=== PATIENT | male | born 1965 | race Two or more races ===

== ENCOUNTER 2018-12-14 09:36 | Inpatient (IN) | payer OTHER ==
[~2018-12-14] VITALS: Ht 167.6 cm; Wt 62.7 kg
[2018-12-14] MEDS ORDERED: FUROSEMIDE40 MG ORAL (09:59)
[2018-12-14] MEDS ORDERED: CARVEDILOL6.25 MG ORAL (09:59)
[2018-12-14] MEDS ORDERED: Isovue-300 100ml vial INJ PRN (10:00)
--- NOTE | 2018-12-14 10:16 | NUR ---
ED Nurse Note: Pt came in from home with spouse due to lower abdominal pain x 1 week with constipation, last bowel movement was 10 days ago. Abdomen felt soft and distended, hypoactive on auscultation. Pain 5/10 [place]. AOx4, VSS at this time. Will cont to monitor.
--- NOTE | 2018-12-14 10:22 | NUR ---
ED Nurse Note: Blood and urine collected and sent to lab.
[2018-12-14 10:30] LABS: BASOPHILS % (AUTO) 0.9 % (0.0-2.0); EOSINOPHILS % (AUTO) 0.9 % (0.0-3.0); HEMOGLOBIN 10.5 G/DL (14.2-18.0); LYMPHOCYTES % (AUTO) 13.5 % (20.0-45.0); MEAN CORPUSCULAR VOLUME 89 FL (80-99); MONOCYTES % (AUTO) 8.9 % (1.0-10.0); NEUTROPHILS % (AUTO) 75.8 % (45.0-75.0); PLATELET COUNT 134 K/UL (150-450); RED BLOOD COUNT 3.83 M/UL (4.70-6.10); RED CELL DISTRIBUTION WIDTH 16.3 % (11.6-14.8); WHITE BLOOD COUNT 4.2 K/UL (4.8-10.8)
[2018-12-14 10:31] LABS: APPEARANCE,URINE CLOUDY; BILIRUBIN, URINE NEGATIVE (NEGATIVE); GLUCOSE, URINE (UA) 1+ (NEGATIVE); KETONES,URINE NEGATIVE (NEGATIVE); LEUKOCYTE ESTERASE ,URINE 3+ (NEGATIVE); NITRITE,URINE NEGATIVE (NEGATIVE); PH,URINE 5 (4.5-8.0); PROTEIN,URINE 4+ (NEGATIVE); UROBILINOGEN,URINE NORMAL MG/DL (0.0-1.0)
[2018-12-14 10:32] VITALS: BP 136/88
[2018-12-14 10:38] LABS: ANION GAP 11 mmol/L (5-15); BLOOD UREA NITROGEN 89 mg/dL (7-18); CALCIUM 8.4 MG/DL (8.5-10.1); CARBON DIOXIDE 20 MMOL/L (21-32); CHLORIDE 105 MMOL/L (98-107); COLOR,URINE YELLOW; CREATININE 5.1 MG/DL (0.55-1.30); POTASSIUM 5.1 MMOL/L (3.5-5.1); SODIUM 136 MMOL/L (136-145)
[2018-12-14 10:42] LABS: INR 1.3 (0.9-1.1)
[2018-12-14 10:50] LABS: ALANINE AMINOTRANSFERASE 39 U/L (12-78); ALBUMIN 3.4 G/DL (3.4-5.0); ALBUMIN/GLOBULIN RATIO 0.8 (1.0-2.7); ALKALINE PHOSPHATASE 303 U/L (46-116); ASPARTATE AMINO TRANSFERASE 30 U/L (15-37); CREATINE KINASE 356 U/L (26-308)
--- NOTE | 2018-12-14 11:56 | Diagnostic Imaging Report ---
Indication: Shortness of breath Technique: One view of the chest Comparison: none Findings: The heart is enlarged. There is mild bilateral costophrenic angle blunting, indicative of the pleural fluid demonstrated on recent abdomen pelvis CT. The lungs are clear. Impression: Cardiomegaly Small bilateral pleural effusions.
--- NOTE | 2018-12-14 11:57 | Diagnostic Imaging Report ---
Indication: Abdominal pain, constipation Technique: Spiral acquisitions obtained through the abdomen and pelvis. No oral contrast utilized, per emergency room physician request No IV contrast utilized, . Renal insufficiency.. Multiplanar reconstructions were generated. Total dose length product 616.55 mGycm. CTDIvol(s) 11.9 mGy. Dose reduction achieved using automated exposure control Comparison: None Findings: Lack of enteric contrast limits assessment of the GI tract. The appendix is not definitely identified, but no findings to suggest acute appendicitis are evident. No evidence of diverticulosis or diverticulitis. No small bowel distention. There is a moderate amount of ascites fluid present. No free intraperitoneal gas is demonstrated. Lack of IV contrast limits assessment of the solid organs. The liver is enlarged. No gross focal abnormality. There is equivocal slight surface nodularity. The gallbladder contains gallstones. There is equivocal mild gallbladder wall thickening. No biliary ductal dilatation. The pancreas is unremarkable. The spleen is borderline enlarged, measuring 13 cm long axis dimension. The adrenals are grossly unremarkable. The right kidney demonstrates a nephroureteral stent in good position. There is no right hydronephrosis. Calculi are seen in the lower pole of the right kidney measuring up to 8 mm long axis dimension. No left renal or ureteral calculi are demonstrated. No left hydronephrosis or hydroureter. The bladder is equivocally mildly thick walled, although this is probably and artifact of under distention. No pelvic mass or adenopathy. There are prominent/borderline enlarged retroperitoneal lymph nodes, the largest measuring up to 2 cm long axis dimension. Ill-defined opacities are seen in the splenic hilum and lesser sac, possibly representing varices, although in the lesser sac findings could also represent prominent lymph nodes. There is generalized congestion of the mesenteric fat. There is also edema of the subcutaneous fat. There are bilateral moderate-sized pleural effusions. The lung bases demonstrate some posterior dependent and compressive atelectatic changes. The heart is mildly enlarged. The bones are unremarkable. Impression: Limited assessment of the GI tract, due to lack of enteric contrast administration Ascites fluid. More generalized anasarca as well, with bilateral moderate pleural effusions, and edema of the subcutaneous and mesenteric fat Hepatomegaly. Equivocal minimal hepatic surface nodularity, could indicate early cirrhotic change. Ultrasound may be useful to confirm if clinically indicated Cholelithiasis. Borderline gallbladder wall thickening, suspect related to with the process that is causing the ascites and anasarca, but the possibility of acute cholecystitis should also be considered. Consider ultrasound and/or hepatobiliary nuclear scanning if there is high clinical suspicion Borderline splenomegaly. Prominent soft tissue opacities in the splenic hilum and lesser sac, could indicate varices, all of the lesser sac findings could represent prominent nodes. Equivocal mild bladder wall thickening, probably an artifact of under distention but cystitis possible. Right nephroureteral stent. Apparently functioning well as there is no hydronephrosis Nonobstructive right lower pole intrarenal calculi Nonspecific prominent retroperitoneal nodes Mild cardiomegaly The CT scanner at [facility] is accredited by the [employer] and the scans are performed using protocols designed to limit radiation exposure to as low as reasonably achievable to attain images of sufficient resolution adequate for diagnostic evaluation.
[2018-12-14] MEDS ORDERED: Meropenem 1 GM in NS 110 ML IV SCH (12:15)
--- NOTE | 2018-12-14 12:20 | Emergency Room Report ---
History of Present Illness General Chief Complaint: Abdominal Pain Source: Patient Present Illness HPI This patient has a history of right sided congestive heart failure. There is also a history of renal failure. The patient and the family state that they are confused, and are not sure if the patient actually has renal failure. About a month and a half ago the patient underwent a ureteral stent at [facility] on the right side. He is being followed by a urologist, Dr. Galo Dolan. He has had intermittent lower body and lower extremity edema. He is intermittently on diuretics. He presents today for recurrence of his edema that includes his abdomen, scrotum and legs. He denies cough or shortness of breath. He denies fever or chills. He denies nausea or vomiting. He has no other complaints. Allergies: Coded Allergies: No Known Allergies (Unverified , 12/14/18) Patient History Past Medical History: see triage record, HTN, OK, CAD, CHF, renal disease Social History: Denies: smoking, alcohol use, drug use Reviewed Nursing Documentation: PMH: Agreed; PSxH: Agreed Nursing Documentation-PMH Hx Cardiac Problems: Yes - chf Hx Hypertension: Yes Review of Systems All Other Systems: negative except mentioned in HPI Physical Exam Vital Signs Date Time Temp Pulse Resp B/P (MAP) Pulse Ox O2 Delivery O2 Flow Rate FiO2 12/14/18 09:52 97.9 70 16 140/83 99 Room Air Sp02 EP Interpretation: reviewed, normal General Appearance: no apparent distress, alert, GCS 15, non-toxic Head: normocephalic, atraumatic Eyes: bilateral eye normal inspection, bilateral eye PERRL ENT: hearing grossly normal, normal pharynx, no angioedema, normal voice Neck: full range of motion, supple/symm/no masses Respiratory: chest non-tender, lungs clear, normal breath sounds, no respiratory distress, no retraction, no accessory muscle use, speaking full sentences Cardiovascular #1: regular rate, rhythm, edema - Anasarca (greatest on abdomen , scrotum and legs) Gastrointestinal: normal bowel sounds, non tender, soft, no guarding, no rebound, distended Rectal: deferred Musculoskeletal: back normal, normal range of motion, non-tender Neurologic: alert, oriented x3, responsive, motor strength/tone normal, sensory intact, speech normal Psychiatric: judgement/insight normal, memory normal, mood/affect normal, no suicidal/homicidal ideation Skin: normal color, no rash, warm/dry, well hydrated Medical Decision Making Diagnostic Impression: Primary Impression: CHF (congestive heart failure) Additional Impressions: Pyelonephritis ARF (acute renal failure) Pancytopenia ER Course This patient presents with renal failure, right-sided heart failure with anasarca. He has a known history of this. The patient has renal failure. I am unsure of the patient's baseline creatinine. The patient has not yet on dialysis. The patient remained stable in the emergency department. He is also found to have pyelonephritis. He was given broad-spectrum antibiotics. I did not start diuretics in this patient as he had no respiratory symptoms and overall was well and nontoxic. Given the patient's infection and renal failure , I felt that diuretics could exacerbate this patient's condition. I felt that there was more risk versus benefit in giving a diuretic. This patient will be admitted for pyelonephritis, fluid overload in the setting of congestive heart failure and acute renal failure. I anticipate this patient will need dialysis. He was admitted for further evaluation and treatment. Laboratory Tests Test 12/14/18 10:20 12/14/18 23:55 12/15/18 05:22 White Blood Count 4.2 K/UL (4.8-10.8) L 3.6 K/UL (4.8-10.8) L Red Blood Count 3.83 M/UL (4.70-6.10) L 3.30 M/UL (4.70-6.10) L Hemoglobin 10.5 G/DL (14.2-18.0) L 9.2 G/DL (14.2-18.0) L Hematocrit 34.0 % (42.0-52.0) L 29.0 % (42.0-52.0) L Mean Corpuscular Volume 89 FL (80-99) 88 FL (80-99) Mean Corpuscular Hemoglobin 27.4 PG (27.0-31.0) 27.9 PG (27.0-31.0) Mean Corpuscular Hemoglobin Concent 30.8 G/DL (32.0-36.0) L 31.7 G/DL (32.0-36.0) L Red Cell Distribution Width 16.3 % (11.6-14.8) H 16.1 % (11.6-14.8) H Platelet Count 134 K/UL (150-450) L 115 K/UL (150-450) L Mean Platelet Volume 10.0 FL (6.5-10.1) 9.8 FL (6.5-10.1) Neutrophils (%) (Auto) 75.8 % (45.0-75.0) H 69.0 % (45.0-75.0) Lymphocytes (%) (Auto) 13.5 % (20.0-45.0) L 18.5 % (20.0-45.0) L Monocytes (%) (Auto) 8.9 % (1.0-10.0) 9.7 % (1.0-10.0) Eosinophils (%) (Auto) 0.9 % (0.0-3.0) 1.8 % (0.0-3.0) Basophils (%) (Auto) 0.9 % (0.0-2.0) 1.0 % (0.0-2.0) Prothrombin Time 13.3 SEC (9.30-11.50) H Prothrombin Time INR 1.3 (0.9-1.1) H PTT 27 SEC (23-33) Urine Color Yellow Urine Appearance Cloudy Urine pH 5 (4.5-8.0) Urine Specific Odell 1.020 (1.005-1.035) Urine Protein 4+ (NEGATIVE) H Urine Glucose (UA) 1+ (NEGATIVE) H Urine Ketones Negative (NEGATIVE) Urine Blood 5+ (NEGATIVE) H Urine Nitrite Negative (NEGATIVE) Urine Bilirubin Negative (NEGATIVE) Urine Urobilinogen Normal MG/DL (0.0-1.0) Urine Leukocyte Esterase 3+ (NEGATIVE) H Urine RBC Tntc /HPF (0 - 0) H Urine WBC Tntc /HPF (0 - 0) H Urine Squamous Epithelial Cells Occasional /LPF Urine Amorphous Sediment Many /LPF (NONE) H Urine Bacteria Moderate /HPF (NONE) H Sodium Level 136 MMOL/L (136-145) 136 MMOL/L (136-145) Potassium Level 5.1 MMOL/L (3.5-5.1) 4.5 MMOL/L (3.5-5.1) Chloride Level 105 MMOL/L (98-107) 106 MMOL/L (98-107) Carbon Dioxide Level 20 MMOL/L (21-32) L 17 MMOL/L (21-32) L Anion Gap 11 mmol/L (5-15) 13 mmol/L (5-15) Blood Urea Nitrogen 89 mg/dL (7-18) H 89 mg/dL (7-18) H Creatinine 5.1 MG/DL (0.55-1.30) H 5.2 MG/DL (0.55-1.30) H 5.2 MG/DL (0.55-1.30) H Estimate Glomerular Filtration Rate 11.9 mL/min (>60) 11.6 mL/min (>60) 11.6 mL/min (>60) Glucose Level 131 MG/DL (74-106) H 87 MG/DL (74-106) Calcium Level 8.4 MG/DL (8.5-10.1) L 7.9 MG/DL (8.5-10.1) L Total Bilirubin 1.0 MG/DL (0.2-1.0) 0.9 MG/DL (0.2-1.0) Aspartate Amino Transferase (AST) 30 U/L (15-37) 26 U/L (15-37) Alanine Aminotransferase (ALT) 39 U/L (12-78) 32 U/L (12-78) Alkaline Phosphatase 303 U/L (46-116) H 269 U/L (46-116) H Total Creatine Kinase 356 U/L (26-308) H 322 U/L (26-308) H Troponin I 0.034 ng/mL (0.000-0.056) Total Protein 7.5 G/DL (6.4-8.2) 6.7 G/DL (6.4-8.2) Albumin 3.4 G/DL (3.4-5.0) 2.9 G/DL (3.4-5.0) L Globulin 4.1 g/dL 3.8 g/dL Albumin/Globulin Ratio 0.8 (1.0-2.7) L 0.8 (1.0-2.7) L Lipase 158 U/L (73-393) HIV (1&2) Antibody Rapid Negative (NEGATIVE) Hemoglobin A1c 7.0 % (4.3-6.0) H Uric Acid 9.3 MG/DL (2.6-7.2) H Phosphorus Level 5.7 MG/DL (2.5-4.9) H Magnesium Level 1.8 MG/DL (1.8-2.4) Ferritin 218 NG/ML (8-388) Gamma Glutamyl Transpeptidase 175 U/L (5-85) H C-Reactive Protein, Quantitative < 0.4 mg/dL (0.00-0.90) Pro-B-Type Natriuretic Peptide > 07306 pg/mL (0-125) H Triglycerides Level 72 MG/DL (30-150) Cholesterol Level 125 MG/DL (< 200) LDL Cholesterol 79 mg/dL (<100) HDL Cholesterol 37 MG/DL (40-60) L Cholesterol/HDL Ratio 3.4 (3.3-4.4) Vitamin B12 Level 646 PG/ML (193-986) Folate 12.5 NG/ML (8.6-58.9) Thyroid Stimulating Hormone (TSH) 5.314 uiU/mL (0.358-3.740) Hepatitis B Surface Antigen Pending Hepatitis B Surface Antibody, Quant Pending Hepatitis C Antibody Pending EKG Diagnostic Results Rate: normal Rhythm: NSR ST Segments: no acute changes Rhythm Strip Diag. Results EP Interpretation: yes Rate: 60's Rhythm: NSR, no PVC's, no ectopy Chest X-Ray Diagnostic Results Chest X-Ray Diagnostic Results : Chest X-Ray Ordered: Yes # of Views/Limited/Complete: 1 View Indication: Other EP Interpretation: Yes Interpretation: other - Impression: Cardiomegaly Impression: Other - See above Electronically Signed by: Belen Velasquez DO CT/MRI/US Diagnostic Results CT/MRI/US Diagnostic Results : Imaging Test Ordered: CT abd/pelvis Impression Ascites fluid. More generalized anasarca as well, with bilateral moderate pleural effusions, and edema of the subcutaneous and mesenteric fat Hepatomegaly. Equivocal minimal hepatic surface nodularity, could indicate early cirrhotic change. Ultrasound may be useful to confirm if clinically indicated Cholelithiasis. Borderline gallbladder wall thickening, suspect related to with the process that is causing the ascites and anasarca, but the possibility of acute cholecystitis should also be considered. Consider ultrasound and/or hepatobiliary nuclear scanning if there is high clinical suspicion Borderline splenomegaly. Prominent soft tissue opacities in the splenic hilum and lesser sac, could indicate varices, all of the lesser sac findings could represent prominent nodes. Equivocal mild bladder wall thickening, probably an artifact of under distention but cystitis possible. Right nephroureteral stent. Apparently functioning well as there is no hydronephrosis Nonobstructive right lower pole intrarenal calculi Nonspecific prominent retroperitoneal nodes Mild cardiomegaly Last Vital Signs Date Time Temp Pulse Resp B/P (MAP) Pulse Ox O2 Delivery O2 Flow Rate FiO2 12/14/18 10:32 65 20 136/88 98 Room Air 12/14/18 09:52 97.9 Disposition: ADMITTED INPATIENT Condition: Serious Referrals: Saraih Shaffer MD (PCP) Belen Velasquez DO Dec 14, 2018 12:20
[2018-12-14 13:10] VITALS: BP 143/86
--- NOTE | 2018-12-14 14:07 | NUR ---
ED Nurse Note: Pt ambulated to bathroom without any difficulty/ with steady gait, stated that pain has subsided.
--- NOTE | 2018-12-14 14:15 | NUR ---
ED Nurse Note: RN on 4 is not ready to take report at this time. Will try to call again.
--- NOTE | 2018-12-14 14:28 | NUR ---
REPORT GIVEN TO BRENDA LANDRY PATIENT IS TO BE TRANSFERD TO ROOM 412-1
[2018-12-14 15:30] VITALS: BP 167/97
--- NOTE | 2018-12-14 15:32 | NUR ---
NURSE NOTES: Received pt from RN CHANDLER WHITE in ER. pt is alert and orient x4. pt is in RA, No SOB or acute respiratory distress noted. pt has intact iv access RAC 20g SL. skin is intact. pt has swollen bilateral lower extremities. abdomen is very large. Dr Shaffer is aware about admission and ordered to consult with Dr MCMILLAN, Dr MCMILLAN visited pt and he is aware about HTN and other lab results and bilateral lower extremities swollen and large abdomen. stated he will do all orders. pt's sister is on bed side. all needs attended, bed is locked and is in the lowest position, call light within easy reach. will continue to monitor.
--- NOTE | 2018-12-14 15:41 | Consultation ---
Consult Note Consult Note asked to eval for renal failure This patient has a history of right sided congestive heart failure. There is also a history of renal failure. The patient and the family state that they are confused, and are not sure if the patient actually has renal failure. About a month and a half ago the patient underwent a ureteral stent at [facility] on the right side. He is being followed by a urologist, Dr. Galo Dolan. He has had intermittent lower body and lower extremity edema. He is intermittently on diuretics. He presents today for recurrence of his edema that includes his abdomen, scrotum and legs. He denies cough or shortness of breath. He denies fever or chills. He denies nausea or vomiting. He has no other complaints. Allergies: Coded Allergies: No Known Allergies (Unverified , 12/14/18) interviewed, was told by other Doctors that need dialysis examined data reviewed . Assessment/Plan Advanced Renal failure with Proteinuria CKD known to the patient h/o HTN h/o Cardiac disease s/p stent ? DM renal diet BP control Avoid Nephrotoxics 2D echo eval LV function Kidney RUSSEL Urine studies , Eos, 24h CrCl most likely need dialysis Micah Pitt MD Dec 14, 2018 15:41
[2018-12-14] MEDS ORDERED: HydrALAZINE 25mg tab ORAL PRN (15:45)
[2018-12-14] MEDS: Aspirin Baby 81mg ORAL SCH (16:52)
[2018-12-14 17:00] VITALS: BP 159/88
[2018-12-14] MEDS: Docusate 100mg cap ORAL SCH (18:00)
--- NOTE | 2018-12-14 18:19 | Cardiology Report ---
APPROVED REPORT EXAM: Two-dimensional and M-mode echocardiogram with Doppler and color Doppler. INDICATION Congestive Heart Failure M-Mode DIMENSIONS IVSd1.1 (0.7-1.1cm)Left Atrium (MM)3.1 (1.6-4.0cm) LVDd5.4 (3.5-5.6cm)Aortic Root3.5 (2.0-3.7cm) PWd0.7 (0.7-1.1cm)Aortic Cusp Exc.1.8 (1.5-2.0cm) IVSs1.0 cm LVDs4.7 (2.5-4.0cm) PWs0.8 cm Global left ventricular hypokinesis with falttenign of cody VS suggestive of RV pressuere overload Mild left ventricular enlargement . Left ventricular ejection fraction estimated to be 25-30%. No evidence of left ventricular hypertrophy. Trivial pericardial effusion . Pleural effusion present . Mild bi-atrial enlargement . Right ventricular chamber sizes is within upper normal limits . Focal aortic valve sclerosis with adequate cusp excursion. Mildly thickened mitral valve leaflets with normal excursion. Mild mitral annulus and aortic root calcification. Pulmonic valve not well visualized. IVC at 2.1 cm without physiologic collapse suggestive of increased RA pressure. A color flow and spectral Doppler study was performed and revealed: Mild aortic insufficiency . Mitral inflow velocities indicates possible pseudo normalization pattern implying moderately elevated left atrial pressure (Grade II ). Mild mitral regurgitation. Moderate tricuspid regurgitation. Tricuspid systolic velocities suggests peak right ventricular systolic pressure of 66mmHg,consistent with severe pulmonary hypertension . Mild pulmonic regurgitation present .
--- NOTE | 2018-12-14 19:47 | NUR ---
HAND-OFF: Report given to RN RADHA. Reported to F/U for 24hr Urine.
--- NOTE | 2018-12-14 19:50 | Consultation ---
History of Present Illness General Chief Complaint: Abdominal Pain Present Illness Allergies: Coded Allergies: No Known Allergies (Unverified , 12/14/18) Medication History Scheduled Carvedilol* (Carvedilol*), 6.25 MG ORAL EVERY 12 HOURS, (Reported) Furosemide* (Lasix*), 40 MG ORAL TWICE A DAY, (Reported) Patient History Healthcare decision maker Resuscitation status Full Code Advanced Directive on File Physical Exam Last 24 Hour Vital Signs Date Time Temp Pulse Resp B/P (MAP) Pulse Ox O2 Delivery O2 Flow Rate FiO2 12/14/18 17:00 159/88 (111) 12/14/18 16:53 167/97 12/14/18 16:53 167/97 12/14/18 15:30 96.0 17 167/97 (120) 98 12/14/18 15:30 Room Air 12/14/18 14:24 98.2 76 20 134/80 98 Room Air 12/14/18 13:10 97.9 64 20 143/86 99 Room Air 12/14/18 10:32 65 20 136/88 98 Room Air 12/14/18 10:11 70 16 Room Air 12/14/18 09:52 97.9 70 16 140/83 99 Room Air Laboratory Tests Test 12/14/18 10:20 White Blood Count 4.2 K/UL (4.8-10.8) L Red Blood Count 3.83 M/UL (4.70-6.10) L Hemoglobin 10.5 G/DL (14.2-18.0) L Hematocrit 34.0 % (42.0-52.0) L Mean Corpuscular Volume 89 FL (80-99) Mean Corpuscular Hemoglobin 27.4 PG (27.0-31.0) Mean Corpuscular Hemoglobin Concent 30.8 G/DL (32.0-36.0) L Red Cell Distribution Width 16.3 % (11.6-14.8) H Platelet Count 134 K/UL (150-450) L Mean Platelet Volume 10.0 FL (6.5-10.1) Neutrophils (%) (Auto) 75.8 % (45.0-75.0) H Lymphocytes (%) (Auto) 13.5 % (20.0-45.0) L Monocytes (%) (Auto) 8.9 % (1.0-10.0) Eosinophils (%) (Auto) 0.9 % (0.0-3.0) Basophils (%) (Auto) 0.9 % (0.0-2.0) Prothrombin Time 13.3 SEC (9.30-11.50) H Prothromb Time International Ratio 1.3 (0.9-1.1) H Activated Partial Thromboplast Time 27 SEC (23-33) Urine Color Yellow Urine Appearance Cloudy Urine pH 5 (4.5-8.0) Urine Specific [place] 1.020 (1.005-1.035) Urine Protein 4+ (NEGATIVE) H Urine Glucose (UA) 1+ (NEGATIVE) H Urine Ketones Negative (NEGATIVE) Urine Blood 5+ (NEGATIVE) H Urine Nitrite Negative (NEGATIVE) Urine Bilirubin Negative (NEGATIVE) Urine Urobilinogen Normal MG/DL (0.0-1.0) Urine Leukocyte Esterase 3+ (NEGATIVE) H Urine RBC Tntc /HPF (0 - 0) H Urine WBC Tntc /HPF (0 - 0) H Urine Squamous Epithelial Cells Occasional /LPF Urine Amorphous Sediment Many /LPF (NONE) H Urine Bacteria Moderate /HPF (NONE) H Sodium Level 136 MMOL/L (136-145) Potassium Level 5.1 MMOL/L (3.5-5.1) Chloride Level 105 MMOL/L (98-107) Carbon Dioxide Level 20 MMOL/L (21-32) L Anion Gap 11 mmol/L (5-15) Blood Urea Nitrogen 89 mg/dL (7-18) H Creatinine 5.1 MG/DL (0.55-1.30) H Estimat Glomerular Filtration Rate 11.9 mL/min (>60) Glucose Level 131 MG/DL (74-106) H Calcium Level 8.4 MG/DL (8.5-10.1) L Total Bilirubin 1.0 MG/DL (0.2-1.0) Aspartate Amino Transf (AST/SGOT) 30 U/L (15-37) Alanine Aminotransferase (ALT/SGPT) 39 U/L (12-78) Alkaline Phosphatase 303 U/L (46-116) H Total Creatine Kinase 356 U/L (26-308) H Troponin I 0.034 ng/mL (0.000-0.056) Total Protein 7.5 G/DL (6.4-8.2) Albumin 3.4 G/DL (3.4-5.0) Globulin 4.1 g/dL Albumin/Globulin Ratio 0.8 (1.0-2.7) L Lipase 158 U/L (73-393) Height (Feet): 5 Height (Inches): 6.00 Weight (Pounds): 153 Medications Current Medications Medications (Trade) Dose Ordered Sig/Félix Route PRN Reason Start Time Stop Time Status Last Admin Dose Admin Acetaminophen (Tylenol) 650 mg Q4H PRN ORAL Mild Pain/Temp > 100.5 12/14/18 15:45 01/13/19 15:44 Aspirin (ASA) 162 mg DAILY ORAL 12/14/18 15:45 01/13/19 15:44 12/14/18 16:52 Docusate Sodium (Colace) 100 mg TWICE A DAY ORAL 12/14/18 18:00 01/13/19 17:59 Heparin Sodium (Porcine) (Heparin 5000 units/ml) 5,000 units EVERY 12 HOURS SUBQ 12/14/18 21:00 01/13/19 20:59 Hydralazine HCl (Apresoline) 25 mg Q4H PRN ORAL bp over 160 syst 12/14/18 15:45 01/13/19 15:44 12/14/18 16:53 Iopamidol (Isovue-300 100ml) 100 ml NOW PRN INJ Radiology Procedure 12/14/18 10:00 Isosorbide Dinitrate (Isordil) 10 mg Q8HR ORAL 12/14/18 15:45 01/13/19 15:44 12/14/18 16:53 Meropenem 1 gm/ Sodium Chloride 110 ml @ 220 mls/hr Q8H IV 12/14/18 12:15 12/15/18 12:14 12/14/18 12:23 Pantoprazole (Protonix) 40 mg EVERY 12 HOURS ORAL 12/14/18 21:00 01/13/19 20:59 Sodium Chloride 1,000 ml @ 50 mls/hr Q20H IV 12/14/18 15:45 01/13/19 15:44 12/14/18 16:47 Tamsulosin HCl (Flomax) 0.4 mg BEDTIME ORAL 12/14/18 21:00 01/13/19 20:59 Assessment/Plan Assessment: Hematology Consultation REQ MD: Sarahi Shaffer Chief Complaint: Abdominal Pain RFC: Pancytopenia, coagulopathy DOS: 12/14/18 HPI 53 y old male with a history of right sided congestive heart failure. There is also a history of renal failure. The patient and the family state that they are confused, and are not sure if the patient actually has renal failure. About a month and a half ago the patient underwent a ureteral stent at [facility] on the right side. He is being followed by a urologist, Dr. Galo Dolan. He has had intermittent lower body and lower extremity edema. He is intermittently on diuretics. He presents today for recurrence of his edema that includes his abdomen, scrotum and legs. He denies cough or shortness of breath. He denies fever or chills. He denies nausea or vomiting. He has no other complaints. Coded Allergies: No Known Allergies (Unverified , 12/14/18) Nursing Documentation-PMH Hx Cardiac Problems: Yes - chf Hx Hypertension: Yes ROS: nonvebral PE: Vitals: reviewed General Appearance: NAD, nonverbal HEENT: normocephalic, atraumatic Neck: non-tender, normal alignment Respiratory/Chest: nromal breath sounds bilaterally Cardiovascular/Chest: normal peripheral pulses, normal rate Abdomen: normal bowel sounds, soft, nontender Extremities: normal range of motion . Current Medications Medications (Trade) Dose Ordered Sig/Félix Route PRN Reason Start Time Stop Time Status Last Admin Dose Admin Acetaminophen (Tylenol) 650 mg Q4H PRN ORAL Mild Pain/Temp > 100.5 12/14/18 15:45 01/13/19 15:44 Aspirin (ASA) 162 mg DAILY ORAL 12/14/18 15:45 01/13/19 15:44 12/14/18 16:52 Docusate Sodium (Colace) 100 mg TWICE A DAY ORAL 12/14/18 18:00 01/13/19 17:59 Heparin Sodium (Porcine) (Heparin 5000 units/ml) 5,000 units EVERY 12 HOURS SUBQ 12/14/18 21:00 01/13/19 20:59 Hydralazine HCl (Apresoline) 25 mg Q4H PRN ORAL bp over 160 syst 12/14/18 15:45 01/13/19 15:44 12/14/18 16:53 Iopamidol (Isovue-300 100ml) 100 ml NOW PRN INJ Radiology Procedure 12/14/18 10:00 Isosorbide Dinitrate (Isordil) 10 mg Q8HR ORAL 12/14/18 15:45 01/13/19 15:44 12/14/18 16:53 Meropenem 1 gm/ Sodium Chloride 110 ml @ 220 mls/hr Q8H IV 12/14/18 12:15 12/15/18 12:14 12/14/18 12:23 Pantoprazole (Protonix) 40 mg EVERY 12 HOURS ORAL 12/14/18 21:00 01/13/19 20:59 Sodium Chloride 1,000 ml @ 50 mls/hr Q20H IV 12/14/18 15:45 01/13/19 15:44 12/14/18 16:47 Tamsulosin HCl (Flomax) 0.4 mg BEDTIME ORAL 12/14/18 21:00 01/13/19 20:59 Active Scripts Medications Dose Route/Sig Max Daily Dose Days Date Category Carvedilol* (Carvedilol) 6.25 Mg Tablet 6.25 Mg ORAL EVERY 12 HOURS 12/14/18 Reported Lasix* (Furosemide) 40 Mg Tablet 40 Mg ORAL TWICE A DAY 12/14/18 Reported Laboratory Tests Test 12/14/18 10:20 White Blood Count 4.2 K/UL (4.8-10.8) L Red Blood Count 3.83 M/UL (4.70-6.10) L Hemoglobin 10.5 G/DL (14.2-18.0) L Hematocrit 34.0 % (42.0-52.0) L Mean Corpuscular Volume 89 FL (80-99) Mean Corpuscular Hemoglobin 27.4 PG (27.0-31.0) Mean Corpuscular Hemoglobin Concent 30.8 G/DL (32.0-36.0) L Red Cell Distribution Width 16.3 % (11.6-14.8) H Platelet Count 134 K/UL (150-450) L Mean Platelet Volume 10.0 FL (6.5-10.1) Neutrophils (%) (Auto) 75.8 % (45.0-75.0) H Lymphocytes (%) (Auto) 13.5 % (20.0-45.0) L Monocytes (%) (Auto) 8.9 % (1.0-10.0) Eosinophils (%) (Auto) 0.9 % (0.0-3.0) Basophils (%) (Auto) 0.9 % (0.0-2.0) Prothrombin Time 13.3 SEC (9.30-11.50) H Prothromb Time International Ratio 1.3 (0.9-1.1) H Activated Partial Thromboplast Time 27 SEC (23-33) Urine Color Yellow Urine Appearance Cloudy Urine pH 5 (4.5-8.0) Urine Specific [place] 1.020 (1.005-1.035) Urine Protein 4+ (NEGATIVE) H Urine Glucose (UA) 1+ (NEGATIVE) H Urine Ketones Negative (NEGATIVE) Urine Blood 5+ (NEGATIVE) H Urine Nitrite Negative (NEGATIVE) Urine Bilirubin Negative (NEGATIVE) Urine Urobilinogen Normal MG/DL (0.0-1.0) Urine Leukocyte Esterase 3+ (NEGATIVE) H Urine RBC Tntc /HPF (0 - 0) H Urine WBC Tntc /HPF (0 - 0) H Urine Squamous Epithelial Cells Occasional /LPF Urine Amorphous Sediment Many /LPF (NONE) H Urine Bacteria Moderate /HPF (NONE) H Sodium Level 136 MMOL/L (136-145) Potassium Level 5.1 MMOL/L (3.5-5.1) Chloride Level 105 MMOL/L (98-107) Carbon Dioxide Level 20 MMOL/L (21-32) L Anion Gap 11 mmol/L (5-15) Blood Urea Nitrogen 89 mg/dL (7-18) H Creatinine 5.1 MG/DL (0.55-1.30) H Estimat Glomerular Filtration Rate 11.9 mL/min (>60) Glucose Level 131 MG/DL (74-106) H Calcium Level 8.4 MG/DL (8.5-10.1) L Total Bilirubin 1.0 MG/DL (0.2-1.0) Aspartate Amino Transf (AST/SGOT) 30 U/L (15-37) Alanine Aminotransferase (ALT/SGPT) 39 U/L (12-78) Alkaline Phosphatase 303 U/L (46-116) H Total Creatine Kinase 356 U/L (26-308) H Troponin I 0.034 ng/mL (0.000-0.056) Total Protein 7.5 G/DL (6.4-8.2) Albumin 3.4 G/DL (3.4-5.0) Globulin 4.1 g/dL Albumin/Globulin Ratio 0.8 (1.0-2.7) L Lipase 158 U/L (73-393) Assessment/Plan # Pancytopenia -- multiple etiologies could be related to underlying liver disease, medication-induced, infection versus viral syndrome -> on imaging of the ct a/p, does appear has a history of SPLENOMEGALY AND CIRRHOSIS (irregular liver sufrace can explain pancytopenia), Prominent soft tissue opacities in the splenic hilum and lesser sac, could indicate varices, all of the lesser sac findings could represent prominent nodes. Consider gi evaluation and treatment --> peripheral smear has been ordered and does not show significant abnormalities does not appear to have significant abnormalities --> Medications have been reviewed --> Continue to monitor for improvement, trend cbc --> Hep panel and HIV have been ordered --> consider other causes, infections that could contribute --> reverse isolation if ANC is <2000 --> Give neupogen if ANC <1000 --> Transfuse if hgb <7, with 1 unit prbc --> consider bone marrow biopsy if no other causes are found # Coagulation defect, multifactorial usually related to poor PO intake versus medications, versus hepatitis v cirrhosis --> administer Vitamin K if patient is bleeding or FFP if the INR is >10 --> hold off on ffp unless active procedure/bleeding, first begin with vit K 10 --> mixing study as needed # Advanced Renal failure with Proteinuria --> as per renal eval and recs # CKD known to the patient --> pre renal may need hd # h/o HTN --> sbp goal <140 # h/o Cardiac disease s/p stent # ? DM The timing of this note does not necessarily reflect the time of the patient was seen. Greatly appreciate consultation! Enrrique Solano MD Dec 14, 2018 19:50
[2018-12-14 20:00] VITALS: BP 127/62
--- NOTE | 2018-12-14 20:41 | Cardiology Progress Note ---
Assessment/Plan Assessment/Plan The patient is seen and examined, full consult note will be dictated soon. Objective Last 24 Hour Vital Signs Date Time Temp Pulse Resp B/P (MAP) Pulse Ox O2 Delivery O2 Flow Rate FiO2 12/14/18 17:00 159/88 (111) 12/14/18 16:53 167/97 12/14/18 16:53 167/97 12/14/18 15:30 96.0 17 167/97 (120) 98 12/14/18 15:30 Room Air 12/14/18 14:24 98.2 76 20 134/80 98 Room Air 12/14/18 13:10 97.9 64 20 143/86 99 Room Air 12/14/18 10:32 65 20 136/88 98 Room Air 12/14/18 10:11 70 16 Room Air 12/14/18 09:52 97.9 70 16 140/83 99 Room Air Laboratory Tests Test 12/14/18 10:20 White Blood Count 4.2 K/UL (4.8-10.8) L Red Blood Count 3.83 M/UL (4.70-6.10) L Hemoglobin 10.5 G/DL (14.2-18.0) L Hematocrit 34.0 % (42.0-52.0) L Mean Corpuscular Volume 89 FL (80-99) Mean Corpuscular Hemoglobin 27.4 PG (27.0-31.0) Mean Corpuscular Hemoglobin Concent 30.8 G/DL (32.0-36.0) L Red Cell Distribution Width 16.3 % (11.6-14.8) H Platelet Count 134 K/UL (150-450) L Mean Platelet Volume 10.0 FL (6.5-10.1) Neutrophils (%) (Auto) 75.8 % (45.0-75.0) H Lymphocytes (%) (Auto) 13.5 % (20.0-45.0) L Monocytes (%) (Auto) 8.9 % (1.0-10.0) Eosinophils (%) (Auto) 0.9 % (0.0-3.0) Basophils (%) (Auto) 0.9 % (0.0-2.0) Prothrombin Time 13.3 SEC (9.30-11.50) H Prothromb Time International Ratio 1.3 (0.9-1.1) H Activated Partial Thromboplast Time 27 SEC (23-33) Urine Color Yellow Urine Appearance Cloudy Urine pH 5 (4.5-8.0) Urine Specific [place] 1.020 (1.005-1.035) Urine Protein 4+ (NEGATIVE) H Urine Glucose (UA) 1+ (NEGATIVE) H Urine Ketones Negative (NEGATIVE) Urine Blood 5+ (NEGATIVE) H Urine Nitrite Negative (NEGATIVE) Urine Bilirubin Negative (NEGATIVE) Urine Urobilinogen Normal MG/DL (0.0-1.0) Urine Leukocyte Esterase 3+ (NEGATIVE) H Urine RBC Tntc /HPF (0 - 0) H Urine WBC Tntc /HPF (0 - 0) H Urine Squamous Epithelial Cells Occasional /LPF Urine Amorphous Sediment Many /LPF (NONE) H Urine Bacteria Moderate /HPF (NONE) H Sodium Level 136 MMOL/L (136-145) Potassium Level 5.1 MMOL/L (3.5-5.1) Chloride Level 105 MMOL/L (98-107) Carbon Dioxide Level 20 MMOL/L (21-32) L Anion Gap 11 mmol/L (5-15) Blood Urea Nitrogen 89 mg/dL (7-18) H Creatinine 5.1 MG/DL (0.55-1.30) H Estimat Glomerular Filtration Rate 11.9 mL/min (>60) Glucose Level 131 MG/DL (74-106) H Calcium Level 8.4 MG/DL (8.5-10.1) L Total Bilirubin 1.0 MG/DL (0.2-1.0) Aspartate Amino Transf (AST/SGOT) 30 U/L (15-37) Alanine Aminotransferase (ALT/SGPT) 39 U/L (12-78) Alkaline Phosphatase 303 U/L (46-116) H Total Creatine Kinase 356 U/L (26-308) H Troponin I 0.034 ng/mL (0.000-0.056) Total Protein 7.5 G/DL (6.4-8.2) Albumin 3.4 G/DL (3.4-5.0) Globulin 4.1 g/dL Albumin/Globulin Ratio 0.8 (1.0-2.7) L Lipase 158 U/L (73-393) HIV (1&2) Antibody Rapid Pending Mynor Rockwell MD Dec 14, 2018:41
[2018-12-14] MEDS: Tamsulosin 0.4mg cap ORAL SCH (21:13)
[2018-12-14] MEDS: Heparin 5000 units/ml inj SUBQ SCH (21:15)
[2018-12-14] MEDS: HydrALAZINE 25mg tab ORAL SCH (21:28)
[2018-12-14] MEDS: Imdur 30mg tab ORAL SCH (21:28)
--- NOTE | 2018-12-14 22:45 | Consultation ---
DATE OF CONSULTATION: 12/14/2018 UROLOGY CONSULTATION ATTENDING/CONSULTING PHYSICIAN: Sarahi Shaffer M.D. CHIEF COMPLAINT/HISTORY OF PRESENT ILLNESS: I was asked by Dr. Shaffer to evaluate 53-year-old gentleman regarding history of right ureteral stent in the setting of a previous stone. Briefly the patient has a history of apparent kidney stones. He was seen at [facility] by Dr. Florez for the same. Apparently a double-J stent was placed at that time. The patient followed up with his primary doctor, Dr. Shaffer who referred him to see a urologist regarding the same. Apparently, the patient saw Dr. Dolan last week and is scheduled for followup with him regarding the same. Dr. Dolan is the urologist on staff here. PAST MEDICAL HISTORY: 1. CHF. 2. Acute on chronic renal insufficiency. 3. Kidney stones. 4. Hypertension. 5. Coagulation defect. 6. Pancytopenia. 7. Coronary artery disease. PAST SURGICAL HISTORY: Cystoscopy with right double-J stent placement. MEDICATIONS: Please see chart for current medications and administration details. ALLERGIES: No known drug allergies. SOCIAL HISTORY: Unremarkable for tobacco, alcohol, or drug use. FAMILY HISTORY: Noncontributory. REVIEW OF SYSTEMS: A 14-system review of systems was essentially unremarkable outside of what is described above. PHYSICAL EXAMINATION: GENERAL: The patient is a middle-aged gentleman, awake, alert, and oriented x4, pleasant, no obvious distress. HEENT: NC/AT. EOMI. Oropharynx clear. NECK: Supple. CHEST: Within normal limits. ABDOMEN: Soft, flat, nontender, nondistended. EXTREMITIES: Warm and well perfused. No cyanosis, clubbing, or edema. BACK: No CVA tenderness to percussion. NEUROLOGIC: Nonfocal. LABORATORY AND DIAGNOSTIC DATA: White blood cell count 4.2, hematocrit 34, platelets 134. PT 13.3, INR 1.3, PTT 27. Sodium 136, potassium 5.1, chloride 105, bicarb 20, BUN 89, creatinine 5.1, glucose 131, calcium 8.4. LFTs within normal limits, alkaline phosphatase 303. Urinalysis specific gravity 1.020, pH 5.0. Dip test notable for 4+ protein, 1+ glucose, 5+ occult blood, 3+ leukocyte esterase. Microanalysis is too numerous to count white and red blood cells per high-power field, and moderate bacteria seen. DIAGNOSTIC IMAGING: CT scan of the abdomen and pelvis reveals generalized anasarca, ascites fluid, hepatomegaly cholelithiasis, splenomegaly, mild bladder wall thickening likely secondary to underdistention, a right nephroureteral stent is in place. It is apparently functioning as there is no hydronephrosis. There are nonobstructing lower pole right-sided renal calculi. There is mild cardiomegaly. ASSESSMENT AND PLAN: In summary, the patient is a 53-year-old gentleman with history of multiple medical issues including renal failure, congestive heart failure, and hypertension. He also has a history of kidney stones and one month ago had a right ureteral stent placed at [facility] for the same by Dr. Florez. The patient was then referred to see Dr. Dolan as a urologist and has plan regarding the same and has established care with him. He presents to the hospital with acute on chronic renal insufficiency and congestive heart failure exacerbation. Physical exam reveals an ill-appearing gentleman with no genitourinary abnormalities. Laboratory data is notable for renal failure. Diagnostic imaging reveals a stent in place. I discussed these findings today with the patient at bedside. His nephroureteral stent is in good position and there is no hydronephrosis or obstructing stone etc. The patient is in the hospital for unrelated issues including congestive heart failure exacerbation and acute on chronic renal insufficiency which does not appear to be secondary to obstructive uropathy. His stent should remain in place and once he is feeling better, he can be discharged and follow up with Dr. Dolan in the office regarding removal of the stent and treatment of the stones. Thank you for allowing me to participate in the care of this unfortunate gentleman. Please do not hesitate to contact me for any questions that you may further have regarding his care. I will see him with you as needed. Roderick Weiss M.D. DR: Calixto JOB#: [id number] CC:
[2018-12-15] VITALS: BP 139/61
[2018-12-15 00:15] LABS: CREATININE 5.2 MG/DL (0.55-1.30)
--- NOTE | 2018-12-15 03:03 | NUR ---
NURSE NOTES: 24 hour urine collection started 1900. Patient awake, AOx4, family at the bedside, IV access asymptomatic. Fall and safety precautions taken.
[2018-12-15 04:00] VITALS: BP 137/75
[2018-12-15] MEDS: HydrALAZINE 25mg tab ORAL SCH ×4 (05:46→18:00)
[2018-12-15 06:02] LABS: EOSINOPHILS % (AUTO) 1.8 % (0.0-3.0); HEMOGLOBIN 9.2 G/DL (14.2-18.0); LYMPHOCYTES % (AUTO) 18.5 % (20.0-45.0); MEAN CORPUSCULAR VOLUME 88 FL (80-99); MONOCYTES % (AUTO) 9.7 % (1.0-10.0); PLATELET COUNT 115 K/UL (150-450); RED CELL DISTRIBUTION WIDTH 16.1 % (11.6-14.8); WHITE BLOOD COUNT 3.6 K/UL (4.8-10.8)
[2018-12-15 06:38] LABS: ALANINE AMINOTRANSFERASE 32 U/L (12-78); ALBUMIN 2.9 G/DL (3.4-5.0); ALBUMIN/GLOBULIN RATIO 0.8 (1.0-2.7); ALKALINE PHOSPHATASE 269 U/L (46-116); ANION GAP 13 mmol/L (5-15); ASPARTATE AMINO TRANSFERASE 26 U/L (15-37); BILIRUBIN,TOTAL 0.9 MG/DL (0.2-1.0); BLOOD UREA NITROGEN 89 mg/dL (7-18); CALCIUM 7.9 MG/DL (8.5-10.1); CARBON DIOXIDE 17 MMOL/L (21-32); CHLORIDE 106 MMOL/L (98-107); CHOLESTEROL 125 MG/DL (< 200); CREATINE KINASE 322 U/L (26-308); CREATININE 5.2 MG/DL (0.55-1.30); FERRITIN 218 NG/ML (8-388); GAMMA GLUTAMYL TRANSPEPTIDASE 175 U/L (5-85); HDL CHOLESTEROL 37 MG/DL (40-60); PHOSPHORUS 5.7 MG/DL (2.5-4.9); POTASSIUM 4.5 MMOL/L (3.5-5.1); SODIUM 136 MMOL/L (136-145); TRIGLYCERIDES 72 MG/DL (30-150)
--- NOTE | 2018-12-15 07:30 | NUR ---
NURSE NOTES: Received pt from GR[facility]. Pt is alert and orient x4. pt is in RA, NO SOB or acute respiratory distress noted. pt has intact iv access LFA 20G SL. 24HR Urine is collecting. pt's sister is on bed side. all needs attended, bed is locked and is in the lowest position, call light within easy reach. will continue to monitor.
--- NOTE | 2018-12-15 07:42 | NUR ---
HAND-OFF: Report given to GRIS Schultz.
[2018-12-15 08:00] VITALS: BP 144/86
--- NOTE | 2018-12-15 08:59 | NUR ---
QUALITY IMPROVEMENT COORDINATORBUNDLE PERSON 53 Y/O MALE FROM HOME CAME TO [facility] [place] [facility] CC:ABDOMINAL PAIN SI:ACUTE RENAL FAILURE . CHF VS: BP 143/86, P 70, T 97.9, RR 16, SpO2 99 WBC 3.6, RBC 3.30, Hgb 9.2, Hct 29.0 BUN 89, CR 5.2, URINE: Protein 4+, Blood 5+, Bacteria- MODERATE CXR IMPRESSION: CARDIOMEGALY ABDOMINAL CT IMPRESSION: HEPATOMEGALY, CHOLELITHIASIS, BORDERLINE SPLENOMEGALY IS:ZOFRAN 4mg IVP MEROPENEM 1gm 110ml IV ISORDIL 10mg NS x1L IV APRESOLINE 25mg COREG 3.125mg ADMITTED TO MED/SURG DCP: RETURN HOME
[2018-12-15] MEDS ORDERED: Calcitriol 0.5mcg Cap ORAL SCH (09:00)
[2018-12-15] MEDS: Heparin 5000 units/ml inj SUBQ SCH ×3 (09:00→20:22)
[2018-12-15] MEDS: Carvedilol 6.25mg Tab ORAL SCH ×2 (09:09→20:21)
[2018-12-15] MEDS: Allopurinol 100mg Tab ORAL SCH (09:09)
[2018-12-15] MEDS: Imdur 30mg tab ORAL SCH (09:09)
[2018-12-15] MEDS: Docusate 100mg cap ORAL SCH ×2 (09:09→18:00)
[2018-12-15] MEDS: Aspirin Baby 81mg ORAL SCH (09:09)
[2018-12-15] MEDS: Calcitriol 0.25mcg Cap ORAL SCH (09:53)
[2018-12-15] MEDS ORDERED: Vitamin D 50,000 units cap ORAL SCH (10:00)
--- NOTE | 2018-12-15 10:40 | NUR ---
NURSE NOTES: PLT 115 Dr MCMILLAN ordered to give heparin, carried out. will continue to monitor.
--- NOTE | 2018-12-15 11:12 | Nephrology Progress Note ---
Assessment/Plan Problem List: (1) CHF (congestive heart failure) (2) ARF (acute renal failure) (3) Anemia in chronic kidney disease (CKD) Assessment Advanced Renal failure with Proteinuria CKD known to the patient h/o HTN h/o Cardiac disease s/p stent ? DM high A1c Plan after and pre load reduction management discussed the need for Dialysis 1000 cc fluid restriction Renal diet- Phos binders BP check kidney RUSSEL pending 24 h urine being collected per orders Global left ventricular hypokinesis with falttenign of cody VS suggestive of RV pressuere overload Mild left ventricular enlargement . Left ventricular ejection fraction estimated to be 25-30%. Subjective ROS Limited/Unobtainable: No Constitutional: Reports: malaise Objective Objective Last 24 Hour Vital Signs Date Time Temp Pulse Resp B/P (MAP) Pulse Ox O2 Delivery O2 Flow Rate FiO2 12/15/18 09:09 76 144/86 12/15/18 09:09 144/86 12/15/18 09:00 Room Air 12/15/18 08:00 97.7 76 16 144/86 (105) 100 12/15/18 05:46 137/75 12/15/18 04:00 98.0 72 20 137/75 (95) 97 12/15/18 00:00 129/61 12/15/18 00:00 98.4 75 20 139/61 (87) 98 12/14/18 21:28 159/88 12/14/18 21:28 159/88 12/14/18 21:13 76 159/88 12/14/18 21:00 Room Air 12/14/18 20:00 97.5 73 20 127/62 (83) 98 12/14/18 17:00 159/88 (111) 12/14/18 16:53 167/97 12/14/18 16:53 167/97 12/14/18 15:30 96.0 17 167/97 (120) 98 12/14/18 15:30 Room Air 12/14/18 14:24 98.2 76 20 134/80 98 Room Air 12/14/18 13:10 97.9 64 20 143/86 99 Room Air Intake and Output 12/14/18 12/15/18 19:00 07:00 Intake Total 450 ml 350 ml Output Total 300 ml Balance 450 ml 50 ml Intake Oral 240 ml 350 ml IV Total 210 ml Output Urine Total 300 ml # Voids 1 # Bowel Movements 1 Laboratory Tests 12/14/18 23:55: Creatinine 5.2H, Estimat Glomerular Filtration Rate 11.6 12/15/18 05:22: Creatinine 5.2H, Estimat Glomerular Filtration Rate 11.6, White Blood Count 3.6L , Red Blood Count 3.30L, Hemoglobin 9.2L, Hematocrit 29.0L, Mean Corpuscular Volume 88, Mean Corpuscular Hemoglobin 27.9, Mean Corpuscular Hemoglobin Concent 31.7L, Red Cell Distribution Width 16.1H, Platelet Count 115L, Mean Platelet Volume 9.8, Neutrophils (%) (Auto) 69.0, Lymphocytes (%) (Auto) 18.5L, Monocytes (%) (Auto) 9.7, Eosinophils (%) (Auto) 1.8, Basophils (%) (Auto) 1.0, Sodium Level 136, Potassium Level 4.5, Chloride Level 106, Carbon Dioxide Level 17L, Anion Gap 13, Blood Urea Nitrogen 89H, Glucose Level 87, Hemoglobin A1c 7.0H, Uric Acid 9.3H, Calcium Level 7.9L, Phosphorus Level 5.7H, Magnesium Level 1.8, Ferritin 218, Total Bilirubin 0.9, Gamma Glutamyl Transpeptidase 175H , Aspartate Amino Transf (AST/SGOT) 26, Alanine Aminotransferase (ALT/SGPT) 32, Alkaline Phosphatase 269H, Total Creatine Kinase 322H, C-Reactive Protein, Quantitative < 0.4, Pro-B-Type Natriuretic Peptide > 53221N, Total Protein 6.7, Albumin 2.9L, Globulin 3.8, Albumin/Globulin Ratio 0.8L, Triglycerides Level 72 , Cholesterol Level 125, LDL Cholesterol 79, HDL Cholesterol 37L, Cholesterol/ HDL Ratio 3.4, Vitamin B12 Level 646, Folate 12.5, Thyroid Stimulating Hormone ( TSH) 5.314H, Hepatitis B Surface Antigen [Pending], Hepatitis B Surface Antibody , Quant [Pending], Hepatitis C Antibody [Pending] Height (Feet): 5 Height (Inches): 6.00 Weight (Pounds): 152 General Appearance: mild distress Cardiovascular: normal rate Respiratory/Chest: decreased breath sounds Abdomen: distended, other - acitis Extremities: moderate edema Micah Pitt MD Dec 15, 2018 11:12
[2018-12-15 12:00] VITALS: BP 129/78
--- NOTE | 2018-12-15 13:19 | Diagnostic Imaging Report ---
Indication: Abnormal renal function Technique: US Renal Comp Comparison: Correlation made to concurrent CT of the abdomen and pelvis. Findings: The right kidney measures 11.3. Echogenicity is within normal limits. Echogenic structure noted within the central kidney on the right may be related to known indwelling ureteral stent. No evidence of hydronephrosis on the right. The left kidney measures approximately 11.1 cm in length. Echogenicity within normal limits. There is no hydronephrosis or sonographically appreciable stone in the left. Mild bladder wall thickening suggested. This may related to underdistention.. Bilateral ureteral jets identified. Incidental note is made of mild perihepatic ascites. Gallstones are noted. Gallbladder wall appears thickened bilateral pleural effusions are noted to IMPRESSION: * Portions of the right ureteral stent are partially visualized. Punctate echogenic focus also noted in the lower pole of the right kidney which may represent nonobstructing stone. * No evidence of hydronephrosis bilaterally. * Renal echogenicity appears within normal limits. * Bladder wall thickening is noted within question for cystitis, although findings may possibly related to underdistention. Correlation with urinalysis recommended. * Cholelithiasis and gallbladder wall thickening is incidentally identified. Correlate for right upper quadrant pain. Consider further imaging with HIDA scan as clinically indicated. * Ascites and bilateral pleural effusions. Findings correspond with the primary report
--- NOTE | 2018-12-15 14:30 | NUR ---
*-* INSURANCE *-* ALL CLINICALS AND REVIEWS HAVE BEEN FAXED TO: ROMAIN FRANCO: NURYS P:[phone] F:[phone]
[2018-12-15 16:00] VITALS: BP 133/74
--- NOTE | 2018-12-15 16:30 | Consultation ---
DATE OF CONSULTATION: 12/15/2018 INFECTIOUS DISEASES CONSULTATION CONSULTING PHYSICIAN: Omi Brown M.D. PRIMARY ATTENDING PHYSICIAN: Sarahi Shaffer M.D. REASON FOR CONSULTATION: Pyuria. HISTORY OF PRESENT ILLNESS: This is a 53-year-old male admitted on 12/14/2018 because of edema of lower extremity and distention of abdomen. The patient had a recent history of admission to [facility]. He had stent placement in the right ureter. Denies any fever, chills, or any other symptoms. PAST MEDICAL HISTORY: Positive for congestive heart failure, hypertension, had [place] one year ago, had stent placement, has chronic kidney disease likely end-stage renal disease, anemia. ALLERGIES: No known drug allergy. MEDICATIONS: Heparin, Zaroxolyn, ergocalciferol, Renvela, Coreg, allopurinol, calcitriol, Flomax, Protonix, isosorbide, hydralazine, Colace, aspirin, and Tylenol. SOCIAL HISTORY: He is single, has a 20-year-old daughter. Says he was never a smoker. Denies drinking or drug abuse. 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 REVIEW OF SYSTEMS: No fever. No chills. No shortness of breath. No chest pain. No nausea. No vomiting. Denies any problem passing urine. PHYSICAL EXAMINATION: VITAL SIGNS: Temperature 97.7, pulse 76, blood pressure 129/84. GENERAL APPEARANCE: No acute distress. HEAD AND NECK: [place] conjunctiva. No oral lesion. HEART: Normal rate, seems to have S4. LUNGS: Clear. ABDOMEN: Distended with ascites. EXTREMITIES: Leg edema. NEUROLOGIC: Awake, alert, oriented. LABORATORY AND DIAGNOSTIC DATA: HIV test was negative. WBC 3.6, hemoglobin 9.2, hematocrit 29, platelet is 115,000. Sodium 136, potassium 4.5, chloride 106, bicarb 17, BUN 89, creatinine 5.2, glucose 87. Uric acid 9.3. Alkaline phosphatase is 269. BNP 83293. Albumin is 2.9. TSH is high at 5.3. UA showed WBC too numerous to count, rbc's too numerous to count, leukocyte esterase 3+, blood positive, protein 4+. Echocardiogram showed ejection fraction of 25% to 30%, pulmonary artery hypertension. Chest x-ray showed cardiomegaly. Abdominal and pelvis CT scan showed ascites, anasarca, hepatomegaly, questionable early cirrhosis, borderline splenomegaly, nonobstructed right lower pole kidney calculi. IMPRESSION: Pyuria. urine culture so far is negative. The patient have combined systolic and diastolic heart failure with pulmonary artery hypertension, has chronic kidney disease likely end-stage renal disease with proteinuria, pancytopenia, coronary artery disease. RECOMMENDATION: Observe off antibiotic. We will follow up the urine cultures. At the end of my exam, I thank Dr. Shaffer for involving me in the care of this patient. Omi Brown M.D. DR: Selwyn JOB#: [id number] CC: DELL
--- NOTE | 2018-12-15 18:22 | General Progress Note ---
Assessment/Plan Assessment: Assessment/Plan # Pancytopenia -- multiple etiologies could be related to underlying liver disease, medication-induced, infection versus viral syndrome -> on imaging of the ct a/p, does appear has a history of SPLENOMEGALY AND CIRRHOSIS (irregular liver sufrace can explain pancytopenia), Prominent soft tissue opacities in the splenic hilum and lesser sac, could indicate varices, all of the lesser sac findings could represent prominent nodes. Consider gi evaluation and treatment --> peripheral smear has been ordered and does not show significant abnormalities does not appear to have significant abnormalities --> Medications have been reviewed --> Continue to monitor for improvement, trend cbc --> Hep panel and HIV are both negative --> consider other causes, infections that could contribute --> reverse isolation if ANC is <2000 --> Give neupogen if ANC <1000 --> Transfuse if hgb <7, with 1 unit prbc --> consider bone marrow biopsy if no other causes are found # Coagulation defect, multifactorial usually related to poor PO intake versus medications, versus hepatitis v cirrhosis --> administer Vitamin K if patient is bleeding or FFP if the INR is >10 --> hold off on ffp unless active procedure/bleeding, first begin with vit K 10 --> mixing study as needed # Advanced Renal failure with Proteinuria --> as per renal eval and recs --> 24hr collection as per renal # CKD known to the patient --> pre renal may need hd # h/o HTN --> sbp goal <140 # h/o Cardiac disease s/p stent # ? DM The timing of this note does not necessarily reflect the time of the patient was seen. Greatly appreciate consultation! Subjective Constitutional: Denies: no symptoms, chills, diaphoresis, fever, malaise, weakness, other HEENT: Denies: no symptoms, eye pain, blurred vision, tearing, double vision, ear pain, ear discharge, nose pain, nose congestion, throat pain, throat swelling, mouth pain, mouth swelling, other Cardiovascular: Denies: no symptoms, chest pain, edema, irregular heart rate, lightheadedness, palpitations, syncope, other Respiratory: Denies: no symptoms, cough, orthopnea, shortness of breath, SOB with excertion, SOB at rest, sputum, stridor, wheezing, other Gastrointestinal/Abdominal: Denies: no symptoms, abdomen distended, abdominal pain, black stools, tarry stools, blood in stool, constipated, diarrhea, difficulty swallowing, nausea, poor appetite, poor fluid intake, rectal bleeding , vomiting, other Genitourinary: Denies: no symptoms, burning, discharge, frequency, flank pain, hematuria, incontinence, pain, urgency, other Neurologic/Psychiatric: Denies: no symptoms, anxiety, depressed, emotional problems, headache, numbness, paresthesia, pre-existing deficit, seizure, tingling, tremors, weakness, other Endocrine: Denies: no symptoms, excessive sweating, flushing, intolerance to cold, intolerance to heat, increased hunger, increased thirst, increased urine, unexplained weight gain, unexplained weight loss, other Allergies: Coded Allergies: No Known Allergies (Unverified , 12/14/18) Subjective 12/15: labs have been reviewed, relatively stable cbc but mildly lower with elev inr, not bleeding Objective Last 24 Hour Vital Signs Date Time Temp Pulse Resp B/P (MAP) Pulse Ox O2 Delivery O2 Flow Rate FiO2 12/15/18 18:00 133/74 12/15/18 16:00 98.7 72 19 133/74 (93) 99 12/15/18 12:00 97.9 71 16 129/78 (95) 98 12/15/18 11:09 129/84 12/15/18 09:09 76 144/86 12/15/18 09:09 144/86 12/15/18 09:00 Room Air 12/15/18 08:00 97.7 76 16 144/86 (105) 100 12/15/18 05:46 137/75 12/15/18 04:00 98.0 72 20 137/75 (95) 97 12/15/18 00:00 129/61 12/15/18 00:00 98.4 75 20 139/61 (87) 98 12/14/18 21:28 159/88 12/14/18 21:28 159/88 12/14/18 21:13 76 159/88 12/14/18 21:00 Room Air 12/14/18 20:00 97.5 73 20 127/62 (83) 98 Intake and Output 12/14/18 12/15/18 18:59 06:59 Intake Total 450 ml 350 ml Output Total 300 ml Balance 450 ml 50 ml Intake Oral 240 ml 350 ml IV Total 210 ml Output Urine Total 300 ml # Voids 1 # Bowel Movements 1 Laboratory Tests 12/14/18 23:55: Creatinine 5.2H, Estimat Glomerular Filtration Rate 11.6 12/15/18 05:22: Creatinine 5.2H, Estimat Glomerular Filtration Rate 11.6, White Blood Count 3.6L , Red Blood Count 3.30L, Hemoglobin 9.2L, Hematocrit 29.0L, Mean Corpuscular Volume 88, Mean Corpuscular Hemoglobin 27.9, Mean Corpuscular Hemoglobin Concent 31.7L, Red Cell Distribution Width 16.1H, Platelet Count 115L, Mean Platelet Volume 9.8, Neutrophils (%) (Auto) 69.0, Lymphocytes (%) (Auto) 18.5L, Monocytes (%) (Auto) 9.7, Eosinophils (%) (Auto) 1.8, Basophils (%) (Auto) 1.0, Sodium Level 136, Potassium Level 4.5, Chloride Level 106, Carbon Dioxide Level 17L, Anion Gap 13, Blood Urea Nitrogen 89H, Glucose Level 87, Hemoglobin A1c 7.0H, Uric Acid 9.3H, Calcium Level 7.9L, Phosphorus Level 5.7H, Magnesium Level 1.8, Ferritin 218, Total Bilirubin 0.9, Gamma Glutamyl Transpeptidase 175H , Aspartate Amino Transf (AST/SGOT) 26, Alanine Aminotransferase (ALT/SGPT) 32, Alkaline Phosphatase 269H, Total Creatine Kinase 322H, C-Reactive Protein, Quantitative < 0.4, Pro-B-Type Natriuretic Peptide > 11654X, Total Protein 6.7, Albumin 2.9L, Globulin 3.8, Albumin/Globulin Ratio 0.8L, Triglycerides Level 72 , Cholesterol Level 125, LDL Cholesterol 79, HDL Cholesterol 37L, Cholesterol/ HDL Ratio 3.4, Vitamin B12 Level 646, Folate 12.5, Thyroid Stimulating Hormone ( TSH) 5.314H, Hepatitis B Surface Antigen [Pending], Hepatitis B Surface Antibody , Quant [Pending], Hepatitis C Antibody [Pending] Height (Feet): 5 Height (Inches): 6.00 Weight (Pounds): 152 Objective PE: Vitals: reviewed General Appearance: NAD, nonverbal HEENT: normocephalic, atraumatic Neck: non-tender, normal alignment Respiratory/Chest: nromal breath sounds bilaterally Cardiovascular/Chest: normal peripheral pulses, normal rate Abdomen: normal bowel sounds, soft, nontender Extremities: normal range of motion . Enrrique Solano MD Dec 15, 2018 18:22
--- NOTE | 2018-12-15 19:00 | NUR ---
NURSE NOTES: 24 hr urine sent to lab, waiting for result.
--- NOTE | 2018-12-15 19:30 | NUR ---
HAND-OFF: Report given to GRIS HINTON.
[2018-12-15 19:32] LABS: CREATININE 5.2 MG/DL (0.55-1.30)
--- NOTE | 2018-12-15 19:40 | NUR ---
NURSE NOTES: Received patient awake in bed, no s/s of acute distress, no c/o pain at this time. IV access asymptomatic, on saline lock. Abdominal girth at 99 cm. Call light and belongings within reach. Fall and safety precautions taken.
[2018-12-15 20:00] VITALS: BP 130/70
[2018-12-15] MEDS: Tamsulosin 0.4mg cap ORAL SCH (20:21)
--- NOTE | 2018-12-15 23:52 | Cardiology Progress Note ---
Assessment/Plan Assessment/Plan 1. Dilated cardiomyopathy with LVEF at 25%, possibly non-ischemic, the patient not aware of the heart condition. Continue GDMT. 2. Hx of CAD, s/p [place], s/p PCI 3. Right heart failure with anasarca. 4. CKD, stage V 5. Severe pulmonary HTN Subjective Subjective Not on the telemetry unit. Denies chest pain or SOB. Objective Last 24 Hour Vital Signs Date Time Temp Pulse Resp B/P (MAP) Pulse Ox O2 Delivery O2 Flow Rate FiO2 12/15/18 20:50 Room Air 12/15/18 20:21 72 133/74 12/15/18 20:00 97.6 68 18 130/70 (90) 99 12/15/18 18:00 133/74 12/15/18 16:00 98.7 72 19 133/74 (93) 99 12/15/18 12:00 97.9 71 16 129/78 (95) 98 12/15/18 11:09 129/84 12/15/18 09:09 76 144/86 12/15/18 09:09 144/86 12/15/18 09:00 Room Air 12/15/18 08:00 97.7 76 16 144/86 (105) 100 12/15/18 05:46 137/75 12/15/18 04:00 98.0 72 20 137/75 (95) 97 12/15/18 00:00 129/61 12/15/18 00:00 98.4 75 20 139/61 (87) 98 Intake and Output 12/14/18 12/15/18 18:59 06:59 Intake Total 450 ml 350 ml Output Total 300 ml Balance 450 ml 50 ml Intake Oral 240 ml 350 ml IV Total 210 ml Output Urine Total 300 ml # Voids 1 # Bowel Movements 1 2D Echo: EF 25%, Global HK, Grade II LVDD, RVSP 66 mmHg, Mild MR/AR/MS, RAP ~ 15mmHg Laboratory Tests Test 12/14/18 23:55 12/15/18 05:22 12/15/18 19:00 12/15/18 19:26 Creatinine 5.2 MG/DL (0.55-1.30) H 5.2 MG/DL (0.55-1.30) H 5.2 MG/DL (0.55-1.30) H Estimat Glomerular Filtration Rate 11.6 mL/min (>60) 11.6 mL/min (>60) 11.6 mL/min (>60) White Blood Count 3.6 K/UL (4.8-10.8) L Red Blood Count 3.30 M/UL (4.70-6.10) L Hemoglobin 9.2 G/DL (14.2-18.0) L Hematocrit 29.0 % (42.0-52.0) L Mean Corpuscular Volume 88 FL (80-99) Mean Corpuscular Hemoglobin 27.9 PG (27.0-31.0) Mean Corpuscular Hemoglobin Concent 31.7 G/DL (32.0-36.0) L Red Cell Distribution Width 16.1 % (11.6-14.8) H Platelet Count 115 K/UL (150-450) L Mean Platelet Volume 9.8 FL (6.5-10.1) Neutrophils (%) (Auto) 69.0 % (45.0-75.0) Lymphocytes (%) (Auto) 18.5 % (20.0-45.0) L Monocytes (%) (Auto) 9.7 % (1.0-10.0) Eosinophils (%) (Auto) 1.8 % (0.0-3.0) Basophils (%) (Auto) 1.0 % (0.0-2.0) Sodium Level 136 MMOL/L (136-145) Potassium Level 4.5 MMOL/L (3.5-5.1) Chloride Level 106 MMOL/L (98-107) Carbon Dioxide Level 17 MMOL/L (21-32) L Anion Gap 13 mmol/L (5-15) Blood Urea Nitrogen 89 mg/dL (7-18) H Glucose Level 87 MG/DL (74-106) Hemoglobin A1c 7.0 % (4.3-6.0) H Uric Acid 9.3 MG/DL (2.6-7.2) H Calcium Level 7.9 MG/DL (8.5-10.1) L Phosphorus Level 5.7 MG/DL (2.5-4.9) H Magnesium Level 1.8 MG/DL (1.8-2.4) Ferritin 218 NG/ML (8-388) Total Bilirubin 0.9 MG/DL (0.2-1.0) Gamma Glutamyl Transpeptidase 175 U/L (5-85) H Aspartate Amino Transf (AST/SGOT) 26 U/L (15-37) Alanine Aminotransferase (ALT/SGPT) 32 U/L (12-78) Alkaline Phosphatase 269 U/L (46-116) H Total Creatine Kinase 322 U/L (26-308) H C-Reactive Protein, Quantitative < 0.4 mg/dL (0.00-0.90) Pro-B-Type Natriuretic Peptide > 65826 pg/mL (0-125) H Total Protein 6.7 G/DL (6.4-8.2) Albumin 2.9 G/DL (3.4-5.0) L Globulin 3.8 g/dL Albumin/Globulin Ratio 0.8 (1.0-2.7) L Triglycerides Level 72 MG/DL (30-150) Cholesterol Level 125 MG/DL (< 200) LDL Cholesterol 79 mg/dL (<100) HDL Cholesterol 37 MG/DL (40-60) L Cholesterol/HDL Ratio 3.4 (3.3-4.4) Vitamin B12 Level 646 PG/ML (193-986) Folate 12.5 NG/ML (8.6-58.9) Thyroid Stimulating Hormone (TSH) 5.314 uiU/mL (0.358-3.740) Hepatitis B Surface Antigen Pending Hepatitis B Surface Antibody, Quant Pending Hepatitis C Antibody Pending Urine Eosinophils None seen (NONE SEEN) Microbiology Date/Time Source Procedure Growth Status 12/14/18 10:20 Urine,Clean Catch Urine Culture - Preliminary NO GROWTH Resulted Objective HEENT: Atraumatic, normocephalic, PEERLA, EOMI, [place] conjunctiva. NECK: No JVD, no carotid bruit. HEART: Normal S1S2, regular rate and rhythm, No gallops, rubs or murmurs. LUNGS: Clear. ABDOMEN: Distended with ascites, soft, non-tender, + BS. EXTREMITIES: 2+ Leg edema B/L NEUROLOGIC: Awake, alert, oriented. Mynor Rockwell MD Dec 15, 2018 23:52
[2018-12-16] VITALS: BP 122/70
[2018-12-16] MEDS: HydrALAZINE 25mg tab ORAL SCH ×4 (00:56→17:43)
--- NOTE | 2018-12-16 01:45 | Consultation ---
DATE OF CONSULTATION: 12/14/2018 CARDIOLOGY CONSULTATION CONSULTING PHYSICIAN: Mynor Rockwell M.D. REFERRING PHYSICIAN: Sarahi Shaffer M.D. REASON FOR CONSULTATION: Management of shortness of breath. HISTORY OF PRESENT ILLNESS: The patient is a very unfortunate 53-year-old gentleman, who presents to the hospital with abdominal pain. Currently, the ER doctor note the patient has history of right-sided congestive heart failure as well as renal failure and the family states that the patient has also a history of coronary artery disease and recently had a stent placement at [facility]. It is not quite clear whether the patient also had coronary artery stent or a ureteral stent as there is also report of a ureteral stent that placed at [facility]. The patient's family member states that the patient also had coronary artery stent placed recently. According to the ER note, the patient has been on diuretics intermittently due to bilateral lower extremity edema as well as edema in the abdominal wall, scrotum, and thighs. The patient currently denies any cough or shortness of breath or chest pain. At the time of arrival to the hospital, blood pressure was 140/83 mmHg and heart rate was 70. Initial 12-lead electrocardiogram was significant for sinus rhythm at a rate of 60 with no acute ischemic changes. Laboratory finding in the emergency department was significant for anemia and thrombocytopenia as well as hyperkalemia of potassium of 5.1, and also an elevation of a BUN and creatinine of 89 and 5.1 respectively. The patient's troponin I level was within normal limits at 0.034. The patient had also a 2D echocardiography, which showed global left ventricular hypokinesia with left ventricular ejection fraction approximately 25 to 30% with evidence of trivial pericardial effusion as well as pleural effusion. Elevation of right atrial pressure based on the dilatation of IVC at 2.1 without any physiologic collapse, also evidence of grade 2 LV diastolic dysfunction or pseudo normal LV physiology suggestive of moderately elevated left atrial pressure. The patient had severe pulmonary hypertension according to the records, measured at 66 mmHg. The patient was admitted to Med/Surg unit under the service of Dr. Sarahi Shaffer. Cardiology consultation was made at request of Dr. Shaffer. At the time of arrival in the emergency department, the patient was in the emergency department. Chest x-ray also showed cardiomegaly with small bilateral pleural effusions. PAST MEDICAL HISTORY: 1. History of congestive heart failure, right greater than left. 2. History of hypertension. 3. History of CAD, status post coronary artery stent placement, status post myocardial infarction. 4. History of chronic kidney disease. 5. History of obstructive uropathy, status post ureteral stent placement at [facility]. SOCIAL HISTORY: Denies any tobacco, alcohol use, or illicit drug use. ALLERGIES: No known drug allergies. REVIEW OF SYSTEMS: A 12-system review done, essentially negative except what was mentioned in history of present illness. FAMILY HISTORY: No premature coronary artery disease in first-degree relatives. PAST SURGICAL HISTORY: 1. Coronary artery angioplasty. 2. Ureteral stent placement at [facility]. MEDICATIONS: List of medication includes carvedilol 6.25 mg q.12 h. and Lasix 40 mg p.o. twice daily. PHYSICAL EXAMINATION: VITAL SIGNS: Blood pressure was 140/83, pulse of 70, respirations of 16, temperature 97.9 degrees Fahrenheit, O2 saturation 99% on room air. GENERAL: The patient is a very unfortunate 53-year-old gentleman, who is in no apparent respiratory distress. Alert and oriented x4. HEENT: Atraumatic and normocephalic. Anicteric. Pupils are equal, round, and reactive to light and accommodation. Extraocular muscles intact. NECK: JVP elevated at about 15 cm, no carotid bruit. CARDIOVASCULAR: Normal S1, S2. Regular rate and rhythm. There is 2/6 holosystolic murmur at the apex. PMI is displaced downward and laterally. LUNGS: Diminished breath sounds in both bases. ABDOMEN: Soft, nontender, and nondistended. No hepatosplenomegaly. Positive bowel sounds. EXTREMITIES: There is bilateral lower extremity edema about 1+. LABORATORY FINDINGS: WBC is 4.2, hemoglobin of 10.5, hematocrit of 34.0, and platelet count is 134,000. Chemistry showed sodium 136, potassium 5.1, chloride 105, bicarbonate 20, BUN of 89, creatinine 5.1, glucose 131, and calcium was 8.4. Troponin I level was 0.034 . ASSESSMENT AND PLAN: The patient is a very unfortunate 53-year-old gentleman, seen in Cardiology consultation. 1. History of acute systolic and diastolic congestive heart failure based on 2D echocardiography data. Also clinically, the patient appears to be hypervolemic with elevation of JVP and bilateral lower extremity edema. Given the fact that chest x-ray does not show florid pulmonary edema, it gives me an idea that the patient implies that the patient's right heart failure is more predominant. I would like to initiate guideline-directed medical therapy with carvedilol as well as combination of hydralazine and Imdur as the patient's renal failure is not allowing me to use aldosterone antagonist. The patient will be also continued on diuretic therapy, it was okay with program aide group work. 2. History of coronary artery disease, status post myocardial infarction per records, status post PCI. Per the patient, this patient requires to be on aspirin release, however, I do not see dual anti-platelet therapy among the list of his medications at home. 3. History of hypertension. 4. Chronic kidney disease, possible acute component. I would like to thank, Dr. Shaffer, for courtesy of this consultation. Mynor Rockwell M.D. DR: KENISHA JOB#: [id number] CC:
[2018-12-16 04:00] VITALS: BP 132/77
[2018-12-16 06:33] LABS: ALANINE AMINOTRANSFERASE 31 U/L (12-78); ALBUMIN 2.9 G/DL (3.4-5.0); ALBUMIN/GLOBULIN RATIO 0.8 (1.0-2.7); ALKALINE PHOSPHATASE 268 U/L (46-116); ANION GAP 16 mmol/L (5-15); ASPARTATE AMINO TRANSFERASE 27 U/L (15-37); BILIRUBIN,TOTAL 0.8 MG/DL (0.2-1.0); BLOOD UREA NITROGEN 99 mg/dL (7-18); CALCIUM 7.9 MG/DL (8.5-10.1); CARBON DIOXIDE 13 MMOL/L (21-32); CHLORIDE 107 MMOL/L (98-107); CREATININE 5.8 MG/DL (0.55-1.30); POTASSIUM 5.1 MMOL/L (3.5-5.1); SODIUM 136 MMOL/L (136-145)
--- NOTE | 2018-12-16 07:07 | NUR ---
HAND-OFF: Report given to GRIS Lee.
--- NOTE | 2018-12-16 07:30 | History and Physical Report ---
DATE OF ADMISSION: 12/14/2018 "NOTE: POOR AUDIO QUALITY" HISTORY OF PRESENT ILLNESS: The patient has recently had a right ureteral stent and also has end-stage renal disease with diastolic heart failure; sepsis; cardiac stent; status post myocardial infarction in the past; comes with ascites, acute on chronic renal failure, nonobstructed; pyelonephritis; and UTI and admitted for those reasons. PAST MEDICAL HISTORY: CAD, status post ureteral stent, CHF, hyperlipidemia, end-stage renal disease, and constipation. PAST SURGICAL HISTORY: Coronary stent and ureteral stent. ALLERGIES: None. MEDICATIONS: Coreg, aspirin, isosorbide, hydralazine, Flomax, Benecol, and furosemide. FAMILY HISTORY: Noncontributory. SOCIAL HISTORY: No history of smoking, alcohol, or illicit drugs. REVIEW OF SYSTEMS: HEENT: Denies headaches. RESPIRATORY: Denies shortness of breath. CARDIOVASCULAR: Denies chest pain. ABDOMEN: Denies nausea, vomiting, or diarrhea. EXTREMITIES: Denies any pain. PROCUREMENT INTERNSHIP: No change in vision or speech pattern. PHYSICAL EXAMINATION: VITAL SIGNS: Temperature 97.9 degrees, pulse is 71, and blood pressure 129/78. HEENT: PERRLA. NECK: Supple. No lymphadenopathy. CHEST: Clear to auscultation. The patient had left-sided edema throughout. GASTROINTESTINAL: Soft and nontender. No organomegaly. Positive bowel sounds. EXTREMITIES: A 2+ edema. Reflexes in both sides. Moves all four extremities. LABORATORY DATA: WBC of 4.2, hemoglobin 10.5, and platelets of 134,000. Sodium 136, potassium 5.1, BUN of 89, creatinine of 5.1, and glucose of 131. ASSESSMENT/PLAN: Diastolic heart failure, status post recently placed a stent, status post myocardial infarction, unclear if GI stent in the past inserted as above for acute renal failure. The patient might need to have dialysis by Dr. Myers and cleared by Dr. Pitt. I have asked for the follow-up of the pyelonephritis and UTI and diastolic heart failure. I have asked Dr. Roderick Weiss, Dr. Pitt, Dr. Omi Brown, and Dr. Rockwell to see the patient for the above-mentioned diagnoses and treatment. Ali Bharat Shaffer DR: DEVENDRA JOB#: [id number] CC:
--- NOTE | 2018-12-16 07:53 | NUR ---
NURSE NOTES: Patient alert x4, on room air, no sign of distress and shortness of breath; IV Left-For Arm flushes well; urinal within reach; bed at lowest position, side rails up x2, breaks engaged. will keep monitoring.
[2018-12-16 08:00] VITALS: BP 135/78
[2018-12-16] MEDS: Docusate 100mg cap ORAL SCH ×2 (08:34→17:43)
[2018-12-16] MEDS: Calcitriol 0.25mcg Cap ORAL SCH (08:34)
[2018-12-16] MEDS: Imdur 30mg tab ORAL SCH (08:34)
[2018-12-16] MEDS: Carvedilol 6.25mg Tab ORAL SCH ×2 (08:34→20:36)
[2018-12-16] MEDS: Allopurinol 100mg Tab ORAL SCH (08:35)
[2018-12-16] MEDS: Aspirin Baby 81mg ORAL SCH (08:35)
[2018-12-16] MEDS: Heparin 5000 units/ml inj SUBQ SCH ×2 (08:35→21:00)
[2018-12-16 12:00] VITALS: BP 120/69
--- NOTE | 2018-12-16 12:44 | NUR ---
ROLL MECHANIC NOTES PLACED A CALL TO NURYS FRANCO FROM [facility], MESSAGE LEFT.WAITING FOR CALL BACK. NURYS [phone]
--- NOTE | 2018-12-16 13:24 | NUR ---
*-* INSURANCE *-* ALL CLINICALS AND REVIEWS HAVE BEEN FAXED TO: ROMAIN FRANCO: NURYS P:[phone] F:[phone]
--- NOTE | 2018-12-16 13:35 | Infectious Diseases Prog Note ---
Assessment/Plan Assessment/Plan IMPRESSION: Pyuria. urine culture so far is negative. 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 RECOMMENDATION: Observe off antibiotic. Subjective ROS Limited/Unobtainable: No Respiratory: Reports: no symptoms Cardiovascular: Reports: no symptoms Gastrointestinal/Abdominal: Reports: no symptoms Genitourinary: Reports: other - dark urine Allergies: Coded Allergies: No Known Allergies (Unverified , 12/14/18) Objective Vital Signs Last 24 Hour Vital Signs Date Time Temp Pulse Resp B/P (MAP) Pulse Ox O2 Delivery O2 Flow Rate FiO2 12/16/18 12:00 98.8 72 19 120/69 (86) 97 12/16/18 09:00 Room Air 12/16/18 08:34 77 135/78 12/16/18 08:34 135/78 12/16/18 08:00 98.2 77 19 135/78 (97) 97 12/16/18 06:03 132/77 12/16/18 04:00 97.5 76 16 132/77 (95) 100 12/16/18 00:56 122/70 12/16/18 00:00 99.0 75 20 122/70 (87) 100 12/15/18 20:50 Room Air 12/15/18 20:21 72 133/74 12/15/18 20:00 97.6 68 18 130/70 (90) 99 12/15/18 18:00 133/74 12/15/18 16:00 98.7 72 19 133/74 (93) 99 Height (Feet): 5 Height (Inches): 6.00 Weight (Pounds): 152 General Appearance: no acute distress HEENT: mucous membranes moist Respiratory/Chest: lungs clear Cardiovascular: normal rate Abdomen: soft, non tender Extremities: other - edema of legs Neurologic/Psychiatric: alert, oriented x 3, responsive Microbiology Date/Time Source Procedure Growth Status 12/14/18 10:20 Urine,Clean Catch Urine Culture - Preliminary NO GROWTH AFTER 24 HOURS Resulted Laboratory Tests Test 12/15/18 19:00 12/15/18 19:26 12/16/18 05:37 Urine Eosinophils None seen (NONE SEEN) Creatinine 5.2 MG/DL (0.55-1.30) H 5.8 MG/DL (0.55-1.30) H Estimat Glomerular Filtration Rate 11.6 mL/min (>60) 10.2 mL/min (>60) Sodium Level 136 MMOL/L (136-145) Potassium Level 5.1 MMOL/L (3.5-5.1) Chloride Level 107 MMOL/L (98-107) Carbon Dioxide Level 13 MMOL/L (21-32) L Anion Gap 16 mmol/L (5-15) H Blood Urea Nitrogen 99 mg/dL (7-18) H Glucose Level 109 MG/DL (74-106) H Uric Acid 9.1 MG/DL (2.6-7.2) H Calcium Level 7.9 MG/DL (8.5-10.1) L Phosphorus Level 6.0 MG/DL (2.5-4.9) H Magnesium Level 1.8 MG/DL (1.8-2.4) Total Bilirubin 0.8 MG/DL (0.2-1.0) Aspartate Amino Transf (AST/SGOT) 27 U/L (15-37) Alanine Aminotransferase (ALT/SGPT) 31 U/L (12-78) Alkaline Phosphatase 268 U/L (46-116) H Total Protein 6.6 G/DL (6.4-8.2) Albumin 2.9 G/DL (3.4-5.0) L Globulin 3.7 g/dL Albumin/Globulin Ratio 0.8 (1.0-2.7) L Current Medications Medications (Trade) Dose Ordered Sig/Félix Route PRN Reason Start Time Stop Time Status Last Admin Dose Admin Acetaminophen (Tylenol) 650 mg Q4H PRN ORAL Mild Pain/Temp > 100.5 12/14/18 15:45 01/13/19 15:44 Allopurinol (Zyloprim) 100 mg DAILY ORAL 12/15/18 09:00 01/14/19 08:59 12/16/18 08:35 Aspirin (ASA) 162 mg DAILY ORAL 12/14/18 15:45 01/13/19 15:44 12/16/18 08:35 Calcitriol (Rocatrol) 0.5 mcg DAILY ORAL 12/15/18 09:00 01/14/19 08:59 12/16/18 08:34 Carvedilol (Coreg) 6.25 mg EVERY 12 HOURS ORAL 12/15/18 09:00 01/13/19 20:59 12/16/18 08:34 Docusate Sodium (Colace) 100 mg TWICE A DAY ORAL 12/14/18 18:00 01/13/19 17:59 12/16/18 08:34 Ergocalciferol (Drisdol) 50,000 intlu QWEEK ORAL 12/15/18 10:00 01/14/19 09:59 12/15/18 09:53 Heparin Sodium (Porcine) (Heparin 5000 units/ml) 5,000 units EVERY 12 HOURS SUBQ 12/15/18 21:00 01/13/19 20:59 Hydralazine HCl (Apresoline) 25 mg Q6HR ORAL 12/14/18 20:45 01/13/19 20:44 12/16/18 06:03 Iopamidol (Isovue-300 100ml) 100 ml NOW PRN INJ Radiology Procedure 12/14/18 10:00 Isosorbide Mononitrate (Imdur) 30 mg DAILY ORAL 12/14/18 20:45 01/13/19 20:44 12/16/18 08:34 Pantoprazole (Protonix) 40 mg EVERY 12 HOURS ORAL 12/14/18 21:00 01/13/19 20:59 12/16/18 08:34 Sevelamer Carbonate (Renvela) 800 mg THREE TIMES A DAY ORAL 12/15/18 09:00 01/14/19 08:59 12/16/18 08:34 Tamsulosin HCl (Flomax) 0.4 mg BEDTIME ORAL 12/14/18 21:00 01/13/19 20:59 12/15/18 20:21 Omi Brown MD Dec 16, 2018 13:35
--- NOTE | 2018-12-16 13:37 | NUR ---
RD ASSESSMENT & RECOMMENDATIONS SEE CARE ACTIVITY FOR COMPLETE ASSESSMENT DAILY ESTIMATED NEEDS: Needs based on CKD no HD 66kg 25-35 kcals/kg 7721-9743 total kcals .6-.8 g protein/kg 40-53 g total protein Fluid per MD NUTRITION DIAGNOSIS: Altered nutrition related lab values r/t CKD as evidenced by low hgb (9.2), elev BUN (99 trending up), elev Creat (5.8 trending up) and elev Phos 6.0, elev BNP (>22041). PO DIET RECOMMENDATIONS: RENAL DIET - 40-50g pro restriction ADDITIONAL RECOMMENDATIONS: 1) Monitor BG, need for CCHO restriction 2) Monitor for HD initiation 3) Obtain a standing scale weight 4) niss for glycemic control
--- NOTE | 2018-12-16 15:40 | NUR ---
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 CHF VS: BP 120/69, P 77, T 98.8, RR 19, SpO2 97 BUN 99, CR 5.8 IS:HEPARIN SUBQ RENVELA 800mg COREG 6.25mg ALLOPURINOL 100mg CALCITRIOL 0.5 mcg PROTONIX 40mg IMDUR 30mg MED/SURG STATUS
--- NOTE | 2018-12-16 15:49 | NUR ---
NURSE NOTES: Patient stated that his urine has blood, I called at Dr Bernal office and I spoke to Renee regarding the matter.
--- NOTE | 2018-12-16 15:50 | NUR ---
NURSE NOTES: MD Salomon ordered Tunneled Dialysis catheter placement, patient signed consent and its on file.
[2018-12-16 16:00] VITALS: BP 127/71
--- NOTE | 2018-12-16 17:28 | Nephrology Progress Note ---
Assessment/Plan Problem List: (1) ESRD (end stage renal disease) (2) ARF (acute renal failure) (3) CHF (congestive heart failure) (4) Anemia in chronic kidney disease (CKD) (5) Nephrotic syndrome Assessment Advanced Renal failure with Proteinuria CKD known to the patient h/o HTN h/o Cardiac disease s/p stent ? DM high A1c Plan after and pre load reduction management discussed the need for Dialysis 1000 cc fluid restriction Renal diet- Phos binders BP check kidney RUSSEL pending 24 h urine being collected per orders Echo Global left ventricular hypokinesis with falttenign of cody VS suggestive of RV pressuere overload Mild left ventricular enlargement . Left ventricular ejection fraction estimated to be 25-30%. RUSSEL * Portions of the right ureteral stent are partially visualized. Punctate echogenic focus also noted in the lower pole of the right kidney which may represent nonobstructing stone. * No evidence of hydronephrosis bilaterally. * Renal echogenicity appears within normal limits. * Bladder wall thickening is noted within question for cystitis, although findings may possibly related to underdistention. Correlation with urinalysis recommended. Subjective ROS Limited/Unobtainable: No Constitutional: Reports: malaise, weakness Objective Objective Last 24 Hour Vital Signs Date Time Temp Pulse Resp B/P (MAP) Pulse Ox O2 Delivery O2 Flow Rate FiO2 12/16/18 16:00 98.0 73 20 127/71 (89) 96 12/16/18 13:33 120/69 12/16/18 12:00 98.8 72 19 120/69 (86) 97 12/16/18 09:00 Room Air 12/16/18 08:34 77 135/78 12/16/18 08:34 135/78 12/16/18 08:00 98.2 77 19 135/78 (97) 97 12/16/18 06:03 132/77 12/16/18 04:00 97.5 76 16 132/77 (95) 100 12/16/18 00:56 122/70 12/16/18 00:00 99.0 75 20 122/70 (87) 100 12/15/18 20:50 Room Air 12/15/18 20:21 72 133/74 12/15/18 20:00 97.6 68 18 130/70 (90) 99 12/15/18 18:00 133/74 Intake and Output 4/17/19 4/18/19 19:00 07:00 Intake Total 120 ml Output Total 400 ml Balance 120 ml -400 ml Intake Oral 120 ml Output Urine Total 400 ml # Voids 2 2 Laboratory Tests 12/15/18 19:00: Urine Eosinophils None seen 12/15/18 19:26: Creatinine 5.2H, Estimat Glomerular Filtration Rate 11.6 12/16/18 05:37: Creatinine 5.8H, Estimat Glomerular Filtration Rate 10.2, Sodium Level 136, Potassium Level 5.1, Chloride Level 107, Carbon Dioxide Level 13L, Anion Gap 16H , Blood Urea Nitrogen 99H, Glucose Level 109H, Uric Acid 9.1H, Calcium Level 7.9L, Phosphorus Level 6.0H, Magnesium Level 1.8, Total Bilirubin 0.8, Aspartate Amino Transf (AST/SGOT) 27, Alanine Aminotransferase (ALT/SGPT) 31, Alkaline Phosphatase 268H, Total Protein 6.6, Albumin 2.9L, Globulin 3.7, Albumin/Globulin Ratio 0.8L Height (Feet): 5 Height (Inches): 6.00 Weight (Pounds): 152 General Appearance: no apparent distress, lethargic Cardiovascular: normal rate Respiratory/Chest: decreased breath sounds Abdomen: distended Micah Pitt MD Dec 16, 2018 17:27
--- NOTE | 2018-12-16 17:30 | NUR ---
NURSE NOTES: MD Bardales order urine and container provided to patient.
--- NOTE | 2018-12-16 18:24 | General Progress Note ---
Assessment/Plan Assessment: Assessment/Plan # Pancytopenia -- multiple etiologies could be related to underlying liver disease, medication-induced, infection versus viral syndrome -> on imaging of the ct a/p, does appear has a history of SPLENOMEGALY AND CIRRHOSIS (irregular liver sufrace can explain pancytopenia), Prominent soft tissue opacities in the splenic hilum and lesser sac, could indicate varices, all of the lesser sac findings could represent prominent nodes. Consider gi evaluation and treatment --> peripheral smear has been ordered and does not show significant abnormalities does not appear to have significant abnormalities --> Medications have been reviewed --> Continue to monitor for improvement, trend cbc --> Hep panel and HIV are both negative --> consider other causes, infections that could contribute --> reverse isolation if ANC is <2000 --> Give neupogen if ANC <1000 --> Transfuse if hgb <7, with 1 unit prbc --> consider bone marrow biopsy if no other causes are found # Anemia of iron deficiency given will need hd/esrd --> iron has been started x 5 doses iv # Coagulation defect, multifactorial usually related to poor PO intake versus medications, versus hepatitis v cirrhosis --> administer Vitamin K if patient is bleeding or FFP if the INR is >10 --> hold off on ffp unless active procedure/bleeding, first begin with vit K 10 --> mixing study as needed # Advanced Renal failure with Proteinuria --> as per renal eval and recs --> 24hr collection as per renal # CKD known to the patient --> pre renal needs hd # h/o HTN --> sbp goal <140 # h/o Cardiac disease s/p stent # ? DM The timing of this note does not necessarily reflect the time of the patient was seen. Greatly appreciate consultation! Subjective Constitutional: Denies: no symptoms, chills, diaphoresis, fever, malaise, weakness, other HEENT: Denies: no symptoms, eye pain, blurred vision, tearing, double vision, ear pain, ear discharge, nose pain, nose congestion, throat pain, throat swelling, mouth pain, mouth swelling, other Cardiovascular: Denies: no symptoms, chest pain, edema, irregular heart rate, lightheadedness, palpitations, syncope, other Respiratory: Denies: no symptoms, cough, orthopnea, shortness of breath, SOB with excertion, SOB at rest, sputum, stridor, wheezing, other Gastrointestinal/Abdominal: Denies: no symptoms, abdomen distended, abdominal pain, black stools, tarry stools, blood in stool, constipated, diarrhea, difficulty swallowing, nausea, poor appetite, poor fluid intake, rectal bleeding , vomiting, other Neurologic/Psychiatric: Denies: no symptoms, anxiety, depressed, emotional problems, headache, numbness, paresthesia, pre-existing deficit, seizure, tingling, tremors, weakness, other Endocrine: Denies: no symptoms, excessive sweating, flushing, intolerance to cold, intolerance to heat, increased hunger, increased thirst, increased urine, unexplained weight gain, unexplained weight loss, other Allergies: Coded Allergies: No Known Allergies (Unverified , 12/14/18) Subjective 12/15: labs have been reviewed, relatively stable cbc but mildly lower with elev inr, not bleeding 12/16: discussed need for HD with renal, family, by the bedside understands as well as patient Objective Last 24 Hour Vital Signs Date Time Temp Pulse Resp B/P (MAP) Pulse Ox O2 Delivery O2 Flow Rate FiO2 12/16/18 17:43 127/71 12/16/18 16:00 98.0 73 20 127/71 (89) 96 12/16/18 13:33 120/69 12/16/18 12:00 98.8 72 19 120/69 (86) 97 12/16/18 09:00 Room Air 12/16/18 08:34 77 135/78 12/16/18 08:34 135/78 12/16/18 08:00 98.2 77 19 135/78 (97) 97 12/16/18 06:03 132/77 12/16/18 04:00 97.5 76 16 132/77 (95) 100 12/16/18 00:56 122/70 12/16/18 00:00 99.0 75 20 122/70 (87) 100 12/15/18 20:50 Room Air 12/15/18 20:21 72 133/74 12/15/18 20:00 97.6 68 18 130/70 (90) 99 Intake and Output 12/15/18 12/16/18 19:00 07:00 Intake Total 120 ml Output Total 400 ml Balance 120 ml -400 ml Intake Oral 120 ml Output Urine Total 400 ml # Voids 2 2 Laboratory Tests 12/15/18 19:00: Urine Eosinophils None seen 12/15/18 19:26: Creatinine 5.2H, Estimat Glomerular Filtration Rate 11.6 12/16/18 05:37: Creatinine 5.8H, Estimat Glomerular Filtration Rate 10.2, Sodium Level 136, Potassium Level 5.1, Chloride Level 107, Carbon Dioxide Level 13L, Anion Gap 16H , Blood Urea Nitrogen 99H, Glucose Level 109H, Uric Acid 9.1H, Calcium Level 7.9L, Phosphorus Level 6.0H, Magnesium Level 1.8, Total Bilirubin 0.8, Aspartate Amino Transf (AST/SGOT) 27, Alanine Aminotransferase (ALT/SGPT) 31, Alkaline Phosphatase 268H, Total Protein 6.6, Albumin 2.9L, Globulin 3.7, Albumin/Globulin Ratio 0.8L Height (Feet): 5 Height (Inches): 6.00 Weight (Pounds): 152 Objective PE: Vitals: reviewed General Appearance: NAD, nonverbal HEENT: normocephalic, atraumatic Neck: non-tender, normal alignment Respiratory/Chest: nromal breath sounds bilaterally Cardiovascular/Chest: normal peripheral pulses, normal rate Abdomen: normal bowel sounds, soft, nontender Extremities: normal range of motion . Enrrique Solano MD Dec 16, 2018 18:24
--- NOTE | 2018-12-16 19:14 | NUR ---
HAND-OFF: Report given to GRIS Mehta.
[2018-12-16 20:00] VITALS: BP 115/65
--- NOTE | 2018-12-16 20:12 | NUR ---
NURSE NOTES: Received patient awake in bed, no s/s of acute distress, no c/o pain at this time. IV access asymptomatic, sister at the bedside. Urine tea colored, bloody. Fall and safety precautions taken. Call light and belongings within reach.
[2018-12-16] MEDS: Tamsulosin 0.4mg cap ORAL SCH (20:36)
[2018-12-16] MEDS: Iron Sucrose 100 MG in NS 55 ML IV SCH (20:37)
--- NOTE | 2018-12-16 22:04 | General Progress Note ---
Assessment/Plan Problem List: (1) CHF exacerbation ICD Codes: I50.9 - Heart failure, unspecified SNOMED: 08410053 (2) Pyelonephritis ICD Codes: N12 - Tubulo-interstitial nephritis, not specified as acute or chronic SNOMED: 50320864 (3) Pancytopenia ICD Codes: D61.818 - Other pancytopenia SNOMED: 865398455 (4) CHF (congestive heart failure) ICD Codes: I50.9 - Heart failure, unspecified SNOMED: 86255532 (5) Anemia in chronic kidney disease (CKD) ICD Codes: N18.9 - Chronic kidney disease, unspecified; D63.1 - Anemia in chronic kidney disease SNOMED: 527099634 (6) ARF (acute renal failure) ICD Codes: N17.9 - Acute kidney failure, unspecified SNOMED: 75975207 (7) ESRD (end stage renal disease) ICD Codes: N18.6 - End stage renal disease SNOMED: 52758463 (8) Nephrotic syndrome ICD Codes: N04.9 - Nephrotic syndrome with unspecified morphologic changes SNOMED: 76397734 Status: progressing Assessment: hd decision per dr crocker chf ;htn hyper lipid afebrile Subjective ROS Limited/Unobtainable: Yes Allergies: Coded Allergies: No Known Allergies (Unverified , 12/14/18) Objective Last 24 Hour Vital Signs Date Time Temp Pulse Resp B/P (MAP) Pulse Ox O2 Delivery O2 Flow Rate FiO2 12/16/18 21:30 Room Air 12/16/18 20:36 78 115/65 12/16/18 20:00 98.0 78 18 115/65 (82) 98 12/16/18 17:43 127/71 12/16/18 16:00 98.0 73 20 127/71 (89) 96 12/16/18 13:33 120/69 12/16/18 12:00 98.8 72 19 120/69 (86) 97 12/16/18 09:00 Room Air 12/16/18 08:34 77 135/78 12/16/18 08:34 135/78 12/16/18 08:00 98.2 77 19 135/78 (97) 97 12/16/18 06:03 132/77 12/16/18 04:00 97.5 76 16 132/77 (95) 100 12/16/18 00:56 122/70 12/16/18 00:00 99.0 75 20 122/70 (87) 100 Intake and Output 12/15/18 12/16/18 19:00 07:00 Intake Total 120 ml Output Total 400 ml Balance 120 ml -400 ml Intake Oral 120 ml Output Urine Total 400 ml # Voids 2 2 Laboratory Tests 12/16/18 05:37: Sodium Level 136, Potassium Level 5.1, Chloride Level 107, Carbon Dioxide Level 13L, Anion Gap 16H, Blood Urea Nitrogen 99H, Creatinine 5.8H, Estimat Glomerular Filtration Rate 10.2, Glucose Level 109H, Uric Acid 9.1H, Calcium Level 7.9L, Phosphorus Level 6.0H, Magnesium Level 1.8, Total Bilirubin 0.8, Aspartate Amino Transf (AST/SGOT) 27, Alanine Aminotransferase (ALT/SGPT) 31, Alkaline Phosphatase 268H, Total Protein 6.6, Albumin 2.9L, Globulin 3.7, Albumin/Globulin Ratio 0.8L 12/16/18 21:15: Urine Eosinophils [Pending] Height (Feet): 5 Height (Inches): 6.00 Weight (Pounds): 152 Cardiovascular: normal rate Respiratory/Chest: lungs clear Abdomen: soft Sarahi Shaffer MD Dec 16, 2018 22:04
[2018-12-17] VITALS (11 sets, daily range): BP systolic 124–153; BP diastolic 64–92
--- NOTE | 2018-12-17 03:58 | NUR ---
patient NPO for breakfast 12/17/2018. Noted and discussed with SCRAP SAWYER.
[2018-12-17] MEDS: HydrALAZINE 25mg tab ORAL SCH ×5 (05:59→18:00)
[2018-12-17 06:41] LABS: INR 1.3 (0.9-1.1)
[2018-12-17 06:42] LABS: ALANINE AMINOTRANSFERASE 29 U/L (12-78); ALBUMIN 2.7 G/DL (3.4-5.0); ALBUMIN/GLOBULIN RATIO 0.8 (1.0-2.7); ALKALINE PHOSPHATASE 249 U/L (46-116); ANION GAP 16 mmol/L (5-15); ASPARTATE AMINO TRANSFERASE 22 U/L (15-37); BILIRUBIN,TOTAL 0.7 MG/DL (0.2-1.0); BLOOD UREA NITROGEN 110 mg/dL (7-18); CALCIUM 7.9 MG/DL (8.5-10.1); CARBON DIOXIDE 13 MMOL/L (21-32); CHLORIDE 110 MMOL/L (98-107); CREATININE 6.2 MG/DL (0.55-1.30); PHOSPHORUS 5.9 MG/DL (2.5-4.9); POTASSIUM 4.7 MMOL/L (3.5-5.1); SODIUM 139 MMOL/L (136-145)
[2018-12-17 06:45] LABS: BASOPHILS % (AUTO) 0.8 % (0.0-2.0); HEMATOCRIT 26.4 % (42.0-52.0); HEMOGLOBIN 8.4 G/DL (14.2-18.0); LYMPHOCYTES % (AUTO) 17.2 % (20.0-45.0); MEAN CORPUSCULAR VOLUME 89 FL (80-99); MONOCYTES % (AUTO) 9.6 % (1.0-10.0); NEUTROPHILS % (AUTO) 70.3 % (45.0-75.0); PLATELET COUNT 122 K/UL (150-450); RED BLOOD COUNT 2.98 M/UL (4.70-6.10); RED CELL DISTRIBUTION WIDTH 16.1 % (11.6-14.8); WHITE BLOOD COUNT 3.6 K/UL (4.8-10.8)
--- NOTE | 2018-12-17 07:32 | NUR ---
HAND-OFF: Report given to GRIS Zuniga.
[2018-12-17] MEDS: Aspirin Baby 81mg ORAL SCH (08:03)
[2018-12-17] MEDS: Imdur 30mg tab ORAL SCH (08:03)
[2018-12-17] MEDS: Allopurinol 100mg Tab ORAL SCH (08:03)
[2018-12-17] MEDS: Docusate 100mg cap ORAL SCH ×3 (08:03→18:33)
[2018-12-17] MEDS: Calcitriol 0.25mcg Cap ORAL SCH (08:04)
[2018-12-17] MEDS: Heparin 5000 units/ml inj SUBQ SCH ×2 (08:04→20:05)
[2018-12-17] MEDS: Carvedilol 6.25mg Tab ORAL SCH ×2 (08:04→22:32)
--- NOTE | 2018-12-17 09:07 | NUR ---
NURSE NOTES: pt in bed with no sob nor i any form of distress noted. all due meds given as ordered. Awaiting for dialysis cath placement. denies any pain at this time. will continue to monitor
--- NOTE | 2018-12-17 09:37 | Nephrology Progress Note ---
Assessment/Plan Problem List: (1) ESRD (end stage renal disease) (2) ARF (acute renal failure) (3) CHF (congestive heart failure) (4) Anemia in chronic kidney disease (CKD) (5) Nephrotic syndrome Assessment Advanced Renal failure with Proteinuria CKD known to the patient h/o HTN h/o Cardiac disease s/p stent ? DM high A1c Plan after and pre load reduction management discussed the need for Dialysis - catheter today- dialysis today 1000 cc fluid restriction Renal diet- Phos binders BP check kidney RUSSEL noted 24 h urine results noted per orders Echo Global left ventricular hypokinesis with falttenign of cody VS suggestive of RV pressuere overload Mild left ventricular enlargement . Left ventricular ejection fraction estimated to be 25-30%. RUSSEL * Portions of the right ureteral stent are partially visualized. Punctate echogenic focus also noted in the lower pole of the right kidney which may represent nonobstructing stone. * No evidence of hydronephrosis bilaterally. * Renal echogenicity appears within normal limits. * Bladder wall thickening is noted within question for cystitis, although findings may possibly related to underdistention. Correlation with urinalysis recommended. Subjective ROS Limited/Unobtainable: No Constitutional: Reports: malaise, weakness Objective Objective Last 24 Hour Vital Signs Date Time Temp Pulse Resp B/P (MAP) Pulse Ox O2 Delivery O2 Flow Rate FiO2 12/17/18 08:22 Room Air 12/17/18 08:04 77 125/64 12/17/18 08:03 125/64 12/17/18 07:56 98.3 77 18 125/64 (84) 99 12/17/18 06:00 129/92 12/17/18 04:00 98.9 85 17 129/92 (104) 96 12/17/18 00:00 115/65 12/17/18 00:00 98.5 78 17 127/70 (89) 98 12/16/18 21:30 Room Air 12/16/18 20:36 78 115/65 12/16/18 20:00 98.0 78 18 115/65 (82) 98 12/16/18 17:43 127/71 12/16/18 16:00 98.0 73 20 127/71 (89) 96 12/16/18 13:33 120/69 12/16/18 12:00 98.8 72 19 120/69 (86) 97 Intake and Output 12/16/18 12/17/18 19:00 07:00 Intake Total 480 ml 350 ml Balance 480 ml 350 ml Intake Oral 480 ml 350 ml # Voids 3 3 Laboratory Tests 12/16/18 21:15: Urine Eosinophils None seen 12/17/18 05:55: White Blood Count 3.6L, Red Blood Count 2.98L, Hemoglobin 8.4L, Hematocrit 26.4L , Mean Corpuscular Volume 89, Mean Corpuscular Hemoglobin 28.1, Mean Corpuscular Hemoglobin Concent 31.7L, Red Cell Distribution Width 16.1H, Platelet Count 122L, Mean Platelet Volume 9.2, Neutrophils (%) (Auto) 70.3, Lymphocytes (%) (Auto) 17.2L, Monocytes (%) (Auto) 9.6, Eosinophils (%) (Auto) 2.0, Basophils (%) (Auto) 0.8, Prothrombin Time 13.4H, Prothromb Time International Ratio 1.3H, Activated Partial Thromboplast Time 27, Sodium Level 139, Potassium Level 4.7, Chloride Level 110H, Carbon Dioxide Level 13L, Anion Gap 16H, Blood Urea Nitrogen 110H, Creatinine 6.2H, Estimat Glomerular Filtration Rate 9.5, Glucose Level 95, Uric Acid 9.3H, Calcium Level 7.9L, Phosphorus Level 5.9H, Total Bilirubin 0.7, Aspartate Amino Transf (AST/SGOT) 22 , Alanine Aminotransferase (ALT/SGPT) 29, Alkaline Phosphatase 249H, Total Protein 6.3L, Albumin 2.7L, Globulin 3.6, Albumin/Globulin Ratio 0.8L Height (Feet): 5 Height (Inches): 6.00 Weight (Pounds): 152 General Appearance: no apparent distress, lethargic Cardiovascular: normal rate Respiratory/Chest: decreased breath sounds Abdomen: distended Micah Pitt MD Dec 17, 2018 09:37
--- NOTE | 2018-12-17 10:22 | NUR ---
*-* INSURANCE *-* ALL CLINICALS AND REVIEWS HAVE BEEN FAXED TO: [facility]: NURYS P:[phone] F:[phone]
--- NOTE | 2018-12-17 10:22 | NUR ---
NURSE NOTES: pt still awaiting for dialysis cath placement. called radiology to follow up, and said they will call me back later.
--- NOTE | 2018-12-17 12:08 | NUR ---
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 98.9 HR 85 RR 17 B/P 129/92 BUN 110 CR 6.2 ALK PHOS 249 IS: IRON IV ASA PO IMDUR PO PROTONIX PO HD CATHETER PLACEMENT HD MED/SURG STATUS
--- NOTE | 2018-12-17 12:21 | Infectious Diseases Prog Note ---
Assessment/Plan Assessment/Plan IMPRESSION: Pyuria. urine culture so far is negative. 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 RECOMMENDATION: Observe off antibiotic. Subjective ROS Limited/Unobtainable: No Constitutional: Reports: no symptoms Respiratory: Reports: no symptoms Gastrointestinal/Abdominal: Reports: no symptoms, other - NPO for procedure Genitourinary: Reports: other - dark urine Allergies: Coded Allergies: No Known Allergies (Unverified , 12/14/18) Objective Vital Signs Last 24 Hour Vital Signs Date Time Temp Pulse Resp B/P (MAP) Pulse Ox O2 Delivery O2 Flow Rate FiO2 12/17/18 08:22 Room Air 12/17/18 08:04 77 125/64 12/17/18 08:03 125/64 12/17/18 07:56 98.3 77 18 125/64 (84) 99 12/17/18 06:00 129/92 12/17/18 04:00 98.9 85 17 129/92 (104) 96 12/17/18 00:00 115/65 12/17/18 00:00 98.5 78 17 127/70 (89) 98 12/16/18 21:30 Room Air 12/16/18 20:36 78 115/65 12/16/18 20:00 98.0 78 18 115/65 (82) 98 12/16/18 17:43 127/71 12/16/18 16:00 98.0 73 20 127/71 (89) 96 12/16/18 13:33 120/69 Height (Feet): 5 Height (Inches): 6.00 Weight (Pounds): 152 HEENT: mucous membranes moist Respiratory/Chest: lungs clear Cardiovascular: normal rate Abdomen: soft, non tender Extremities: other - decreased edema of legs Neurologic/Psychiatric: alert, oriented x 3, responsive Microbiology Date/Time Source Procedure Growth Status 12/16/18 21:15 Urine,Clean Catch Urine Culture - Preliminary Resulted Laboratory Tests Test 12/16/18 21:15 12/17/18 05:55 Urine Eosinophils None seen (NONE SEEN) White Blood Count 3.6 K/UL (4.8-10.8) L Red Blood Count 2.98 M/UL (4.70-6.10) L Hemoglobin 8.4 G/DL (14.2-18.0) L Hematocrit 26.4 % (42.0-52.0) L Mean Corpuscular Volume 89 FL (80-99) Mean Corpuscular Hemoglobin 28.1 PG (27.0-31.0) Mean Corpuscular Hemoglobin Concent 31.7 G/DL (32.0-36.0) L Red Cell Distribution Width 16.1 % (11.6-14.8) H Platelet Count 122 K/UL (150-450) L Mean Platelet Volume 9.2 FL (6.5-10.1) Neutrophils (%) (Auto) 70.3 % (45.0-75.0) Lymphocytes (%) (Auto) 17.2 % (20.0-45.0) L Monocytes (%) (Auto) 9.6 % (1.0-10.0) Eosinophils (%) (Auto) 2.0 % (0.0-3.0) Basophils (%) (Auto) 0.8 % (0.0-2.0) Prothrombin Time 13.4 SEC (9.30-11.50) H Prothromb Time International Ratio 1.3 (0.9-1.1) H Activated Partial Thromboplast Time 27 SEC (23-33) Sodium Level 139 MMOL/L (136-145) Potassium Level 4.7 MMOL/L (3.5-5.1) Chloride Level 110 MMOL/L (98-107) H Carbon Dioxide Level 13 MMOL/L (21-32) L Anion Gap 16 mmol/L (5-15) H Blood Urea Nitrogen 110 mg/dL (7-18) H Creatinine 6.2 MG/DL (0.55-1.30) H Estimat Glomerular Filtration Rate 9.5 mL/min (>60) Glucose Level 95 MG/DL (74-106) Uric Acid 9.3 MG/DL (2.6-7.2) H Calcium Level 7.9 MG/DL (8.5-10.1) L Phosphorus Level 5.9 MG/DL (2.5-4.9) H Total Bilirubin 0.7 MG/DL (0.2-1.0) Aspartate Amino Transf (AST/SGOT) 22 U/L (15-37) Alanine Aminotransferase (ALT/SGPT) 29 U/L (12-78) Alkaline Phosphatase 249 U/L (46-116) H Total Protein 6.3 G/DL (6.4-8.2) L Albumin 2.7 G/DL (3.4-5.0) L Globulin 3.6 g/dL Albumin/Globulin Ratio 0.8 (1.0-2.7) L Current Medications Medications (Trade) Dose Ordered Sig/Félix Route PRN Reason Start Time Stop Time Status Last Admin Dose Admin Acetaminophen (Tylenol) 650 mg Q4H PRN ORAL Mild Pain/Temp > 100.5 12/14/18 15:45 01/13/19 15:44 Allopurinol (Zyloprim) 100 mg DAILY ORAL 12/15/18 09:00 01/14/19 08:59 12/17/18 08:03 Aspirin (ASA) 162 mg DAILY ORAL 12/14/18 15:45 01/13/19 15:44 12/16/18 08:35 Calcitriol (Rocatrol) 0.5 mcg DAILY ORAL 12/15/18 09:00 01/14/19 08:59 12/17/18 08:04 Carvedilol (Coreg) 6.25 mg EVERY 12 HOURS ORAL 12/15/18 09:00 01/13/19 20:59 12/17/18 08:04 Docusate Sodium (Colace) 100 mg TID ORAL 12/17/18 13:00 01/13/19 17:59 Ergocalciferol (Drisdol) 50,000 intlu QWEEK ORAL 12/15/18 10:00 01/14/19 09:59 12/15/18 09:53 Heparin Sodium (Porcine) (Heparin 5000 units/ml) 5,000 units EVERY 12 HOURS SUBQ 12/15/18 21:00 01/13/19 20:59 Hydralazine HCl (Apresoline) 25 mg Q6HR ORAL 12/14/18 20:45 01/13/19 20:44 12/16/18 17:43 Iron Sucrose 100 mg/Sodium Chloride 60 ml @ 240 mls/hr BEDTIME IV 12/16/18 21:00 12/20/18 21:14 12/16/18 20:37 Isosorbide Mononitrate (Imdur) 30 mg DAILY ORAL 12/14/18 20:45 01/13/19 20:44 12/17/18 08:03 Pantoprazole (Protonix) 40 mg EVERY 12 HOURS ORAL 12/14/18 21:00 01/13/19 20:59 12/17/18 08:04 Sevelamer Carbonate (Renvela) 2,400 mg THREE TIMES A DAY ORAL 12/17/18 13:00 01/14/19 08:59 Tamsulosin HCl (Flomax) 0.4 mg BEDTIME ORAL 12/16/18 21:00 01/15/19 20:59 12/16/18 20:36 Omi Brown MD Dec 17, 2018 12:21
--- NOTE | 2018-12-17 13:27 | Cardiology Report ---
APPROVED REPORT EKG Measurement Heart [id number] Normal sinus rhythm Possible Left atrial enlargement Anterolateral infarct, age undetermined Abnormal ECG
--- NOTE | 2018-12-17 13:47 | NUR ---
*-* INSURANCE *-* ALL CLINICALS AND REVIEWS HAVE BEEN FAXED TO: [facility]AN[facility]: NURYS P:[phone] F:[phone]
[2018-12-17] MEDS ORDERED: Heparin1,000 units/500ml Premix(Conc:2 units/ml) INJ PRN (14:26)
[2018-12-17] MEDS ORDERED: Heparin Sod 1000 units/ml 10ml INJ PRN (14:26)
--- NOTE | 2018-12-17 14:39 | Pre-Procedure Note/Attestation ---
Pre-Procedure Note/Attestation Complete Prior to Procedure Planned Procedure: not applicable Procedure Narrative: Permacath placement Indications for Procedure Pre-Operative Diagnosis: ESRD Attestation I attest that I discussed the nature of the procedure; its benefits; risks and complications; and alternatives (and the risks and benefits of such alternatives ), prior to the procedure, with the patient (or the patient's legal underwriting sales representative). I attest that, if there was a reasonable possibility of needing a blood transfusion, the patient (or the patient's legal underwriting sales representative) was given the [facility] standardized written summary, pursuant to the Felipe Anali Blood Safety Act ([place] Health and Safety Code # 1645, as amended). I attest that I re-evaluated the patient just prior to the surgery and that there has been no change in the patient's H&P, except as documented below: Maurice Ang M.D. Dec 17, 2018 14:39
[2018-12-17] MEDS: ceFAZolin sod 1 GM in D5W 55 ML IVPB SCH (15:02)
--- NOTE | 2018-12-17 15:59 | Diagnostic Imaging Report ---
Indications: Needs long-term dialysis access Technique: Informed consent obtained. Patient given IV Ancef . Total sterile technique, including sterile probe cover and sterile gel, sterile gloves, hand hygiene, hat, mask,, sterile gown, large sterile drape, and preparation with 2% chlorhexidine utilized. Local anesthesia with 1% lidocaine. Under real-time ultrasound guidance, puncture right internal jugular vein using 21-gauge micropuncture needle, passage 0.018 guidewire, exchange for 4 Palestinian micropuncture introducer. The guidewire was used to measure the appropriate catheter length, and was removed. The sheath was left in place. The subcutaneous tract was then anesthetized with 1% lidocaine. A chest dermatotomy was made . The tunneling device was used to pull a 14.5 Palestinian 19 cm tip to cuff catheter through the subcutaneous tunnel to the neck dermatotomy. A guidewire was passed through the neck introducer into the inferior vena cava, and serial dilators were passed over it, followed by the introduction of a 14.5 Palestinian AirGuard peel-away sheath. The catheter was then introduced into the sheath, the peel-away sheath was removed. Digital radiograph documents satisfactory catheter tip position in the high right atrium, no kinking at the insertion site. Both catheter ports aspirated and flushed. Catheter was fixed to the skin. Patient tolerated procedure well without immediate complication. Total fluoroscopy time 29.3 against. Total endoscopy dose 3.58 mGy Comparison: None. Findings: Completion radiograph documents satisfactory position and course of the catheter, catheter tip at the Cavoatrial junction. Impression: Successful placement of right transjugular tunneled dialysis catheter, as described above
[2018-12-17] MEDS ORDERED: Lidocaine 2% 20mg/ml/Epi 0.005mg/ml 20ml vial INJ SCH (16:00)
--- NOTE | 2018-12-17 16:51 | NUR ---
NURSE NOTES: pt came back from procedure. pt has (R)chest permacath with dressing intact and no bleeding noted. CXR ordered for confirmation. await for dialysis now.
--- NOTE | 2018-12-17 17:29 | General Progress Note ---
Assessment/Plan Assessment: Assessment/Plan # Pancytopenia -- multiple etiologies could be related to underlying liver disease, medication-induced, infection versus viral syndrome -> on imaging of the ct a/p, does appear has a history of SPLENOMEGALY AND CIRRHOSIS (irregular liver sufrace can explain pancytopenia), Prominent soft tissue opacities in the splenic hilum and lesser sac, could indicate varices, all of the lesser sac findings could represent prominent nodes. Consider gi evaluation and treatment --> peripheral smear has been ordered and does not show significant abnormalities does not appear to have significant abnormalities --> Medications have been reviewed --> Continue to monitor for improvement, trend cbc --> Hep panel and HIV are both negative --> consider other causes, infections that could contribute --> reverse isolation if ANC is <2000 --> Give neupogen if ANC <1000 --> Transfuse if hgb <7, with 1 unit prbc --> WBC trend 4.2-->3.6-->3.6 # Anemia of iron deficiency given will need hd/esrd --> iron has been started x 5 doses iv # Coagulation defect, multifactorial usually related to poor PO intake versus medications, versus hepatitis v cirrhosis --> administer Vitamin K if patient is bleeding or FFP if the INR is >10 --> hold off on ffp unless active procedure/bleeding, first begin with vit K 10 --> mixing study as needed # Advanced Renal failure with Proteinuria --> as per renal eval and recs --> 24hr collection as per renal # CKD known to the patient --> pre renal needs hd # h/o HTN --> sbp goal <140 # h/o Cardiac disease s/p stent # ? DM The timing of this note does not necessarily reflect the time of the patient was seen. Greatly appreciate consultation! Subjective Constitutional: Denies: no symptoms, chills, diaphoresis, fever, malaise, weakness, other HEENT: Denies: no symptoms, eye pain, blurred vision, tearing, double vision, ear pain, ear discharge, nose pain, nose congestion, throat pain, throat swelling, mouth pain, mouth swelling, other Cardiovascular: Denies: no symptoms, chest pain, edema, irregular heart rate, lightheadedness, palpitations, syncope, other Respiratory: Denies: no symptoms, cough, orthopnea, shortness of breath, SOB with excertion, SOB at rest, sputum, stridor, wheezing, other Gastrointestinal/Abdominal: Denies: no symptoms, abdomen distended, abdominal pain, black stools, tarry stools, blood in stool, constipated, diarrhea, difficulty swallowing, nausea, poor appetite, poor fluid intake, rectal bleeding , vomiting, other Genitourinary: Denies: no symptoms, burning, discharge, frequency, flank pain, hematuria, incontinence, pain, urgency, other Neurologic/Psychiatric: Denies: no symptoms, anxiety, depressed, emotional problems, headache, numbness, paresthesia, pre-existing deficit, seizure, tingling, tremors, weakness, other Endocrine: Denies: no symptoms, excessive sweating, flushing, intolerance to cold, intolerance to heat, increased hunger, increased thirst, increased urine, unexplained weight gain, unexplained weight loss, other Hematologic/Lymphatic: Denies: no symptoms, anemia, easy bleeding, easy bruising, other Allergies: Coded Allergies: No Known Allergies (Unverified , 12/14/18) Subjective 12/15: labs have been reviewed, relatively stable cbc but mildly lower with elev inr, not bleeding 12/16: discussed need for HD with renal, family, by the bedside understands as well as patient 12/17: labs have been reviewed and noted, by bedside, relatively stable Objective Last 24 Hour Vital Signs Date Time Temp Pulse Resp B/P (MAP) Pulse Ox O2 Delivery O2 Flow Rate FiO2 12/17/18 15:15 72 18 148/90 (109) 100 12/17/18 15:10 72 18 153/92 (112) 100 12/17/18 15:05 68 18 147/83 (104) 100 12/17/18 15:00 71 18 150/87 (108) 100 12/17/18 14:55 72 18 152/90 (110) 100 12/17/18 14:18 72 18 12/17/18 12:00 98.0 72 18 124/64 (84) 99 12/17/18 08:22 Room Air 12/17/18 08:04 77 125/64 12/17/18 08:03 125/64 12/17/18 07:56 98.3 77 18 125/64 (84) 99 12/17/18 06:00 129/92 12/17/18 04:00 98.9 85 17 129/92 (104) 96 12/17/18 00:00 115/65 12/17/18 00:00 98.5 78 17 127/70 (89) 98 12/16/18 21:30 Room Air 12/16/18 20:36 78 115/65 12/16/18 20:00 98.0 78 18 115/65 (82) 98 12/16/18 17:43 127/71 Intake and Output 12/16/18 12/17/18 19:00 07:00 Intake Total 480 ml 350 ml Balance 480 ml 350 ml Intake Oral 480 ml 350 ml # Voids 3 3 Laboratory Tests 12/16/18 21:15: Urine Eosinophils None seen 12/17/18 05:55: White Blood Count 3.6L, Red Blood Count 2.98L, Hemoglobin 8.4L, Hematocrit 26.4L , Mean Corpuscular Volume 89, Mean Corpuscular Hemoglobin 28.1, Mean Corpuscular Hemoglobin Concent 31.7L, Red Cell Distribution Width 16.1H, Platelet Count 122L, Mean Platelet Volume 9.2, Neutrophils (%) (Auto) 70.3, Lymphocytes (%) (Auto) 17.2L, Monocytes (%) (Auto) 9.6, Eosinophils (%) (Auto) 2.0, Basophils (%) (Auto) 0.8, Prothrombin Time 13.4H, Prothromb Time International Ratio 1.3H, Activated Partial Thromboplast Time 27, Sodium Level 139, Potassium Level 4.7, Chloride Level 110H, Carbon Dioxide Level 13L, Anion Gap 16H, Blood Urea Nitrogen 110H, Creatinine 6.2H, Estimat Glomerular Filtration Rate 9.5, Glucose Level 95, Uric Acid 9.3H, Calcium Level 7.9L, Phosphorus Level 5.9H, Total Bilirubin 0.7, Aspartate Amino Transf (AST/SGOT) 22 , Alanine Aminotransferase (ALT/SGPT) 29, Alkaline Phosphatase 249H, Total Protein 6.3L, Albumin 2.7L, Globulin 3.6, Albumin/Globulin Ratio 0.8L Height (Feet): 5 Height (Inches): 6.00 Weight (Pounds): 152 Objective PE: Vitals: reviewed General Appearance: NAD, nonverbal HEENT: normocephalic, atraumatic Neck: non-tender, normal alignment Respiratory/Chest: nromal breath sounds bilaterally Cardiovascular/Chest: normal peripheral pulses, normal rate Abdomen: normal bowel sounds, soft, nontender Extremities: normal range of motion . Enrrique Solano MD Dec 17, 2018 17:29
--- NOTE | 2018-12-17 19:19 | NUR ---
HAND-OFF: Report given to GRIS Kim.
--- NOTE | 2018-12-17 19:23 | NUR ---
NURSE NOTES: Patient in bed, awake, alert, talking on the phone. IV in place. HD access in right chest in place. No s/s distress. No complaints of pain at this time. Bed in lowest position, call light within reach. Will continue to monitor. Addendum: 12/17/18 at 1927 by SHAMIR YOU RN RN Patient's HD catheter dressing stained, per AM nurse, Nadia, the blood was there when patient came up from radiology.
--- NOTE | 2018-12-17 19:32 | Diagnostic Imaging Report ---
History: TUBE PLCMT Exam: XR CXR 1 VIEW Comparison: 12/14/2018 FINDINGS/IMPRESSION: Right-sided tunneled dialysis catheter. Mild curve to the distal catheter. Cannot entirely exclude possibility of catheter entering the azygos vein. A lateral view may help further characterize position. The lungs are clear. No evidence of pneumothorax or pleural effusion identified. The cardiac silhouette appears enlarged.
--- NOTE | 2018-12-17 20:15 | General Progress Note ---
Assessment/Plan Problem List: (1) CHF exacerbation ICD Codes: I50.9 - Heart failure, unspecified SNOMED: 32282236 (2) Pyelonephritis ICD Codes: N12 - Tubulo-interstitial nephritis, not specified as acute or chronic SNOMED: 94160149 (3) Pancytopenia ICD Codes: D61.818 - Other pancytopenia SNOMED: 742056706 (4) CHF (congestive heart failure) ICD Codes: I50.9 - Heart failure, unspecified SNOMED: 28178199 (5) Anemia in chronic kidney disease (CKD) ICD Codes: N18.9 - Chronic kidney disease, unspecified; D63.1 - Anemia in chronic kidney disease SNOMED: 319756064 (6) ARF (acute renal failure) ICD Codes: N17.9 - Acute kidney failure, unspecified SNOMED: 04663368 (7) ESRD (end stage renal disease) ICD Codes: N18.6 - End stage renal disease SNOMED: 99737981 (8) Nephrotic syndrome ICD Codes: N04.9 - Nephrotic syndrome with unspecified morphologic changes SNOMED: 31185325 Status: progressing Assessment: agreed to ge thd awaiting diaylsis access so can get dialysis esrd chf ;htn Subjective ROS Limited/Unobtainable: Yes Allergies: Coded Allergies: No Known Allergies (Unverified , 12/14/18) Objective Last 24 Hour Vital Signs Date Time Temp Pulse Resp B/P (MAP) Pulse Ox O2 Delivery O2 Flow Rate FiO2 12/17/18 15:15 72 18 148/90 (109) 100 12/17/18 15:10 72 18 153/92 (112) 100 12/17/18 15:05 68 18 147/83 (104) 100 12/17/18 15:00 71 18 150/87 (108) 100 12/17/18 14:55 72 18 152/90 (110) 100 12/17/18 14:18 72 18 12/17/18 12:00 98.0 72 18 124/64 (84) 99 12/17/18 08:22 Room Air 12/17/18 08:04 77 125/64 12/17/18 08:03 125/64 12/17/18 07:56 98.3 77 18 125/64 (84) 99 12/17/18 06:00 129/92 12/17/18 04:00 98.9 85 17 129/92 (104) 96 12/17/18 00:00 115/65 12/17/18 00:00 98.5 78 17 127/70 (89) 98 12/16/18 21:30 Room Air 12/16/18 20:36 78 115/65 Intake and Output 12/16/18 12/17/18 19:00 07:00 Intake Total 480 ml 350 ml Balance 480 ml 350 ml Intake Oral 480 ml 350 ml # Voids 3 3 Laboratory Tests 12/16/18 21:15: Urine Eosinophils None seen 12/17/18 05:55: White Blood Count 3.6L, Red Blood Count 2.98L, Hemoglobin 8.4L, Hematocrit 26.4L , Mean Corpuscular Volume 89, Mean Corpuscular Hemoglobin 28.1, Mean Corpuscular Hemoglobin Concent 31.7L, Red Cell Distribution Width 16.1H, Platelet Count 122L, Mean Platelet Volume 9.2, Neutrophils (%) (Auto) 70.3, Lymphocytes (%) (Auto) 17.2L, Monocytes (%) (Auto) 9.6, Eosinophils (%) (Auto) 2.0, Basophils (%) (Auto) 0.8, Prothrombin Time 13.4H, Prothromb Time International Ratio 1.3H, Activated Partial Thromboplast Time 27, Sodium Level 139, Potassium Level 4.7, Chloride Level 110H, Carbon Dioxide Level 13L, Anion Gap 16H, Blood Urea Nitrogen 110H, Creatinine 6.2H, Estimat Glomerular Filtration Rate 9.5, Glucose Level 95, Uric Acid 9.3H, Calcium Level 7.9L, Phosphorus Level 5.9H, Total Bilirubin 0.7, Aspartate Amino Transf (AST/SGOT) 22 , Alanine Aminotransferase (ALT/SGPT) 29, Alkaline Phosphatase 249H, Total Protein 6.3L, Albumin 2.7L, Globulin 3.6, Albumin/Globulin Ratio 0.8L Height (Feet): 5 Height (Inches): 6.00 Weight (Pounds): 152 Neck: supple Cardiovascular: normal rate Respiratory/Chest: lungs clear Abdomen: soft Sarahi Shaffer MD Dec 17, 2018 20:15
[2018-12-17] MEDS: Iron Sucrose 100 MG in NS 55 ML IV SCH (22:32)
[2018-12-17] MEDS: Tamsulosin 0.4mg cap ORAL SCH (22:32)
--- NOTE | 2018-12-17 23:00 | NUR ---
NURSE NOTES: Patient's temporary dialysis access dressing on the chest was changed by the dialysis nurse after patient finished dialysis. When nurse checked the dressing, it was soiled with serosanguineous drainage. Charge nurse made aware. Nurse and charge nurse reinforced the dressing. Will continue to monitor.
--- NOTE | 2018-12-17 23:57 | Cardiology Progress Note ---
Assessment/Plan Assessment/Plan 1. Dilated cardiomyopathy with LVEF at 25%, possibly non-ischemic, the patient not aware of the heart condition. Continue GDMT. 2. Hx of CAD, s/p OR, s/p PCI 3. Right heart failure with anasarca. 4. CKD, stage V 5. Severe pulmonary HTN Subjective Subjective Denies chest pain or SOB. Objective Last 24 Hour Vital Signs Date Time Temp Pulse Resp B/P (MAP) Pulse Ox O2 Delivery O2 Flow Rate FiO2 12/17/18 22:38 98.1 16 148/76 (100) 98 12/17/18 22:32 94 148/76 12/17/18 21:02 Room Air 12/17/18 15:15 72 18 148/90 (109) 100 12/17/18 15:10 72 18 153/92 (112) 100 12/17/18 15:05 68 18 147/83 (104) 100 12/17/18 15:00 71 18 150/87 (108) 100 12/17/18 14:55 72 18 152/90 (110) 100 12/17/18 14:18 72 18 12/17/18 12:00 98.0 72 18 124/64 (84) 99 12/17/18 08:22 Room Air 12/17/18 08:04 77 125/64 12/17/18 08:03 125/64 12/17/18 07:56 98.3 77 18 125/64 (84) 99 12/17/18 06:00 129/92 12/17/18 04:00 98.9 85 17 129/92 (104) 96 12/17/18 00:00 115/65 12/17/18 00:00 98.5 78 17 127/70 (89) 98 Intake and Output 12/16/18 12/17/18 19:00 07:00 Intake Total 480 ml 350 ml Balance 480 ml 350 ml Intake Oral 480 ml 350 ml # Voids 3 3 Laboratory Tests Test 12/17/18 05:55 White Blood Count 3.6 K/UL (4.8-10.8) L Red Blood Count 2.98 M/UL (4.70-6.10) L Hemoglobin 8.4 G/DL (14.2-18.0) L Hematocrit 26.4 % (42.0-52.0) L Mean Corpuscular Volume 89 FL (80-99) Mean Corpuscular Hemoglobin 28.1 PG (27.0-31.0) Mean Corpuscular Hemoglobin Concent 31.7 G/DL (32.0-36.0) L Red Cell Distribution Width 16.1 % (11.6-14.8) H Platelet Count 122 K/UL (150-450) L Mean Platelet Volume 9.2 FL (6.5-10.1) Neutrophils (%) (Auto) 70.3 % (45.0-75.0) Lymphocytes (%) (Auto) 17.2 % (20.0-45.0) L Monocytes (%) (Auto) 9.6 % (1.0-10.0) Eosinophils (%) (Auto) 2.0 % (0.0-3.0) Basophils (%) (Auto) 0.8 % (0.0-2.0) Prothrombin Time 13.4 SEC (9.30-11.50) H Prothromb Time International Ratio 1.3 (0.9-1.1) H Activated Partial Thromboplast Time 27 SEC (23-33) Sodium Level 139 MMOL/L (136-145) Potassium Level 4.7 MMOL/L (3.5-5.1) Chloride Level 110 MMOL/L (98-107) H Carbon Dioxide Level 13 MMOL/L (21-32) L Anion Gap 16 mmol/L (5-15) H Blood Urea Nitrogen 110 mg/dL (7-18) H Creatinine 6.2 MG/DL (0.55-1.30) H Estimat Glomerular Filtration Rate 9.5 mL/min (>60) Glucose Level 95 MG/DL (74-106) Uric Acid 9.3 MG/DL (2.6-7.2) H Calcium Level 7.9 MG/DL (8.5-10.1) L Phosphorus Level 5.9 MG/DL (2.5-4.9) H Total Bilirubin 0.7 MG/DL (0.2-1.0) Aspartate Amino Transf (AST/SGOT) 22 U/L (15-37) Alanine Aminotransferase (ALT/SGPT) 29 U/L (12-78) Alkaline Phosphatase 249 U/L (46-116) H Total Protein 6.3 G/DL (6.4-8.2) L Albumin 2.7 G/DL (3.4-5.0) L Globulin 3.6 g/dL Albumin/Globulin Ratio 0.8 (1.0-2.7) L Microbiology Date/Time Source Procedure Growth Status 12/16/18 21:15 Urine,Clean Catch Urine Culture - Preliminary Resulted Objective HEENT: Atraumatic, normocephalic, PEERLA, EOMI, [place] conjunctiva. NECK: No JVD, no carotid bruit. HEART: Normal S1S2, regular rate and rhythm, No gallops, rubs or murmurs. LUNGS: Clear. ABDOMEN: Distended with ascites, soft, non-tender, + BS. EXTREMITIES: 2+ Leg edema B/L NEUROLOGIC: Awake, alert, oriented. Mynor Rockwell MD Dec 17, 2018 23:57
[2018-12-18 00:14] VITALS: BP 142/79
[2018-12-18] MEDS: HydrALAZINE 25mg tab ORAL SCH ×5 (00:32→21:06)
[2018-12-18 04:11] VITALS: BP 138/70
--- NOTE | 2018-12-18 06:00 | NUR ---
NURSE NOTES: When nurse checked on the patient's temporary dialysis access again, nurse noted the dressing had been soiled on the side with blood. Nurse and change nurse then took off the reinforcement dressing and saw the dressing done by the dialysis nurse to have moderate serosanguineous drainage. Nurse took off old dressing and applied new pressure dressing using aseptic technique with charge nurse also at bedside. Patient tolerated the procedure and will continue to monitor. Will endorse to next shift to monitor drainage amount and to notify MD if bleeding continues.
[2018-12-18 06:20] LABS: HEMATOCRIT 25.8 % (42.0-52.0); HEMOGLOBIN 8.3 G/DL (14.2-18.0); MEAN CORPUSCULAR VOLUME 87 FL (80-99); PLATELET COUNT 84 K/UL (150-450); RED BLOOD COUNT 2.96 M/UL (4.70-6.10); RED CELL DISTRIBUTION WIDTH 15.8 % (11.6-14.8); WHITE BLOOD COUNT 4.3 K/UL (4.8-10.8)
[2018-12-18 06:41] LABS: ALANINE AMINOTRANSFERASE 25 U/L (12-78); ALBUMIN 2.7 G/DL (3.4-5.0); ALBUMIN/GLOBULIN RATIO 0.8 (1.0-2.7); ALKALINE PHOSPHATASE 234 U/L (46-116); ANION GAP 15 mmol/L (5-15); ASPARTATE AMINO TRANSFERASE 24 U/L (15-37); BILIRUBIN,TOTAL 0.9 MG/DL (0.2-1.0); BLOOD UREA NITROGEN 77 mg/dL (7-18); CALCIUM 8.7 MG/DL (8.5-10.1); CARBON DIOXIDE 19 MMOL/L (21-32); CHLORIDE 105 MMOL/L (98-107); CREATININE 4.7 MG/DL (0.55-1.30); PHOSPHORUS 4.5 MG/DL (2.5-4.9); POTASSIUM 3.7 MMOL/L (3.5-5.1); SODIUM 139 MMOL/L (136-145)
--- NOTE | 2018-12-18 07:23 | NUR ---
HAND-OFF: Report given to CARROLL ALSTON RN. ENDORSED TO AM NURSE REGARDING MONITORING THE DIALYSIS DRESSING FOR BLEEDING.
[2018-12-18 08:00] VITALS: BP 131/66
[2018-12-18] MEDS: Aspirin Baby 81mg ORAL SCH (08:42)
[2018-12-18] MEDS: Imdur 30mg tab ORAL SCH (08:43)
[2018-12-18] MEDS: Docusate 100mg cap ORAL SCH ×3 (08:44→17:41)
[2018-12-18] MEDS: Carvedilol 6.25mg Tab ORAL SCH ×2 (08:44→20:49)
[2018-12-18] MEDS: Calcitriol 0.25mcg Cap ORAL SCH (08:45)
[2018-12-18] MEDS: Allopurinol 100mg Tab ORAL SCH (08:45)
[2018-12-18] MEDS: Heparin 5000 units/ml inj SUBQ SCH ×3 (08:46→21:00)
--- NOTE | 2018-12-18 11:14 | NUR ---
NURSE NOTES: PT'S RIGHT CHEST TUNNELED DIALYSIS CATH WITH SATURATED SEROSANGUINEOUS DRESSING. RN CHANGED DRESSING USING ASEPTIC TECHNIQUE. RN MADE DR MCMILLAN AWARE THIS IS THIRD DRESSING CHANGE. PER DR MCMILLAN, OK TO CALL RADIOLOGY OR DR LANGSTON IF IT CONTINNUES TO SATURATE DRESSINGS.
--- NOTE | 2018-12-18 11:29 | NUR ---
NURSE NOTES: RECEIVED CALL FROM DR MCMILLAN. PER , HE CALLED DR. LANGSTON CONSULT TO LOOK AT RIGHT CHEST TUNNELED DIALYSIS CATH.
[2018-12-18 12:00] VITALS: BP 125/66
[2018-12-18 16:00] VITALS: BP 137/71
--- NOTE | 2018-12-18 16:53 | NUR ---
NURSE NOTES: DR LANGSTON AT BEDSIDE WITH PT TO EVALUATE RIGHT CHEST TUNNELED DIALYSIS CATH. DRESSING DRY AND INTACT. PER MD, WILL MONITOR.
--- NOTE | 2018-12-18 17:29 | Consultation ---
History of Present Illness General Date patient seen: Dec 18, 2018 Reason for Hospitalization: Abdominal Pain Present Illness HPI 53 year old very pleasant male with multiple medical comorbidities currently admitted for care. recently had right tunneled HD catheter insertion by radiology for ongoing HD. noted to have multiple bloody saturated dressings since insertion. surgery called to evaluate and assist with hemostasis. patient seen, chart reviewed, patient examined. Allergies: Coded Allergies: No Known Allergies (Unverified , 12/14/18) Medication History Scheduled Carvedilol* (Carvedilol*), 6.25 MG ORAL EVERY 12 HOURS, (Reported) Furosemide* (Lasix*), 40 MG ORAL TWICE A DAY, (Reported) Patient History History Provided By: Patient, Medical Record, PMD Healthcare decision maker Resuscitation status Full Code Advanced Directive on File Past Medical/Surgical History Past Medical/Surgical History: (1) Pancytopenia (2) CHF (congestive heart failure) (3) ARF (acute renal failure) (4) Anemia in chronic kidney disease (CKD) (5) ESRD (end stage renal disease) (6) Nephrotic syndrome (7) Pyelonephritis (8) CHF exacerbation Review of Systems Review of Symptoms General ROS: no weight loss or fever Psychological ROS: no depression or mood changes, no memory loss Ophthalmic ROS: no visual changes or eye irritation ENT ROS: no nasal congestion, hearing loss, dizziness Allergy and Immunology ROS: no allergic symptoms or urticaria Hematological and Lymphatic ROS: no swollen glands, unusual bleeding or bruising Endocrine ROS: no polyuria, polydipsia, weight changes, temperature intolerance Respiratory ROS: no cough, shortness of breath, or wheezing Cardiovascular ROS: no chest pain or dyspnea on exertion Gastrointestinal ROS: denies abdominal pain, no bright red blood in stool. Musculoskeletal ROS: no myalgias or arthralgias Neurological ROS: no TIA or stroke symptoms Dermatological ROS: no new or changing skin lesions, rashes or pruritis Physical Exam Physical Exam General appearance: alert, cooperative, no distress, appears stated age Head: Normocephalic, without obvious abnormality, atraumatic Eyes: conjunctivae/corneas clear. PERRL, EOM's intact. Fundi benign Throat: Lips, mucosa, and tongue normal. Teeth and gums normal Neck: supple, symmetrical, trachea midline, no adenopathy, thyroid: not enlarged, symmetric, no tenderness/mass/nodules, no carotid bruit and no JVD Lungs: clear to auscultation bilaterally; right tunneled HD cath Heart: regular rate and rhythm, S1, S2 normal, no murmur, click, rub or gallop Abdomen: soft, non-tender. Bowel sounds normal. No masses, no organomegaly Extremities: extremities normal, atraumatic, no cyanosis or edema Pulses: 2+ and symmetric Skin: Skin color, texture, turgor normal. No rashes or lesions Neurologic: Grossly normal Last 24 Hour Vital Signs Date Time Temp Pulse Resp B/P (MAP) Pulse Ox O2 Delivery O2 Flow Rate FiO2 12/18/18 13:23 125/66 12/18/18 12:00 98.1 75 20 125/66 (85) 100 12/18/18 09:00 Room Air 12/18/18 08:44 81 131/66 12/18/18 08:43 131/66 12/18/18 08:00 95.5 81 18 131/66 (87) 98 12/18/18 05:46 138/70 12/18/18 04:11 99.5 84 17 138/70 (92) 96 12/18/18 01:02 98.5 12/18/18 00:32 142/79 12/18/18 00:14 98.5 90 17 142/79 (100) 97 12/17/18 22:38 98.1 16 148/76 (100) 98 12/17/18 22:32 94 148/76 12/17/18 21:02 Room Air Intake and Output 12/17/18 12/18/18 19:00 07:00 Intake Total 240 ml Balance 240 ml Intake Oral 240 ml # Voids 3 Laboratory Tests Test 12/18/18 05:15 White Blood Count 4.3 K/UL (4.8-10.8) L Red Blood Count 2.96 M/UL (4.70-6.10) L Hemoglobin 8.3 G/DL (14.2-18.0) L Hematocrit 25.8 % (42.0-52.0) L Mean Corpuscular Volume 87 FL (80-99) Mean Corpuscular Hemoglobin 28.2 PG (27.0-31.0) Mean Corpuscular Hemoglobin Concent 32.3 G/DL (32.0-36.0) Red Cell Distribution Width 15.8 % (11.6-14.8) H Platelet Count 84 K/UL (150-450) L Mean Platelet Volume 8.9 FL (6.5-10.1) Neutrophils (%) (Auto) % (45.0-75.0) Lymphocytes (%) (Auto) % (20.0-45.0) Monocytes (%) (Auto) % (1.0-10.0) Eosinophils (%) (Auto) % (0.0-3.0) Basophils (%) (Auto) % (0.0-2.0) Differential Total Cells Counted 100 Neutrophils % (Manual) 77 % (45-75) H Lymphocytes % (Manual) 15 % (20-45) L Monocytes % (Manual) 7 % (1-10) Eosinophils % (Manual) 0 % (0-3) Basophils % (Manual) 1 % (0-2) Band Neutrophils 0 % (0-8) Platelet Estimate Decreased L Platelet Morphology Normal Hypochromasia 1+ Anisocytosis 1+ Sodium Level 139 MMOL/L (136-145) Potassium Level 3.7 MMOL/L (3.5-5.1) Chloride Level 105 MMOL/L (98-107) Carbon Dioxide Level 19 MMOL/L (21-32) L Anion Gap 15 mmol/L (5-15) Blood Urea Nitrogen 77 mg/dL (7-18) H Creatinine 4.7 MG/DL (0.55-1.30) H Estimat Glomerular Filtration Rate 13.1 mL/min (>60) Glucose Level 105 MG/DL (74-106) Uric Acid 6.6 MG/DL (2.6-7.2) Calcium Level 8.7 MG/DL (8.5-10.1) Phosphorus Level 4.5 MG/DL (2.5-4.9) Magnesium Level 1.9 MG/DL (1.8-2.4) Total Bilirubin 0.9 MG/DL (0.2-1.0) Aspartate Amino Transf (AST/SGOT) 24 U/L (15-37) Alanine Aminotransferase (ALT/SGPT) 25 U/L (12-78) Alkaline Phosphatase 234 U/L (46-116) H Total Protein 6.2 G/DL (6.4-8.2) L Albumin 2.7 G/DL (3.4-5.0) L Globulin 3.5 g/dL Albumin/Globulin Ratio 0.8 (1.0-2.7) L Height (Feet): 5 Height (Inches): 6.00 Weight (Pounds): 152 Medications Current Medications Medications (Trade) Dose Ordered Sig/Félix Route PRN Reason Start Time Stop Time Status Last Admin Dose Admin Acetaminophen (Tylenol) 650 mg Q4H PRN ORAL Mild Pain/Temp > 100.5 12/14/18 15:45 01/13/19 15:44 12/18/18 00:32 Allopurinol (Zyloprim) 100 mg DAILY ORAL 12/15/18 09:00 01/14/19 08:59 12/18/18 08:45 Aspirin (ASA) 162 mg DAILY ORAL 12/14/18 15:45 01/13/19 15:44 12/18/18 08:42 Calcitriol (Rocatrol) 0.5 mcg DAILY ORAL 12/15/18 09:00 01/14/19 08:59 12/18/18 08:45 Carvedilol (Coreg) 6.25 mg EVERY 12 HOURS ORAL 12/15/18 09:00 01/13/19 20:59 12/18/18 08:44 Cefazolin Sodium 1 gm/Dextrose 55 ml @ 110 mls/hr Q24H IVPB 12/17/18 18:00 12/24/18 17:59 12/17/18 15:02 Docusate Sodium (Colace) 100 mg TID ORAL 12/17/18 13:00 01/13/19 17:59 12/18/18 13:23 Ergocalciferol (Drisdol) 50,000 intlu QWEEK ORAL 12/15/18 10:00 01/14/19 09:59 12/15/18 09:53 Heparin Sodium (Porcine) (Heparin 5000 units/ml) 5,000 units EVERY 12 HOURS SUBQ 12/15/18 21:00 01/13/19 20:59 Hydralazine HCl (Apresoline) 25 mg Q6HR ORAL 12/18/18 00:00 01/17/19 00:00 12/18/18 13:23 Iron Sucrose 100 mg/Sodium Chloride 60 ml @ 240 mls/hr BEDTIME IV 12/16/18 21:00 12/20/18 21:14 12/17/18 22:32 Isosorbide Mononitrate (Imdur) 30 mg DAILY ORAL 12/14/18 20:45 01/13/19 20:44 12/18/18 08:43 Pantoprazole (Protonix) 40 mg EVERY 12 HOURS ORAL 12/14/18 21:00 01/13/19 20:59 12/18/18 08:44 Sevelamer Carbonate (Renvela) 2,400 mg THREE TIMES A DAY ORAL 12/17/18 13:00 01/14/19 08:59 12/18/18 13:23 Tamsulosin HCl (Flomax) 0.4 mg BEDTIME ORAL 12/16/18 21:00 01/15/19 20:59 12/17/18 22:32 Assessment/Plan Problem List: (1) Complications, dialysis, catheter, mechanical Assessment & Plan: Patient evaluated and catheter evaluated. no complaints of pain or discomfort has had bloody saturation of multiple dressings no significant hematoma noted mild bruising but stable pressure held and currently hemostasis noted no active bleeding cont with dressings will monitor if bleeds again will place stick as small skin oozing at insertion site thank you ICD Codes: T82.49XA - Other complication of vascular dialysis catheter, initial encounter SNOMED: 20692368 (2) Pancytopenia ICD Codes: D61.818 - Other pancytopenia SNOMED: 796650233 (3) CHF (congestive heart failure) ICD Codes: I50.9 - Heart failure, unspecified SNOMED: 27392398 (4) ARF (acute renal failure) ICD Codes: N17.9 - Acute kidney failure, unspecified SNOMED: 82645175 (5) Anemia in chronic kidney disease (CKD) ICD Codes: N18.9 - Chronic kidney disease, unspecified; D63.1 - Anemia in chronic kidney disease SNOMED: 033222210 (6) ESRD (end stage renal disease) ICD Codes: N18.6 - End stage renal disease SNOMED: 53964693 (7) Nephrotic syndrome ICD Codes: N04.9 - Nephrotic syndrome with unspecified morphologic changes SNOMED: 49360835 (8) Pyelonephritis ICD Codes: N12 - Tubulo-interstitial nephritis, not specified as acute or chronic SNOMED: 77135795 (9) CHF exacerbation ICD Codes: I50.9 - Heart failure, unspecified SNOMED: 11647673 Oj Mcmillan Dec 18, 2018 17:29
[2018-12-18] MEDS: ceFAZolin sod 1 GM in D5W 55 ML IVPB SCH (17:41)
--- NOTE | 2018-12-18 17:55 | Nephrology Progress Note ---
Assessment/Plan Problem List: (1) ESRD (end stage renal disease) (2) ARF (acute renal failure) (3) CHF (congestive heart failure) (4) Anemia in chronic kidney disease (CKD) (5) Nephrotic syndrome Assessment Advanced Renal failure with Proteinuria CKD known to the patient h/o HTN h/o Cardiac disease s/p stent ? DM high A1c Plan after and pre load reduction management discussed the need for Dialysis - catheter 12/17- dialysis 12/17 next 12/19 1000 cc fluid restriction Renal diet- Phos binders BP check kidney RUSSEL noted 24 h urine results noted per orders Echo Global left ventricular hypokinesis with falttenign of cody VS suggestive of RV pressuere overload Mild left ventricular enlargement . Left ventricular ejection fraction estimated to be 25-30%. RUSSEL * Portions of the right ureteral stent are partially visualized. Punctate echogenic focus also noted in the lower pole of the right kidney which may represent nonobstructing stone. * No evidence of hydronephrosis bilaterally. * Renal echogenicity appears within normal limits. * Bladder wall thickening is noted within question for cystitis, although findings may possibly related to underdistention. Correlation with urinalysis recommended. Subjective ROS Limited/Unobtainable: No Objective Objective Last 24 Hour Vital Signs Date Time Temp Pulse Resp B/P (MAP) Pulse Ox O2 Delivery O2 Flow Rate FiO2 12/18/18 17:41 137/71 12/18/18 16:00 97.7 77 18 137/71 (93) 97 12/18/18 13:23 125/66 12/18/18 12:00 98.1 75 20 125/66 (85) 100 12/18/18 09:00 Room Air 12/18/18 08:44 81 131/66 12/18/18 08:43 131/66 12/18/18 08:00 95.5 81 18 131/66 (87) 98 12/18/18 05:46 138/70 12/18/18 04:11 99.5 84 17 138/70 (92) 96 12/18/18 01:02 98.5 12/18/18 00:32 142/79 12/18/18 00:14 98.5 90 17 142/79 (100) 97 12/17/18 22:38 98.1 16 148/76 (100) 98 12/17/18 22:32 94 148/76 4/19/19 21:02 Room Air Intake and Output 12/17/18 12/18/18 19:00 07:00 Intake Total 240 ml Balance 240 ml Intake Oral 240 ml # Voids 3 Laboratory Tests 12/18/18 05:15: White Blood Count 4.3L, Red Blood Count 2.96L, Hemoglobin 8.3L, Hematocrit 25.8L , Mean Corpuscular Volume 87, Mean Corpuscular Hemoglobin 28.2, Mean Corpuscular Hemoglobin Concent 32.3, Red Cell Distribution Width 15.8H, Platelet Count 84L, Mean Platelet Volume 8.9, Neutrophils (%) (Auto) , Lymphocytes (%) (Auto) , Monocytes (%) (Auto) , Eosinophils (%) (Auto) , Basophils (%) (Auto) , Differential Total Cells Counted 100, Neutrophils % ( Manual) 77H, Lymphocytes % (Manual) 15L, Monocytes % (Manual) 7, Eosinophils % ( Manual) 0, Basophils % (Manual) 1, Band Neutrophils 0, Platelet Estimate DecreasedL, Platelet Morphology Normal, Hypochromasia 1+, Anisocytosis 1+, Sodium Level 139, Potassium Level 3.7, Chloride Level 105, Carbon Dioxide Level 19L, Anion Gap 15, Blood Urea Nitrogen 77H, Creatinine 4.7H, Estimat Glomerular Filtration Rate 13.1, Glucose Level 105, Uric Acid 6.6, Calcium Level 8.7, Phosphorus Level 4.5, Magnesium Level 1.9, Total Bilirubin 0.9, Aspartate Amino Transf (AST/SGOT) 24, Alanine Aminotransferase (ALT/SGPT) 25, Alkaline Phosphatase 234H, Total Protein 6.2L, Albumin 2.7L, Globulin 3.5, Albumin/ Globulin Ratio 0.8L Height (Feet): 5 Height (Inches): 6.00 Weight (Pounds): 152 General Appearance: no apparent distress Cardiovascular: normal rate Respiratory/Chest: decreased breath sounds Abdomen: distended Micah Pitt MD Dec 18, 2018 17:54
--- NOTE | 2018-12-18 18:43 | NUR ---
NURSE NOTES: RN MADE VIP AWARE OF HEMODIALYSIS ORDER TOMORROW. FORESTRY TECHNICAL OFFICER WILL CALL BACK TO CONFIRM ORDER.
--- NOTE | 2018-12-18 19:27 | NUR ---
CASE MANAGEMENT: REVIEW SI: CHF . ACUTE RENAL FAILURE . ESRD T 97.7 HR 77 RR 18 BP 137/71 SAT 97% ROOM AIR WBC 4.3 H/H 8.3/25.8 BUN 77 CR 4.7 IS: CEFAZOLIN IV Q24HR ISOSORBIDE PO Q12HR ASA PO QD FLOMAX PO QHS SEVELAMER PO QID HD PRN MED/SURG STATUS DCP: PATIENT IS FROM HOME
--- NOTE | 2018-12-18 19:52 | NUR ---
HAND-OFF: Report given to Daniella SHANE RN.
--- NOTE | 2018-12-18 19:52 | NUR ---
NURSE NOTES: Patient in bed, awake, alert, talking on the phone. IV in place. HD access in right chest in place. dressing clean dry and intact. No drainage. No s/s distress. No complaints of pain at this time. Bed in lowest position, call light within reach. Will continue to monitor.
[2018-12-18 19:57] VITALS: BP 119/69
[2018-12-18] MEDS: Iron Sucrose 100 MG in NS 55 ML IV SCH (20:48)
[2018-12-18] MEDS: Tamsulosin 0.4mg cap ORAL SCH (20:49)
--- NOTE | 2018-12-18 21:30 | NUR ---
Nurse Notes: Pt refused heparin after already drawn. disposed of in proper receptacle.
--- NOTE | 2018-12-18 22:21 | General Progress Note ---
Assessment/Plan Problem List: (1) CHF exacerbation ICD Codes: I50.9 - Heart failure, unspecified SNOMED: 83007254 (2) Pyelonephritis ICD Codes: N12 - Tubulo-interstitial nephritis, not specified as acute or chronic SNOMED: 76916675 (3) Pancytopenia ICD Codes: D61.818 - Other pancytopenia SNOMED: 893608759 (4) CHF (congestive heart failure) ICD Codes: I50.9 - Heart failure, unspecified SNOMED: 56644992 (5) Anemia in chronic kidney disease (CKD) ICD Codes: N18.9 - Chronic kidney disease, unspecified; D63.1 - Anemia in chronic kidney disease SNOMED: 235952837 (6) ARF (acute renal failure) ICD Codes: N17.9 - Acute kidney failure, unspecified SNOMED: 41475567 (7) ESRD (end stage renal disease) ICD Codes: N18.6 - End stage renal disease SNOMED: 99912793 (8) Nephrotic syndrome ICD Codes: N04.9 - Nephrotic syndrome with unspecified morphologic changes SNOMED: 89535189 Status: progressing Assessment: esrd diaylsis per renal afebrile no sob no cp vitals stable cad chf ;htn Subjective ROS Limited/Unobtainable: Yes Allergies: Coded Allergies: No Known Allergies (Unverified , 12/14/18) Objective Last 24 Hour Vital Signs Date Time Temp Pulse Resp B/P (MAP) Pulse Ox O2 Delivery O2 Flow Rate FiO2 12/18/18 21:06 119/69 12/18/18 20:49 81 119/69 12/18/18 19:57 98.3 81 18 119/69 (86) 100 12/18/18 17:41 137/71 12/18/18 16:00 97.7 77 18 137/71 (93) 97 12/18/18 13:23 125/66 12/18/18 12:00 98.1 75 20 125/66 (85) 100 12/18/18 09:00 Room Air 12/18/18 08:44 81 131/66 12/18/18 08:43 131/66 12/18/18 08:00 95.5 81 18 131/66 (87) 98 12/18/18 05:46 138/70 12/18/18 04:11 99.5 84 17 138/70 (92) 96 12/18/18 01:02 98.5 12/18/18 00:32 142/79 12/18/18 00:14 98.5 90 17 142/79 (100) 97 12/17/18 22:38 98.1 16 148/76 (100) 98 12/17/18 22:32 94 148/76 Intake and Output 12/17/18 12/18/18 19:00 07:00 Intake Total 240 ml Balance 240 ml Intake Oral 240 ml # Voids 3 Laboratory Tests 12/18/18 05:15: White Blood Count 4.3L, Red Blood Count 2.96L, Hemoglobin 8.3L, Hematocrit 25.8L , Mean Corpuscular Volume 87, Mean Corpuscular Hemoglobin 28.2, Mean Corpuscular Hemoglobin Concent 32.3, Red Cell Distribution Width 15.8H, Platelet Count 84L, Mean Platelet Volume 8.9, Neutrophils (%) (Auto) , Lymphocytes (%) (Auto) , Monocytes (%) (Auto) , Eosinophils (%) (Auto) , Basophils (%) (Auto) , Differential Total Cells Counted 100, Neutrophils % ( Manual) 77H, Lymphocytes % (Manual) 15L, Monocytes % (Manual) 7, Eosinophils % ( Manual) 0, Basophils % (Manual) 1, Band Neutrophils 0, Platelet Estimate DecreasedL, Platelet Morphology Normal, Hypochromasia 1+, Anisocytosis 1+, Sodium Level 139, Potassium Level 3.7, Chloride Level 105, Carbon Dioxide Level 19L, Anion Gap 15, Blood Urea Nitrogen 77H, Creatinine 4.7H, Estimat Glomerular Filtration Rate 13.1, Glucose Level 105, Uric Acid 6.6, Calcium Level 8.7, Phosphorus Level 4.5, Magnesium Level 1.9, Total Bilirubin 0.9, Aspartate Amino Transf (AST/SGOT) 24, Alanine Aminotransferase (ALT/SGPT) 25, Alkaline Phosphatase 234H, Total Protein 6.2L, Albumin 2.7L, Globulin 3.5, Albumin/ Globulin Ratio 0.8L Height (Feet): 5 Height (Inches): 6.00 Weight (Pounds): 152 Neck: normal alignment Cardiovascular: regular rhythm Respiratory/Chest: chest wall non-tender Abdomen: non tender Sarahi Shaffer MD Dec 18, 2018 22:21
[2018-12-19 00:29] VITALS: BP 149/71
[2018-12-19 04:00] VITALS: BP 130/60
[2018-12-19] MEDS: HydrALAZINE 25mg tab ORAL SCH ×3 (05:52→22:32)
--- NOTE | 2018-12-19 07:40 | NUR ---
NURSE NOTES: Received patient on bed, Dialysis started. IV site intact and patent. Bed in low and locked position, call light in reach. No signs of respiratory distress or pain. Room board updated, will continue to monitor.
--- NOTE | 2018-12-19 07:57 | NUR ---
HAND-OFF: Report given to GRIS Alberts.
[2018-12-19 08:00] VITALS: BP 127/69
[2018-12-19] MEDS: Heparin 5000 units/ml inj SUBQ SCH ×2 (09:00→20:20)
[2018-12-19] MEDS: Calcitriol 0.25mcg Cap ORAL SCH (10:58)
[2018-12-19] MEDS: Docusate 100mg cap ORAL SCH ×3 (10:58→17:45)
[2018-12-19] MEDS: Allopurinol 100mg Tab ORAL SCH (10:58)
[2018-12-19] MEDS: Imdur 30mg tab ORAL SCH (10:59)
[2018-12-19] MEDS: Carvedilol 6.25mg Tab ORAL SCH (10:59)
[2018-12-19] MEDS: Aspirin Baby 81mg ORAL SCH (10:59)
--- NOTE | 2018-12-19 11:00 | NUR ---
NURSE NOTES: Two liters out in dialysis.
--- NOTE | 2018-12-19 11:18 | Nephrology Progress Note ---
Assessment/Plan Problem List: (1) ESRD (end stage renal disease) (2) ARF (acute renal failure) (3) CHF (congestive heart failure) (4) Anemia in chronic kidney disease (CKD) (5) Nephrotic syndrome Assessment Advanced Renal failure with Proteinuria CKD known to the patient h/o HTN h/o Cardiac disease s/p stent ? DM high A1c Plan after and pre load reduction management discussed the need for Dialysis - catheter 12/17- dialysis 12/17 next 12/19 1000 cc fluid restriction Renal diet- Phos binders BP check kidney RUSSEL noted 24 h urine results noted per orders Echo Global left ventricular hypokinesis with falttenign of cody VS suggestive of RV pressuere overload Mild left ventricular enlargement . Left ventricular ejection fraction estimated to be 25-30%. RUSSEL * Portions of the right ureteral stent are partially visualized. Punctate echogenic focus also noted in the lower pole of the right kidney which may represent nonobstructing stone. * No evidence of hydronephrosis bilaterally. * Renal echogenicity appears within normal limits. * Bladder wall thickening is noted within question for cystitis, although findings may possibly related to underdistention. Correlation with urinalysis recommended. Subjective ROS Limited/Unobtainable: No Constitutional: Reports: malaise Objective Objective Last 24 Hour Vital Signs Date Time Temp Pulse Resp B/P (MAP) Pulse Ox O2 Delivery O2 Flow Rate FiO2 12/19/18 10:59 83 127/69 12/19/18 10:59 127/69 12/19/18 09:00 Room Air 12/19/18 08:00 97.7 83 18 127/69 (88) 98 12/19/18 05:52 130/60 12/19/18 04:00 98.5 80 18 130/60 (83) 96 12/19/18 00:29 97.8 82 19 149/71 (97) 100 12/18/18 21:06 119/69 12/18/18 21:00 Room Air 12/18/18 20:49 81 119/69 12/18/18 19:57 98.3 81 18 119/69 (86) 100 12/18/18 17:41 137/71 12/18/18 16:00 97.7 77 18 137/71 (93) 97 12/18/18 13:23 125/66 12/18/18 12:00 98.1 75 20 125/66 (85) 100 Intake and Output 12/18/18 12/19/18 18:59 06:59 Intake Total 605 ml 60 ml Balance 605 ml 60 ml Intake Oral 550 ml IV Total 55 ml 60 ml # Voids 3 Height (Feet): 5 Height (Inches): 6.00 Weight (Pounds): 152 General Appearance: no apparent distress Abdomen: soft, distended Objective no change Micah Pitt MD Dec 19, 2018 11:18
[2018-12-19 12:00] VITALS: BP 139/64
--- NOTE | 2018-12-19 12:56 | Infectious Diseases Prog Note ---
Assessment/Plan Assessment/Plan IMPRESSION: Pyuria. urine culture Diphtheroids, likely contamination combined systolic and diastolic heart failure pulmonary artery hypertension, chronic kidney disease end-stage renal disease proteinuria, pancytopenia, coronary artery disease. RECOMMENDATION: Observe off antibiotic. Subjective ROS Limited/Unobtainable: No Constitutional: Reports: no symptoms Respiratory: Reports: no symptoms Cardiovascular: Reports: no symptoms Gastrointestinal/Abdominal: Reports: no symptoms Genitourinary: Reports: other - dark urine Allergies: Coded Allergies: No Known Allergies (Unverified , 12/14/18) Objective Vital Signs Last 24 Hour Vital Signs Date Time Temp Pulse Resp B/P (MAP) Pulse Ox O2 Delivery O2 Flow Rate FiO2 12/19/18 12:00 98.0 87 16 139/64 (89) 97 12/19/18 10:59 83 127/69 12/19/18 10:59 127/69 12/19/18 09:00 Room Air 12/19/18 08:00 97.7 83 18 127/69 (88) 98 12/19/18 05:52 130/60 12/19/18 04:00 98.5 80 18 130/60 (83) 96 12/19/18 00:29 97.8 82 19 149/71 (97) 100 12/18/18 21:06 119/69 12/18/18 21:00 Room Air 12/18/18 20:49 81 119/69 12/18/18 19:57 98.3 81 18 119/69 (86) 100 12/18/18 17:41 137/71 12/18/18 16:00 97.7 77 18 137/71 (93) 97 12/18/18 13:23 125/66 Height (Feet): 5 Height (Inches): 6.00 Weight (Pounds): 152 General Appearance: no acute distress HEENT: mucous membranes moist Respiratory/Chest: lungs clear Cardiovascular: normal rate Abdomen: soft, non tender, distended Extremities: other - pedal edema Neurologic/Psychiatric: alert, oriented x 3, responsive Microbiology Date/Time Source Procedure Growth Status 12/16/18 21:15 Urine,Clean Catch Urine Culture - Final Diphtheroids Complete Current Medications Medications (Trade) Dose Ordered Sig/Félix Route PRN Reason Start Time Stop Time Status Last Admin Dose Admin Acetaminophen (Tylenol) 650 mg Q4H PRN ORAL Mild Pain/Temp > 100.5 12/14/18 15:45 01/13/19 15:44 12/18/18 00:32 Allopurinol (Zyloprim) 100 mg DAILY ORAL 12/15/18 09:00 01/14/19 08:59 12/19/18 10:58 Aspirin (ASA) 162 mg DAILY ORAL 12/14/18 15:45 01/13/19 15:44 12/19/18 10:59 Calcitriol (Rocatrol) 0.25 mcg DAILY ORAL 12/19/18 09:00 01/14/19 08:59 12/19/18 10:58 Carvedilol (Coreg) 12.5 mg EVERY 12 HOURS ORAL 12/19/18 21:00 01/13/19 20:59 Cefazolin Sodium 1 gm/Dextrose 55 ml @ 110 mls/hr Q24H IVPB 12/17/18 18:00 12/24/18 17:59 12/18/18 17:41 Docusate Sodium (Colace) 100 mg TID ORAL 12/17/18 13:00 01/13/19 17:59 12/19/18 10:58 Heparin Sodium (Porcine) (Heparin 5000 units/ml) 5,000 units EVERY 12 HOURS SUBQ 12/15/18 21:00 01/13/19 20:59 Hydralazine HCl (Apresoline) 25 mg Q8HR ORAL 12/18/18 22:00 01/17/19 00:00 12/19/18 05:52 Iron Sucrose 100 mg/Sodium Chloride 60 ml @ 240 mls/hr BEDTIME IV 12/16/18 21:00 12/20/18 21:14 12/18/18 20:48 Isosorbide Mononitrate (Imdur) 30 mg DAILY ORAL 12/14/18 20:45 01/13/19 20:44 12/19/18 10:59 Pantoprazole (Protonix) 40 mg EVERY 12 HOURS ORAL 12/14/18 21:00 01/13/19 20:59 12/19/18 10:58 Sevelamer Carbonate (Renvela) 1,600 mg THREE TIMES A DAY ORAL 12/19/18 09:00 01/18/19 08:59 12/19/18 10:58 Tamsulosin HCl (Flomax) 0.4 mg BEDTIME ORAL 12/16/18 21:00 01/15/19 20:59 12/18/18 20:49 Omi Brown MD Dec 19, 2018 12:56
--- NOTE | 2018-12-19 15:11 | Surgery Progress Note ---
Surgery Progress Note Subjective Additional Comments patient re-examined at bedside. no active bleeding. dressing dry and intact. line functional. Objective Last 24 Hour Vital Signs Date Time Temp Pulse Resp B/P (MAP) Pulse Ox O2 Delivery O2 Flow Rate FiO2 12/19/18 13:34 139/64 12/19/18 12:00 98.0 87 16 139/64 (89) 97 12/19/18 10:59 83 127/69 12/19/18 10:59 127/69 12/19/18 09:00 Room Air 12/19/18 08:00 97.7 83 18 127/69 (88) 98 12/19/18 05:52 130/60 12/19/18 04:00 98.5 80 18 130/60 (83) 96 12/19/18 00:29 97.8 82 19 149/71 (97) 100 12/18/18 21:06 119/69 12/18/18 21:00 Room Air 12/18/18 20:49 81 119/69 12/18/18 19:57 98.3 81 18 119/69 (86) 100 12/18/18 17:41 137/71 12/18/18 16:00 97.7 77 18 137/71 (93) 97 I&O Intake and Output 12/18/18 12/19/18 19:00 07:00 Intake Total 605 ml 60 ml Balance 605 ml 60 ml Intake Oral 550 ml IV Total 55 ml 60 ml # Voids 3 Dressing: dry Wound: clean Cardiovascular: RSR Respiratory: clear Abdomen: soft, flat, non-tender Extremities: no tenderness, no cyanosis Plan Problems: (1) Complications, dialysis, catheter, mechanical Assessment & Plan: Patient evaluated and catheter evaluated. no complaints of pain or discomfort has had bloody saturation of multiple dressings no significant hematoma noted mild bruising but stable pressure held and currently hemostasis noted no active bleeding cont with dressings will monitor if bleeds again will place stick as small skin oozing at insertion site thank you (2) Pancytopenia (3) CHF (congestive heart failure) (4) ARF (acute renal failure) (5) Anemia in chronic kidney disease (CKD) (6) ESRD (end stage renal disease) (7) Nephrotic syndrome (8) Pyelonephritis (9) CHF exacerbation Oj Mcmillan Dec 19, 2018 15:11
--- NOTE | 2018-12-19 15:49 | NUR ---
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 ACUTE RENAL FAILURE . ESRD VS: BP 127/69, P 87, T 98.4, RR 18, SpO2 98 IS:RENVELA 800mg COREG 12.5mg APRESOLINE 25mg CEFAZOLIN SODIUM 55ml IVPB FLOMAX 0.4mg IRON SUCROSE 100mg 60ml IV MED/SURG STATUS
[2018-12-19 16:00] VITALS: BP 130/69
[2018-12-19] MEDS: ceFAZolin sod 1 GM in D5W 55 ML IVPB SCH (17:45)
--- NOTE | 2018-12-19 19:21 | NUR ---
HAND-OFF: Report given to GRIS Correa.
--- NOTE | 2018-12-19 19:22 | NUR ---
NURSE NOTES: Received patient upright in bed, IV site intact and patent. Bed in low and locked position, call light in reach. No signs of respiratory distress or pain. Room board updated, will continue to monitor.
[2018-12-19 20:00] VITALS: BP 130/66
[2018-12-19] MEDS: Iron Sucrose 100 MG in NS 55 ML IV SCH (20:21)
[2018-12-19] MEDS: Tamsulosin 0.4mg cap ORAL SCH (20:21)
[2018-12-19] MEDS: Carvedilol 12.5mg tab ORAL SCH (20:22)
[2018-12-19] MEDS ORDERED: NS 275ml ONE (21:48)
[2018-12-20] VITALS: BP 142/82
[2018-12-20 04:04] VITALS: BP 135/68
[2018-12-20] MEDS: HydrALAZINE 25mg tab ORAL SCH ×3 (05:52→22:18)
[2018-12-20 07:13] LABS: ALANINE AMINOTRANSFERASE 15 U/L (12-78); ALBUMIN 2.5 G/DL (3.4-5.0); ALBUMIN/GLOBULIN RATIO 0.7 (1.0-2.7); ALKALINE PHOSPHATASE 240 U/L (46-116); ANION GAP 9 mmol/L (5-15); ASPARTATE AMINO TRANSFERASE 24 U/L (15-37); BILIRUBIN,TOTAL 0.7 MG/DL (0.2-1.0); BLOOD UREA NITROGEN 70 mg/dL (7-18); CALCIUM 7.9 MG/DL (8.5-10.1); CARBON DIOXIDE 26 MMOL/L (21-32); CHLORIDE 105 MMOL/L (98-107); CREATININE 4.6 MG/DL (0.55-1.30); GAMMA GLUTAMYL TRANSPEPTIDASE 163 U/L (5-85); PHOSPHORUS 3.7 MG/DL (2.5-4.9); POTASSIUM 3.8 MMOL/L (3.5-5.1); SODIUM 140 MMOL/L (136-145)
[2018-12-20 07:15] LABS: HEMATOCRIT 24.6 % (42.0-52.0); HEMOGLOBIN 7.9 G/DL (14.2-18.0); MEAN CORPUSCULAR VOLUME 88 FL (80-99); PLATELET COUNT 69 K/UL (150-450); RED BLOOD COUNT 2.79 M/UL (4.70-6.10); RED CELL DISTRIBUTION WIDTH 16.9 % (11.6-14.8); WHITE BLOOD COUNT 3.6 K/UL (4.8-10.8)
--- NOTE | 2018-12-20 07:49 | NUR ---
NURSE NOTES: Received report from GRIS Correa. Rounding done with outgoing nurse. Patient a/o x4. No respiratory distress noted. Denies any pain at this time. Left IV site is patent. Bed in lowest position, call light within reach. Will continue to monitor.
[2018-12-20 08:00] VITALS: BP 127/76
--- NOTE | 2018-12-20 08:08 | NUR ---
HAND-OFF: Report given to RUTH Perez, , RN.
[2018-12-20] MEDS: Heparin 5000 units/ml inj SUBQ SCH ×2 (09:00→20:27)
[2018-12-20] MEDS: Aspirin Baby 81mg ORAL SCH ×2 (09:00→09:09)
[2018-12-20] MEDS: Docusate 100mg cap ORAL SCH ×3 (09:08→17:42)
[2018-12-20] MEDS: Carvedilol 12.5mg tab ORAL SCH ×2 (09:08→20:26)
[2018-12-20] MEDS: Allopurinol 100mg Tab ORAL SCH (09:08)
[2018-12-20] MEDS: Calcitriol 0.25mcg Cap ORAL SCH (09:08)
[2018-12-20] MEDS: Imdur 30mg tab ORAL SCH (09:08)
--- NOTE | 2018-12-20 09:57 | NUR ---
CHARGE NURSE NOTES: DR. ARIAS MADE AWARE BNP LEVEL TODAY. AWAITING RESPONSE.
--- NOTE | 2018-12-20 10:07 | NUR ---
NURSE NOTES: Hgb 7.[address] Solano was notified. No new order.
--- NOTE | 2018-12-20 11:42 | NUR ---
NURSE NOTES: BNP [address] Reagan was notified.
[2018-12-20 12:00] VITALS: BP 128/63
--- NOTE | 2018-12-20 12:53 | Nephrology Progress Note ---
Assessment/Plan Problem List: (1) ESRD (end stage renal disease) (2) ARF (acute renal failure) (3) CHF (congestive heart failure) (4) Anemia in chronic kidney disease (CKD) (5) Nephrotic syndrome Assessment Advanced Renal failure with Proteinuria CKD known to the patient h/o HTN h/o Cardiac disease s/p stent ? DM high A1c Plan after and pre load reduction management discussed the need for Dialysis - catheter 12/17- dialysis 12/17 next 12/19 next 1000 cc fluid restriction Renal diet- Phos binders BP check kidney RUSSEL noted 24 h urine results noted per orders Echo Global left ventricular hypokinesis with falttenign of cody VS suggestive of RV pressuere overload Mild left ventricular enlargement . Left ventricular ejection fraction estimated to be 25-30%. RUSSEL * Portions of the right ureteral stent are partially visualized. Punctate echogenic focus also noted in the lower pole of the right kidney which may represent nonobstructing stone. * No evidence of hydronephrosis bilaterally. * Renal echogenicity appears within normal limits. * Bladder wall thickening is noted within question for cystitis, although findings may possibly related to underdistention. Correlation with urinalysis recommended. Subjective ROS Limited/Unobtainable: No Constitutional: Reports: malaise Objective Objective Last 24 Hour Vital Signs Date Time Temp Pulse Resp B/P (MAP) Pulse Ox O2 Delivery O2 Flow Rate FiO2 12/20/18 09:08 78 127/76 12/20/18 09:08 127/76 12/20/18 09:00 Room Air 12/20/18 08:00 98.1 78 19 127/76 (93) 97 12/20/18 05:52 135/68 12/20/18 04:04 98.2 82 19 135/68 (90) 98 12/20/18 00:00 97.9 84 18 142/82 (102) 98 12/19/18 22:32 130/66 12/19/18 21:00 Room Air 12/19/18 20:22 82 130/66 12/19/18 20:00 98.4 82 19 130/66 (87) 99 12/19/18 16:00 98.4 79 18 130/69 (89) 97 12/19/18 13:34 139/64 Intake and Output 12/19/18 12/20/18 18:59 06:59 Intake Total 405 ml 180 ml Output Total 2150 ml Balance -1745 ml 180 ml Intake Oral 350 ml 120 ml IV Total 55 ml 60 ml Output Urine Total 150 ml Hemodialysis UF 2000 ml # Voids 1 Laboratory Tests 12/20/18 06:25: White Blood Count 3.6L, Red Blood Count 2.79L, Hemoglobin 7.9L, Hematocrit 24.6L , Mean Corpuscular Volume 88, Mean Corpuscular Hemoglobin 28.4, Mean Corpuscular Hemoglobin Concent 32.2, Red Cell Distribution Width 16.9H, Platelet Count 69L, Mean Platelet Volume 10.7H, Neutrophils (%) (Auto) , Lymphocytes (%) (Auto) , Monocytes (%) (Auto) , Eosinophils (%) (Auto) , Basophils (%) (Auto) , Differential Total Cells Counted 100, Neutrophils % ( Manual) 75, Lymphocytes % (Manual) 18L, Monocytes % (Manual) 5, Eosinophils % ( Manual) 2, Basophils % (Manual) 0, Band Neutrophils 0, Platelet Estimate DecreasedL, Platelet Morphology Normal, Schistocytes 1+, Sodium Level 140, Potassium Level 3.8, Chloride Level 105, Carbon Dioxide Level 26, Anion Gap 9, Blood Urea Nitrogen 70H, Creatinine 4.6H, Estimat Glomerular Filtration Rate 13.4, Glucose Level 126H, Uric Acid 5.1, Calcium Level 7.9L, Phosphorus Level 3.7, Magnesium Level 1.9, Total Bilirubin 0.7, Gamma Glutamyl Transpeptidase 163H, Aspartate Amino Transf (AST/SGOT) 24, Alanine Aminotransferase (ALT/SGPT) 15, Alkaline Phosphatase 240H, C-Reactive Protein, Quantitative 0.7, Pro-B-Type Natriuretic Peptide 68696L, Total Protein 6.0L, Albumin 2.5L, Globulin 3.5, Albumin/Globulin Ratio 0.7L Height (Feet): 5 Height (Inches): 6.00 Weight (Pounds): 152 General Appearance: no apparent distress Objective no change Micah Pitt MD Dec 20, 2018 12:53
--- NOTE | 2018-12-20 13:20 | NUR ---
NURSE NOTES: Patient c/o nausea and Dr. Shaffer was notified. ordered zofran 4 mg IVP q6 prn for N/V. Noted and carried out.
--- NOTE | 2018-12-20 14:44 | NUR ---
*-* INSURANCE *-* UPDATED CLINICALS AND REVIEWS HAVE BEEN FAXED TO: ROMAIN FRANCO: NURYS P:[phone] F:[phone]
[2018-12-20 16:00] VITALS: BP 133/71
--- NOTE | 2018-12-20 16:51 | NUR ---
EMOTIONAL SUPPORT TEACHERLOCATION ANALYST SI:CHF . ACUTE RENAL FAILURE . ESRD VS: BP128/63, P 80, T 98.1, RR 20, SpO2 97 WBC 3.6, RBC 2.79, Hgb 7.9, Hct 24.6, BUN 70, CR 4.6 IS:ZOFRAN 4mg RENVELA 800mg COREG 12.5mg APRESOLINE 25mg FLOMAX 0.4mg IRON SUCROSE 60ml IV ALLOPURINOL 100mg PROTONIX 40mg IMDUR 30mg MED/SURG STATUS
[2018-12-20] MEDS: ceFAZolin sod 1 GM in D5W 55 ML IVPB SCH (17:42)
--- NOTE | 2018-12-20 18:27 | NUR ---
NURSE NOTES: Called [facility] ([phone]) to confirm HD will be done tomorrow. Will call back.
--- NOTE | 2018-12-20 19:30 | NUR ---
NURSE NOTES: Patient received in bed, aox4. Denies pain at this time. IV is tender, will reinsert new IV access. Personal belongings and call light within reach. Will continue POC.
--- NOTE | 2018-12-20 19:46 | NUR ---
HAND-OFF: Report given to GRIS Booker. Patient is stable.
[2018-12-20 19:57] VITALS: BP 128/65
[2018-12-20] MEDS: Tamsulosin 0.4mg cap ORAL SCH (20:26)
[2018-12-20] MEDS: Iron Sucrose 100 MG in NS 55 ML IV SCH (20:27)
[2018-12-20] MEDS ORDERED: Epoetin Alfa(ESRD on dialysis)10,000 unit/ml vial SUBQ ONE (21:00)
[2018-12-20] MEDS ORDERED: Epogen (for ESRD on dialysis) SUBQ SCH (21:00)
--- NOTE | 2018-12-20 23:27 | General Progress Note ---
Assessment/Plan Problem List: (1) CHF exacerbation ICD Codes: I50.9 - Heart failure, unspecified SNOMED: 00319022 (2) Pyelonephritis ICD Codes: N12 - Tubulo-interstitial nephritis, not specified as acute or chronic SNOMED: 49546507 (3) Pancytopenia ICD Codes: D61.818 - Other pancytopenia SNOMED: 200049620 (4) CHF (congestive heart failure) ICD Codes: I50.9 - Heart failure, unspecified SNOMED: 77589810 (5) Anemia in chronic kidney disease (CKD) ICD Codes: N18.9 - Chronic kidney disease, unspecified; D63.1 - Anemia in chronic kidney disease SNOMED: 999168179 (6) ARF (acute renal failure) ICD Codes: N17.9 - Acute kidney failure, unspecified SNOMED: 40941617 (7) ESRD (end stage renal disease) ICD Codes: N18.6 - End stage renal disease SNOMED: 81733856 (8) Nephrotic syndrome ICD Codes: N04.9 - Nephrotic syndrome with unspecified morphologic changes SNOMED: 14784658 Status: progressing Assessment: esrd diaylsis per renal got diaylsis already no sob edema is improving estd no cp cad chf ;htn Subjective ROS Limited/Unobtainable: Yes Allergies: Coded Allergies: No Known Allergies (Unverified , 12/14/18) Objective Last 24 Hour Vital Signs Date Time Temp Pulse Resp B/P (MAP) Pulse Ox O2 Delivery O2 Flow Rate FiO2 12/20/18 22:18 129/67 12/20/18 21:00 Room Air 12/20/18 20:26 77 128/65 12/20/18 19:57 98.3 77 17 128/65 (86) 98 12/20/18 16:00 97.9 78 21 133/71 (91) 98 12/20/18 13:55 128/63 12/20/18 12:00 98.1 80 20 128/63 (84) 99 12/20/18 09:08 78 127/76 12/20/18 09:08 127/76 12/20/18 09:00 Room Air 12/20/18 08:00 98.1 78 19 127/76 (93) 97 12/20/18 05:52 135/68 12/20/18 04:04 98.2 82 19 135/68 (90) 98 12/20/18 00:00 97.9 84 18 142/82 (102) 98 Intake and Output 12/19/18 12/20/18 19:00 07:00 Intake Total 405 ml 180 ml Output Total 2150 ml Balance -1745 ml 180 ml Intake Oral 350 ml 120 ml IV Total 55 ml 60 ml Output Urine Total 150 ml Hemodialysis UF 2000 ml # Voids 1 Laboratory Tests 12/20/18 06:25: White Blood Count 3.6L, Red Blood Count 2.79L, Hemoglobin 7.9L, Hematocrit 24.6L , Mean Corpuscular Volume 88, Mean Corpuscular Hemoglobin 28.4, Mean Corpuscular Hemoglobin Concent 32.2, Red Cell Distribution Width 16.9H, Platelet Count 69L, Mean Platelet Volume 10.7H, Neutrophils (%) (Auto) , Lymphocytes (%) (Auto) , Monocytes (%) (Auto) , Eosinophils (%) (Auto) , Basophils (%) (Auto) , Differential Total Cells Counted 100, Neutrophils % ( Manual) 75, Lymphocytes % (Manual) 18L, Monocytes % (Manual) 5, Eosinophils % ( Manual) 2, Basophils % (Manual) 0, Band Neutrophils 0, Platelet Estimate DecreasedL, Platelet Morphology Normal, Schistocytes 1+, Sodium Level 140, Potassium Level 3.8, Chloride Level 105, Carbon Dioxide Level 26, Anion Gap 9, Blood Urea Nitrogen 70H, Creatinine 4.6H, Estimat Glomerular Filtration Rate 13.4, Glucose Level 126H, Uric Acid 5.1, Calcium Level 7.9L, Phosphorus Level 3.7, Magnesium Level 1.9, Total Bilirubin 0.7, Gamma Glutamyl Transpeptidase 163H, Aspartate Amino Transf (AST/SGOT) 24, Alanine Aminotransferase (ALT/SGPT) 15, Alkaline Phosphatase 240H, C-Reactive Protein, Quantitative 0.7, Pro-B-Type Natriuretic Peptide 11543G, Total Protein 6.0L, Albumin 2.5L, Globulin 3.5, Albumin/Globulin Ratio 0.7L Height (Feet): 5 Height (Inches): 6.00 Weight (Pounds): 152 Neck: supple Cardiovascular: normal rate Respiratory/Chest: lungs clear Sarahi Shaffer MD Dec 20, 2018 23:27
--- NOTE | 2018-12-20 23:35 | NUR ---
NURSE NOTES: Patient ambulating around the hallway, steady gait.
[2018-12-21] VITALS: BP 138/74
[2018-12-21 04:36] VITALS: BP 134/72
[2018-12-21] MEDS: HydrALAZINE 25mg tab ORAL SCH ×3 (05:00→21:33)
--- NOTE | 2018-12-21 07:31 | NUR ---
HAND-OFF: Report given to Marion LANDRY.
--- NOTE | 2018-12-21 07:58 | NUR ---
NURSE NOTES: Patient alert x4, on room air, no sign of distress and shortness of breath; no sign of chest pain; IV Right-wrist flushes well; urinal within reach; dialysis port on Right-upper chest, patient scheduled for dialysis today; abdominal ascites; edema on both legs, elevated with pillows; side rails up x2, breaks engaged; bed at lowest position, call light within reach; will keep monitoring.
[2018-12-21 08:00] VITALS: BP 139/73
[2018-12-21] MEDS: Heparin 5000 units/ml inj SUBQ SCH ×2 (09:00→21:00)
[2018-12-21] MEDS: Carvedilol 12.5mg tab ORAL SCH ×2 (09:00→21:34)
[2018-12-21] MEDS: Docusate 100mg cap ORAL SCH ×3 (09:15→17:09)
[2018-12-21] MEDS: Calcitriol 0.25mcg Cap ORAL SCH (09:16)
[2018-12-21] MEDS: Allopurinol 100mg Tab ORAL SCH (09:16)
[2018-12-21] MEDS: Aspirin Baby 81mg ORAL SCH (09:17)
[2018-12-21] MEDS: Imdur 30mg tab ORAL SCH (09:23)
--- NOTE | 2018-12-21 10:42 | NUR ---
*-* INSURANCE *-* UPDATED CLINICALS AND REVIEWS HAVE BEEN FAXED TO: ROMAIN FRANCO: NURYS P:[phone] F:[phone]
--- NOTE | 2018-12-21 10:59 | NUR ---
NURSE NOTES: Patient is complaining that his left eye is bothering him and something covering his eye. I communicated Dr Shaffer, waiting for order.
--- NOTE | 2018-12-21 11:35 | NUR ---
RD ASSESSMENT & RECOMMENDATIONS SEE CARE ACTIVITY FOR COMPLETE ASSESSMENT DAILY ESTIMATED NEEDS: Needs based on ESRD w/ HD, 66kg 25-35 kcals/kg 6367-3155 total kcals 1.2-1.8 g protein/kg 79-119 g total protein 1000ml fluid restriction per MD mL/kg total fluid mLs NUTRITION DIAGNOSIS: * Altered nutrition related lab values r/t ESRD as evidenced by low hgb (97.9), elev BUN (70), elev Creat (4.6) and elev Phos 6.0-> now wnl, elev BNP (27634). * Increased kcal/prot needs R/T renal dysfunction as evidenced by ESRD dx, pt now on HD. CURRENT DIET:Renal, 1000ml fluid restriction PO DIET RECOMMENDATIONS: Maintain RENAL DIET + Double Protein Portions ADDITIONAL RECOMMENDATIONS: 1) Monitor BG, need for CCHO restriction 2) Obtain dry wt post HD- rec standing wt for accuracy 3) Rec accucheck, monitor need for SSI- h/o DM, elev A1C 7.0 4) Fluid restriction per - 1000ml FR at this time 5) Renal diet ed provided
--- NOTE | 2018-12-21 11:37 | NUR ---
CAN INTAKE WORKERDIVISION TOLL WIRE CHIEF SI: CHF . ACUTE RENAL FAILURE . ESRD VS: BP 139/73, P 91, T 98.1, RR 18, SpO2 97 IS: RENVELA 800mg COREG 12.5mg APRESOLINE 25mg CEFAZOLIN SODIUM 55ml IVPB FLOMAX 0.4mg ALLOPURINOL 100mg PROTONIX 40mg IMDUR 30mg HEPARIN SUBQ MED/SURG STATUS
[2018-12-21 12:00] VITALS: BP 135/73
--- NOTE | 2018-12-21 12:11 | Infectious Diseases Prog Note ---
Assessment/Plan Assessment/Plan IMPRESSION: Pyuria. urine culture Diphtheroids, likely contamination combined systolic and diastolic heart failure pulmonary artery hypertension, chronic kidney disease end-stage renal disease proteinuria, pancytopenia, coronary artery disease. Change in vision in left eye RECOMMENDATION: Observe off antibiotic. Ophthalmology evaluation Subjective ROS Limited/Unobtainable: No Constitutional: Reports: no symptoms HEENT: Reports: other - see shadows on left eye Cardiovascular: Reports: no symptoms Gastrointestinal/Abdominal: Reports: no symptoms Genitourinary: Reports: other - dark urine Allergies: Coded Allergies: No Known Allergies (Unverified , 12/14/18) Objective Vital Signs Last 24 Hour Vital Signs Date Time Temp Pulse Resp B/P (MAP) Pulse Ox O2 Delivery O2 Flow Rate FiO2 12/21/18 10:34 Room Air 12/21/18 09:23 139/73 12/21/18 08:00 98.3 84 18 139/73 (95) 97 12/21/18 05:00 134/72 12/21/18 04:36 98.7 91 15 134/72 (92) 97 12/21/18 00:00 98.1 84 16 138/74 (95) 97 12/20/18 22:18 129/67 12/20/18 21:00 Room Air 12/20/18 20:26 77 128/65 12/20/18 19:57 98.3 77 17 128/65 (86) 98 12/20/18 16:00 97.9 78 21 133/71 (91) 98 12/20/18 13:55 128/63 Height (Feet): 5 Height (Inches): 6.00 Weight (Pounds): 152 HEENT: mucous membranes moist, other - pink conjuntiva, no external eye lesion Cardiovascular: normal rate, other - R portacath Abdomen: soft, non tender Extremities: no edema Neurologic/Psychiatric: alert, oriented x 3, responsive Current Medications Medications (Trade) Dose Ordered Sig/Félix Route PRN Reason Start Time Stop Time Status Last Admin Dose Admin Acetaminophen (Tylenol) 650 mg Q4H PRN ORAL Mild Pain/Temp > 100.5 12/14/18 15:45 01/13/19 15:44 12/18/18 00:32 Allopurinol (Zyloprim) 100 mg DAILY ORAL 12/15/18 09:00 01/14/19 08:59 4/23/19 09:16 Aspirin (ASA) 162 mg DAILY ORAL 12/14/18 15:45 01/13/19 15:44 12/21/18 09:17 Calcitriol (Rocatrol) 0.25 mcg DAILY ORAL 12/19/18 09:00 01/14/19 08:59 12/21/18 09:16 Carvedilol (Coreg) 12.5 mg EVERY 12 HOURS ORAL 12/19/18 21:00 01/13/19 20:59 12/20/18 20:26 Cefazolin Sodium 1 gm/Dextrose 55 ml @ 110 mls/hr Q24H IVPB 12/17/18 18:00 12/24/18 17:59 12/20/18 17:42 Docusate Sodium (Colace) 100 mg TID ORAL 12/17/18 13:00 01/13/19 17:59 12/21/18 09:15 Epoetin Jordon (Procrit (for ESRD on dialysis)) 10,000 units THU-THU-THU SUBQ 12/20/18 21:00 01/19/19 20:59 12/20/18 20:27 Heparin Sodium (Porcine) (Heparin 5000 units/ml) 5,000 units EVERY 12 HOURS SUBQ 12/15/18 21:00 01/13/19 20:59 Hydralazine HCl (Apresoline) 25 mg Q8HR ORAL 12/18/18 22:00 01/17/19 00:00 12/20/18 22:18 Isosorbide Mononitrate (Imdur) 30 mg DAILY ORAL 12/14/18 20:45 01/13/19 20:44 12/21/18 09:23 Ondansetron HCl (Zofran) 4 mg Q6H PRN IVP Nausea & Vomiting 12/20/18 13:30 01/19/19 13:29 12/20/18 13:55 Pantoprazole (Protonix) 40 mg EVERY 12 HOURS ORAL 12/14/18 21:00 01/13/19 20:59 12/21/18 09:17 Sevelamer Carbonate (Renvela) 800 mg THREE TIMES A DAY ORAL 12/20/18 13:00 01/18/19 08:59 12/20/18 17:42 Tamsulosin HCl (Flomax) 0.4 mg BEDTIME ORAL 12/16/18 21:00 01/15/19 20:59 12/20/18 20:26 Omi Brown MD Dec 21, 2018 12:11
--- NOTE | 2018-12-21 13:35 | NUR ---
NURSE NOTES: Blood pressure medication wasn't given, patient scheduled for dialysis this afternoon.
--- NOTE | 2018-12-21 14:50 | Nephrology Progress Note ---
Assessment/Plan Problem List: (1) ESRD (end stage renal disease) (2) ARF (acute renal failure) (3) CHF (congestive heart failure) (4) Anemia in chronic kidney disease (CKD) (5) Nephrotic syndrome Assessment Advanced Renal failure with Proteinuria CKD known to the patient h/o HTN h/o Cardiac disease s/p stent ? DM high A1c Plan after and pre load reduction management discussed the need for Dialysis - catheter 12/17- dialysis 12/17 next 12/19 next 1000 cc fluid restriction Renal diet- Phos binders BP check kidney RUSSEL noted 24 h urine results noted per orders Echo Global left ventricular hypokinesis with falttenign of cody VS suggestive of RV pressuere overload Mild left ventricular enlargement . Left ventricular ejection fraction estimated to be 25-30%. RUSSEL * Portions of the right ureteral stent are partially visualized. Punctate echogenic focus also noted in the lower pole of the right kidney which may represent nonobstructing stone. * No evidence of hydronephrosis bilaterally. * Renal echogenicity appears within normal limits. * Bladder wall thickening is noted within question for cystitis, although findings may possibly related to underdistention. Correlation with urinalysis recommended. Subjective ROS Limited/Unobtainable: No Constitutional: Reports: other - stronger Objective Objective Last 24 Hour Vital Signs Date Time Temp Pulse Resp B/P (MAP) Pulse Ox O2 Delivery O2 Flow Rate FiO2 12/21/18 12:00 97.7 79 16 135/73 (93) 100 12/21/18 10:34 Room Air 12/21/18 09:23 139/73 12/21/18 08:00 98.3 84 18 139/73 (95) 97 12/21/18 05:00 134/72 12/21/18 04:36 98.7 91 15 134/72 (92) 97 12/21/18 00:00 98.1 84 16 138/74 (95) 97 12/20/18 22:18 129/67 12/20/18 21:00 Room Air 12/20/18 20:26 77 128/65 12/20/18 19:57 98.3 77 17 128/65 (86) 98 12/20/18 16:00 97.9 78 21 133/71 (91) 98 Intake and Output 12/20/18 12/21/18 18:59 06:59 Intake Total 600 ml 60 ml Output Total 200 ml 300 ml Balance 400 ml -240 ml Intake Oral 600 ml IV Total 60 ml Output Urine Total 200 ml 300 ml Current Medications Medications (Trade) Dose Ordered Sig/Félix Route PRN Reason Start Time Stop Time Status Last Admin Dose Admin Acetaminophen (Tylenol) 650 mg Q4H PRN ORAL Mild Pain/Temp > 100.5 12/14/18 15:45 01/13/19 15:44 12/18/18 00:32 Allopurinol (Zyloprim) 100 mg DAILY ORAL 12/15/18 09:00 01/14/19 08:59 12/21/18 09:16 Aspirin (ASA) 162 mg DAILY ORAL 12/14/18 15:45 01/13/19 15:44 12/21/18 09:17 Calcitriol (Rocatrol) 0.25 mcg DAILY ORAL 12/19/18 09:00 01/14/19 08:59 12/21/18 09:16 Carvedilol (Coreg) 12.5 mg EVERY 12 HOURS ORAL 12/19/18 21:00 01/13/19 20:59 12/20/18 20:26 Cefazolin Sodium 1 gm/Dextrose 55 ml @ 110 mls/hr Q24H IVPB 12/17/18 18:00 12/24/18 17:59 12/20/18 17:42 Docusate Sodium (Colace) 100 mg TID ORAL 12/17/18 13:00 01/13/19 17:59 12/21/18 13:26 Epoetin Jordon (Procrit (for ESRD on dialysis)) 10,000 units THU-THU-THU SUBQ 12/20/18 21:00 01/19/19 20:59 12/20/18 20:27 Heparin Sodium (Porcine) (Heparin 5000 units/ml) 5,000 units EVERY 12 HOURS SUBQ 12/15/18 21:00 01/13/19 20:59 Hydralazine HCl (Apresoline) 25 mg Q8HR ORAL 12/18/18 22:00 01/17/19 00:00 12/20/18 22:18 Isosorbide Mononitrate (Imdur) 30 mg DAILY ORAL 12/14/18 20:45 01/13/19 20:44 12/21/18 09:23 Ondansetron HCl (Zofran) 4 mg Q6H PRN IVP Nausea & Vomiting 12/20/18 13:30 01/19/19 13:29 12/20/18 13:55 Pantoprazole (Protonix) 40 mg EVERY 12 HOURS ORAL 12/14/18 21:00 01/13/19 20:59 12/21/18 09:17 Sevelamer Carbonate (Renvela) 800 mg THREE TIMES A DAY ORAL 12/20/18 13:00 01/18/19 08:59 12/20/18 17:42 Tamsulosin HCl (Flomax) 0.4 mg BEDTIME ORAL 12/16/18 21:00 01/15/19 20:59 12/20/18 20:26 Height (Feet): 5 Height (Inches): 6.00 Weight (Pounds): 152 Cardiovascular: normal rate Respiratory/Chest: decreased breath sounds Abdomen: distended Objective no change Micah Pitt MD Dec 21, 2018 14:50
[2018-12-21 16:00] VITALS: BP 130/70
[2018-12-21] MEDS: ceFAZolin sod 1 GM in D5W 55 ML IVPB SCH (17:10)
--- NOTE | 2018-12-21 19:18 | NUR ---
HAND-OFF: Report given to GRIS Leal.
--- NOTE | 2018-12-21 19:57 | NUR ---
NURSE NOTES: Received patient in bed, awake, alert, oriented x4, patient receiving HD treatment, on fluid restriction, 1000 cc per 24 hours. Call light is within reach, bed is in low position, locked and alarm is on. Will continue to monitor for safety and comfort.
[2018-12-21 20:00] VITALS: BP 129/63
--- NOTE | 2018-12-21 20:36 | General Progress Note ---
Assessment/Plan Problem List: (1) CHF exacerbation ICD Codes: I50.9 - Heart failure, unspecified SNOMED: 09116835 (2) Pyelonephritis ICD Codes: N12 - Tubulo-interstitial nephritis, not specified as acute or chronic SNOMED: 80802238 (3) Pancytopenia ICD Codes: D61.818 - Other pancytopenia SNOMED: 047686602 (4) CHF (congestive heart failure) ICD Codes: I50.9 - Heart failure, unspecified SNOMED: 86942665 (5) Anemia in chronic kidney disease (CKD) ICD Codes: N18.9 - Chronic kidney disease, unspecified; D63.1 - Anemia in chronic kidney disease SNOMED: 213559580 (6) ARF (acute renal failure) ICD Codes: N17.9 - Acute kidney failure, unspecified SNOMED: 54336186 (7) ESRD (end stage renal disease) ICD Codes: N18.6 - End stage renal disease SNOMED: 99918944 (8) Nephrotic syndrome ICD Codes: N04.9 - Nephrotic syndrome with unspecified morphologic changes SNOMED: 65068381 Status: progressing Assessment: still has edema left >right cad s/p stent esrd on hd cad chf ;htn Subjective ROS Limited/Unobtainable: Yes Allergies: Coded Allergies: No Known Allergies (Unverified , 12/14/18) Objective Last 24 Hour Vital Signs Date Time Temp Pulse Resp B/P (MAP) Pulse Ox O2 Delivery O2 Flow Rate FiO2 12/21/18 16:00 98.3 80 18 130/70 (90) 98 12/21/18 12:00 97.7 79 16 135/73 (93) 100 12/21/18 10:34 Room Air 12/21/18 09:23 139/73 12/21/18 08:00 98.3 84 18 139/73 (95) 97 12/21/18 05:00 134/72 12/21/18 04:36 98.7 91 15 134/72 (92) 97 12/21/18 00:00 98.1 84 16 138/74 (95) 97 12/20/18 22:18 129/67 12/20/18 21:00 Room Air Intake and Output 12/20/18 12/21/18 19:00 07:00 Intake Total 600 ml 60 ml Output Total 200 ml 300 ml Balance 400 ml -240 ml Intake Oral 600 ml IV Total 60 ml Output Urine Total 200 ml 300 ml Height (Feet): 5 Height (Inches): 6.00 Weight (Pounds): 152 Neck: normal alignment Cardiovascular: normal rate Respiratory/Chest: lungs clear Sarahi Shaffer MD Dec 21, 2018 20:36
[2018-12-21] MEDS: Tamsulosin 0.4mg cap ORAL SCH (21:33)
[2018-12-21] MEDS: NovoLOG Insulin Flexpen SUBQ SCH (21:47)
[2018-12-22 00:14] VITALS: BP 134/69
[2018-12-22 04:00] VITALS: BP 130/68
[2018-12-22] MEDS: HydrALAZINE 25mg tab ORAL SCH ×2 (06:30→21:04)
[2018-12-22] MEDS: NovoLOG Insulin Flexpen SUBQ SCH ×4 (06:30→20:44)
--- NOTE | 2018-12-22 06:47 | NUR ---
HAND-OFF: Report given to Akilah LANDRY.
--- NOTE | 2018-12-22 07:22 | NUR ---
NURSE NOTES: Patient alert x4, on room air, no sign of distress and shortness of breath; no sign of chest pain; IV Right-Wrist flushes well; urinal within reach; Right-chest port-a-cath in place; patient had dialysis last night and removed 2 liters; patient had abdominal ascites and lowest extremity edema; side rails up x2, breaks engaged, bed at lowest position; call light within reach; will keep monitoring.
[2018-12-22 08:00] VITALS: BP 135/77
[2018-12-22] MEDS: Docusate 100mg cap ORAL SCH ×3 (08:23→19:01)
[2018-12-22] MEDS: Calcitriol 0.25mcg Cap ORAL SCH (08:23)
[2018-12-22] MEDS: Imdur 30mg tab ORAL SCH (08:23)
[2018-12-22] MEDS: Allopurinol 100mg Tab ORAL SCH (08:24)
[2018-12-22] MEDS: Aspirin Baby 81mg ORAL SCH (08:24)
[2018-12-22] MEDS: Carvedilol 12.5mg tab ORAL SCH ×2 (08:24→19:02)
[2018-12-22] MEDS: Heparin 5000 units/ml inj SUBQ SCH ×2 (08:26→21:00)
[2018-12-22 12:00] VITALS: BP 113/73
--- NOTE | 2018-12-22 13:10 | NUR ---
*-* INSURANCE *-* UPDATED CLINICALS AND REVIEWS HAVE BEEN FAXED TO: ROMAIN FRANCO: NURYS P:[phone] F:[phone]
--- NOTE | 2018-12-22 14:07 | Nephrology Progress Note ---
Assessment/Plan Problem List: (1) ESRD (end stage renal disease) (2) ARF (acute renal failure) (3) CHF (congestive heart failure) (4) Anemia in chronic kidney disease (CKD) (5) Nephrotic syndrome Assessment Advanced Renal failure with Proteinuria CKD known to the patient h/o HTN h/o Cardiac disease s/p stent ? DM high A1c Plan after and pre load reduction management discussed the need for Dialysis - catheter 12/17- dialysis 12/17 next 12/19 next next 12/23 1000 cc fluid restriction Renal diet- Phos binders BP check kidney RUSSEL noted 24 h urine results noted per orders Echo Global left ventricular hypokinesis with falttenign of cody VS suggestive of RV pressuere overload Mild left ventricular enlargement . Left ventricular ejection fraction estimated to be 25-30%. RUSSEL * Portions of the right ureteral stent are partially visualized. Punctate echogenic focus also noted in the lower pole of the right kidney which may represent nonobstructing stone. * No evidence of hydronephrosis bilaterally. * Renal echogenicity appears within normal limits. * Bladder wall thickening is noted within question for cystitis, although findings may possibly related to underdistention. Correlation with urinalysis recommended. Subjective ROS Limited/Unobtainable: No Constitutional: Reports: malaise, other - leg edema Objective Objective Last 24 Hour Vital Signs Date Time Temp Pulse Resp B/P (MAP) Pulse Ox O2 Delivery O2 Flow Rate FiO2 12/22/18 12:00 99.5 83 15 113/73 (86) 99 12/22/18 10:49 Room Air 12/22/18 09:00 Room Air 12/22/18 08:24 85 135/77 12/22/18 08:23 135/77 12/22/18 08:00 98.2 85 16 135/77 (96) 100 12/22/18 06:30 130/68 12/22/18 04:00 99.2 88 18 130/68 (88) 12/22/18 00:14 98.9 82 18 134/69 (90) 12/21/18 21:34 89 129/63 12/21/18 21:33 129/63 12/21/18 21:00 Room Air 12/21/18 20:00 98.3 82 18 129/63 (85) 12/21/18 16:00 98.3 80 18 130/70 (90) 98 Intake and Output 12/21/18 12/22/18 19:00 07:00 Intake Total 1400 ml Balance 1400 ml Intake Oral 1400 ml # Voids 6 1 Height (Feet): 5 Height (Inches): 6.00 Weight (Pounds): 152 General Appearance: no apparent distress Respiratory/Chest: decreased breath sounds Abdomen: distended, other - ascitis Extremities: other - 2+ edema Objective no change Micah Pitt MD Dec 22, 2018 14:07
--- NOTE | 2018-12-22 15:28 | Infectious Diseases Prog Note ---
Assessment/Plan Assessment/Plan IMPRESSION: Pyuria. urine culture Diphtheroids, likely contamination combined systolic and diastolic heart failure pulmonary artery hypertension, chronic kidney disease end-stage renal disease proteinuria, pancytopenia, coronary artery disease. Change in vision in left eye RECOMMENDATION: Stop Cefazolin Observe off antibiotic. Ophthalmology evaluation Subjective ROS Limited/Unobtainable: Yes Genitourinary: Reports: hematuria, other - decreased Allergies: Coded Allergies: No Known Allergies (Unverified , 12/14/18) Objective Vital Signs Last 24 Hour Vital Signs Date Time Temp Pulse Resp B/P (MAP) Pulse Ox O2 Delivery O2 Flow Rate FiO2 12/22/18 12:00 99.5 83 15 113/73 (86) 99 12/22/18 10:49 Room Air 12/22/18 09:00 Room Air 12/22/18 08:24 85 135/77 12/22/18 08:23 135/77 12/22/18 08:00 98.2 85 16 135/77 (96) 100 12/22/18 06:30 130/68 12/22/18 04:00 99.2 88 18 130/68 (88) 12/22/18 00:14 98.9 82 18 134/69 (90) 12/21/18 21:34 89 129/63 12/21/18 21:33 129/63 12/21/18 21:00 Room Air 12/21/18 20:00 98.3 82 18 129/63 (85) 12/21/18 16:00 98.3 80 18 130/70 (90) 98 Height (Feet): 5 Height (Inches): 6.00 Weight (Pounds): 152 General Appearance: no acute distress HEENT: mucous membranes moist Respiratory/Chest: lungs clear Cardiovascular: normal rate Abdomen: soft, non tender Extremities: no edema Neurologic/Psychiatric: alert, oriented x 3, responsive Current Medications Medications (Trade) Dose Ordered Sig/Félix Route PRN Reason Start Time Stop Time Status Last Admin Dose Admin Acetaminophen (Tylenol) 650 mg Q4H PRN ORAL Mild Pain/Temp > 100.5 12/14/18 15:45 01/13/19 15:44 12/18/18 00:32 Allopurinol (Zyloprim) 100 mg DAILY ORAL 12/15/18 09:00 01/14/19 08:59 12/22/18 08:24 Aspirin (ASA) 162 mg DAILY ORAL 12/14/18 15:45 01/13/19 15:44 12/22/18 08:24 Calcitriol (Rocatrol) 0.25 mcg DAILY ORAL 12/19/18 09:00 01/14/19 08:59 12/22/18 08:23 Carvedilol (Coreg) 12.5 mg EVERY 12 HOURS ORAL 12/19/18 21:00 01/13/19 20:59 12/22/18 08:24 Dextrose (Dextrose 50%) 25 ml Q30M PRN IV Hypoglycemia 12/21/18 18:15 01/20/19 18:14 Dextrose (Dextrose 50%) 50 ml Q30M PRN IV Hypoglycemia 12/21/18 18:15 01/20/19 18:14 Docusate Sodium (Colace) 100 mg TID ORAL 12/17/18 13:00 01/13/19 17:59 12/22/18 14:09 Epoetin Jordon (Epoetin Jordon(ESRD on dialysis)) 10,000 unit THU- SUBQ 12/22/18 21:00 01/21/19 20:59 Heparin Sodium (Porcine) (Heparin 5000 units/ml) 5,000 units EVERY 12 HOURS SUBQ 12/15/18 21:00 01/13/19 20:59 Hydralazine HCl (Apresoline) 25 mg Q8HR ORAL 12/22/18 22:00 01/17/19 00:00 Insulin Aspart (NovoLOG) BEFORE MEALS AND HS SUBQ 12/21/18 21:00 01/20/19 20:59 12/22/18 11:36 Isosorbide Mononitrate (Imdur) 30 mg DAILY ORAL 12/14/18 20:45 01/13/19 20:44 12/22/18 08:23 Ondansetron HCl (Zofran) 4 mg Q6H PRN IVP Nausea & Vomiting 12/20/18 13:30 01/19/19 13:29 12/20/18 13:55 Pantoprazole (Protonix) 40 mg EVERY 12 HOURS ORAL 12/14/18 21:00 01/13/19 20:59 12/22/18 08:24 Sevelamer Carbonate (Renvela) 800 mg THREE TIMES A DAY ORAL 12/20/18 13:00 01/18/19 08:59 12/22/18 14:10 Tamsulosin HCl (Flomax) 0.4 mg BEDTIME ORAL 12/16/18 21:00 01/15/19 20:59 12/21/18 21:33 Omi Brown MD Dec 22, 2018 15:28
--- NOTE | 2018-12-22 15:34 | NUR ---
NURSE NOTES: Patient scheduled for dialysis with [facility] for 12/23/18, I spoke to Will at [facility].
[2018-12-22 16:00] VITALS: BP 125/70
--- NOTE | 2018-12-22 17:30 | NUR ---
NURSE NOTES: [facility] dialysis nurse, Enrrique, confirmed that patient will have dialysis tomorrow.
--- NOTE | 2018-12-22 19:54 | NUR ---
HAND-OFF: Report given to GRIS Mehta.
[2018-12-22 20:00] VITALS: BP 124/67
--- NOTE | 2018-12-22 20:00 | NUR ---
NURSE NOTES: Pt is alert and orient x4. Pt is in RA, No SOB or acute respiratory distress noted. Pt has intact iv access on saline lock. No c/o pain at this time, bed is locked and is in the lowest position, call light within easy reach. Will monitor blood glucose closely. Dr Shaffer ordered new diabetic diet for patient.
--- NOTE | 2018-12-22 20:08 | NUR ---
CASE MANAGEMENT: REVIEW SI: ESRD ON HD . CHF T 99.5 HR 83 RR 15 BP 113/73 SAT 99% ROOM AIR IS: HYDRALAZINE PO Q8HR EPOETIN SQ MWF SEVELAMER PO TID COREG PO Q12HR HD PRN MED/SURG STATUS DCP: PATIENT IS FROM HOME
--- NOTE | 2018-12-22 20:37 | General Progress Note ---
Assessment/Plan Problem List: (1) CHF exacerbation ICD Codes: I50.9 - Heart failure, unspecified SNOMED: 30583957 (2) Pyelonephritis ICD Codes: N12 - Tubulo-interstitial nephritis, not specified as acute or chronic SNOMED: 48481721 (3) Pancytopenia ICD Codes: D61.818 - Other pancytopenia SNOMED: 500167733 (4) CHF (congestive heart failure) ICD Codes: I50.9 - Heart failure, unspecified SNOMED: 45981568 (5) Anemia in chronic kidney disease (CKD) ICD Codes: N18.9 - Chronic kidney disease, unspecified; D63.1 - Anemia in chronic kidney disease SNOMED: 470909703 (6) ARF (acute renal failure) ICD Codes: N17.9 - Acute kidney failure, unspecified SNOMED: 61840080 (7) ESRD (end stage renal disease) ICD Codes: N18.6 - End stage renal disease SNOMED: 97144923 (8) Nephrotic syndrome ICD Codes: N04.9 - Nephrotic syndrome with unspecified morphologic changes SNOMED: 40835415 Status: progressing Assessment/Plan: still has edema left >right cad s/p stent esrd on hd left a message to urologist re removing urethral stent when indicated Subjective ROS Limited/Unobtainable: Yes Allergies: Coded Allergies: No Known Allergies (Unverified , 12/14/18) Objective Last 24 Hour Vital Signs Date Time Temp Pulse Resp B/P (MAP) Pulse Ox O2 Delivery O2 Flow Rate FiO2 12/22/18 19:02 81 125/70 12/22/18 16:00 99.4 81 18 125/70 (88) 99 12/22/18 12:00 99.5 83 15 113/73 (86) 99 12/22/18 10:49 Room Air 12/22/18 09:00 Room Air 12/22/18 08:24 85 135/77 12/22/18 08:23 135/77 12/22/18 08:00 98.2 85 16 135/77 (96) 100 12/22/18 06:30 130/68 12/22/18 04:00 99.2 88 18 130/68 (88) 12/22/18 00:14 98.9 82 18 134/69 (90) 12/21/18 21:34 89 129/63 12/21/18 21:33 129/63 12/21/18 21:00 Room Air Intake and Output 12/21/18 12/22/18 18:59 06:59 Intake Total 1400 ml Balance 1400 ml Intake Oral 1400 ml # Voids 6 1 Height (Feet): 5 Height (Inches): 6.00 Weight (Pounds): 152 Neck: supple Cardiovascular: normal rate Respiratory/Chest: lungs clear Sarahi Shaffer MD Dec 22, 2018 20:37
[2018-12-22] MEDS: Tamsulosin 0.4mg cap ORAL SCH (20:54)
[2018-12-22] MEDS: Epoetin Alfa(ESRD on dialysis)10,000 unit/ml vial SUBQ SCH (20:58)
[2018-12-23] VITALS: BP 127/66
[2018-12-23 04:00] VITALS: BP 117/63
[2018-12-23] MEDS: HydrALAZINE 25mg tab ORAL SCH ×3 (05:01→22:52)
[2018-12-23] MEDS: NovoLOG Insulin Flexpen SUBQ SCH ×4 (06:30→21:00)
--- NOTE | 2018-12-23 07:05 | NUR ---
HAND-OFF: Report given to []. Addendum: 12/23/18 at 0740 by Osiris Mehta RN Report given to GRIS Lilly.
--- NOTE | 2018-12-23 07:30 | NUR ---
NURSE NOTES: RN received pt in stable condition, awake in bed. No acute distress or SOB. Bed in low, locked position, call light within reach. Will continue plan of care.
[2018-12-23 07:33] LABS: HEMATOCRIT 28.3 % (42.0-52.0); HEMOGLOBIN 8.6 G/DL (14.2-18.0); MEAN CORPUSCULAR VOLUME 90 FL (80-99); PLATELET COUNT 74 K/UL (150-450); RED BLOOD COUNT 3.14 M/UL (4.70-6.10); RED CELL DISTRIBUTION WIDTH 16.3 % (11.6-14.8); WHITE BLOOD COUNT 3.8 K/UL (4.8-10.8)
[2018-12-23 07:54] LABS: ALANINE AMINOTRANSFERASE 20 U/L (12-78); ALBUMIN 2.9 G/DL (3.4-5.0); ALBUMIN/GLOBULIN RATIO 0.7 (1.0-2.7); ALKALINE PHOSPHATASE 311 U/L (46-116); ANION GAP 11 mmol/L (5-15); ASPARTATE AMINO TRANSFERASE 41 U/L (15-37); BILIRUBIN,TOTAL 0.8 MG/DL (0.2-1.0); BLOOD UREA NITROGEN 76 mg/dL (7-18); CALCIUM 8.5 MG/DL (8.5-10.1); CARBON DIOXIDE 26 MMOL/L (21-32); CHLORIDE 102 MMOL/L (98-107); CREATININE 5.5 MG/DL (0.55-1.30); GAMMA GLUTAMYL TRANSPEPTIDASE 236 U/L (5-85); PHOSPHORUS 4.5 MG/DL (2.5-4.9); POTASSIUM 4.3 MMOL/L (3.5-5.1); SODIUM 139 MMOL/L (136-145)
[2018-12-23 08:00] VITALS: BP 132/72
[2018-12-23] MEDS: Carvedilol 12.5mg tab ORAL SCH ×2 (08:57→22:01)
[2018-12-23] MEDS: Aspirin Baby 81mg ORAL SCH (08:57)
[2018-12-23] MEDS: Imdur 30mg tab ORAL SCH (08:58)
[2018-12-23] MEDS: Allopurinol 100mg Tab ORAL SCH (08:58)
[2018-12-23] MEDS: Docusate 100mg cap ORAL SCH ×3 (08:58→18:00)
[2018-12-23] MEDS: Calcitriol 0.25mcg Cap ORAL SCH (08:58)
[2018-12-23] MEDS: Heparin 5000 units/ml inj SUBQ SCH ×2 (09:00→21:00)
--- NOTE | 2018-12-23 09:57 | NUR ---
[employer] SI:ESRD ON HD . CHF VS: BP 132/72, P 78, T 98.0, RR 16, SpO2 97 WBC 3.8, RBC 3.14, Hgb 8.6, Hct 28.3, BUN 76, CR 5.5 IS:APRESOLINE 25mg NOVOLOG SUBQ RENVELA 800mg COREG 12.5mg ZYLOPRIM 100mg PROTONIX 40mg IMDUR 30mg MED/SURG STATUS
--- NOTE | 2018-12-23 10:04 | NUR ---
*-* INSURANCE *-* UPDATED CLINICALS AND REVIEWS HAVE BEEN FAXED TO: [facility]ANCO: NURYS P:[phone] F:[phone]
[2018-12-23 12:00] VITALS: BP 143/76
--- NOTE | 2018-12-23 13:18 | Infectious Diseases Prog Note ---
Assessment/Plan Assessment/Plan IMPRESSION: Pyuria. urine culture Diphtheroids, likely contamination combined systolic and diastolic heart failure pulmonary artery hypertension, chronic kidney disease end-stage renal disease proteinuria, pancytopenia, coronary artery disease. Change in vision in left eye RECOMMENDATION: Observe off antibiotic. Ophthalmology evaluation Subjective ROS Limited/Unobtainable: Yes Allergies: Coded Allergies: No Known Allergies (Unverified , 12/14/18) Objective Vital Signs Last 24 Hour Vital Signs Date Time Temp Pulse Resp B/P (MAP) Pulse Ox O2 Delivery O2 Flow Rate FiO2 12/23/18 08:58 132/72 12/23/18 08:57 78 132/72 12/23/18 08:00 98.0 78 16 132/72 (92) 97 12/23/18 04:00 98.2 78 18 117/63 (81) 99 12/23/18 00:00 98.8 82 18 127/66 (86) 99 12/22/18 21:00 Room Air 12/22/18 20:00 99.0 79 18 124/67 (86) 99 12/22/18 19:02 81 125/70 12/22/18 16:00 99.4 81 18 125/70 (88) 99 Height (Feet): 5 Height (Inches): 6.00 Weight (Pounds): 152 General Appearance: no acute distress HEENT: mucous membranes moist Respiratory/Chest: lungs clear Cardiovascular: normal rate, other - Permacath Abdomen: soft, non tender Extremities: no edema Neurologic/Psychiatric: other - sleeping Laboratory Tests Test 12/23/18 06:12 White Blood Count 3.8 K/UL (4.8-10.8) L Red Blood Count 3.14 M/UL (4.70-6.10) L Hemoglobin 8.6 G/DL (14.2-18.0) L Hematocrit 28.3 % (42.0-52.0) L Mean Corpuscular Volume 90 FL (80-99) Mean Corpuscular Hemoglobin 27.5 PG (27.0-31.0) Mean Corpuscular Hemoglobin Concent 30.6 G/DL (32.0-36.0) L Red Cell Distribution Width 16.3 % (11.6-14.8) H Platelet Count 74 K/UL (150-450) L Mean Platelet Volume 10.2 FL (6.5-10.1) H Neutrophils (%) (Auto) % (45.0-75.0) Lymphocytes (%) (Auto) % (20.0-45.0) Monocytes (%) (Auto) % (1.0-10.0) Eosinophils (%) (Auto) % (0.0-3.0) Basophils (%) (Auto) % (0.0-2.0) Differential Total Cells Counted 100 Neutrophils % (Manual) 76 % (45-75) H Lymphocytes % (Manual) 12 % (20-45) L Monocytes % (Manual) 10 % (1-10) Eosinophils % (Manual) 2 % (0-3) Basophils % (Manual) 0 % (0-2) Band Neutrophils 0 % (0-8) Platelet Estimate Decreased L Platelet Morphology Normal Sodium Level 139 MMOL/L (136-145) Potassium Level 4.3 MMOL/L (3.5-5.1) Chloride Level 102 MMOL/L (98-107) Carbon Dioxide Level 26 MMOL/L (21-32) Anion Gap 11 mmol/L (5-15) Blood Urea Nitrogen 76 mg/dL (7-18) H Creatinine 5.5 MG/DL (0.55-1.30) H Estimat Glomerular Filtration Rate 10.9 mL/min (>60) Glucose Level 127 MG/DL (74-106) H Uric Acid 5.0 MG/DL (2.6-7.2) Calcium Level 8.5 MG/DL (8.5-10.1) Phosphorus Level 4.5 MG/DL (2.5-4.9) Magnesium Level 2.0 MG/DL (1.8-2.4) Total Bilirubin 0.8 MG/DL (0.2-1.0) Gamma Glutamyl Transpeptidase 236 U/L (5-85) H Aspartate Amino Transf (AST/SGOT) 41 U/L (15-37) H Alanine Aminotransferase (ALT/SGPT) 20 U/L (12-78) Alkaline Phosphatase 311 U/L (46-116) H C-Reactive Protein, Quantitative 0.5 mg/dL (0.00-0.90) Pro-B-Type Natriuretic Peptide 57467 pg/mL (0-125) H Total Protein 7.2 G/DL (6.4-8.2) Albumin 2.9 G/DL (3.4-5.0) L Globulin 4.3 g/dL Albumin/Globulin Ratio 0.7 (1.0-2.7) L Current Medications Medications (Trade) Dose Ordered Sig/Félix Route PRN Reason Start Time Stop Time Status Last Admin Dose Admin Acetaminophen (Tylenol) 650 mg Q4H PRN ORAL Mild Pain/Temp > 100.5 12/14/18 15:45 01/13/19 15:44 12/18/18 00:32 Allopurinol (Zyloprim) 100 mg DAILY ORAL 12/15/18 09:00 01/14/19 08:59 12/23/18 08:58 Aspirin (ASA) 162 mg DAILY ORAL 12/14/18 15:45 01/13/19 15:44 12/22/18 08:24 Calcitriol (Rocatrol) 0.25 mcg DAILY ORAL 12/19/18 09:00 01/14/19 08:59 12/23/18 08:58 Carvedilol (Coreg) 12.5 mg EVERY 12 HOURS ORAL 12/19/18 21:00 01/13/19 20:59 12/22/18 19:02 Dextrose (Dextrose 50%) 25 ml Q30M PRN IV Hypoglycemia 12/21/18 18:15 01/20/19 18:14 Dextrose (Dextrose 50%) 50 ml Q30M PRN IV Hypoglycemia 12/21/18 18:15 01/20/19 18:14 Docusate Sodium (Colace) 100 mg TID ORAL 12/17/18 13:00 01/13/19 17:59 12/23/18 12:35 Epoetin Jordon (Epoetin Jordon(ESRD on dialysis)) 10,000 unit THU-THU-THU SUBQ 12/22/18 21:00 01/21/19 20:59 12/22/18 20:58 Heparin Sodium (Porcine) (Heparin 5000 units/ml) 5,000 units EVERY 12 HOURS SUBQ 12/15/18 21:00 01/13/19 20:59 Hydralazine HCl (Apresoline) 25 mg Q8HR ORAL 12/22/18 22:00 01/17/19 00:00 Insulin Aspart (NovoLOG) BEFORE MEALS AND HS SUBQ 12/21/18 21:00 01/20/19 20:59 12/23/18 12:25 Isosorbide Mononitrate (Imdur) 30 mg DAILY ORAL 12/14/18 20:45 01/13/19 20:44 12/22/18 08:23 Ondansetron HCl (Zofran) 4 mg Q6H PRN IVP Nausea & Vomiting 12/20/18 13:30 01/19/19 13:29 12/20/18 13:55 Pantoprazole (Protonix) 40 mg EVERY 12 HOURS ORAL 12/14/18 21:00 01/13/19 20:59 12/23/18 08:58 Sevelamer Carbonate (Renvela) 800 mg THREE TIMES A DAY ORAL 12/20/18 13:00 01/18/19 08:59 12/23/18 12:35 Tamsulosin HCl (Flomax) 0.4 mg BEDTIME ORAL 12/16/18 21:00 01/15/19 20:59 12/22/18 20:54 Omi Brown MD Dec 23, 2018 13:18
--- NOTE | 2018-12-23 14:58 | Nephrology Progress Note ---
Assessment/Plan Problem List: (1) ESRD (end stage renal disease) (2) ARF (acute renal failure) (3) CHF (congestive heart failure) (4) Anemia in chronic kidney disease (CKD) (5) Nephrotic syndrome Assessment Advanced Renal failure with Proteinuria CKD known to the patient h/o HTN h/o Cardiac disease s/p stent ? DM high A1c Plan after and pre load reduction management discussed the need for Dialysis - catheter 12/17- dialysis 12/17 next 12/19 next 12/21 next 12/23 1000 cc fluid restriction Renal diet- Phos binders BP check kidney RUSSEL noted 24 h urine results noted per orders Echo Global left ventricular hypokinesis with falttenign of cody VS suggestive of RV pressuere overload Mild left ventricular enlargement . Left ventricular ejection fraction estimated to be 25-30%. RUSSEL * Portions of the right ureteral stent are partially visualized. Punctate echogenic focus also noted in the lower pole of the right kidney which may represent nonobstructing stone. * No evidence of hydronephrosis bilaterally. * Renal echogenicity appears within normal limits. * Bladder wall thickening is noted within question for cystitis, although findings may possibly related to underdistention. Correlation with urinalysis recommended. Subjective ROS Limited/Unobtainable: No Objective Objective Last 24 Hour Vital Signs Date Time Temp Pulse Resp B/P (MAP) Pulse Ox O2 Delivery O2 Flow Rate FiO2 12/23/18 14:00 143/76 12/23/18 12:00 98.0 78 16 143/76 (98) 97 12/23/18 08:58 132/72 12/23/18 08:57 78 132/72 12/23/18 08:00 98.0 78 16 132/72 (92) 97 12/23/18 04:00 98.2 78 18 117/63 (81) 99 12/23/18 00:00 98.8 82 18 127/66 (86) 99 12/22/18 21:00 Room Air 12/22/18 20:00 99.0 79 18 124/67 (86) 99 12/22/18 19:02 81 125/70 12/22/18 16:00 99.4 81 18 125/70 (88) 99 Intake and Output 12/22/18 12/23/18 19:00 07:00 Intake Total 480 ml Output Total 0 ml Balance 480 ml 0 ml Intake Oral 480 ml Output Urine Total 0 ml Laboratory Tests 12/23/18 06:12: White Blood Count 3.8L, Red Blood Count 3.14L, Hemoglobin 8.6L, Hematocrit 28.3L , Mean Corpuscular Volume 90, Mean Corpuscular Hemoglobin 27.5, Mean Corpuscular Hemoglobin Concent 30.6L, Red Cell Distribution Width 16.3H, Platelet Count 74L, Mean Platelet Volume 10.2H, Neutrophils (%) (Auto) , Lymphocytes (%) (Auto) , Monocytes (%) (Auto) , Eosinophils (%) (Auto) , Basophils (%) (Auto) , Differential Total Cells Counted 100, Neutrophils % ( Manual) 76H, Lymphocytes % (Manual) 12L, Monocytes % (Manual) 10, Eosinophils % (Manual) 2, Basophils % (Manual) 0, Band Neutrophils 0, Platelet Estimate DecreasedL, Platelet Morphology Normal, Sodium Level 139, Potassium Level 4.3, Chloride Level 102, Carbon Dioxide Level 26, Anion Gap 11, Blood Urea Nitrogen 76H, Creatinine 5.5H, Estimat Glomerular Filtration Rate 10.9, Glucose Level 127H, Uric Acid 5.0, Calcium Level 8.5, Phosphorus Level 4.5, Magnesium Level 2.0, Total Bilirubin 0.8, Gamma Glutamyl Transpeptidase 236H, Aspartate Amino Transf (AST/SGOT) 41H, Alanine Aminotransferase (ALT/SGPT) 20, Alkaline Phosphatase 311H, C-Reactive Protein, Quantitative 0.5, Pro-B-Type Natriuretic Peptide 02441L, Total Protein 7.2, Albumin 2.9L, Globulin 4.3, Albumin/Globulin Ratio 0.7L Height (Feet): 5 Height (Inches): 6.00 Weight (Pounds): 152 General Appearance: no apparent distress Cardiovascular: normal rate Respiratory/Chest: decreased breath sounds Abdomen: distended Objective no change Micah Pitt MD Dec 23, 2018 14:58
[2018-12-23 16:00] VITALS: BP 129/66
--- NOTE | 2018-12-23 19:17 | NUR ---
HAND-OFF: Report given to MARJORIE Huertas.
--- NOTE | 2018-12-23 19:30 | NUR ---
NURSE NOTES: RECEIVED PATIENT LYING IN BED, AWAKE, ALERT/ORIENTED X4, VERBALLY RESPONSIVE, DENIES PAIN, HEMODIALYSIS ONGOING VIA CATHETER RIGHT UPPER CHEST WALL, TOLERATING WELL. NO REPORT OF GI DISCOMFORT, NO N/V/D. SIDE RAILS UP X2 FOR MOBILITY, BED IN LOWEST POSITION FOR SAFETY. CALL LIGHT WITHIN REACH. NAD.
[2018-12-23 20:00] VITALS: BP 139/81
--- NOTE | 2018-12-23 20:49 | General Progress Note ---
Assessment/Plan Status: progressing Assessment/Plan: Assessment/Plan # Pancytopenia -- multiple etiologies could be related to underlying liver disease, medication-induced, infection versus viral syndrome -> on imaging of the ct a/p, does appear has a history of SPLENOMEGALY AND CIRRHOSIS (irregular liver sufrace can explain pancytopenia), Prominent soft tissue opacities in the splenic hilum and lesser sac, could indicate varices, all of the lesser sac findings could represent prominent nodes. Consider gi evaluation and treatment --> peripheral smear has been ordered and does not show significant abnormalities does not appear to have significant abnormalities --> Medications have been reviewed --> Continue to monitor for improvement, trend cbc --> Hep panel and HIV are both negative --> consider other causes, infections that could contribute --> reverse isolation if ANC is <2000 --> Give neupogen if ANC <1000 --> Transfuse if hgb <7, with 1 unit prbc --> WBC trend 4.2-->3.6-->3.6-->3.8 # Anemia of iron deficiency given will need hd/esrd --> iron has been started x 5 doses iv --> will recheck ferritin level # Coagulation defect, multifactorial usually related to poor PO intake versus medications, versus hepatitis v cirrhosis --> administer Vitamin K if patient is bleeding or FFP if the INR is >10 --> hold off on ffp unless active procedure/bleeding, first begin with vit K 10 --> mixing study as needed # Advanced Renal failure with Proteinuria --> as per renal eval and recs --> 24hr collection as per renal # CKD known to the patient --> pre renal needs hd # h/o HTN --> sbp goal <140 # h/o Cardiac disease s/p stent # ? DM The timing of this note does not necessarily reflect the time of the patient was seen. Greatly appreciate consultation! Subjective HEENT: Denies: no symptoms, eye pain, blurred vision, tearing, double vision, ear pain, ear discharge, nose pain, nose congestion, throat pain, throat swelling, mouth pain, mouth swelling, other Cardiovascular: Denies: no symptoms, chest pain, edema, irregular heart rate, lightheadedness, palpitations, syncope, other Respiratory: Denies: no symptoms, cough, orthopnea, shortness of breath, SOB with excertion, SOB at rest, sputum, stridor, wheezing, other Gastrointestinal/Abdominal: Denies: no symptoms, abdomen distended, abdominal pain, black stools, tarry stools, blood in stool, constipated, diarrhea, difficulty swallowing, nausea, poor appetite, poor fluid intake, rectal bleeding , vomiting, other Genitourinary: Denies: no symptoms, burning, discharge, frequency, flank pain, hematuria, incontinence, pain, urgency, other Neurologic/Psychiatric: Denies: no symptoms, anxiety, depressed, emotional problems, headache, numbness, paresthesia, pre-existing deficit, seizure, tingling, tremors, weakness, other Endocrine: Denies: no symptoms, excessive sweating, flushing, intolerance to cold, intolerance to heat, increased hunger, increased thirst, increased urine, unexplained weight gain, unexplained weight loss, other Allergies: Coded Allergies: No Known Allergies (Unverified , 12/14/18) Subjective 12/15: labs have been reviewed, relatively stable cbc but mildly lower with elev inr, not bleeding 12/16: discussed need for HD with renal, family, by the bedside understands as well as patient 12/17: labs have been reviewed and noted, by bedside, relatively stable 12/23: no evidence of fevers or chills, off abx, seen bty renal, due for hd Objective Last 24 Hour Vital Signs Date Time Temp Pulse Resp B/P (MAP) Pulse Ox O2 Delivery O2 Flow Rate FiO2 12/23/18 16:00 99.2 84 18 129/66 (87) 98 12/23/18 14:00 143/76 12/23/18 12:00 98.0 78 16 143/76 (98) 97 12/23/18 09:00 Room Air 12/23/18 08:58 132/72 12/23/18 08:57 78 132/72 12/23/18 08:00 98.0 78 16 132/72 (92) 97 12/23/18 04:00 98.2 78 18 117/63 (81) 99 12/23/18 00:00 98.8 82 18 127/66 (86) 99 12/22/18 21:00 Room Air Intake and Output 12/22/18 12/23/18 18:59 06:59 Intake Total 480 ml Output Total 0 ml Balance 480 ml 0 ml Intake Oral 480 ml Output Urine Total 0 ml Laboratory Tests 12/23/18 06:12: White Blood Count 3.8L, Red Blood Count 3.14L, Hemoglobin 8.6L, Hematocrit 28.3L , Mean Corpuscular Volume 90, Mean Corpuscular Hemoglobin 27.5, Mean Corpuscular Hemoglobin Concent 30.6L, Red Cell Distribution Width 16.3H, Platelet Count 74L, Mean Platelet Volume 10.2H, Neutrophils (%) (Auto) , Lymphocytes (%) (Auto) , Monocytes (%) (Auto) , Eosinophils (%) (Auto) , Basophils (%) (Auto) , Differential Total Cells Counted 100, Neutrophils % ( Manual) 76H, Lymphocytes % (Manual) 12L, Monocytes % (Manual) 10, Eosinophils % (Manual) 2, Basophils % (Manual) 0, Band Neutrophils 0, Platelet Estimate DecreasedL, Platelet Morphology Normal, Sodium Level 139, Potassium Level 4.3, Chloride Level 102, Carbon Dioxide Level 26, Anion Gap 11, Blood Urea Nitrogen 76H, Creatinine 5.5H, Estimat Glomerular Filtration Rate 10.9, Glucose Level 127H, Uric Acid 5.0, Calcium Level 8.5, Phosphorus Level 4.5, Magnesium Level 2.0, Total Bilirubin 0.8, Gamma Glutamyl Transpeptidase 236H, Aspartate Amino Transf (AST/SGOT) 41H, Alanine Aminotransferase (ALT/SGPT) 20, Alkaline Phosphatase 311H, C-Reactive Protein, Quantitative 0.5, Pro-B-Type Natriuretic Peptide 41596J, Total Protein 7.2, Albumin 2.9L, Globulin 4.3, Albumin/Globulin Ratio 0.7L Height (Feet): 5 Height (Inches): 6.00 Weight (Pounds): 152 Objective PE: Vitals: reviewed General Appearance: NAD, nonverbal HEENT: normocephalic, atraumatic Neck: non-tender, normal alignment Respiratory/Chest: nromal breath sounds bilaterally Cardiovascular/Chest: normal peripheral pulses, normal rate Abdomen: normal bowel sounds, soft, nontender Extremities: normal range of motion . Enrrique Solano MD Dec 23, 2018 20:49
--- NOTE | 2018-12-23 21:04 | General Progress Note ---
Assessment/Plan Problem List: (1) CHF exacerbation ICD Codes: I50.9 - Heart failure, unspecified SNOMED: 26673903 (2) Pyelonephritis ICD Codes: N12 - Tubulo-interstitial nephritis, not specified as acute or chronic SNOMED: 15616541 (3) Pancytopenia ICD Codes: D61.818 - Other pancytopenia SNOMED: 312398171 (4) CHF (congestive heart failure) ICD Codes: I50.9 - Heart failure, unspecified SNOMED: 68760269 (5) Anemia in chronic kidney disease (CKD) ICD Codes: N18.9 - Chronic kidney disease, unspecified; D63.1 - Anemia in chronic kidney disease SNOMED: 303540268 (6) ARF (acute renal failure) ICD Codes: N17.9 - Acute kidney failure, unspecified SNOMED: 85347650 (7) ESRD (end stage renal disease) ICD Codes: N18.6 - End stage renal disease SNOMED: 60578166 (8) Nephrotic syndrome ICD Codes: N04.9 - Nephrotic syndrome with unspecified morphologic changes SNOMED: 68606301 Status: progressing Assessment/Plan: still edematous afebrile reviewed chart and labs and meds cad s/p stent esrd on hd Subjective ROS Limited/Unobtainable: Yes Allergies: Coded Allergies: No Known Allergies (Unverified , 12/14/18) Objective Last 24 Hour Vital Signs Date Time Temp Pulse Resp B/P (MAP) Pulse Ox O2 Delivery O2 Flow Rate FiO2 12/23/18 16:00 99.2 84 18 129/66 (87) 98 12/23/18 14:00 143/76 12/23/18 12:00 98.0 78 16 143/76 (98) 97 12/23/18 09:00 Room Air 12/23/18 08:58 132/72 12/23/18 08:57 78 132/72 12/23/18 08:00 98.0 78 16 132/72 (92) 97 12/23/18 04:00 98.2 78 18 117/63 (81) 99 12/23/18 00:00 98.8 82 18 127/66 (86) 99 Intake and Output 12/22/18 12/23/18 18:59 06:59 Intake Total 480 ml Output Total 0 ml Balance 480 ml 0 ml Intake Oral 480 ml Output Urine Total 0 ml Laboratory Tests 12/23/18 06:12: White Blood Count 3.8L, Red Blood Count 3.14L, Hemoglobin 8.6L, Hematocrit 28.3L , Mean Corpuscular Volume 90, Mean Corpuscular Hemoglobin 27.5, Mean Corpuscular Hemoglobin Concent 30.6L, Red Cell Distribution Width 16.3H, Platelet Count 74L, Mean Platelet Volume 10.2H, Neutrophils (%) (Auto) , Lymphocytes (%) (Auto) , Monocytes (%) (Auto) , Eosinophils (%) (Auto) , Basophils (%) (Auto) , Differential Total Cells Counted 100, Neutrophils % ( Manual) 76H, Lymphocytes % (Manual) 12L, Monocytes % (Manual) 10, Eosinophils % (Manual) 2, Basophils % (Manual) 0, Band Neutrophils 0, Platelet Estimate DecreasedL, Platelet Morphology Normal, Sodium Level 139, Potassium Level 4.3, Chloride Level 102, Carbon Dioxide Level 26, Anion Gap 11, Blood Urea Nitrogen 76H, Creatinine 5.5H, Estimat Glomerular Filtration Rate 10.9, Glucose Level 127H, Uric Acid 5.0, Calcium Level 8.5, Phosphorus Level 4.5, Magnesium Level 2.0, Total Bilirubin 0.8, Gamma Glutamyl Transpeptidase 236H, Aspartate Amino Transf (AST/SGOT) 41H, Alanine Aminotransferase (ALT/SGPT) 20, Alkaline Phosphatase 311H, C-Reactive Protein, Quantitative 0.5, Pro-B-Type Natriuretic Peptide 78055J, Total Protein 7.2, Albumin 2.9L, Globulin 4.3, Albumin/Globulin Ratio 0.7L Height (Feet): 5 Height (Inches): 6.00 Weight (Pounds): 152 Cardiovascular: normal rate Respiratory/Chest: lungs clear Abdomen: soft Sarahi Shaffer MD Dec 23, 2018 21:04
[2018-12-23 21:41] LABS: % IRON SATURATION 27 % (15-50); IRON 62 ug/dL (50-175); TOTAL IRON BINDING CAPACITY 231 ug/dL (250-450)
[2018-12-23 21:55] LABS: FERRITIN 451 NG/ML (8-388)
[2018-12-23] MEDS: Tamsulosin 0.4mg cap ORAL SCH (22:01)
--- NOTE | 2018-12-23 22:15 | NUR ---
NURSE NOTES: HEMODIALYSIS COMPLETED. NO DISTRESS NOTED. DRESSING DRY AND INTACT TO CATHETER, NO SIGNS OF BLEEDING.
[2018-12-24] VITALS: BP 135/79
--- NOTE | 2018-12-24 00:56 | NUR ---
NURSE NOTES: RESTING WELL, NAD.
[2018-12-24 04:00] VITALS: BP 128/71
[2018-12-24] MEDS: HydrALAZINE 25mg tab ORAL SCH ×3 (06:02→22:43)
--- NOTE | 2018-12-24 06:16 | NUR ---
NURSE NOTES: MONITORED BLOOD GLUCOSE LEVEL VIA GLUCOMETER WITH RESULT 130MG/DL, ASYMPTOMATIC, REFUSED NOVOLOG INSULIN-
[2018-12-24] MEDS: NovoLOG Insulin Flexpen SUBQ SCH ×4 (06:30→21:18)
--- NOTE | 2018-12-24 07:13 | NUR ---
HAND-OFF: Report given to GRIS ERWIN.
--- NOTE | 2018-12-24 07:15 | NUR ---
NURSE NOTES: RN received pt in stable condition, awake in bed. No s/s of acute distress or SOB. Bed in low, locked position, call light within reach. Fluid restriction 1000 ml / day. Will continue plan of care.
[2018-12-24 08:00] VITALS: BP 135/75
[2018-12-24] MEDS: Calcitriol 0.25mcg Cap ORAL SCH (08:15)
[2018-12-24] MEDS: Docusate 100mg cap ORAL SCH ×3 (08:15→17:22)
[2018-12-24] MEDS: Imdur 30mg tab ORAL SCH (08:15)
[2018-12-24] MEDS: Aspirin Baby 81mg ORAL SCH (08:15)
[2018-12-24] MEDS: Carvedilol 12.5mg tab ORAL SCH ×2 (08:15→21:02)
[2018-12-24] MEDS: Allopurinol 100mg Tab ORAL SCH (08:16)
[2018-12-24] MEDS: Heparin 5000 units/ml inj SUBQ SCH ×2 (08:16→21:00)
--- NOTE | 2018-12-24 09:26 | NUR ---
*-* INSURANCE *-* UPDATED CLINICALS HAVE BEEN FAXED TO: [facility] FRANCO: NURYS P:[phone] F:[phone]
[2018-12-24 12:00] VITALS: BP 128/73
--- NOTE | 2018-12-24 12:40 | Nephrology Progress Note ---
Assessment/Plan Problem List: (1) ESRD (end stage renal disease) (2) ARF (acute renal failure) (3) CHF (congestive heart failure) (4) Anemia in chronic kidney disease (CKD) (5) Nephrotic syndrome Assessment Advanced Renal failure with Proteinuria CKD known to the patient h/o HTN h/o Cardiac disease s/p stent ? DM high A1c Plan after and pre load reduction management discussed the need for Dialysis - catheter 12/17- dialysis 12/17 next 12/19 next 12/21 next 12/23 next 12/25 1000 cc fluid restriction Renal diet- Phos binders BP check kidney RUSSEL noted 24 h urine results noted per orders Echo Global left ventricular hypokinesis with falttenign of cody VS suggestive of RV pressuere overload Mild left ventricular enlargement . Left ventricular ejection fraction estimated to be 25-30%. RUSSEL * Portions of the right ureteral stent are partially visualized. Punctate echogenic focus also noted in the lower pole of the right kidney which may represent nonobstructing stone. * No evidence of hydronephrosis bilaterally. * Renal echogenicity appears within normal limits. * Bladder wall thickening is noted within question for cystitis, although findings may possibly related to underdistention. Correlation with urinalysis recommended. Subjective ROS Limited/Unobtainable: No Constitutional: Reports: malaise, weakness Objective Objective Last 24 Hour Vital Signs Date Time Temp Pulse Resp B/P (MAP) Pulse Ox O2 Delivery O2 Flow Rate FiO2 12/24/18 09:00 Room Air 12/24/18 08:15 77 135/75 12/24/18 08:15 135/75 12/24/18 08:00 98.3 77 18 135/75 (95) 98 12/24/18 06:02 134/79 12/24/18 04:00 97.7 87 18 128/71 (90) 97 12/24/18 00:00 98.4 96 17 135/79 (97) 97 12/23/18 22:52 139/75 12/23/18 22:01 94 139/81 12/23/18 21:00 Room Air 12/23/18 20:00 98.6 94 18 139/81 (100) 97 12/23/18 16:00 99.2 84 18 129/66 (87) 98 12/23/18 14:00 143/76 Intake and Output 12/23/18 12/24/18 19:00 07:00 Intake Total 300 ml Output Total 250 ml Balance 50 ml Intake Oral 300 ml Output Urine Total 250 ml Height (Feet): 5 Height (Inches): 6.00 Weight (Pounds): 152 General Appearance: no apparent distress Cardiovascular: normal rate Respiratory/Chest: decreased breath sounds Abdomen: soft Objective no change Micah Pitt MD Dec 24, 2018 12:40
--- NOTE | 2018-12-24 13:00 | Infectious Diseases Prog Note ---
Assessment/Plan Assessment/Plan IMPRESSION: Pyuria. urine culture Diphtheroids, likely contamination combined systolic and diastolic heart failure pulmonary artery hypertension, chronic kidney disease end-stage renal disease proteinuria, pancytopenia, coronary artery disease. Change in vision in left eye s/p ureteral stent RECOMMENDATION: Observe off antibiotic. Ophthalmology evaluation Subjective ROS Limited/Unobtainable: No Constitutional: Reports: no symptoms HEENT: Reports: no symptoms Respiratory: Reports: no symptoms Genitourinary: Reports: hematuria, other - decreasing Allergies: Coded Allergies: No Known Allergies (Unverified , 12/14/18) Objective Vital Signs Last 24 Hour Vital Signs Date Time Temp Pulse Resp B/P (MAP) Pulse Ox O2 Delivery O2 Flow Rate FiO2 12/24/18 12:00 97.5 83 18 128/73 (91) 96 12/24/18 09:00 Room Air 12/24/18 08:15 77 135/75 12/24/18 08:15 135/75 12/24/18 08:00 98.3 77 18 135/75 (95) 98 12/24/18 06:02 134/79 12/24/18 04:00 97.7 87 18 128/71 (90) 97 12/24/18 00:00 98.4 96 17 135/79 (97) 97 12/23/18 22:52 139/75 12/23/18 22:01 94 139/81 12/23/18 21:00 Room Air 12/23/18 20:00 98.6 94 18 139/81 (100) 97 12/23/18 16:00 99.2 84 18 129/66 (87) 98 12/23/18 14:00 143/76 Height (Feet): 5 Height (Inches): 6.00 Weight (Pounds): 152 General Appearance: no acute distress HEENT: mucous membranes moist Respiratory/Chest: lungs clear Cardiovascular: normal rate, other - Permacath Abdomen: soft, non tender Extremities: no edema Neurologic/Psychiatric: alert, oriented x 3, responsive Current Medications Medications (Trade) Dose Ordered Sig/Félix Route PRN Reason Start Time Stop Time Status Last Admin Dose Admin Acetaminophen (Tylenol) 650 mg Q4H PRN ORAL Mild Pain/Temp > 100.5 12/14/18 15:45 01/13/19 15:44 12/18/18 00:32 Allopurinol (Zyloprim) 100 mg DAILY ORAL 12/15/18 09:00 01/14/19 08:59 12/24/18 08:16 Aspirin (ASA) 162 mg DAILY ORAL 12/14/18 15:45 01/13/19 15:44 12/24/18 08:15 Calcitriol (Rocatrol) 0.25 mcg DAILY ORAL 12/19/18 09:00 01/14/19 08:59 12/24/18 08:15 Carvedilol (Coreg) 12.5 mg EVERY 12 HOURS ORAL 12/19/18 21:00 01/13/19 20:59 12/24/18 08:15 Dextrose (Dextrose 50%) 25 ml Q30M PRN IV Hypoglycemia 12/21/18 18:15 01/20/19 18:14 Dextrose (Dextrose 50%) 50 ml Q30M PRN IV Hypoglycemia 12/21/18 18:15 01/20/19 18:14 Docusate Sodium (Colace) 100 mg TID ORAL 12/17/18 13:00 01/13/19 17:59 12/24/18 12:48 Epoetin Jordon (Epoetin Jordon(ESRD on dialysis)) 10,000 unit THU-THU-THU SUBQ 12/22/18 21:00 01/21/19 20:59 12/22/18 20:58 Heparin Sodium (Porcine) (Heparin 5000 units/ml) 5,000 units EVERY 12 HOURS SUBQ 12/15/18 21:00 01/13/19 20:59 Hydralazine HCl (Apresoline) 25 mg Q8HR ORAL 12/22/18 22:00 01/17/19 00:00 12/24/18 06:02 Insulin Aspart (NovoLOG) BEFORE MEALS AND HS SUBQ 12/21/18 21:00 01/20/19 20:59 12/24/18 12:16 Isosorbide Mononitrate (Imdur) 30 mg DAILY ORAL 12/14/18 20:45 01/13/19 20:44 12/24/18 08:15 Ondansetron HCl (Zofran) 4 mg Q6H PRN IVP Nausea & Vomiting 12/20/18 13:30 01/19/19 13:29 12/20/18 13:55 Pantoprazole (Protonix) 40 mg EVERY 12 HOURS ORAL 12/14/18 21:00 01/13/19 20:59 12/24/18 08:15 Sevelamer Carbonate (Renvela) 800 mg THREE TIMES A DAY ORAL 12/20/18 13:00 01/18/19 08:59 12/24/18 12:48 Tamsulosin HCl (Flomax) 0.4 mg BEDTIME ORAL 12/16/18 21:00 01/15/19 20:59 12/23/18 22:01 Omi Brown MD Dec 24, 2018 13:00
--- NOTE | 2018-12-24 15:12 | NUR ---
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 CHF VS: BP128/73, P 83, T 97.5, RR 18. SpO2 96 IS:APRESOLINE 25mg NOVOLOG SUBQ RENVELA 800mg COREG 12.5mg CALCITROL 0.25mcg ALLOPURINOL 100mg IMDUR 30mg MED/SURG STATUS
--- NOTE | 2018-12-24 15:51 | General Progress Note ---
Assessment/Plan Status: progressing Assessment/Plan: Assessment/Plan # Pancytopenia -- multiple etiologies could be related to underlying liver disease, medication-induced, infection versus viral syndrome -> hx SPLENOMEGALY AND CIRRHOSIS (irregular liver sufrace can explain pancytopenia), Prominent soft tissue opacities in the splenic hilum and lesser sac, could indicate varices, all of the lesser sac findings could represent prominent nodes. Consider gi evaluation and treatment --> peripheral smear has been ordered and does not show significant abnormalities does not appear to have significant abnormalities --> Medications have been reviewed --> Continue to monitor for improvement, trend cbc --> Hep panel and HIV are both negative --> consider other causes, infections that could contribute --> reverse isolation if ANC is <2000 --> Give neupogen if ANC <1000 --> Transfuse if hgb <7, with 1 unit prbc --> WBC trend 4.2-->3.6-->3.6-->3.8 # Anemia of iron deficiency given will need hd/esrd --> iron has been started x 5 doses iv --> will recheck ferritin level 218-->451 # Coagulation defect, multifactorial usually related to poor PO intake versus medications, versus hepatitis v cirrhosis --> administer Vitamin K if patient is bleeding or FFP if the INR is >10 --> hold off on ffp unless active procedure/bleeding, first begin with vit K 10 --> mixing study as needed # Advanced Renal failure with Proteinuria --> as per renal eval and recs --> 24hr collection as per renal --> HD as per renal followup # h/o HTN --> sbp goal <140 # h/o Cardiac disease s/p stent # ? DM The timing of this note does not necessarily reflect the time of the patient was seen. Greatly appreciate consultation! Subjective Constitutional: Denies: no symptoms, chills, diaphoresis, fever, malaise, weakness, other HEENT: Denies: no symptoms, eye pain, blurred vision, tearing, double vision, ear pain, ear discharge, nose pain, nose congestion, throat pain, throat swelling, mouth pain, mouth swelling, other Cardiovascular: Denies: no symptoms, chest pain, edema, irregular heart rate, lightheadedness, palpitations, syncope, other Respiratory: Denies: no symptoms, cough, orthopnea, shortness of breath, SOB with excertion, SOB at rest, sputum, stridor, wheezing, other Gastrointestinal/Abdominal: Denies: no symptoms, abdomen distended, abdominal pain, black stools, tarry stools, blood in stool, constipated, diarrhea, difficulty swallowing, nausea, poor appetite, poor fluid intake, rectal bleeding , vomiting, other Genitourinary: Denies: no symptoms, burning, discharge, frequency, flank pain, hematuria, incontinence, pain, urgency, other Neurologic/Psychiatric: Denies: no symptoms, anxiety, depressed, emotional problems, headache, numbness, paresthesia, pre-existing deficit, seizure, tingling, tremors, weakness, other Endocrine: Denies: no symptoms, excessive sweating, flushing, intolerance to cold, intolerance to heat, increased hunger, increased thirst, increased urine, unexplained weight gain, unexplained weight loss, other Hematologic/Lymphatic: Denies: no symptoms, anemia, easy bleeding, easy bruising, other Allergies: Coded Allergies: No Known Allergies (Unverified , 12/14/18) Subjective 12/15: labs have been reviewed, relatively stable cbc but mildly lower with elev inr, not bleeding 12/16: discussed need for HD with renal, family, by the bedside understands as well as patient 12/17: labs have been reviewed and noted, by bedside, relatively stable 12/23: no evidence of fevers or chills, off abx, seen bty renal, due for hd 426: shaving this am, no complaints, no fc, cbc reviewed Objective Last 24 Hour Vital Signs Date Time Temp Pulse Resp B/P (MAP) Pulse Ox O2 Delivery O2 Flow Rate FiO2 12/24/18 13:20 128/73 12/24/18 12:00 97.5 83 18 128/73 (91) 96 12/24/18 09:00 Room Air 12/24/18 08:15 77 135/75 12/24/18 08:15 135/75 12/24/18 08:00 98.3 77 18 135/75 (95) 98 12/24/18 06:02 134/79 12/24/18 04:00 97.7 87 18 128/71 (90) 97 12/24/18 00:00 98.4 96 17 135/79 (97) 97 12/23/18 22:52 139/75 12/23/18 22:01 94 139/81 12/23/18 21:00 Room Air 12/23/18 20:00 98.6 94 18 139/81 (100) 97 12/23/18 16:00 99.2 84 18 129/66 (87) 98 Intake and Output 12/23/18 12/24/18 19:00 07:00 Intake Total 300 ml Output Total 250 ml Balance 50 ml Intake Oral 300 ml Output Urine Total 250 ml Height (Feet): 5 Height (Inches): 6.00 Weight (Pounds): 152 Objective PE: Vitals: reviewed General Appearance: NAD, nonverbal HEENT: normocephalic, atraumatic Neck: non-tender, normal alignment Respiratory/Chest: nromal breath sounds bilaterally Cardiovascular/Chest: normal peripheral pulses, normal rate Abdomen: normal bowel sounds, soft, nontender Extremities: normal range of motion . Enrrique Solano MD Dec 24, 2018 15:51
[2018-12-24 16:00] VITALS: BP 132/75
--- NOTE | 2018-12-24 17:34 | NUR ---
NURSE NOTES: Spoke to the Robert from [facility] dialysis reg the order for 12/25/18.
--- NOTE | 2018-12-24 19:03 | NUR ---
HAND-OFF: Report given to MARJORIE Huertas.
--- NOTE | 2018-12-24 19:30 | NUR ---
NURSE NOTES: RECEIVED PATIENT LYING IN BED, APPEAR TO BE ASLEEP, ALERT/ORIENTED X4, DENIES PAIN. NO SIGNS AND SYMPTOMS OF ACUTE CARDIO RESPIRATORY DISTRESS/SHORTNESS OF BREATH, DENIES CHEST PAIN, BILATERAL LOWER EXTREMITIES EDEMATOUS/PITTING, LLE +3/+2 NON PITTED, ELEVATED EACH EXTREMITY ON PILLOW LENGTHWISE WITH HEELS FLOATING, TOLERATING WELL. ABDOMEN DISTENDED/NON TENDER, CONTINENT OF B/B, URINAL AT BEDSIDE. HEMODIALYSIS SCHEDULED FOR THURSDAY AM VIA RIGHT UPPER CHEST WALL CATHETER, DRESSING DRY AND INTACT. SIDE RAILS UP X3/BED IN LOWEST POSITION FOR SAFETY. CALL LIGHT WITHIN REACH AT ALL TIMES. FREQUENT ROUNDING FOR SAFETY/NEEDS. NAD.
--- NOTE | 2018-12-24 19:48 | General Progress Note ---
Assessment/Plan Problem List: (1) CHF exacerbation ICD Codes: I50.9 - Heart failure, unspecified SNOMED: 21396440 (2) Pyelonephritis ICD Codes: N12 - Tubulo-interstitial nephritis, not specified as acute or chronic SNOMED: 51421929 (3) Pancytopenia ICD Codes: D61.818 - Other pancytopenia SNOMED: 997665069 (4) CHF (congestive heart failure) ICD Codes: I50.9 - Heart failure, unspecified SNOMED: 91500464 (5) Anemia in chronic kidney disease (CKD) ICD Codes: N18.9 - Chronic kidney disease, unspecified; D63.1 - Anemia in chronic kidney disease SNOMED: 949983695 (6) ARF (acute renal failure) ICD Codes: N17.9 - Acute kidney failure, unspecified SNOMED: 15457426 (7) ESRD (end stage renal disease) ICD Codes: N18.6 - End stage renal disease SNOMED: 84426746 (8) Nephrotic syndrome ICD Codes: N04.9 - Nephrotic syndrome with unspecified morphologic changes SNOMED: 00130898 Status: progressing Assessment/Plan: pancytopenia le edema chf no bleeding reviewed chart and labs cad s/p stent esrd on hd Subjective ROS Limited/Unobtainable: Yes Allergies: Coded Allergies: No Known Allergies (Unverified , 12/14/18) Objective Last 24 Hour Vital Signs Date Time Temp Pulse Resp B/P (MAP) Pulse Ox O2 Delivery O2 Flow Rate FiO2 12/24/18 16:00 98.5 18 132/75 (94) 100 12/24/18 13:20 128/73 12/24/18 12:00 97.5 83 18 128/73 (91) 96 12/24/18 09:00 Room Air 12/24/18 08:15 77 135/75 12/24/18 08:15 135/75 12/24/18 08:00 98.3 77 18 135/75 (95) 98 12/24/18 06:02 134/79 12/24/18 04:00 97.7 87 18 128/71 (90) 97 12/24/18 00:00 98.4 96 17 135/79 (97) 97 12/23/18 22:52 139/75 12/23/18 22:01 94 139/81 12/23/18 21:00 Room Air 12/23/18 20:00 98.6 94 18 139/81 (100) 97 Intake and Output 12/23/18 12/24/18 19:00 07:00 Intake Total 300 ml Output Total 250 ml Balance 50 ml Intake Oral 300 ml Output Urine Total 250 ml Laboratory Tests 12/24/18 17:15: Hepatitis B Surface Antigen [Pending], Hepatitis B Surface Antibody [Pending] Height (Feet): 5 Height (Inches): 6.00 Weight (Pounds): 152 Neck: supple Cardiovascular: normal rate Respiratory/Chest: lungs clear Sarahi Shaffer MD Dec 24, 2018 19:48
[2018-12-24 20:00] VITALS: BP 119/68
[2018-12-24] MEDS: Tamsulosin 0.4mg cap ORAL SCH (21:02)
[2018-12-24] MEDS: Epoetin Alfa(ESRD on dialysis)10,000 unit/ml vial SUBQ SCH (21:03)
[2018-12-25] VITALS: BP 127/66
[2018-12-25 04:00] VITALS: BP 131/71
[2018-12-25] MEDS: HydrALAZINE 25mg tab ORAL SCH ×3 (05:50→21:52)
[2018-12-25] MEDS: NovoLOG Insulin Flexpen SUBQ SCH ×4 (06:14→22:19)
--- NOTE | 2018-12-25 06:21 | NUR ---
NURSE NOTES: BLOOD GLUCOSE LEVEL MONITORED VIA GLUCOMETER WITH RESULT 113MG/DL, ASYMPTOMATIC , PATIENT REFUSED NOVOLOG INSULIN SUBCUT SLIDING SCALE.
--- NOTE | 2018-12-25 07:30 | NUR ---
NURSE NOTES: RECEIVED PATIENT A/A/OX4, ABLE TO AMBULATE TO THE BATHROOM WITH NO DISTRESS NOTED. HD PORT IS INTACT, CLEAN AND DRY ON RIGHT CW. ANTICIPATE HD TODAY, SPOKE WITH [facility] HD NURSE POSSIBLY @ 1500H TODAY. HAD ADEQUATE AMOUNT OF FOOD INTAKE. NO C/O PAIN/DISCOMFORT NOTED @ THIS TIME. IV ACCESS IS PATENT AND INTACT. DR CHIANG WAS NOTIFIED FOR THE ABNORMAL WBC TODAY. AWAITING FOR RESPONSE. BED IS IN THE LOWEST POSITION, SIDERAILS ARE UP X2 AND BED IS ON ALARM MODE FOR SAFETY. CALL LIGHT IS WITHIN REACH. WILL CONT TO MONITOR.
--- NOTE | 2018-12-25 07:48 | NUR ---
HAND-OFF: Report given to MARJORIE FUNK.
[2018-12-25 08:00] VITALS: BP 128/64
--- NOTE | 2018-12-25 08:50 | General Progress Note ---
Assessment/Plan Problem List: (1) Pancytopenia ICD Codes: D61.818 - Other pancytopenia SNOMED: 624338999 (2) CHF (congestive heart failure) ICD Codes: I50.9 - Heart failure, unspecified SNOMED: 18898804 (3) ARF (acute renal failure) ICD Codes: N17.9 - Acute kidney failure, unspecified SNOMED: 36577967 (4) Anemia in chronic kidney disease (CKD) ICD Codes: N18.9 - Chronic kidney disease, unspecified; D63.1 - Anemia in chronic kidney disease SNOMED: 050553179 (5) ESRD (end stage renal disease) ICD Codes: N18.6 - End stage renal disease SNOMED: 97053115 (6) Nephrotic syndrome ICD Codes: N04.9 - Nephrotic syndrome with unspecified morphologic changes SNOMED: 43993518 (7) Pyelonephritis ICD Codes: N12 - Tubulo-interstitial nephritis, not specified as acute or chronic SNOMED: 98092173 (8) CHF exacerbation ICD Codes: I50.9 - Heart failure, unspecified SNOMED: 14971550 (9) Complications, dialysis, catheter, mechanical ICD Codes: T82.49XA - Other complication of vascular dialysis catheter, initial encounter SNOMED: 67449216 Status: stable, progressing Assessment/Plan: pt diet abx cbc bmp am Subjective Constitutional: Reports: weakness Allergies: Coded Allergies: No Known Allergies (Unverified , 12/14/18) All Systems: reviewed and negative except above Subjective sleepy calm Objective Last 24 Hour Vital Signs Date Time Temp Pulse Resp B/P (MAP) Pulse Ox O2 Delivery O2 Flow Rate FiO2 12/25/18 05:50 128/68 12/25/18 04:00 98.6 80 16 131/71 (91) 94 12/25/18 00:00 98.5 82 16 127/66 (86) 99 12/24/18 22:43 122/62 12/24/18 21:02 81 132/63 12/24/18 21:00 Room Air 12/24/18 20:00 98.3 81 16 119/68 (85) 98 12/24/18 16:00 98.5 18 132/75 (94) 100 12/24/18 13:20 128/73 12/24/18 12:00 97.5 83 18 128/73 (91) 96 12/24/18 09:00 Room Air Intake and Output 12/24/18 12/25/18 19:00 07:00 Intake Total 240 ml Output Total 50 ml 200 ml Balance -50 ml 40 ml Intake Oral 240 ml Output Urine Total 50 ml 200 ml Laboratory Tests 12/24/18 17:15: Hepatitis B Surface Antigen Negative, Hepatitis B Surface Antibody 166.9 Height (Feet): 5 Height (Inches): 6.00 Weight (Pounds): 152 General Appearance: lethargic EENT: normal ENT inspection Neck: normal alignment Cardiovascular: normal peripheral pulses, normal rate, regular rhythm Respiratory/Chest: chest wall non-tender, lungs clear, normal breath sounds Abdomen: normal bowel sounds, non tender, soft Extremities: normal inspection Edema: no edema noted Arm (L), no edema noted Arm (R), no edema noted Leg (L), no edema noted Leg (R), no edema noted Pedal (L), no edema noted Pedal (R), no edema noted Generalized Neurologic: motor weakness Skin: normal pigmentation, warm/dry Maulik Soto DO Dec 25, 2018 08:49
[2018-12-25] MEDS: Imdur 30mg tab ORAL SCH (09:00)
[2018-12-25] MEDS: Heparin 5000 units/ml inj SUBQ SCH ×2 (09:00→21:00)
[2018-12-25] MEDS: Carvedilol 12.5mg tab ORAL SCH ×2 (09:00→21:51)
[2018-12-25] MEDS: Allopurinol 100mg Tab ORAL SCH (09:31)
[2018-12-25] MEDS: Docusate 100mg cap ORAL SCH ×3 (09:31→17:19)
[2018-12-25] MEDS: Calcitriol 0.25mcg Cap ORAL SCH (09:31)
[2018-12-25] MEDS: Aspirin Baby 81mg ORAL SCH (09:31)
--- NOTE | 2018-12-25 10:42 | NUR ---
NURSE NOTES: PATIENT VOMITTED X1 SHORTLY AFTER AM MEDS ADMINISTERED. INSTRUCTED PATIENT TO REFRAIN FROM MOVING DRASTICALLY. FOUND PATIENT SITTING ON A CHAIR. ZOFRAN IVP WAS GIVEN BY MEHRAN CORDERO. PATIENT DOES NOT SHOWN ANY DISTRESS/DISCOMFORT. CALL LIGHT IS WITHIN REACH. WILL CONT TO MONITOR.
[2018-12-25 12:00] VITALS: BP 122/71
--- NOTE | 2018-12-25 13:04 | Nephrology Progress Note ---
Assessment/Plan Problem List: (1) ESRD (end stage renal disease) (2) ARF (acute renal failure) (3) CHF (congestive heart failure) (4) Anemia in chronic kidney disease (CKD) (5) Nephrotic syndrome Assessment Advanced Renal failure with Proteinuria CKD known to the patient h/o HTN h/o Cardiac disease s/p stent ? DM high A1c Plan after and pre load reduction management discussed the need for Dialysis - catheter 12/17- dialysis 12/17 next 12/19 next 12/21 next 12/23 next 12/25 1000 cc fluid restriction Renal diet- Phos binders BP check kidney RUSSEL noted 24 h urine results noted per orders Echo Global left ventricular hypokinesis with falttenign of cody VS suggestive of RV pressuere overload Mild left ventricular enlargement . Left ventricular ejection fraction estimated to be 25-30%. RUSSEL * Portions of the right ureteral stent are partially visualized. Punctate echogenic focus also noted in the lower pole of the right kidney which may represent nonobstructing stone. * No evidence of hydronephrosis bilaterally. * Renal echogenicity appears within normal limits. * Bladder wall thickening is noted within question for cystitis, although findings may possibly related to underdistention. Correlation with urinalysis recommended. Subjective ROS Limited/Unobtainable: No Constitutional: Reports: malaise Objective Objective Last 24 Hour Vital Signs Date Time Temp Pulse Resp B/P (MAP) Pulse Ox O2 Delivery O2 Flow Rate FiO2 12/25/18 12:00 98.2 70 18 122/71 (88) 96 12/25/18 09:00 Room Air 12/25/18 09:00 77 128/64 12/25/18 09:00 128/64 12/25/18 08:00 98.3 77 18 128/64 (85) 98 12/25/18 05:50 128/68 12/25/18 04:00 98.6 80 16 131/71 (91) 94 12/25/18 00:00 98.5 82 16 127/66 (86) 99 12/24/18 22:43 122/62 12/24/18 21:02 81 132/63 12/24/18 21:00 Room Air 12/24/18 20:00 98.3 81 16 119/68 (85) 98 12/24/18 16:00 98.5 18 132/75 (94) 100 12/24/18 13:20 128/73 Intake and Output 12/24/18 12/25/18 19:00 07:00 Intake Total 240 ml Output Total 50 ml 200 ml Balance -50 ml 40 ml Intake Oral 240 ml Output Urine Total 50 ml 200 ml Laboratory Tests 12/24/18 17:15: Hepatitis B Surface Antigen Negative, Hepatitis B Surface Antibody 166.9 Height (Feet): 5 Height (Inches): 6.00 Weight (Pounds): 152 General Appearance: no apparent distress Cardiovascular: normal rate Respiratory/Chest: decreased breath sounds Abdomen: soft, distended Objective no change Micah Pitt MD Dec 25, 2018 13:04
--- NOTE | 2018-12-25 13:08 | NUR ---
CASE MANAGEMENT: REVIEW SI: ESRD ON HD . CHF T 98.3 HR 77 RR 18 BP 122/71 SAT 94% ROOM AIR IS: EPOETIN SQ MWF COREG PO Q12HR SEVELAMER PO TID MED/SURG STATUS DCP: PATIENT IS FROM HOME
[2018-12-25 16:00] VITALS: BP 122/66
--- NOTE | 2018-12-25 18:13 | NUR ---
NURSE NOTES: HD COMPLETED BY PETROS VILLASENOR. 3L OUT. PATIENT IS CALM AND COMFORTABLE. NO ACUTE RESP DISTRESS NOTED. WILL CONT TO MONITOR.
--- NOTE | 2018-12-25 19:35 | NUR ---
HAND-OFF: Report given to
[2018-12-25 20:00] VITALS: BP 133/69
--- NOTE | 2018-12-25 21:00 | NUR ---
NURSE NOTES: RECIEVED PT. IN BED AWAKE AND ALERT W/ NO S/S OF DISTRESS NOTED @ THIS TIME.NO C/O PAIN OOB TO THE BR .INSTRUCTED TO CALL FOR ANY ASSISTANCE VERBALIZES UNDERSTANDING. NEEDS ATTENDED.WILL CONTINUE TO MONITOR .CALL LIGHT WITHIN REACH.
[2018-12-25] MEDS: Tamsulosin 0.4mg cap ORAL SCH (21:50)
[2018-12-26] VITALS: BP 133/72
[2018-12-26 04:00] VITALS: BP 125/69
[2018-12-26] MEDS: HydrALAZINE 25mg tab ORAL SCH ×3 (06:09→21:42)
[2018-12-26] MEDS: NovoLOG Insulin Flexpen SUBQ SCH ×4 (06:30→21:00)
[2018-12-26 07:05] LABS: HEMATOCRIT 25.9 % (42.0-52.0); HEMOGLOBIN 8.2 G/DL (14.2-18.0); MEAN CORPUSCULAR VOLUME 89 FL (80-99); PLATELET COUNT 81 K/UL (150-450); RED BLOOD COUNT 2.92 M/UL (4.70-6.10); RED CELL DISTRIBUTION WIDTH 16.3 % (11.6-14.8); WHITE BLOOD COUNT 4.4 K/UL (4.8-10.8)
[2018-12-26 07:15] LABS: ALANINE AMINOTRANSFERASE 26 U/L (12-78); ALBUMIN 2.6 G/DL (3.4-5.0); ALBUMIN/GLOBULIN RATIO 0.6 (1.0-2.7); ALKALINE PHOSPHATASE 348 U/L (46-116); ANION GAP 8 mmol/L (5-15); ASPARTATE AMINO TRANSFERASE 50 U/L (15-37); BLOOD UREA NITROGEN 65 mg/dL (7-18); CALCIUM 8.1 MG/DL (8.5-10.1); CARBON DIOXIDE 29 MMOL/L (21-32); CHLORIDE 102 MMOL/L (98-107); CREATININE 5.3 MG/DL (0.55-1.30); POTASSIUM 4.5 MMOL/L (3.5-5.1); SODIUM 139 MMOL/L (136-145)
--- NOTE | 2018-12-26 07:26 | NUR ---
HAND-OFF: Report given to HOOD AMADOR.
[2018-12-26 08:00] VITALS: BP 120/70
[2018-12-26] MEDS: Calcitriol 0.25mcg Cap ORAL SCH (08:54)
[2018-12-26] MEDS: Allopurinol 100mg Tab ORAL SCH (08:54)
[2018-12-26] MEDS: Aspirin Baby 81mg ORAL SCH (08:54)
[2018-12-26] MEDS: Carvedilol 12.5mg tab ORAL SCH ×2 (08:55→21:27)
[2018-12-26] MEDS: Imdur 30mg tab ORAL SCH (08:55)
[2018-12-26] MEDS: Docusate 100mg cap ORAL SCH ×3 (08:55→17:28)
[2018-12-26] MEDS: Heparin 5000 units/ml inj SUBQ SCH ×2 (08:58→21:30)
--- NOTE | 2018-12-26 09:21 | General Progress Note ---
Assessment/Plan Problem List: (1) Pancytopenia ICD Codes: D61.818 - Other pancytopenia SNOMED: 002293736 (2) CHF (congestive heart failure) ICD Codes: I50.9 - Heart failure, unspecified SNOMED: 82300137 (3) ARF (acute renal failure) ICD Codes: N17.9 - Acute kidney failure, unspecified SNOMED: 96726106 (4) Anemia in chronic kidney disease (CKD) ICD Codes: N18.9 - Chronic kidney disease, unspecified; D63.1 - Anemia in chronic kidney disease SNOMED: 499806985 (5) ESRD (end stage renal disease) ICD Codes: N18.6 - End stage renal disease SNOMED: 17051478 (6) Nephrotic syndrome ICD Codes: N04.9 - Nephrotic syndrome with unspecified morphologic changes SNOMED: 84351227 (7) Pyelonephritis ICD Codes: N12 - Tubulo-interstitial nephritis, not specified as acute or chronic SNOMED: 24931119 (8) CHF exacerbation ICD Codes: I50.9 - Heart failure, unspecified SNOMED: 14086751 (9) Complications, dialysis, catheter, mechanical ICD Codes: T82.49XA - Other complication of vascular dialysis catheter, initial encounter SNOMED: 17773736 Status: stable, progressing Assessment/Plan: pt diet abx cbc bmp am Subjective Constitutional: Reports: weakness Allergies: Coded Allergies: No Known Allergies (Unverified , 12/14/18) All Systems: reviewed and negative except above Subjective sleepy calm Objective Last 24 Hour Vital Signs Date Time Temp Pulse Resp B/P (MAP) Pulse Ox O2 Delivery O2 Flow Rate FiO2 12/26/18 08:55 77 120/70 12/26/18 08:55 120/77 12/26/18 06:09 125/69 12/26/18 04:00 99.8 79 19 125/69 (87) 95 12/26/18 00:00 99.6 83 17 133/72 (92) 97 12/25/18 21:52 133/69 12/25/18 21:51 84 133/69 12/25/18 21:00 Room Air 12/25/18 20:00 98.3 84 17 133/69 (90) 97 12/25/18 16:00 98.9 76 19 122/66 (84) 97 12/25/18 13:48 122/71 12/25/18 12:00 98.2 70 18 122/71 (88) 96 Intake and Output 12/25/18 12/26/18 19:00 07:00 Output Total 3000 ml Balance -3000 ml Hemodialysis UF 3000 ml # Voids 3 # Bowel Movements 1 Laboratory Tests 12/26/18 05:00: Sodium Level 139, Potassium Level 4.5, Chloride Level 102, Carbon Dioxide Level 29, Anion Gap 8, Blood Urea Nitrogen 65H, Creatinine 5.3H, Estimat Glomerular Filtration Rate 11.4, Glucose Level 111H, Uric Acid 4.5, Calcium Level 8.1L, Phosphorus Level 4.0, Magnesium Level 1.9, Total Bilirubin 1.0, Aspartate Amino Transf (AST/SGOT) 50H, Alanine Aminotransferase (ALT/SGPT) 26, Alkaline Phosphatase 348H, C-Reactive Protein, Quantitative 0.5, Pro-B-Type Natriuretic Peptide 46637M, Total Protein 6.7, Albumin 2.6L, Globulin 4.1, Albumin/Globulin Ratio 0.6L 12/26/18 06:00: White Blood Count 4.4L, Red Blood Count 2.92L, Hemoglobin 8.2L, Hematocrit 25.9L , Mean Corpuscular Volume 89, Mean Corpuscular Hemoglobin 28.2, Mean Corpuscular Hemoglobin Concent 31.8L, Red Cell Distribution Width 16.3H, Platelet Count 81L, Mean Platelet Volume 9.7, Neutrophils (%) (Auto) , Lymphocytes (%) (Auto) , Monocytes (%) (Auto) , Eosinophils (%) (Auto) , Basophils (%) (Auto) , Neutrophils % (Manual) [Pending], Lymphocytes % (Manual) [Pending], Platelet Estimate [Pending], Platelet Morphology [Pending] Height (Feet): 5 Height (Inches): 6.00 Weight (Pounds): 152 General Appearance: lethargic EENT: normal ENT inspection Neck: normal alignment Cardiovascular: normal peripheral pulses, normal rate, regular rhythm Respiratory/Chest: chest wall non-tender, lungs clear, normal breath sounds Abdomen: normal bowel sounds, non tender, soft Extremities: normal inspection Edema: no edema noted Arm (L), no edema noted Arm (R), no edema noted Leg (L), no edema noted Leg (R), no edema noted Pedal (L), no edema noted Pedal (R), no edema noted Generalized Neurologic: motor weakness Skin: normal pigmentation, warm/dry Maulik Soto DO Dec 26, 2018 09:21
--- NOTE | 2018-12-26 11:16 | Infectious Diseases Prog Note ---
Assessment/Plan Assessment/Plan IMPRESSION: Pyuria. urine culture Diphtheroids, likely contamination combined systolic and diastolic heart failure pulmonary artery hypertension, chronic kidney disease end-stage renal disease proteinuria, pancytopenia, coronary artery disease. Change in vision in left eye s/p ureteral stent RECOMMENDATION: Observe off antibiotic. Ophthalmology evaluation Subjective ROS Limited/Unobtainable: Yes Allergies: Coded Allergies: No Known Allergies (Unverified , 12/14/18) Objective Vital Signs Last 24 Hour Vital Signs Date Time Temp Pulse Resp B/P (MAP) Pulse Ox O2 Delivery O2 Flow Rate FiO2 12/26/18 09:00 Room Air 12/26/18 08:55 77 120/70 12/26/18 08:55 120/77 12/26/18 08:00 97.7 77 18 120/70 (87) 99 12/26/18 06:09 125/69 12/26/18 04:00 99.8 79 19 125/69 (87) 95 12/26/18 00:00 99.6 83 17 133/72 (92) 97 12/25/18 21:52 133/69 12/25/18 21:51 84 133/69 12/25/18 21:00 Room Air 12/25/18 20:00 98.3 84 17 133/69 (90) 97 12/25/18 16:00 98.9 76 19 122/66 (84) 97 12/25/18 13:48 122/71 12/25/18 12:00 98.2 70 18 122/71 (88) 96 Height (Feet): 5 Height (Inches): 6.00 Weight (Pounds): 152 General Appearance: no acute distress HEENT: mucous membranes moist Respiratory/Chest: lungs clear Cardiovascular: normal rate Abdomen: soft, non tender Extremities: no edema Neurologic/Psychiatric: other - sleeping Laboratory Tests Test 12/26/18 05:00 12/26/18 06:00 Sodium Level 139 MMOL/L (136-145) Potassium Level 4.5 MMOL/L (3.5-5.1) Chloride Level 102 MMOL/L (98-107) Carbon Dioxide Level 29 MMOL/L (21-32) Anion Gap 8 mmol/L (5-15) Blood Urea Nitrogen 65 mg/dL (7-18) H Creatinine 5.3 MG/DL (0.55-1.30) H Estimat Glomerular Filtration Rate 11.4 mL/min (>60) Glucose Level 111 MG/DL (74-106) H Uric Acid 4.5 MG/DL (2.6-7.2) Calcium Level 8.1 MG/DL (8.5-10.1) L Phosphorus Level 4.0 MG/DL (2.5-4.9) Magnesium Level 1.9 MG/DL (1.8-2.4) Total Bilirubin 1.0 MG/DL (0.2-1.0) Aspartate Amino Transf (AST/SGOT) 50 U/L (15-37) H Alanine Aminotransferase (ALT/SGPT) 26 U/L (12-78) Alkaline Phosphatase 348 U/L (46-116) H C-Reactive Protein, Quantitative 0.5 mg/dL (0.00-0.90) Pro-B-Type Natriuretic Peptide 47825 pg/mL (0-125) H Total Protein 6.7 G/DL (6.4-8.2) Albumin 2.6 G/DL (3.4-5.0) L Globulin 4.1 g/dL Albumin/Globulin Ratio 0.6 (1.0-2.7) L White Blood Count 4.4 K/UL (4.8-10.8) L Red Blood Count 2.92 M/UL (4.70-6.10) L Hemoglobin 8.2 G/DL (14.2-18.0) L Hematocrit 25.9 % (42.0-52.0) L Mean Corpuscular Volume 89 FL (80-99) Mean Corpuscular Hemoglobin 28.2 PG (27.0-31.0) Mean Corpuscular Hemoglobin Concent 31.8 G/DL (32.0-36.0) L Red Cell Distribution Width 16.3 % (11.6-14.8) H Platelet Count 81 K/UL (150-450) L Mean Platelet Volume 9.7 FL (6.5-10.1) Neutrophils (%) (Auto) % (45.0-75.0) Lymphocytes (%) (Auto) % (20.0-45.0) Monocytes (%) (Auto) % (1.0-10.0) Eosinophils (%) (Auto) % (0.0-3.0) Basophils (%) (Auto) % (0.0-2.0) Differential Total Cells Counted 100 Neutrophils % (Manual) 76 % (45-75) H Lymphocytes % (Manual) 16 % (20-45) L Monocytes % (Manual) 5 % (1-10) Eosinophils % (Manual) 3 % (0-3) Basophils % (Manual) 0 % (0-2) Band Neutrophils 0 % (0-8) Platelet Estimate Decreased L Platelet Morphology Normal Hypochromasia 1+ Anisocytosis 1+ Current Medications Medications (Trade) Dose Ordered Sig/Félix Route PRN Reason Start Time Stop Time Status Last Admin Dose Admin Acetaminophen (Tylenol) 650 mg Q4H PRN ORAL Mild Pain/Temp > 100.5 12/14/18 15:45 01/13/19 15:44 12/18/18 00:32 Allopurinol (Zyloprim) 100 mg DAILY ORAL 12/15/18 09:00 01/14/19 08:59 12/26/18 08:54 Aspirin (ASA) 162 mg DAILY ORAL 12/14/18 15:45 01/13/19 15:44 12/26/18 08:54 Calcitriol (Rocatrol) 0.25 mcg DAILY ORAL 12/19/18 09:00 01/14/19 08:59 12/26/18 08:54 Carvedilol (Coreg) 12.5 mg EVERY 12 HOURS ORAL 12/19/18 21:00 01/13/19 20:59 12/26/18 08:55 Dextrose (Dextrose 50%) 25 ml Q30M PRN IV Hypoglycemia 12/21/18 18:15 01/20/19 18:14 Dextrose (Dextrose 50%) 50 ml Q30M PRN IV Hypoglycemia 12/21/18 18:15 01/20/19 18:14 Docusate Sodium (Colace) 100 mg TID ORAL 12/17/18 13:00 01/13/19 17:59 12/25/18 14:03 Epoetin Jordon (Epoetin Jordon(ESRD on dialysis)) 10,000 unit THU-THU-THU SUBQ 12/22/18 21:00 01/21/19 20:59 12/24/18 21:03 Heparin Sodium (Porcine) (Heparin 5000 units/ml) 5,000 units EVERY 12 HOURS SUBQ 12/15/18 21:00 01/13/19 20:59 Hydralazine HCl (Apresoline) 25 mg Q8HR ORAL 12/22/18 22:00 01/17/19 00:00 12/26/18 06:09 Insulin Aspart (NovoLOG) BEFORE MEALS AND HS SUBQ 12/21/18 21:00 01/20/19 20:59 12/25/18 22:19 Isosorbide Mononitrate (Imdur) 30 mg DAILY ORAL 12/14/18 20:45 01/13/19 20:44 12/26/18 08:55 Ondansetron HCl (Zofran) 4 mg Q6H PRN IVP Nausea & Vomiting 12/20/18 13:30 01/19/19 13:29 12/25/18 10:32 Pantoprazole (Protonix) 40 mg EVERY 12 HOURS ORAL 12/14/18 21:00 01/13/19 20:59 12/26/18 08:54 Sevelamer Carbonate (Renvela) 800 mg THREE TIMES A DAY ORAL 12/20/18 13:00 01/18/19 08:59 12/26/18 08:54 Tamsulosin HCl (Flomax) 0.4 mg BEDTIME ORAL 12/16/18 21:00 01/15/19 20:59 12/25/18 21:50 Omi Brown MD Dec 26, 2018 11:16
[2018-12-26 12:00] VITALS: BP 110/61
--- NOTE | 2018-12-26 15:42 | NUR ---
TAX [employer] MINER SI:ESRD ON HD . CHF VS: BP 120/70, P 69, T 99.1. RR 18, SpO2 99 WBC 4.4, RBC 2.92, Hgb 8.2, Hct 25.9, BUN 65, CR 5.3 IS:APRESOLINE 25mg EPOETIN ALBINA SUBQ NOVOLOG SUBQ RENVELA 800mg COREG 12.5mg HEPARIN SUBQ ALLOPURINOL 100mg PROTONIX 40mg IMDUR 30mg MED/SURG STATUS
[2018-12-26 16:00] VITALS: BP 124/67
--- NOTE | 2018-12-26 17:17 | General Progress Note ---
Assessment/Plan Status: stable, progressing Assessment/Plan: Assessment/Plan # Pancytopenia -- multiple etiologies could be related to underlying liver disease, medication-induced, infection versus viral syndrome -> hx SPLENOMEGALY AND CIRRHOSIS (irregular liver sufrace can explain pancytopenia), Prominent soft tissue opacities in the splenic hilum and lesser sac, could indicate varices, all of the lesser sac findings could represent prominent nodes. Consider gi evaluation and treatment --> peripheral smear has been ordered and does not show significant abnormalities does not appear to have significant abnormalities --> Medications have been reviewed --> Continue to monitor for improvement, trend cbc --> Hep panel and HIV are both negative --> consider other causes, infections that could contribute --> reverse isolation if ANC is <2000 --> Give neupogen if ANC <1000 --> Transfuse if hgb <7, with 1 unit prbc --> WBC trend 4.2-->3.6-->3.6-->3.8-->4.4 ==> Plt trend 122k-->84k-->69k-->74k-->81k # Anemia of iron deficiency given will need hd/esrd --> iron has been started x 5 doses iv --> will recheck ferritin level 218-->451 # Coagulation defect, multifactorial usually related to poor PO intake versus medications, versus hepatitis v cirrhosis --> administer Vitamin K if patient is bleeding or FFP if the INR is >10 --> hold off on ffp unless active procedure/bleeding, first begin with vit K 10 --> mixing study as needed # Advanced Renal failure with Proteinuria --> as per renal eval and recs --> 24hr collection as per renal --> HD as per renal followup # h/o HTN --> sbp goal <140 # h/o Cardiac disease s/p stent # ? DM The timing of this note does not necessarily reflect the time of the patient was seen. Greatly appreciate consultation! Subjective Constitutional: Denies: no symptoms, chills, diaphoresis, fever, malaise, weakness, other HEENT: Denies: no symptoms, eye pain, blurred vision, tearing, double vision, ear pain, ear discharge, nose pain, nose congestion, throat pain, throat swelling, mouth pain, mouth swelling, other Cardiovascular: Denies: no symptoms, chest pain, edema, irregular heart rate, lightheadedness, palpitations, syncope, other Respiratory: Denies: no symptoms, cough, orthopnea, shortness of breath, SOB with excertion, SOB at rest, sputum, stridor, wheezing, other Gastrointestinal/Abdominal: Denies: no symptoms, abdomen distended, abdominal pain, black stools, tarry stools, blood in stool, constipated, diarrhea, difficulty swallowing, nausea, poor appetite, poor fluid intake, rectal bleeding , vomiting, other Genitourinary: Denies: no symptoms, burning, discharge, frequency, flank pain, hematuria, incontinence, pain, urgency, other Neurologic/Psychiatric: Denies: no symptoms, anxiety, depressed, emotional problems, headache, numbness, paresthesia, pre-existing deficit, seizure, tingling, tremors, weakness, other Endocrine: Denies: no symptoms, excessive sweating, flushing, intolerance to cold, intolerance to heat, increased hunger, increased thirst, increased urine, unexplained weight gain, unexplained weight loss, other Hematologic/Lymphatic: Denies: no symptoms, anemia, easy bleeding, easy bruising, other Allergies: Coded Allergies: No Known Allergies (Unverified , 12/14/18) Subjective 12/15: labs have been reviewed, relatively stable cbc but mildly lower with elev inr, not bleeding 12/16: discussed need for HD with renal, family, by the bedside understands as well as patient 12/17: labs have been reviewed and noted, by bedside, relatively stable 12/23: no evidence of fevers or chills, off abx, seen bty renal, due for hd 426: shaving this am, no complaints, no fc, cbc reviewed 12/26: overall has been doing better, no complaints this am Objective Last 24 Hour Vital Signs Date Time Temp Pulse Resp B/P (MAP) Pulse Ox O2 Delivery O2 Flow Rate FiO2 12/26/18 16:00 98.0 68 18 124/67 (86) 99 12/26/18 13:31 126/69 12/26/18 12:00 99.1 69 18 110/61 (77) 99 12/26/18 09:00 Room Air 12/26/18 08:55 77 120/70 12/26/18 08:55 120/77 12/26/18 08:00 97.7 77 18 120/70 (87) 99 12/26/18 06:09 125/69 12/26/18 04:00 99.8 79 19 125/69 (87) 95 12/26/18 00:00 99.6 83 17 133/72 (92) 97 12/25/18 21:52 133/69 12/25/18 21:51 84 133/69 12/25/18 21:00 Room Air 12/25/18 20:00 98.3 84 17 133/69 (90) 97 Intake and Output 12/25/18 12/26/18 19:00 07:00 Intake Total 460 ml Output Total 3000 ml Balance -2540 ml Intake Oral 460 ml Hemodialysis UF 3000 ml # Voids 2 3 # Bowel Movements 1 Laboratory Tests 12/26/18 05:00: Sodium Level 139, Potassium Level 4.5, Chloride Level 102, Carbon Dioxide Level 29, Anion Gap 8, Blood Urea Nitrogen 65H, Creatinine 5.3H, Estimat Glomerular Filtration Rate 11.4, Glucose Level 111H, Uric Acid 4.5, Calcium Level 8.1L, Phosphorus Level 4.0, Magnesium Level 1.9, Total Bilirubin 1.0, Aspartate Amino Transf (AST/SGOT) 50H, Alanine Aminotransferase (ALT/SGPT) 26, Alkaline Phosphatase 348H, C-Reactive Protein, Quantitative 0.5, Pro-B-Type Natriuretic Peptide 50655D, Total Protein 6.7, Albumin 2.6L, Globulin 4.1, Albumin/Globulin Ratio 0.6L 12/26/18 06:00: White Blood Count 4.4L, Red Blood Count 2.92L, Hemoglobin 8.2L, Hematocrit 25.9L , Mean Corpuscular Volume 89, Mean Corpuscular Hemoglobin 28.2, Mean Corpuscular Hemoglobin Concent 31.8L, Red Cell Distribution Width 16.3H, Platelet Count 81L, Mean Platelet Volume 9.7, Neutrophils (%) (Auto) , Lymphocytes (%) (Auto) , Monocytes (%) (Auto) , Eosinophils (%) (Auto) , Basophils (%) (Auto) , Differential Total Cells Counted 100, Neutrophils % ( Manual) 76H, Lymphocytes % (Manual) 16L, Monocytes % (Manual) 5, Eosinophils % ( Manual) 3, Basophils % (Manual) 0, Band Neutrophils 0, Platelet Estimate DecreasedL, Platelet Morphology Normal, Hypochromasia 1+, Anisocytosis 1+ Height (Feet): 5 Height (Inches): 6.00 Weight (Pounds): 152 Objective PE: Vitals: reviewed General Appearance: NAD, nonverbal HEENT: normocephalic, atraumatic Neck: non-tender, normal alignment Respiratory/Chest: nromal breath sounds bilaterally Cardiovascular/Chest: normal peripheral pulses, normal rate Abdomen: normal bowel sounds, soft, nontender Extremities: normal range of motion . Enrrique Solano MD Dec 26, 2018 17:17
--- NOTE | 2018-12-26 17:34 | Nephrology Progress Note ---
Assessment/Plan Problem List: (1) ESRD (end stage renal disease) (2) ARF (acute renal failure) (3) CHF (congestive heart failure) (4) Anemia in chronic kidney disease (CKD) (5) Nephrotic syndrome Assessment Advanced Renal failure with Proteinuria CKD known to the patient h/o HTN h/o Cardiac disease s/p stent ? DM high A1c Plan after and pre load reduction management discussed the need for Dialysis - catheter 12/17- dialysis 12/17 next 12/19 next 12/21 next 12/23 next 12/25 next 12/27 1000 cc fluid restriction Renal diet- Phos binders BP check kidney RUSSEL noted 24 h urine results noted per orders Echo Global left ventricular hypokinesis with falttenign of cody VS suggestive of RV pressuere overload Mild left ventricular enlargement . Left ventricular ejection fraction estimated to be 25-30%. RUSSEL * Portions of the right ureteral stent are partially visualized. Punctate echogenic focus also noted in the lower pole of the right kidney which may represent nonobstructing stone. * No evidence of hydronephrosis bilaterally. * Renal echogenicity appears within normal limits. * Bladder wall thickening is noted within question for cystitis, although findings may possibly related to underdistention. Correlation with urinalysis recommended. Subjective ROS Limited/Unobtainable: No Constitutional: Reports: malaise Objective Objective Last 24 Hour Vital Signs Date Time Temp Pulse Resp B/P (MAP) Pulse Ox O2 Delivery O2 Flow Rate FiO2 12/26/18 16:00 98.0 68 18 124/67 (86) 99 12/26/18 13:31 126/69 12/26/18 12:00 99.1 69 18 110/61 (77) 99 12/26/18 09:00 Room Air 12/26/18 08:55 77 120/70 12/26/18 08:55 120/77 12/26/18 08:00 97.7 77 18 120/70 (87) 99 12/26/18 06:09 125/69 12/26/18 04:00 99.8 79 19 125/69 (87) 95 12/26/18 00:00 99.6 83 17 133/72 (92) 97 12/25/18 21:52 133/69 12/25/18 21:51 84 133/69 12/25/18 21:00 Room Air 12/25/18 20:00 98.3 84 17 133/69 (90) 97 Intake and Output 12/25/18 12/26/18 19:00 07:00 Intake Total 460 ml Output Total 3000 ml Balance -2540 ml Intake Oral 460 ml Hemodialysis UF 3000 ml # Voids 2 3 # Bowel Movements 1 Laboratory Tests 12/26/18 05:00: Sodium Level 139, Potassium Level 4.5, Chloride Level 102, Carbon Dioxide Level 29, Anion Gap 8, Blood Urea Nitrogen 65H, Creatinine 5.3H, Estimat Glomerular Filtration Rate 11.4, Glucose Level 111H, Uric Acid 4.5, Calcium Level 8.1L, Phosphorus Level 4.0, Magnesium Level 1.9, Total Bilirubin 1.0, Aspartate Amino Transf (AST/SGOT) 50H, Alanine Aminotransferase (ALT/SGPT) 26, Alkaline Phosphatase 348H, C-Reactive Protein, Quantitative 0.5, Pro-B-Type Natriuretic Peptide 66907H, Total Protein 6.7, Albumin 2.6L, Globulin 4.1, Albumin/Globulin Ratio 0.6L 12/26/18 06:00: White Blood Count 4.4L, Red Blood Count 2.92L, Hemoglobin 8.2L, Hematocrit 25.9L , Mean Corpuscular Volume 89, Mean Corpuscular Hemoglobin 28.2, Mean Corpuscular Hemoglobin Concent 31.8L, Red Cell Distribution Width 16.3H, Platelet Count 81L, Mean Platelet Volume 9.7, Neutrophils (%) (Auto) , Lymphocytes (%) (Auto) , Monocytes (%) (Auto) , Eosinophils (%) (Auto) , Basophils (%) (Auto) , Differential Total Cells Counted 100, Neutrophils % ( Manual) 76H, Lymphocytes % (Manual) 16L, Monocytes % (Manual) 5, Eosinophils % ( Manual) 3, Basophils % (Manual) 0, Band Neutrophils 0, Platelet Estimate DecreasedL, Platelet Morphology Normal, Hypochromasia 1+, Anisocytosis 1+ Height (Feet): 5 Height (Inches): 6.00 Weight (Pounds): 152 General Appearance: no apparent distress Objective no change Micah Pitt MD Dec 26, 2018 17:34
--- NOTE | 2018-12-26 17:43 | NUR ---
NURSE NOTES: called [facility] @ and spoke with [facility] for HD 12/27. will reconfirm and endorse to incoming nurse. will cont the plan of care. Addendum: 12/26/18 at 1822 by SAMREEN LONG LVN Enrrique from [facility] confirming the HD for tomorrow.
--- NOTE | 2018-12-26 19:21 | NUR ---
HAND-OFF: Report given to
[2018-12-26 21:00] VITALS: BP 123/59
[2018-12-26] MEDS: Tamsulosin 0.4mg cap ORAL SCH (21:28)
[2018-12-27] VITALS: BP 125/65
[2018-12-27 04:00] VITALS: BP 119/63
[2018-12-27] MEDS: NovoLOG Insulin Flexpen SUBQ SCH ×4 (06:30→21:00)
[2018-12-27] MEDS: HydrALAZINE 25mg tab ORAL SCH ×3 (06:30→22:29)
[2018-12-27 06:51] LABS: HEMATOCRIT 25.7 % (42.0-52.0); HEMOGLOBIN 8.1 G/DL (14.2-18.0); MEAN CORPUSCULAR VOLUME 89 FL (80-99); PLATELET COUNT 94 K/UL (150-450); RED CELL DISTRIBUTION WIDTH 15.8 % (11.6-14.8); WHITE BLOOD COUNT 3.9 K/UL (4.8-10.8)
[2018-12-27 07:05] LABS: ANION GAP 9 mmol/L (5-15); BLOOD UREA NITROGEN 78 mg/dL (7-18); CALCIUM 8.6 MG/DL (8.5-10.1); CARBON DIOXIDE 29 MMOL/L (21-32); CHLORIDE 102 MMOL/L (98-107); CREATININE 6.4 MG/DL (0.55-1.30); POTASSIUM 4.9 MMOL/L (3.5-5.1); SODIUM 139 MMOL/L (136-145)
--- NOTE | 2018-12-27 07:44 | NUR ---
AWAKE,ALERT,ORIENTED.UP,AMBULATING.FOR DIALYSIS THIS AM.C/O ITCHING ALL OVER THE BODY,MOISTURISING CREAM APPLIED.NO C/O PAIN
--- NOTE | 2018-12-27 07:49 | NUR ---
HAND-OFF: Report given to .
[2018-12-27 08:00] VITALS: BP 113/64
--- NOTE | 2018-12-27 08:14 | NUR ---
NURSE NOTES: Patient is alert and oriented X4. Patient resting in bed. No reports of discomfort at the moment. Patient is on room air. Side rails are up X2, bed is locked, in lowest position, and call light is within reach. Will continue to monitor.
[2018-12-27] MEDS: Carvedilol 12.5mg tab ORAL SCH ×2 (09:00→22:28)
[2018-12-27] MEDS: Imdur 30mg tab ORAL SCH (09:00)
[2018-12-27] MEDS: Heparin 5000 units/ml inj SUBQ SCH ×2 (09:00→22:32)
[2018-12-27] MEDS: Calcitriol 0.25mcg Cap ORAL SCH (09:00)
[2018-12-27] MEDS: Docusate 100mg cap ORAL SCH ×3 (09:00→17:22)
[2018-12-27] MEDS: Aspirin Baby 81mg ORAL SCH (09:00)
[2018-12-27] MEDS: Allopurinol 100mg Tab ORAL SCH (09:00)
[2018-12-27 09:24] LABS: ALANINE AMINOTRANSFERASE 32 U/L (12-78); ALBUMIN 2.7 G/DL (3.4-5.0); ALKALINE PHOSPHATASE 342 U/L (46-116); ASPARTATE AMINO TRANSFERASE 49 U/L (15-37); BILIRUBIN,DIRECT 0.8 MG/DL (0.0-0.3); PHOSPHORUS 4.9 MG/DL (2.5-4.9)
--- NOTE | 2018-12-27 09:41 | NUR ---
*-* INSURANCE *-* UPDATED CLINICALS AND REVIEWS HAVE BEEN FAXED TO: ROMAIN FRANCO: NURYS P:[phone] F:[phone]
--- NOTE | 2018-12-27 11:30 | Nephrology Progress Note ---
Assessment/Plan Problem List: (1) ESRD (end stage renal disease) (2) ARF (acute renal failure) (3) CHF (congestive heart failure) (4) Anemia in chronic kidney disease (CKD) (5) Nephrotic syndrome Assessment Advanced Renal failure with Proteinuria CKD known to the patient h/o HTN h/o Cardiac disease s/p stent ? DM high A1c Plan after and pre load reduction management discussed the need for Dialysis - catheter 12/17- dialysis 12/17 next 12/19 next 12/21 next 12/23 next 12/25 next 12/27 1000 cc fluid restriction Renal diet- Phos binders BP check kidney RUSSEL noted 24 h urine results noted per orders Echo Global left ventricular hypokinesis with falttenign of cody VS suggestive of RV pressuere overload Mild left ventricular enlargement . Left ventricular ejection fraction estimated to be 25-30%. RUSSEL * Portions of the right ureteral stent are partially visualized. Punctate echogenic focus also noted in the lower pole of the right kidney which may represent nonobstructing stone. * No evidence of hydronephrosis bilaterally. * Renal echogenicity appears within normal limits. * Bladder wall thickening is noted within question for cystitis, although findings may possibly related to underdistention. Correlation with urinalysis recommended. Subjective ROS Limited/Unobtainable: No Constitutional: Reports: malaise Objective Objective Last 24 Hour Vital Signs Date Time Temp Pulse Resp B/P (MAP) Pulse Ox O2 Delivery O2 Flow Rate FiO2 12/27/18 08:30 Room Air 12/27/18 08:00 98.1 77 18 113/64 (80) 100 12/27/18 06:30 119/63 12/27/18 04:00 99.0 75 119/63 (81) 12/27/18 00:00 98.0 18 125/65 (85) 100 12/26/18 21:42 123/59 12/26/18 21:27 78 123/59 12/26/18 21:00 97.7 78 20 123/59 (80) 100 12/26/18 21:00 Room Air 12/26/18 16:00 98.0 68 18 124/67 (86) 99 12/26/18 13:31 126/69 12/26/18 12:00 99.1 69 18 110/61 (77) 99 Intake and Output 4/28/19 4/29/19 19:00 07:00 Intake Total 800 ml 360 ml Balance 800 ml 360 ml Intake Oral 800 ml 360 ml # Voids 3 3 Current Medications Medications (Trade) Dose Ordered Sig/Félix Route PRN Reason Start Time Stop Time Status Last Admin Dose Admin Acetaminophen (Tylenol) 650 mg Q4H PRN ORAL Mild Pain/Temp > 100.5 12/14/18 15:45 01/13/19 15:44 12/18/18 00:32 Allopurinol (Zyloprim) 100 mg DAILY ORAL 12/15/18 09:00 01/14/19 08:59 12/26/18 08:54 Aspirin (ASA) 162 mg DAILY ORAL 12/14/18 15:45 01/13/19 15:44 12/26/18 08:54 Calcitriol (Rocatrol) 0.25 mcg DAILY ORAL 12/19/18 09:00 01/14/19 08:59 12/26/18 08:54 Carvedilol (Coreg) 12.5 mg EVERY 12 HOURS ORAL 12/19/18 21:00 01/13/19 20:59 12/26/18 21:27 Dextrose (Dextrose 50%) 25 ml Q30M PRN IV Hypoglycemia 12/21/18 18:15 01/20/19 18:14 Dextrose (Dextrose 50%) 50 ml Q30M PRN IV Hypoglycemia 12/21/18 18:15 01/20/19 18:14 Diphenhydramine HCl (Benadryl) 25 mg Q4H PRN ORAL Itching 12/27/18 09:00 01/26/19 08:59 12/27/18 09:07 Docusate Sodium (Colace) 100 mg TID ORAL 12/17/18 13:00 01/13/19 17:59 12/26/18 17:28 Epoetin Jordon (Epoetin Jordon(ESRD on dialysis)) 10,000 unit THU-THU-THU SUBQ 12/22/18 21:00 01/21/19 20:59 12/24/18 21:03 Heparin Sodium (Porcine) (Heparin 5000 units/ml) 5,000 units EVERY 12 HOURS SUBQ 12/15/18 21:00 01/13/19 20:59 12/26/18 21:30 Hydralazine HCl (Apresoline) 25 mg Q8HR ORAL 12/22/18 22:00 01/17/19 00:00 12/26/18 21:42 Insulin Aspart (NovoLOG) BEFORE MEALS AND HS SUBQ 12/21/18 21:00 01/20/19 20:59 12/26/18 21:00 Isosorbide Mononitrate (Imdur) 30 mg DAILY ORAL 12/14/18 20:45 01/13/19 20:44 12/26/18 08:55 Ondansetron HCl (Zofran) 4 mg Q6H PRN IVP Nausea & Vomiting 12/20/18 13:30 01/19/19 13:29 12/25/18 10:32 Pantoprazole (Protonix) 40 mg EVERY 12 HOURS ORAL 12/14/18 21:00 01/13/19 20:59 12/26/18 21:28 Sevelamer Carbonate (Renvela) 800 mg THREE TIMES A DAY ORAL 12/20/18 13:00 01/18/19 08:59 12/26/18 17:28 Tamsulosin HCl (Flomax) 0.4 mg BEDTIME ORAL 12/16/18 21:00 01/15/19 20:59 12/26/18 21:28 Laboratory Tests 12/27/18 05:20: White Blood Count 3.9L, Red Blood Count 2.90L, Hemoglobin 8.1L, Hematocrit 25.7L , Mean Corpuscular Volume 89, Mean Corpuscular Hemoglobin 27.8, Mean Corpuscular Hemoglobin Concent 31.3L, Red Cell Distribution Width 15.8H, Platelet Count 94L, Mean Platelet Volume 8.7, Neutrophils (%) (Auto) , Lymphocytes (%) (Auto) , Monocytes (%) (Auto) , Eosinophils (%) (Auto) , Basophils (%) (Auto) , Differential Total Cells Counted 100, Neutrophils % ( Manual) 62, Lymphocytes % (Manual) 27, Monocytes % (Manual) 8, Eosinophils % ( Manual) 3, Basophils % (Manual) 0, Band Neutrophils 0, Platelet Estimate DecreasedL, Platelet Morphology Normal, Hypochromasia 1+, Anisocytosis 1+, Sodium Level 139, Potassium Level 4.9, Chloride Level 102, Carbon Dioxide Level 29, Anion Gap 9, Blood Urea Nitrogen 78H, Creatinine 6.4H, Estimat Glomerular Filtration Rate 9.1, Glucose Level 113H, Calcium Level 8.6, Phosphorus Level 4.9 , Magnesium Level 2.0, Total Bilirubin 1.0, Direct Bilirubin 0.8H, Aspartate Amino Transf (AST/SGOT) 49H, Alanine Aminotransferase (ALT/SGPT) 32, Alkaline Phosphatase 342H, Total Protein 6.6, Albumin 2.7L Height (Feet): 5 Height (Inches): 6.00 Weight (Pounds): 152 General Appearance: no apparent distress Objective no change Micah Pitt MD Dec 27, 2018 11:30
[2018-12-27 12:00] VITALS: BP 118/67
--- NOTE | 2018-12-27 12:07 | NUR ---
RD ASSESSMENT & RECOMMENDATIONS SEE CARE ACTIVITY FOR COMPLETE ASSESSMENT DAILY ESTIMATED NEEDS: Needs based on ESRD w/ HD, 66kg 25-35 kcals/kg 8130-9856 total kcals 1.2-1.8 g protein/kg 79-119 g total protein 1000ml fluid restriction per MD NUTRITION DIAGNOSIS: * Altered nutrition related lab values r/t ESRD as evidenced by low hgb (97.9), elev BUN (70), elev Creat (4.6) and elev Phos 6.0-> now wnl, elev BNP (36908). * Increased kcal/prot needs R/T renal dysfunction as evidenced by ESRD dx, pt now on HD. CURRENT DIET: Renal, 1000ml fluid restriction PO DIET RECOMMENDATIONS: RENAL DIET + Double Protein Portions Fluid per MD ADDITIONAL RECOMMENDATIONS: 1) Monitor BG, need for CCHO restriction 2) Obtain dry wt post HD- rec STANDING wt for accuracy 3) Rec accucheck, monitor need for SSI- h/o DM, elev A1C 7.0 4) Fluid restriction per MD- 1000ml FR at this time 5) Renal diet ed provided
--- NOTE | 2018-12-27 12:46 | Infectious Diseases Prog Note ---
Assessment/Plan Assessment/Plan IMPRESSION: Pyuria. urine culture Diphtheroids, likely contamination combined systolic and diastolic heart failure pulmonary artery hypertension, chronic kidney disease end-stage renal disease proteinuria, pancytopenia, coronary artery disease. Change in vision in left eye s/p ureteral stent RECOMMENDATION: Observe off antibiotic. Ophthalmology evaluation Subjective ROS Limited/Unobtainable: No Constitutional: Reports: fatigue, other - after HD Respiratory: Reports: no symptoms Cardiovascular: Reports: no symptoms Gastrointestinal/Abdominal: Reports: no symptoms Genitourinary: Reports: no symptoms Allergies: Coded Allergies: No Known Allergies (Unverified , 12/14/18) Objective Vital Signs Last 24 Hour Vital Signs Date Time Temp Pulse Resp B/P (MAP) Pulse Ox O2 Delivery O2 Flow Rate FiO2 12/27/18 12:00 98.6 76 19 118/67 (84) 99 12/27/18 08:30 Room Air 12/27/18 08:00 98.1 77 18 113/64 (80) 100 12/27/18 06:30 119/63 12/27/18 04:00 99.0 75 119/63 (81) 12/27/18 00:00 98.0 18 125/65 (85) 100 12/26/18 21:42 123/59 12/26/18 21:27 78 123/59 12/26/18 21:00 97.7 78 20 123/59 (80) 100 12/26/18 21:00 Room Air 12/26/18 16:00 98.0 68 18 124/67 (86) 99 12/26/18 13:31 126/69 Height (Feet): 5 Height (Inches): 6.00 Weight (Pounds): 152 HEENT: mucous membranes moist Respiratory/Chest: lungs clear Cardiovascular: normal rate Abdomen: soft, non tender Extremities: no edema Neurologic/Psychiatric: alert, oriented x 3, responsive Laboratory Tests Test 12/27/18 05:20 White Blood Count 3.9 K/UL (4.8-10.8) L Red Blood Count 2.90 M/UL (4.70-6.10) L Hemoglobin 8.1 G/DL (14.2-18.0) L Hematocrit 25.7 % (42.0-52.0) L Mean Corpuscular Volume 89 FL (80-99) Mean Corpuscular Hemoglobin 27.8 PG (27.0-31.0) Mean Corpuscular Hemoglobin Concent 31.3 G/DL (32.0-36.0) L Red Cell Distribution Width 15.8 % (11.6-14.8) H Platelet Count 94 K/UL (150-450) L Mean Platelet Volume 8.7 FL (6.5-10.1) Neutrophils (%) (Auto) % (45.0-75.0) Lymphocytes (%) (Auto) % (20.0-45.0) Monocytes (%) (Auto) % (1.0-10.0) Eosinophils (%) (Auto) % (0.0-3.0) Basophils (%) (Auto) % (0.0-2.0) Differential Total Cells Counted 100 Neutrophils % (Manual) 62 % (45-75) Lymphocytes % (Manual) 27 % (20-45) Monocytes % (Manual) 8 % (1-10) Eosinophils % (Manual) 3 % (0-3) Basophils % (Manual) 0 % (0-2) Band Neutrophils 0 % (0-8) Platelet Estimate Decreased L Platelet Morphology Normal Hypochromasia 1+ Anisocytosis 1+ Sodium Level 139 MMOL/L (136-145) Potassium Level 4.9 MMOL/L (3.5-5.1) Chloride Level 102 MMOL/L (98-107) Carbon Dioxide Level 29 MMOL/L (21-32) Anion Gap 9 mmol/L (5-15) Blood Urea Nitrogen 78 mg/dL (7-18) H Creatinine 6.4 MG/DL (0.55-1.30) H Estimat Glomerular Filtration Rate 9.1 mL/min (>60) Glucose Level 113 MG/DL (74-106) H Calcium Level 8.6 MG/DL (8.5-10.1) Phosphorus Level 4.9 MG/DL (2.5-4.9) Magnesium Level 2.0 MG/DL (1.8-2.4) Total Bilirubin 1.0 MG/DL (0.2-1.0) Direct Bilirubin 0.8 MG/DL (0.0-0.3) H Aspartate Amino Transf (AST/SGOT) 49 U/L (15-37) H Alanine Aminotransferase (ALT/SGPT) 32 U/L (12-78) Alkaline Phosphatase 342 U/L (46-116) H Total Protein 6.6 G/DL (6.4-8.2) Albumin 2.7 G/DL (3.4-5.0) L Current Medications Medications (Trade) Dose Ordered Sig/Félix Route PRN Reason Start Time Stop Time Status Last Admin Dose Admin Acetaminophen (Tylenol) 650 mg Q4H PRN ORAL Mild Pain/Temp > 100.5 12/14/18 15:45 01/13/19 15:44 12/18/18 00:32 Allopurinol (Zyloprim) 100 mg DAILY ORAL 12/15/18 09:00 01/14/19 08:59 12/26/18 08:54 Aspirin (ASA) 162 mg DAILY ORAL 12/14/18 15:45 01/13/19 15:44 12/26/18 08:54 Calcitriol (Rocatrol) 0.25 mcg DAILY ORAL 12/19/18 09:00 01/14/19 08:59 12/26/18 08:54 Carvedilol (Coreg) 12.5 mg EVERY 12 HOURS ORAL 12/19/18 21:00 01/13/19 20:59 12/26/18 21:27 Dextrose (Dextrose 50%) 25 ml Q30M PRN IV Hypoglycemia 12/21/18 18:15 01/20/19 18:14 Dextrose (Dextrose 50%) 50 ml Q30M PRN IV Hypoglycemia 12/21/18 18:15 01/20/19 18:14 Diphenhydramine HCl (Benadryl) 25 mg Q4H PRN ORAL Itching 12/27/18 09:00 01/26/19 08:59 12/27/18 09:07 Docusate Sodium (Colace) 100 mg TID ORAL 12/17/18 13:00 01/13/19 17:59 12/26/18 17:28 Epoetin Jordon (Epoetin Jordon(ESRD on dialysis)) 10,000 unit THU-THU-THU SUBQ 12/22/18 21:00 01/21/19 20:59 12/24/18 21:03 Heparin Sodium (Porcine) (Heparin 5000 units/ml) 5,000 units EVERY 12 HOURS SUBQ 12/15/18 21:00 01/13/19 20:59 12/26/18 21:30 Hydralazine HCl (Apresoline) 25 mg Q8HR ORAL 12/22/18 22:00 01/17/19 00:00 12/26/18 21:42 Insulin Aspart (NovoLOG) BEFORE MEALS AND HS SUBQ 12/21/18 21:00 01/20/19 20:59 12/26/18 21:00 Isosorbide Mononitrate (Imdur) 30 mg DAILY ORAL 12/14/18 20:45 01/13/19 20:44 12/26/18 08:55 Ondansetron HCl (Zofran) 4 mg Q6H PRN IVP Nausea & Vomiting 12/20/18 13:30 01/19/19 13:29 12/25/18 10:32 Pantoprazole (Protonix) 40 mg EVERY 12 HOURS ORAL 12/14/18 21:00 01/13/19 20:59 12/26/18 21:28 Sevelamer Carbonate (Renvela) 800 mg THREE TIMES A DAY ORAL 12/20/18 13:00 01/18/19 08:59 12/26/18 17:28 Tamsulosin HCl (Flomax) 0.4 mg BEDTIME ORAL 12/16/18 21:00 01/15/19 20:59 12/26/18 21:28 Omi Brown MD Dec 27, 2018 12:45
--- NOTE | 2018-12-27 13:19 | NUR ---
RADIOLOGY DEPT., CHEST X-RAY COMPLETED.-P.DYE
--- NOTE | 2018-12-27 15:36 | General Progress Note ---
Assessment/Plan Status: stable, progressing Assessment/Plan: Assessment/Plan # Pancytopenia -- multiple etiologies could be related to underlying liver disease, medication-induced, infection versus viral syndrome -> hx SPLENOMEGALY AND CIRRHOSIS (irregular liver sufrace can explain pancytopenia), Prominent soft tissue opacities in the splenic hilum and lesser sac, could indicate varices, all of the lesser sac findings could represent prominent nodes. Consider gi evaluation and treatment --> peripheral smear has been ordered and does not show significant abnormalities does not appear to have significant abnormalities --> Medications have been reviewed --> Continue to monitor for improvement, trend cbc --> Hep panel and HIV are both negative --> consider other causes, infections that could contribute --> reverse isolation if ANC is <2000 --> Give neupogen if ANC <1000 --> Transfuse if hgb <7, with 1 unit prbc --> WBC trend 4.2-->3.6-->3.6-->3.8-->4.4-->3.9 ==> Plt trend 122k-->84k-->69k-->74k-->81k # Anemia of iron deficiency given will need hd/esrd --> iron has been started x 5 doses iv --> will recheck ferritin level 218-->451 # Coagulation defect, multifactorial usually related to poor PO intake versus medications, versus hepatitis v cirrhosis --> administer Vitamin K if patient is bleeding or FFP if the INR is >10 --> hold off on ffp unless active procedure/bleeding, first begin with vit K 10 --> mixing study as needed # Advanced Renal failure with Proteinuria --> as per renal eval and recs --> 24hr collection as per renal --> HD as per renal followup # h/o HTN --> sbp goal <140 # h/o Cardiac disease s/p stent # ? DM The timing of this note does not necessarily reflect the time of the patient was seen. Greatly appreciate consultation! Subjective HEENT: Denies: no symptoms, eye pain, blurred vision, tearing, double vision, ear pain, ear discharge, nose pain, nose congestion, throat pain, throat swelling, mouth pain, mouth swelling, other Cardiovascular: Denies: no symptoms, chest pain, edema, irregular heart rate, lightheadedness, palpitations, syncope, other Respiratory: Denies: no symptoms, cough, orthopnea, shortness of breath, SOB with excertion, SOB at rest, sputum, stridor, wheezing, other Neurologic/Psychiatric: Denies: no symptoms, anxiety, depressed, emotional problems, headache, numbness, paresthesia, pre-existing deficit, seizure, tingling, tremors, weakness, other Endocrine: Denies: no symptoms, excessive sweating, flushing, intolerance to cold, intolerance to heat, increased hunger, increased thirst, increased urine, unexplained weight gain, unexplained weight loss, other Hematologic/Lymphatic: Denies: no symptoms, anemia, easy bleeding, easy bruising, other Allergies: Coded Allergies: No Known Allergies (Unverified , 12/14/18) Subjective 12/15: labs have been reviewed, relatively stable cbc but mildly lower with elev inr, not bleeding 12/16: discussed need for HD with renal, family, by the bedside understands as well as patient 12/17: labs have been reviewed and noted, by bedside, relatively stable 12/23: no evidence of fevers or chills, off abx, seen bty renal, due for hd 426: shaving this am, no complaints, no fc, cbc reviewed 12/26: overall has been doing better, no complaints this am 12/27: no events to report, scheduled for potential hd today Objective Last 24 Hour Vital Signs Date Time Temp Pulse Resp B/P (MAP) Pulse Ox O2 Delivery O2 Flow Rate FiO2 12/27/18 14:45 138/80 12/27/18 12:00 98.6 76 19 118/67 (84) 99 12/27/18 08:30 Room Air 12/27/18 08:00 98.1 77 18 113/64 (80) 100 12/27/18 06:30 119/63 12/27/18 04:00 99.0 75 119/63 (81) 12/27/18 00:00 98.0 18 125/65 (85) 100 12/26/18 21:42 123/59 12/26/18 21:27 78 123/59 12/26/18 21:00 97.7 78 20 123/59 (80) 100 12/26/18 21:00 Room Air 12/26/18 16:00 98.0 68 18 124/67 (86) 99 Intake and Output 12/26/18 12/27/18 19:00 07:00 Intake Total 800 ml 360 ml Balance 800 ml 360 ml Intake Oral 800 ml 360 ml # Voids 3 3 Laboratory Tests 12/27/18 05:20: White Blood Count 3.9L, Red Blood Count 2.90L, Hemoglobin 8.1L, Hematocrit 25.7L , Mean Corpuscular Volume 89, Mean Corpuscular Hemoglobin 27.8, Mean Corpuscular Hemoglobin Concent 31.3L, Red Cell Distribution Width 15.8H, Platelet Count 94L, Mean Platelet Volume 8.7, Neutrophils (%) (Auto) , Lymphocytes (%) (Auto) , Monocytes (%) (Auto) , Eosinophils (%) (Auto) , Basophils (%) (Auto) , Differential Total Cells Counted 100, Neutrophils % ( Manual) 62, Lymphocytes % (Manual) 27, Monocytes % (Manual) 8, Eosinophils % ( Manual) 3, Basophils % (Manual) 0, Band Neutrophils 0, Platelet Estimate DecreasedL, Platelet Morphology Normal, Hypochromasia 1+, Anisocytosis 1+, Sodium Level 139, Potassium Level 4.9, Chloride Level 102, Carbon Dioxide Level 29, Anion Gap 9, Blood Urea Nitrogen 78H, Creatinine 6.4H, Estimat Glomerular Filtration Rate 9.1, Glucose Level 113H, Calcium Level 8.6, Phosphorus Level 4.9 , Magnesium Level 2.0, Total Bilirubin 1.0, Direct Bilirubin 0.8H, Aspartate Amino Transf (AST/SGOT) 49H, Alanine Aminotransferase (ALT/SGPT) 32, Alkaline Phosphatase 342H, Total Protein 6.6, Albumin 2.7L, Hepatitis B Surface Antigen [ Pending], Hepatitis B Core Total Antibody [Pending], Hepatitis C Antibody [ Pending] Height (Feet): 5 Height (Inches): 6.00 Weight (Pounds): 152 Objective PE: Vitals: reviewed General Appearance: NAD, nonverbal HEENT: normocephalic, atraumatic Neck: non-tender, normal alignment Respiratory/Chest: nromal breath sounds bilaterally Cardiovascular/Chest: normal peripheral pulses, normal rate Abdomen: normal bowel sounds, soft, nontender Extremities: normal range of motion . Enrrique Solano MD Dec 27, 2018 15:36
--- NOTE | 2018-12-27 15:46 | Diagnostic Imaging Report ---
Indication: Cough Technique: One view of the chest Comparison: none Findings: Right internal jugular tunneled dialysis catheter is again demonstrated. The heart is enlarged. The lungs and pleural spaces are clear. No significant interim change Impression: No acute process Cardiomegaly
--- NOTE | 2018-12-27 15:57 | NUR ---
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 CHF VS: BP 123/59, P 68, T 98.0, RR 18, SpO2 100 WBC 3.9, RBC 2.90, Hgb 8.1, Hct 25.7, BUN 78, CR 6.4 IS:APRESOLINE 25mg EPOETIN ALBINA SUBQ NOVOLOG SUBQ RENVELA 800mg COREG 12.5mg HEPARIN SUBQ ALLOPURINOL 100mg PROTONIX 40mg IMDUR 30mg MED/SURG STATUS
[2018-12-27 16:00] VITALS: BP 134/77
--- NOTE | 2018-12-27 17:21 | NUR ---
CASE MANGER NOTES PER ULYS[facility] AT [facility] REQUIRES: TB CLEARANCE,CBC, SURGEON NOTES ON CATH PLACEMENT (FAXED) AND A FULL HEP B PANEL WHICH THE CORE ANTIBODY TEST WAS ORDERED STAT WILL FAX OVER WHEN COMPLETED.
--- NOTE | 2018-12-27 19:31 | NUR ---
HAND-OFF: Report given to GRIS De Los Santos.
--- NOTE | 2018-12-27 19:56 | NUR ---
NURSE NOTES: Received report from GRIS Treadwell. Patient A&Ox4. On room air, no signs of distress or labored breathing. IV intact, patent, and saline locked. AV shunt dry and intact. IV intact, patent, and saline locked. Bed in lowest position with call light in reach. Will continue with plan of care.
[2018-12-27 20:00] VITALS: BP 142/69
--- NOTE | 2018-12-27 21:16 | General Progress Note ---
Assessment/Plan Problem List: (1) CHF exacerbation ICD Codes: I50.9 - Heart failure, unspecified SNOMED: 58147853 (2) Pyelonephritis ICD Codes: N12 - Tubulo-interstitial nephritis, not specified as acute or chronic SNOMED: 50470318 (3) Pancytopenia ICD Codes: D61.818 - Other pancytopenia SNOMED: 208260039 (4) CHF (congestive heart failure) ICD Codes: I50.9 - Heart failure, unspecified SNOMED: 73496501 (5) Anemia in chronic kidney disease (CKD) ICD Codes: N18.9 - Chronic kidney disease, unspecified; D63.1 - Anemia in chronic kidney disease SNOMED: 874395299 (6) ARF (acute renal failure) ICD Codes: N17.9 - Acute kidney failure, unspecified SNOMED: 17111327 (7) ESRD (end stage renal disease) ICD Codes: N18.6 - End stage renal disease SNOMED: 23607745 (8) Nephrotic syndrome ICD Codes: N04.9 - Nephrotic syndrome with unspecified morphologic changes SNOMED: 94461071 Status: stable, progressing Assessment/Plan: CASE angelina is looking for outpatient diaylsis center that is contracted with his insurance chf no bleeding reviewed chart and labs cad s/p stent esrd on hd Subjective ROS Limited/Unobtainable: Yes Allergies: Coded Allergies: No Known Allergies (Unverified , 12/14/18) Objective Last 24 Hour Vital Signs Date Time Temp Pulse Resp B/P (MAP) Pulse Ox O2 Delivery O2 Flow Rate FiO2 12/27/18 16:00 98.9 91 17 134/77 (96) 100 12/27/18 14:45 138/80 12/27/18 12:00 98.6 76 19 118/67 (84) 99 12/27/18 08:30 Room Air 12/27/18 08:00 98.1 77 18 113/64 (80) 100 12/27/18 06:30 119/63 12/27/18 04:00 99.0 75 119/63 (81) 12/27/18 00:00 98.0 18 125/65 (85) 100 12/26/18 21:42 123/59 12/26/18 21:27 78 123/59 Intake and Output 12/26/18 12/27/18 19:00 07:00 Intake Total 800 ml 360 ml Balance 800 ml 360 ml Intake Oral 800 ml 360 ml # Voids 3 3 Laboratory Tests 12/27/18 05:20: White Blood Count 3.9L, Red Blood Count 2.90L, Hemoglobin 8.1L, Hematocrit 25.7L , Mean Corpuscular Volume 89, Mean Corpuscular Hemoglobin 27.8, Mean Corpuscular Hemoglobin Concent 31.3L, Red Cell Distribution Width 15.8H, Platelet Count 94L, Mean Platelet Volume 8.7, Neutrophils (%) (Auto) , Lymphocytes (%) (Auto) , Monocytes (%) (Auto) , Eosinophils (%) (Auto) , Basophils (%) (Auto) , Differential Total Cells Counted 100, Neutrophils % ( Manual) 62, Lymphocytes % (Manual) 27, Monocytes % (Manual) 8, Eosinophils % ( Manual) 3, Basophils % (Manual) 0, Band Neutrophils 0, Platelet Estimate DecreasedL, Platelet Morphology Normal, Hypochromasia 1+, Anisocytosis 1+, Sodium Level 139, Potassium Level 4.9, Chloride Level 102, Carbon Dioxide Level 29, Anion Gap 9, Blood Urea Nitrogen 78H, Creatinine 6.4H, Estimat Glomerular Filtration Rate 9.1, Glucose Level 113H, Calcium Level 8.6, Phosphorus Level 4.9 , Magnesium Level 2.0, Total Bilirubin 1.0, Direct Bilirubin 0.8H, Aspartate Amino Transf (AST/SGOT) 49H, Alanine Aminotransferase (ALT/SGPT) 32, Alkaline Phosphatase 342H, Total Protein 6.6, Albumin 2.7L, Hepatitis B Surface Antigen [ Pending], Hepatitis B Core Total Antibody [Pending], Hepatitis C Antibody [ Pending] Height (Feet): 5 Height (Inches): 6.00 Weight (Pounds): 152 Neck: supple Cardiovascular: normal rate Respiratory/Chest: lungs clear Sarahi Shaffer MD Dec 27, 2018 21:16
[2018-12-27] MEDS: Epoetin Alfa(ESRD on dialysis)10,000 unit/ml vial SUBQ SCH (22:24)
[2018-12-27] MEDS: Tamsulosin 0.4mg cap ORAL SCH (22:29)
[2018-12-28] VITALS: BP 129/64
[2018-12-28 04:00] VITALS: BP 130/72
[2018-12-28] MEDS: NovoLOG Insulin Flexpen SUBQ SCH ×4 (05:41→21:36)
[2018-12-28] MEDS: HydrALAZINE 25mg tab ORAL SCH ×3 (05:41→21:26)
--- NOTE | 2018-12-28 07:30 | NUR ---
NURSE NOTES: Received pt from RN RADHA. Pt is alert and orient x4. pt is in RA. No SOB or acute respiratory distress noted. pt has intact iv access RFA 22G SL. Pt is in fluid restriction 1l/24hr. all needs attended, bed is locked and is in the lowest position, call light within easy reach. will continue to monitor.
--- NOTE | 2018-12-28 07:33 | NUR ---
HAND-OFF: Report given to GRIS Schultz.
[2018-12-28 08:00] VITALS: BP 126/73
[2018-12-28] MEDS: Calcitriol 0.25mcg Cap ORAL SCH (08:34)
[2018-12-28] MEDS: Carvedilol 12.5mg tab ORAL SCH ×2 (08:34→21:26)
[2018-12-28] MEDS: Docusate 100mg cap ORAL SCH ×3 (08:34→17:01)
[2018-12-28] MEDS: Imdur 30mg tab ORAL SCH (08:35)
[2018-12-28] MEDS: Allopurinol 100mg Tab ORAL SCH (08:35)
[2018-12-28] MEDS: Aspirin Baby 81mg ORAL SCH (08:35)
[2018-12-28] MEDS: Heparin 5000 units/ml inj SUBQ SCH ×2 (08:51→21:00)
--- NOTE | 2018-12-28 09:14 | NUR ---
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 CHF VS: BP 133/66, P 75, T 97.5, RR 20, SpO2 100 IS:IMDUR 30mg PROTONIX 40mg COREG 12.5mg RENVELA 800mg MED/SURG STATUS
--- NOTE | 2018-12-28 10:01 | NUR ---
*-* INSURANCE *-* UPDATED CLINICALS AND REVIEWS HAVE BEEN FAXED TO: ROMAIN FRANCO: NURYS P:[phone] F:[phone]
--- NOTE | 2018-12-28 10:35 | Infectious Diseases Prog Note ---
Assessment/Plan Assessment/Plan IMPRESSION: Pyuria. urine culture Diphtheroids, likely contamination combined systolic and diastolic heart failure pulmonary artery hypertension, chronic kidney disease end-stage renal disease proteinuria, pancytopenia, coronary artery disease. Change in vision in left eye s/p ureteral stent RECOMMENDATION: Observe off antibiotic. Ophthalmology evaluation Subjective ROS Limited/Unobtainable: No Constitutional: Reports: no symptoms Respiratory: Reports: no symptoms Gastrointestinal/Abdominal: Reports: no symptoms Genitourinary: Reports: other - dark urine Allergies: Coded Allergies: No Known Allergies (Unverified , 12/14/18) Objective Vital Signs Last 24 Hour Vital Signs Date Time Temp Pulse Resp B/P (MAP) Pulse Ox O2 Delivery O2 Flow Rate FiO2 12/28/18 08:35 126/73 12/28/18 08:34 73 126/73 12/28/18 08:00 98.2 73 16 126/73 (90) 97 12/28/18 05:41 130/72 12/28/18 04:00 98.3 75 16 130/72 (91) 99 12/28/18 00:00 98.9 81 15 129/64 (85) 97 12/27/18 22:29 142/69 12/27/18 22:28 81 142/69 12/27/18 21:00 Room Air 12/27/18 20:00 98.5 81 15 142/69 (93) 95 12/27/18 16:00 98.9 91 17 134/77 (96) 100 12/27/18 14:45 138/80 12/27/18 12:00 98.6 76 19 118/67 (84) 99 Height (Feet): 5 Height (Inches): 6.00 Weight (Pounds): 152 General Appearance: no acute distress HEENT: mucous membranes moist Respiratory/Chest: lungs clear Cardiovascular: normal rate, other - Permacath Abdomen: soft, non tender Extremities: no edema Neurologic/Psychiatric: alert, oriented x 3, responsive Current Medications Medications (Trade) Dose Ordered Sig/Félix Route PRN Reason Start Time Stop Time Status Last Admin Dose Admin Acetaminophen (Tylenol) 650 mg Q4H PRN ORAL Mild Pain/Temp > 100.5 12/14/18 15:45 01/13/19 15:44 12/18/18 00:32 Allopurinol (Zyloprim) 100 mg DAILY ORAL 12/15/18 09:00 01/14/19 08:59 12/28/18 08:35 Aspirin (ASA) 162 mg DAILY ORAL 12/14/18 15:45 01/13/19 15:44 12/28/18 08:35 Calcitriol (Rocatrol) 0.25 mcg DAILY ORAL 12/19/18 09:00 01/14/19 08:59 12/28/18 08:34 Carvedilol (Coreg) 12.5 mg EVERY 12 HOURS ORAL 12/19/18 21:00 01/13/19 20:59 12/28/18 08:34 Dextrose (Dextrose 50%) 25 ml Q30M PRN IV Hypoglycemia 12/21/18 18:15 01/20/19 18:14 Dextrose (Dextrose 50%) 50 ml Q30M PRN IV Hypoglycemia 12/21/18 18:15 01/20/19 18:14 Docusate Sodium (Colace) 100 mg TID ORAL 12/17/18 13:00 01/13/19 17:59 12/28/18 08:34 Epoetin Jordon (Epoetin Jordon(ESRD on dialysis)) 10,000 unit THU-THU-THU SUBQ 12/22/18 21:00 01/21/19 20:59 12/27/18 22:24 Heparin Sodium (Porcine) (Heparin 5000 units/ml) 5,000 units EVERY 12 HOURS SUBQ 12/15/18 21:00 01/13/19 20:59 12/28/18 08:51 Hydralazine HCl (Apresoline) 25 mg Q8HR ORAL 12/22/18 22:00 01/17/19 00:00 12/28/18 05:41 Hydroxyzine HCl (Atarax) 25 mg Q6H PRN ORAL Itching 12/28/18 10:15 01/27/19 10:14 Insulin Aspart (NovoLOG) BEFORE MEALS AND HS SUBQ 12/21/18 21:00 01/20/19 20:59 12/26/18 21:00 Isosorbide Mononitrate (Imdur) 30 mg DAILY ORAL 12/14/18 20:45 01/13/19 20:44 12/28/18 08:35 Ondansetron HCl (Zofran) 4 mg Q6H PRN IVP Nausea & Vomiting 12/20/18 13:30 01/19/19 13:29 12/25/18 10:32 Pantoprazole (Protonix) 40 mg EVERY 12 HOURS ORAL 12/14/18 21:00 01/13/19 20:59 12/28/18 08:35 Sevelamer Carbonate (Renvela) 800 mg THREE TIMES A DAY ORAL 12/20/18 13:00 01/18/19 08:59 12/28/18 08:35 Tamsulosin HCl (Flomax) 0.4 mg BEDTIME ORAL 12/16/18 21:00 01/15/19 20:59 12/27/18 22:29 Omi Brown MD Dec 28, 2018 10:35
--- NOTE | 2018-12-28 11:06 | NUR ---
NURSE NOTES: Called Dr MAGDALENO PH:[phone], left massage to secretary of police if Dr mustafa pt to D/C and any F/U appointments, waiting to call back. will continue to monitor.
[2018-12-28 12:00] VITALS: BP 135/75
--- NOTE | 2018-12-28 15:00 | NUR ---
NURSE NOTES: Dr MCMILLAN is aware about calling Dr MAGDALENO and not responding, Dr MCMILLAN stated he will F/U. will continue to monitor
--- NOTE | 2018-12-28 15:20 | Nephrology Progress Note ---
Assessment/Plan Problem List: (1) ESRD (end stage renal disease) (2) ARF (acute renal failure) (3) CHF (congestive heart failure) (4) Anemia in chronic kidney disease (CKD) (5) Nephrotic syndrome Assessment Advanced Renal failure with Proteinuria CKD known to the patient h/o HTN h/o Cardiac disease s/p stent ? DM high A1c Plan after and pre load reduction management discussed the need for Dialysis - catheter 12/17- dialysis 12/17 next 12/19 next 12/21 next 12/23 next 12/25 next 12/27 bnest 12/29 1000 cc fluid restriction Renal diet- Phos binders BP check kidney RUSSEL noted 24 h urine results noted per orders Echo Global left ventricular hypokinesis with falttenign of cody VS suggestive of RV pressuere overload Mild left ventricular enlargement . Left ventricular ejection fraction estimated to be 25-30%. RUSSEL * Portions of the right ureteral stent are partially visualized. Punctate echogenic focus also noted in the lower pole of the right kidney which may represent nonobstructing stone. * No evidence of hydronephrosis bilaterally. * Renal echogenicity appears within normal limits. * Bladder wall thickening is noted within question for cystitis, although findings may possibly related to underdistention. Correlation with urinalysis recommended. Uro consult from Dr Weiss: He also has a history of kidney stones and one month ago had a right ureteral stent placed at [facility] for the same by Dr. Florez. The patient was then referred to see Dr. Dolan as a urologist and has plan regarding the same and has established care with him. Diagnostic imaging reveals a stent in place. I discussed these findings today with the patient at bedside. His nephroureteral stent is in good position and there is no hydronephrosis or obstructing stone etc. The patient is in the hospital for unrelated issues including congestive heart failure exacerbation and acute on chronic renal insufficiency which does not appear to be secondary to obstructive uropathy. His stent should remain in place and once he is feeling better, he can be discharged and follow up with Dr. Dolan in the office regarding removal of the stent and treatment of the stones. Subjective ROS Limited/Unobtainable: No Objective Objective Last 24 Hour Vital Signs Date Time Temp Pulse Resp B/P (MAP) Pulse Ox O2 Delivery O2 Flow Rate FiO2 12/28/18 13:00 135/75 12/28/18 12:00 97.5 70 20 135/75 (95) 95 12/28/18 09:00 Room Air 12/28/18 08:35 126/73 12/28/18 08:34 73 126/73 12/28/18 08:00 98.2 73 16 126/73 (90) 97 12/28/18 05:41 130/72 12/28/18 04:00 98.3 75 16 130/72 (91) 99 12/28/18 00:00 98.9 81 15 129/64 (85) 97 12/27/18 22:29 142/69 12/27/18 22:28 81 142/69 12/27/18 21:00 Room Air 12/27/18 20:00 98.5 81 15 142/69 (93) 95 12/27/18 16:00 98.9 91 17 134/77 (96) 100 Intake and Output 12/27/18 12/28/18 19:00 07:00 Intake Total 300 ml 300 ml Balance 300 ml 300 ml Intake Oral 300 ml 300 ml # Voids 2 1 Height (Feet): 5 Height (Inches): 6.00 Weight (Pounds): 152 General Appearance: no apparent distress Cardiovascular: normal rate Respiratory/Chest: lungs clear Abdomen: soft, distended Objective no change Micah Pitt MD Dec 28, 2018 15:20
--- NOTE | 2018-12-28 15:30 | NUR ---
NURSE NOTES: Given cup to pt to collect urine but pt stated doesn't have any now. will continue to monitor.
[2018-12-28 16:00] VITALS: BP 133/66
[2018-12-28] MEDS: HydrOXYzine tab 25mg tab ORAL PRN (17:06)
--- NOTE | 2018-12-28 18:05 | General Progress Note ---
Assessment/Plan Status: stable, progressing Assessment/Plan: Assessment/Plan # Pancytopenia -- multiple etiologies could be related to underlying liver disease, medication-induced, infection versus viral syndrome -> hx SPLENOMEGALY AND CIRRHOSIS (irregular liver sufrace can explain pancytopenia), Prominent soft tissue opacities in the splenic hilum and lesser sac, could indicate varices, all of the lesser sac findings could represent prominent nodes. Consider gi evaluation and treatment --> peripheral smear has been ordered and does not show significant abnormalities does not appear to have significant abnormalities --> Medications have been reviewed, less likely culprits --> Continue to monitor for improvement, trend cbc --> Hep panel and HIV are both negative --> consider other causes, infections that could contribute --> reverse isolation if ANC is <2000 --> Give neupogen if ANC <1000 --> Transfuse if hgb <7, with 1 unit prbc --> WBC trend 4.2-->3.6-->3.6-->3.8-->4.4-->3.9 ==> Plt trend 122k-->84k-->69k-->74k-->81k # Anemia of iron deficiency given will need hd/esrd --> iron has been started x 5 doses iv --> ferritin level 218-->451 # Coagulation defect, multifactorial usually related to poor PO intake versus medications, versus hepatitis v cirrhosis --> administer Vitamin K if patient is bleeding or FFP if the INR is >10 --> hold off on ffp unless active procedure/bleeding, first begin with vit K 10 --> mixing study as needed # Advanced Renal failure with Proteinuria --> as per renal eval and recs --> HD as per renal followup --> intermitted HD 12/25, 12/27, 12/29 # h/o HTN --> sbp goal <140 # h/o Cardiac disease s/p stent # ? DM The timing of this note does not necessarily reflect the time of the patient was seen. Greatly appreciate consultation! Subjective Constitutional: Denies: no symptoms, chills, diaphoresis, fever, malaise, weakness, other HEENT: Denies: no symptoms, eye pain, blurred vision, tearing, double vision, ear pain, ear discharge, nose pain, nose congestion, throat pain, throat swelling, mouth pain, mouth swelling, other Cardiovascular: Denies: no symptoms, chest pain, edema, irregular heart rate, lightheadedness, palpitations, syncope, other Respiratory: Denies: no symptoms, cough, orthopnea, shortness of breath, SOB with excertion, SOB at rest, sputum, stridor, wheezing, other Gastrointestinal/Abdominal: Denies: no symptoms, abdomen distended, abdominal pain, black stools, tarry stools, blood in stool, constipated, diarrhea, difficulty swallowing, nausea, poor appetite, poor fluid intake, rectal bleeding , vomiting, other Genitourinary: Denies: no symptoms, burning, discharge, frequency, flank pain, hematuria, incontinence, pain, urgency, other Allergies: Coded Allergies: No Known Allergies (Unverified , 12/14/18) Subjective 12/15: labs have been reviewed, relatively stable cbc but mildly lower with elev inr, not bleeding 12/16: discussed need for HD with renal, family, by the bedside understands as well as patient 12/17: labs have been reviewed and noted, by bedside, relatively stable 12/23: no evidence of fevers or chills, off abx, seen bty renal, due for hd 426: shaving this am, no complaints, no fc, cbc reviewed 12/26: overall has been doing better, no complaints this am 12/27: no events to report, scheduled for potential hd today 12/28: no events noted, seen by renal, awaiting clearance for dc Objective Last 24 Hour Vital Signs Date Time Temp Pulse Resp B/P (MAP) Pulse Ox O2 Delivery O2 Flow Rate FiO2 12/28/18 16:00 97.5 75 20 133/66 (88) 98 12/28/18 13:00 135/75 12/28/18 12:00 97.5 70 20 135/75 (95) 95 12/28/18 09:00 Room Air 12/28/18 08:35 126/73 12/28/18 08:34 73 126/73 12/28/18 08:00 98.2 73 16 126/73 (90) 97 12/28/18 05:41 130/72 12/28/18 04:00 98.3 75 16 130/72 (91) 99 12/28/18 00:00 98.9 81 15 129/64 (85) 97 12/27/18 22:29 142/69 12/27/18 22:28 81 142/69 12/27/18 21:00 Room Air 12/27/18 20:00 98.5 81 15 142/69 (93) 95 Intake and Output 12/27/18 12/28/18 19:00 07:00 Intake Total 300 ml 300 ml Balance 300 ml 300 ml Intake Oral 300 ml 300 ml # Voids 2 1 Height (Feet): 5 Height (Inches): 6.00 Weight (Pounds): 152 Objective PE: Vitals: reviewed General Appearance: NAD, nonverbal HEENT: normocephalic, atraumatic Neck: non-tender, normal alignment Respiratory/Chest: nromal breath sounds bilaterally Cardiovascular/Chest: normal peripheral pulses, normal rate Abdomen: normal bowel sounds, soft, nontender Extremities: normal range of motion . Enrrique Solano MD Dec 28, 2018 18:05
--- NOTE | 2018-12-28 19:29 | NUR ---
HAND-OFF: Report given to GRIS GARCIA.
--- NOTE | 2018-12-28 19:55 | NUR ---
NURSE NOTES: Received report form GRIS Schultz. Patient sleeping. no signs of distress or labored breathing. bed in lowest position with call light in reach. Will continue with plan of care.
[2018-12-28 20:00] VITALS: BP 132/69
--- NOTE | 2018-12-28 20:45 | General Progress Note ---
Assessment/Plan Problem List: (1) CHF exacerbation ICD Codes: I50.9 - Heart failure, unspecified SNOMED: 36519028 (2) Pyelonephritis ICD Codes: N12 - Tubulo-interstitial nephritis, not specified as acute or chronic SNOMED: 33178923 (3) Pancytopenia ICD Codes: D61.818 - Other pancytopenia SNOMED: 558496497 (4) CHF (congestive heart failure) ICD Codes: I50.9 - Heart failure, unspecified SNOMED: 78208665 (5) Anemia in chronic kidney disease (CKD) ICD Codes: N18.9 - Chronic kidney disease, unspecified; D63.1 - Anemia in chronic kidney disease SNOMED: 199258432 (6) ARF (acute renal failure) ICD Codes: N17.9 - Acute kidney failure, unspecified SNOMED: 74195424 (7) ESRD (end stage renal disease) ICD Codes: N18.6 - End stage renal disease SNOMED: 33035342 (8) Nephrotic syndrome ICD Codes: N04.9 - Nephrotic syndrome with unspecified morphologic changes SNOMED: 78318160 Status: stable, progressing Assessment/Plan: FRANCOIS alfaro is looking for outpatient diaylsis center that is contracted with his insurance chf no bleeding reviewed chart and labs s/p urethral stent.asked dr roman as well as dr mera to see him for removal of urethral stent s/p stent esrd on hd Subjective ROS Limited/Unobtainable: Yes Allergies: Coded Allergies: No Known Allergies (Unverified , 12/14/18) Objective Last 24 Hour Vital Signs Date Time Temp Pulse Resp B/P (MAP) Pulse Ox O2 Delivery O2 Flow Rate FiO2 12/28/18 16:00 97.5 75 20 133/66 (88) 98 12/28/18 13:00 135/75 12/28/18 12:00 97.5 70 20 135/75 (95) 95 12/28/18 09:00 Room Air 12/28/18 08:35 126/73 12/28/18 08:34 73 126/73 12/28/18 08:00 98.2 73 16 126/73 (90) 97 12/28/18 05:41 130/72 12/28/18 04:00 98.3 75 16 130/72 (91) 99 4/30/19 00:00 98.9 81 15 129/64 (85) 97 12/27/18 22:29 142/69 12/27/18 22:28 81 142/69 12/27/18 21:00 Room Air Intake and Output 12/27/18 12/28/18 19:00 07:00 Intake Total 300 ml 300 ml Balance 300 ml 300 ml Intake Oral 300 ml 300 ml # Voids 2 1 Height (Feet): 5 Height (Inches): 6.00 Weight (Pounds): 152 Cardiovascular: normal rate Respiratory/Chest: chest wall non-tender Abdomen: soft Sarahi Shaffer MD Dec 28, 2018 20:45
[2018-12-28] MEDS: Tamsulosin 0.4mg cap ORAL SCH (21:26)
[2018-12-28 23:38] LABS: BILIRUBIN, URINE 1+ (NEGATIVE); COLOR,URINE BROWN; GLUCOSE, URINE (UA) 1+ (NEGATIVE); KETONES,URINE 1+ (NEGATIVE); LEUKOCYTE ESTERASE ,URINE 3+ (NEGATIVE); NITRITE,URINE NEGATIVE (NEGATIVE); PROTEIN,URINE 4+ (NEGATIVE); UROBILINOGEN,URINE 1 MG/DL (0.0-1.0)
[2018-12-28 23:44] LABS: APPEARANCE,URINE CLOUDY; PH,URINE 6 (4.5-8.0)
[2018-12-29] VITALS: BP 143/71
[2018-12-29] MEDS: HydrOXYzine tab 25mg tab ORAL PRN ×3 (03:13→22:55)
[2018-12-29 04:00] VITALS: BP 137/71
[2018-12-29] MEDS: HydrALAZINE 25mg tab ORAL SCH ×3 (06:00→22:05)
[2018-12-29] MEDS: NovoLOG Insulin Flexpen SUBQ SCH ×4 (06:19→21:21)
[2018-12-29 07:16] LABS: HEMATOCRIT 27.7 % (42.0-52.0); HEMOGLOBIN 8.6 G/DL (14.2-18.0); MEAN CORPUSCULAR VOLUME 91 FL (80-99); PLATELET COUNT 93 K/UL (150-450); RED BLOOD COUNT 3.03 M/UL (4.70-6.10); RED CELL DISTRIBUTION WIDTH 18.6 % (11.6-14.8)
[2018-12-29 07:29] LABS: ALANINE AMINOTRANSFERASE 31 U/L (12-78); ALBUMIN 2.8 G/DL (3.4-5.0); ALBUMIN/GLOBULIN RATIO 0.7 (1.0-2.7); ALKALINE PHOSPHATASE 356 U/L (46-116); ANION GAP 12 mmol/L (5-15); ASPARTATE AMINO TRANSFERASE 45 U/L (15-37); BILIRUBIN,TOTAL 1.5 MG/DL (0.2-1.0); BLOOD UREA NITROGEN 78 mg/dL (7-18); CALCIUM 8.3 MG/DL (8.5-10.1); CARBON DIOXIDE 28 MMOL/L (21-32); CHLORIDE 99 MMOL/L (98-107); CREATININE 6.8 MG/DL (0.55-1.30); POTASSIUM 4.5 MMOL/L (3.5-5.1); SODIUM 139 MMOL/L (136-145)
[2018-12-29 07:30] LABS: BILIRUBIN,DIRECT 1.2 MG/DL (0.0-0.3)
--- NOTE | 2018-12-29 07:30 | NUR ---
NURSE NOTES: Received pt from RN RADHA. Pt is alert and orient x4. pt is in RA. No SOB or acute respiratory distress noted. pt has intact iv access R wrist 22G SL. Pt is in fluid restriction 1l/24hr. all needs attended, bed is locked and is in the lowest position, call light within easy reach. will continue to monitor.
--- NOTE | 2018-12-29 07:59 | NUR ---
HAND-OFF: Report given to GRIS Schultz.
[2018-12-29 08:00] VITALS: BP 135/77
[2018-12-29] MEDS: Carvedilol 12.5mg tab ORAL SCH ×2 (09:00→21:16)
[2018-12-29] MEDS: Docusate 100mg cap ORAL SCH ×3 (09:00→17:20)
[2018-12-29] MEDS: Imdur 30mg tab ORAL SCH (09:00)
[2018-12-29] MEDS: Heparin 5000 units/ml inj SUBQ SCH ×2 (09:00→21:29)
[2018-12-29] MEDS: Calcitriol 0.25mcg Cap ORAL SCH (09:18)
[2018-12-29] MEDS: Allopurinol 100mg Tab ORAL SCH (09:19)
[2018-12-29] MEDS: Aspirin Baby 81mg ORAL SCH (09:20)
--- NOTE | 2018-12-29 09:35 | NUR ---
[employer] SI:ESRD ON HD . CHF VS: BP 143/73, P 64, T 97.2, RR 18, SpO2 96 WBC 4.0, RBC 3.03, Hgb 8.6, Hct 27.7, BUN 78, Cr 6.8 IS:ATARAX 25mg APRESOLINE 25mg EPOETIN ALBINA SUBQ NOVOLOG SUBQ RENVELA 800mg COREG 12.5mg IMDUR 30mg ALLOPURINOL 100mg MED/SURG
--- NOTE | 2018-12-29 11:57 | NUR ---
*-* INSURANCE *-* UPDATED CLINICALS AND REVIEWS HAVE BEEN FAXED TO: ROMAIN FRANCO: NURYS P:[phone] F:[phone]
[2018-12-29 12:00] VITALS: BP 134/70
--- NOTE | 2018-12-29 13:01 | Infectious Diseases Prog Note ---
Assessment/Plan Assessment/Plan IMPRESSION: Pyuria. urine culture Diphtheroids, likely contamination combined systolic and diastolic heart failure pulmonary artery hypertension, chronic kidney disease end-stage renal disease proteinuria, pancytopenia, coronary artery disease. Change in vision in left eye s/p ureteral stent RECOMMENDATION: Observe off antibiotic. Ophthalmology evaluation Subjective ROS Limited/Unobtainable: No Constitutional: Reports: no symptoms Respiratory: Reports: no symptoms Cardiovascular: Reports: no symptoms Gastrointestinal/Abdominal: Reports: no symptoms Genitourinary: Reports: other - dark urine Allergies: Coded Allergies: No Known Allergies (Unverified , 12/14/18) Objective Vital Signs Last 24 Hour Vital Signs Date Time Temp Pulse Resp B/P (MAP) Pulse Ox O2 Delivery O2 Flow Rate FiO2 12/29/18 09:00 Room Air 12/29/18 09:00 72 135/77 12/29/18 09:00 135/77 12/29/18 08:00 97.3 72 15 135/77 (96) 97 12/29/18 04:00 98.4 82 16 137/71 (93) 97 12/29/18 00:00 98.1 75 18 143/71 (95) 99 12/28/18 21:26 132/69 12/28/18 21:26 75 132/69 12/28/18 21:00 Room Air 12/28/18 20:00 98.6 75 16 132/69 (90) 100 12/28/18 16:00 97.5 75 20 133/66 (88) 98 Height (Feet): 5 Height (Inches): 6.00 Weight (Pounds): 145 General Appearance: no acute distress HEENT: mucous membranes moist Respiratory/Chest: lungs clear Cardiovascular: normal rate, other - Permacath Abdomen: soft, non tender Extremities: no edema Neurologic/Psychiatric: alert, oriented x 3, responsive Laboratory Tests Test 12/28/18 23:10 12/29/18 06:20 Urine Color Brown Urine Appearance Cloudy Urine pH 6 (4.5-8.0) Urine Specific Drain 1.010 (1.005-1.035) Urine Protein 4+ (NEGATIVE) H Urine Glucose (UA) 1+ (NEGATIVE) H Urine Ketones 1+ (NEGATIVE) H Urine Blood 5+ (NEGATIVE) H Urine Nitrite Negative (NEGATIVE) Urine Bilirubin 1+ (NEGATIVE) H Urine Ictotest Negative (NEGATIVE) Urine Urobilinogen 1 MG/DL (0.0-1.0) H Urine Leukocyte Esterase 3+ (NEGATIVE) H Urine RBC Tntc /HPF (0 - 0) H Urine WBC 20-30 /HPF (0 - 0) H Urine Squamous Epithelial Cells Occasional /LPF Urine Bacteria Few /HPF (NONE) White Blood Count 4.0 K/UL (4.8-10.8) L Red Blood Count 3.03 M/UL (4.70-6.10) L Hemoglobin 8.6 G/DL (14.2-18.0) L Hematocrit 27.7 % (42.0-52.0) L Mean Corpuscular Volume 91 FL (80-99) Mean Corpuscular Hemoglobin 28.4 PG (27.0-31.0) Mean Corpuscular Hemoglobin Concent 31.1 G/DL (32.0-36.0) L Red Cell Distribution Width 18.6 % (11.6-14.8) H Platelet Count 93 K/UL (150-450) L Mean Platelet Volume 8.8 FL (6.5-10.1) Neutrophils (%) (Auto) % (45.0-75.0) Lymphocytes (%) (Auto) % (20.0-45.0) Monocytes (%) (Auto) % (1.0-10.0) Eosinophils (%) (Auto) % (0.0-3.0) Basophils (%) (Auto) % (0.0-2.0) Differential Total Cells Counted 100 Neutrophils % (Manual) 69 % (45-75) Lymphocytes % (Manual) 22 % (20-45) Monocytes % (Manual) 7 % (1-10) Eosinophils % (Manual) 2 % (0-3) Basophils % (Manual) 0 % (0-2) Band Neutrophils 0 % (0-8) Platelet Estimate Decreased L Platelet Morphology Normal Anisocytosis 1+ Sodium Level 139 MMOL/L (136-145) Potassium Level 4.5 MMOL/L (3.5-5.1) Chloride Level 99 MMOL/L (98-107) Carbon Dioxide Level 28 MMOL/L (21-32) Anion Gap 12 mmol/L (5-15) Blood Urea Nitrogen 78 mg/dL (7-18) H Creatinine 6.8 MG/DL (0.55-1.30) H Estimat Glomerular Filtration Rate 8.5 mL/min (>60) Glucose Level 129 MG/DL (74-106) H Uric Acid 5.6 MG/DL (2.6-7.2) Calcium Level 8.3 MG/DL (8.5-10.1) L Phosphorus Level 5.0 MG/DL (2.5-4.9) H Magnesium Level 2.1 MG/DL (1.8-2.4) Total Bilirubin 1.5 MG/DL (0.2-1.0) H Direct Bilirubin 1.2 MG/DL (0.0-0.3) H Aspartate Amino Transf (AST/SGOT) 45 U/L (15-37) H Alanine Aminotransferase (ALT/SGPT) 31 U/L (12-78) Alkaline Phosphatase 356 U/L (46-116) H C-Reactive Protein, Quantitative 0.5 mg/dL (0.00-0.90) Pro-B-Type Natriuretic Peptide 87043 pg/mL (0-125) H Total Protein 7.0 G/DL (6.4-8.2) Albumin 2.8 G/DL (3.4-5.0) L Globulin 4.2 g/dL Albumin/Globulin Ratio 0.7 (1.0-2.7) L Current Medications Medications (Trade) Dose Ordered Sig/Félix Route PRN Reason Start Time Stop Time Status Last Admin Dose Admin Acetaminophen (Tylenol) 650 mg Q4H PRN ORAL Mild Pain/Temp > 100.5 12/14/18 15:45 01/13/19 15:44 12/18/18 00:32 Allopurinol (Zyloprim) 100 mg DAILY ORAL 12/15/18 09:00 01/14/19 08:59 12/29/18 09:19 Aspirin (ASA) 162 mg DAILY ORAL 12/14/18 15:45 01/13/19 15:44 12/29/18 09:20 Calcitriol (Rocatrol) 0.25 mcg DAILY ORAL 12/19/18 09:00 01/14/19 08:59 12/29/18 09:18 Carvedilol (Coreg) 12.5 mg EVERY 12 HOURS ORAL 12/19/18 21:00 01/13/19 20:59 12/28/18 21:26 Dextrose (Dextrose 50%) 25 ml Q30M PRN IV Hypoglycemia 12/21/18 18:15 01/20/19 18:14 Dextrose (Dextrose 50%) 50 ml Q30M PRN IV Hypoglycemia 12/21/18 18:15 01/20/19 18:14 Docusate Sodium (Colace) 100 mg TID ORAL 12/17/18 13:00 01/13/19 17:59 12/28/18 17:01 Epoetin Jordon (Epoetin Jordon(ESRD on dialysis)) 10,000 unit THU-THU-THU SUBQ 12/22/18 21:00 01/21/19 20:59 12/27/18 22:24 Heparin Sodium (Porcine) (Heparin 5000 units/ml) 5,000 units EVERY 12 HOURS SUBQ 12/15/18 21:00 01/13/19 20:59 12/28/18 08:51 Hydralazine HCl (Apresoline) 25 mg Q8HR ORAL 12/22/18 22:00 01/17/19 00:00 12/28/18 21:26 Hydroxyzine HCl (Atarax) 25 mg Q6H PRN ORAL Itching 12/28/18 10:15 01/27/19 10:14 12/29/18 09:19 Insulin Aspart (NovoLOG) BEFORE MEALS AND HS SUBQ 12/21/18 21:00 01/20/19 20:59 12/29/18 06:19 Isosorbide Mononitrate (Imdur) 30 mg DAILY ORAL 12/14/18 20:45 01/13/19 20:44 12/28/18 08:35 Ondansetron HCl (Zofran) 4 mg Q6H PRN IVP Nausea & Vomiting 12/20/18 13:30 01/19/19 13:29 12/25/18 10:32 Pantoprazole (Protonix) 40 mg EVERY 12 HOURS ORAL 12/14/18 21:00 01/13/19 20:59 12/29/18 09:19 Sevelamer Carbonate (Renvela) 800 mg THREE TIMES A DAY ORAL 12/20/18 13:00 01/18/19 08:59 12/29/18 09:19 Tamsulosin HCl (Flomax) 0.4 mg BEDTIME ORAL 12/16/18 21:00 01/15/19 20:59 12/28/18 21:26 Omi Brown MD December 29, 2018 13:01
--- NOTE | 2018-12-29 14:57 | Diagnostic Imaging Report ---
APPROVED REPORT CPT Code: 05320 Present Symptoms Comments: BILATERAL LEGS PAIN. BILATERAL: Imaging reveals a patent deep venous system bilaterally. There is no evidence of thrombus within the femoral, popliteal or tibial segments. The greater saphenous veins are also within normal limits. Doppler indicates normal spontaneous flow within these segments.
--- NOTE | 2018-12-29 15:06 | Nephrology Progress Note ---
Assessment/Plan Problem List: (1) ESRD (end stage renal disease) (2) ARF (acute renal failure) (3) CHF (congestive heart failure) (4) Anemia in chronic kidney disease (CKD) (5) Nephrotic syndrome Assessment Advanced Renal failure with Proteinuria CKD known to the patient h/o HTN h/o Cardiac disease s/p stent ? DM high A1c Plan after and pre load reduction management discussed the need for Dialysis - catheter 12/17- dialysis 12/17 next 12/19 next 12/21 next 12/23 next 12/25 next 12/27 next 12/29 1000 cc fluid restriction Renal diet- Phos binders BP check kidney RUSSEL noted 24 h urine results noted per orders Echo Global left ventricular hypokinesis with falttenign of cody VS suggestive of RV pressuere overload Mild left ventricular enlargement . Left ventricular ejection fraction estimated to be 25-30%. RUSSEL * Portions of the right ureteral stent are partially visualized. Punctate echogenic focus also noted in the lower pole of the right kidney which may represent nonobstructing stone. * No evidence of hydronephrosis bilaterally. * Renal echogenicity appears within normal limits. * Bladder wall thickening is noted within question for cystitis, although findings may possibly related to underdistention. Correlation with urinalysis recommended. Uro consult from Dr Weiss: He also has a history of kidney stones and one month ago had a right ureteral stent placed at [facility] for the same by Dr. Florez. The patient was then referred to see Dr. Dolan as a urologist and has plan regarding the same and has established care with him. Diagnostic imaging reveals a stent in place. I discussed these findings today with the patient at bedside. His nephroureteral stent is in good position and there is no hydronephrosis or obstructing stone etc. The patient is in the hospital for unrelated issues including congestive heart failure exacerbation and acute on chronic renal insufficiency which does not appear to be secondary to obstructive uropathy. His stent should remain in place and once he is feeling better, he can be discharged and follow up with Dr. Dolan in the office regarding removal of the stent and treatment of the stones. Subjective ROS Limited/Unobtainable: No Objective Objective Last 24 Hour Vital Signs Date Time Temp Pulse Resp B/P (MAP) Pulse Ox O2 Delivery O2 Flow Rate FiO2 12/29/18 12:00 97.7 78 15 134/70 (91) 100 12/29/18 09:00 Room Air 12/29/18 09:00 72 135/77 12/29/18 09:00 135/77 12/29/18 08:00 97.3 72 15 135/77 (96) 97 12/29/18 04:00 98.4 82 16 137/71 (93) 97 12/29/18 00:00 98.1 75 18 143/71 (95) 99 12/28/18 21:26 132/69 12/28/18 21:26 75 132/69 12/28/18 21:00 Room Air 12/28/18 20:00 98.6 75 16 132/69 (90) 100 12/28/18 16:00 97.5 75 20 133/66 (88) 98 Intake and Output 12/28/18 12/29/18 18:59 06:59 Intake Total 600 ml Balance 600 ml Intake Oral 600 ml # Voids 3 Laboratory Tests 12/28/18 23:10: Urine Color Brown, Urine Appearance Cloudy, Urine pH 6, Urine Specific [place] 1.010, Urine Protein 4+H, Urine Glucose (UA) 1+H, Urine Ketones 1+H, Urine Blood 5+H, Urine Nitrite Negative, Urine Bilirubin 1+H, Urine Ictotest Negative , Urine Urobilinogen 1H, Urine Leukocyte Esterase 3+H, Urine RBC TntcH, Urine WBC 20-30H, Urine Squamous Epithelial Cells Occasional, Urine Bacteria Few 12/29/18 06:20: White Blood Count 4.0L, Red Blood Count 3.03L, Hemoglobin 8.6L, Hematocrit 27.7L , Mean Corpuscular Volume 91, Mean Corpuscular Hemoglobin 28.4, Mean Corpuscular Hemoglobin Concent 31.1L, Red Cell Distribution Width 18.6H, Platelet Count 93L, Mean Platelet Volume 8.8, Neutrophils (%) (Auto) , Lymphocytes (%) (Auto) , Monocytes (%) (Auto) , Eosinophils (%) (Auto) , Basophils (%) (Auto) , Differential Total Cells Counted 100, Neutrophils % ( Manual) 69, Lymphocytes % (Manual) 22, Monocytes % (Manual) 7, Eosinophils % ( Manual) 2, Basophils % (Manual) 0, Band Neutrophils 0, Platelet Estimate DecreasedL, Platelet Morphology Normal, Anisocytosis 1+, Sodium Level 139, Potassium Level 4.5, Chloride Level 99, Carbon Dioxide Level 28, Anion Gap 12, Blood Urea Nitrogen 78H, Creatinine 6.8H, Estimat Glomerular Filtration Rate 8.5 , Glucose Level 129H, Uric Acid 5.6, Calcium Level 8.3L, Phosphorus Level 5.0H, Magnesium Level 2.1, Total Bilirubin 1.5H, Direct Bilirubin 1.2H, Aspartate Amino Transf (AST/SGOT) 45H, Alanine Aminotransferase (ALT/SGPT) 31, Alkaline Phosphatase 356H, C-Reactive Protein, Quantitative 0.5, Pro-B-Type Natriuretic Peptide 30353N, Total Protein 7.0, Albumin 2.8L, Globulin 4.2, Albumin/Globulin Ratio 0.7L Height (Feet): 5 Height (Inches): 6.00 Weight (Pounds): 145 General Appearance: no apparent distress Objective no change Micah Pitt MD December 29, 2018 15:06
--- NOTE | 2018-12-29 15:30 | NUR ---
NURSE NOTES: Dialysis started 1145 and finished 1445 with 3lit out put. pt is stable. V/S stable. will continue to monitor.
[2018-12-29 16:00] VITALS: BP 145/83
--- NOTE | 2018-12-29 17:01 | General Progress Note ---
Assessment/Plan Status: stable, progressing Assessment/Plan: Assessment/Plan # Pancytopenia -- multiple etiologies could be related to underlying liver disease, medication-induced, infection versus viral syndrome -> hx SPLENOMEGALY AND CIRRHOSIS (irregular liver sufrace can explain pancytopenia), Prominent soft tissue opacities in the splenic hilum and lesser sac, could indicate varices, all of the lesser sac findings could represent prominent nodes. Consider gi evaluation and treatment --> peripheral smear has been ordered and does not show significant abnormalities does not appear to have significant abnormalities --> Medications have been reviewed, less likely culprits --> Continue to monitor for improvement, trend cbc --> Hep panel and HIV are both negative --> consider other causes, infections that could contribute --> reverse isolation if ANC is <2000 --> Give neupogen if ANC <1000 --> Transfuse if hgb <7, with 1 unit prbc --> WBC trend 4.2-->3.6-->3.6-->3.8-->4.4-->3.9 ==> Plt trend 122k-->84k-->69k-->74k-->81k # Anemia of iron deficiency given will need hd/esrd --> iron has been started x 5 doses iv --> ferritin level 218-->451 # Coagulation defect, multifactorial usually related to poor PO intake versus medications, versus hepatitis v cirrhosis --> administer Vitamin K if patient is bleeding or FFP if the INR is >10 --> hold off on ffp unless active procedure/bleeding, first begin with vit K 10 --> mixing study as needed # Advanced Renal failure with Proteinuria --> as per renal eval and recs --> HD as per renal followup --> intermitted HD 12/25, 12/27, 12/29 # h/o HTN --> sbp goal <140 # h/o Cardiac disease s/p stent # ? DM The timing of this note does not necessarily reflect the time of the patient was seen. Greatly appreciate consultation! Subjective Constitutional: Denies: no symptoms, chills, diaphoresis, fever, malaise, weakness, other HEENT: Denies: no symptoms, eye pain, blurred vision, tearing, double vision, ear pain, ear discharge, nose pain, nose congestion, throat pain, throat swelling, mouth pain, mouth swelling, other Gastrointestinal/Abdominal: Denies: no symptoms, abdomen distended, abdominal pain, black stools, tarry stools, blood in stool, constipated, diarrhea, difficulty swallowing, nausea, poor appetite, poor fluid intake, rectal bleeding , vomiting, other Genitourinary: Denies: no symptoms, burning, discharge, frequency, flank pain, hematuria, incontinence, pain, urgency, other Neurologic/Psychiatric: Denies: no symptoms, anxiety, depressed, emotional problems, headache, numbness, paresthesia, pre-existing deficit, seizure, tingling, tremors, weakness, other Endocrine: Denies: no symptoms, excessive sweating, flushing, intolerance to cold, intolerance to heat, increased hunger, increased thirst, increased urine, unexplained weight gain, unexplained weight loss, other Allergies: Coded Allergies: No Known Allergies (Unverified , 12/14/18) Subjective 12/15: labs have been reviewed, relatively stable cbc but mildly lower with elev inr, not bleeding 12/16: discussed need for HD with renal, family, by the bedside understands as well as patient 12/17: labs have been reviewed and noted, by bedside, relatively stable 12/23: no evidence of fevers or chills, off abx, seen bty renal, due for hd 426: shaving this am, no complaints, no fc, cbc reviewed 12/26: overall has been doing better, no complaints this am 12/27: no events to report, scheduled for potential hd today 12/28: no events noted, seen by renal, awaiting clearance for dc 12/29: no bleeding reported, hd today, bp is stable as is cbc Objective Last 24 Hour Vital Signs Date Time Temp Pulse Resp B/P (MAP) Pulse Ox O2 Delivery O2 Flow Rate FiO2 12/29/18 16:00 97.2 81 19 145/83 (103) 97 12/29/18 14:00 134/70 12/29/18 12:00 97.7 78 15 134/70 (91) 100 12/29/18 09:00 Room Air 12/29/18 09:00 72 135/77 12/29/18 09:00 135/77 12/29/18 08:00 97.3 72 15 135/77 (96) 97 12/29/18 04:00 98.4 82 16 137/71 (93) 97 12/29/18 00:00 98.1 75 18 143/71 (95) 99 12/28/18 21:26 132/69 12/28/18 21:26 75 132/69 12/28/18 21:00 Room Air 12/28/18 20:00 98.6 75 16 132/69 (90) 100 Intake and Output 12/28/18 12/29/18 19:00 07:00 Intake Total 600 ml Balance 600 ml Intake Oral 600 ml # Voids 3 Laboratory Tests 12/28/18 23:10: Urine Color Brown, Urine Appearance Cloudy, Urine pH 6, Urine Specific [place] 1.010, Urine Protein 4+H, Urine Glucose (UA) 1+H, Urine Ketones 1+H, Urine Blood 5+H, Urine Nitrite Negative, Urine Bilirubin 1+H, Urine Ictotest Negative , Urine Urobilinogen 1H, Urine Leukocyte Esterase 3+H, Urine RBC TntcH, Urine WBC 20-30H, Urine Squamous Epithelial Cells Occasional, Urine Bacteria Few 12/29/18 06:20: White Blood Count 4.0L, Red Blood Count 3.03L, Hemoglobin 8.6L, Hematocrit 27.7L , Mean Corpuscular Volume 91, Mean Corpuscular Hemoglobin 28.4, Mean Corpuscular Hemoglobin Concent 31.1L, Red Cell Distribution Width 18.6H, Platelet Count 93L, Mean Platelet Volume 8.8, Neutrophils (%) (Auto) , Lymphocytes (%) (Auto) , Monocytes (%) (Auto) , Eosinophils (%) (Auto) , Basophils (%) (Auto) , Differential Total Cells Counted 100, Neutrophils % ( Manual) 69, Lymphocytes % (Manual) 22, Monocytes % (Manual) 7, Eosinophils % ( Manual) 2, Basophils % (Manual) 0, Band Neutrophils 0, Platelet Estimate DecreasedL, Platelet Morphology Normal, Anisocytosis 1+, Sodium Level 139, Potassium Level 4.5, Chloride Level 99, Carbon Dioxide Level 28, Anion Gap 12, Blood Urea Nitrogen 78H, Creatinine 6.8H, Estimat Glomerular Filtration Rate 8.5 , Glucose Level 129H, Uric Acid 5.6, Calcium Level 8.3L, Phosphorus Level 5.0H, Magnesium Level 2.1, Total Bilirubin 1.5H, Direct Bilirubin 1.2H, Aspartate Amino Transf (AST/SGOT) 45H, Alanine Aminotransferase (ALT/SGPT) 31, Alkaline Phosphatase 356H, C-Reactive Protein, Quantitative 0.5, Pro-B-Type Natriuretic Peptide 93334J, Total Protein 7.0, Albumin 2.8L, Globulin 4.2, Albumin/Globulin Ratio 0.7L Height (Feet): 5 Height (Inches): 6.00 Weight (Pounds): 145 Objective PE: Vitals: reviewed General Appearance: NAD, nonverbal HEENT: normocephalic, atraumatic Neck: non-tender, normal alignment Respiratory/Chest: nromal breath sounds bilaterally Cardiovascular/Chest: normal peripheral pulses, normal rate Abdomen: normal bowel sounds, soft, nontender Extremities: normal range of motion . Enrrique Solano MD December 29, 2018 17:00
--- NOTE | 2018-12-29 19:30 | NUR ---
HAND-OFF: Report given to GRIS BARON.
[2018-12-29 20:00] VITALS: BP 143/73
[2018-12-29] MEDS: Epoetin Alfa(ESRD on dialysis)10,000 unit/ml vial SUBQ SCH ×2 (21:00→22:57)
[2018-12-29] MEDS: Tamsulosin 0.4mg cap ORAL SCH (21:13)
--- NOTE | 2018-12-29 21:57 | General Progress Note ---
Assessment/Plan Problem List: (1) CHF exacerbation ICD Codes: I50.9 - Heart failure, unspecified SNOMED: 81471573 (2) Pyelonephritis ICD Codes: N12 - Tubulo-interstitial nephritis, not specified as acute or chronic SNOMED: 18593751 (3) Pancytopenia ICD Codes: D61.818 - Other pancytopenia SNOMED: 470847487 (4) CHF (congestive heart failure) ICD Codes: I50.9 - Heart failure, unspecified SNOMED: 61951366 (5) Anemia in chronic kidney disease (CKD) ICD Codes: N18.9 - Chronic kidney disease, unspecified; D63.1 - Anemia in chronic kidney disease SNOMED: 776871539 (6) ARF (acute renal failure) ICD Codes: N17.9 - Acute kidney failure, unspecified SNOMED: 36741263 (7) ESRD (end stage renal disease) ICD Codes: N18.6 - End stage renal disease SNOMED: 55453692 (8) Nephrotic syndrome ICD Codes: N04.9 - Nephrotic syndrome with unspecified morphologic changes SNOMED: 73357265 Status: stable, progressing Assessment/Plan: still edema pancytopenia no bleeding afebrile s/p urethral stent.asked dr roman as well as dr mera to see him for removal of urethral stent s/p stent esrd on hd Subjective ROS Limited/Unobtainable: Yes Allergies: Coded Allergies: No Known Allergies (Unverified , 12/14/18) Objective Last 24 Hour Vital Signs Date Time Temp Pulse Resp B/P (MAP) Pulse Ox O2 Delivery O2 Flow Rate FiO2 12/29/18 21:16 64 143/18 12/29/18 20:00 98.3 64 18 143/73 (96) 96 12/29/18 17:50 97.2 12/29/18 16:00 97.2 81 19 145/83 (103) 97 12/29/18 14:00 134/70 12/29/18 12:00 97.7 78 15 134/70 (91) 100 12/29/18 09:00 Room Air 12/29/18 09:00 72 135/77 12/29/18 09:00 135/77 12/29/18 08:00 97.3 72 15 135/77 (96) 97 12/29/18 04:00 98.4 82 16 137/71 (93) 97 12/29/18 00:00 98.1 75 18 143/71 (95) 99 Intake and Output 12/28/18 12/29/18 19:00 07:00 Intake Total 600 ml Balance 600 ml Intake Oral 600 ml # Voids 3 Laboratory Tests 12/28/18 23:10: Urine Color Brown, Urine Appearance Cloudy, Urine pH 6, Urine Specific [place] 1.010, Urine Protein 4+H, Urine Glucose (UA) 1+H, Urine Ketones 1+H, Urine Blood 5+H, Urine Nitrite Negative, Urine Bilirubin 1+H, Urine Ictotest Negative , Urine Urobilinogen 1H, Urine Leukocyte Esterase 3+H, Urine RBC TntcH, Urine WBC 20-30H, Urine Squamous Epithelial Cells Occasional, Urine Bacteria Few 12/29/18 06:20: White Blood Count 4.0L, Red Blood Count 3.03L, Hemoglobin 8.6L, Hematocrit 27.7L , Mean Corpuscular Volume 91, Mean Corpuscular Hemoglobin 28.4, Mean Corpuscular Hemoglobin Concent 31.1L, Red Cell Distribution Width 18.6H, Platelet Count 93L, Mean Platelet Volume 8.8, Neutrophils (%) (Auto) , Lymphocytes (%) (Auto) , Monocytes (%) (Auto) , Eosinophils (%) (Auto) , Basophils (%) (Auto) , Differential Total Cells Counted 100, Neutrophils % ( Manual) 69, Lymphocytes % (Manual) 22, Monocytes % (Manual) 7, Eosinophils % ( Manual) 2, Basophils % (Manual) 0, Band Neutrophils 0, Platelet Estimate DecreasedL, Platelet Morphology Normal, Anisocytosis 1+, Sodium Level 139, Potassium Level 4.5, Chloride Level 99, Carbon Dioxide Level 28, Anion Gap 12, Blood Urea Nitrogen 78H, Creatinine 6.8H, Estimat Glomerular Filtration Rate 8.5 , Glucose Level 129H, Uric Acid 5.6, Calcium Level 8.3L, Phosphorus Level 5.0H, Magnesium Level 2.1, Total Bilirubin 1.5H, Direct Bilirubin 1.2H, Aspartate Amino Transf (AST/SGOT) 45H, Alanine Aminotransferase (ALT/SGPT) 31, Alkaline Phosphatase 356H, C-Reactive Protein, Quantitative 0.5, Pro-B-Type Natriuretic Peptide 21894T, Total Protein 7.0, Albumin 2.8L, Globulin 4.2, Albumin/Globulin Ratio 0.7L Height (Feet): 5 Height (Inches): 6.00 Weight (Pounds): 145 Neck: supple Cardiovascular: normal rate Respiratory/Chest: lungs clear Abdomen: non tender Sarahi Shaffer MD December 29, 2018 21:57
[2018-12-30] VITALS: BP 132/69
--- NOTE | 2018-12-30 00:02 | NUR ---
NURSE NOTES: Pt received from outgoing nurse GRIS Frey. Pt is in bed asleep. No acute distress noted. Pt had HD per last shift nurse. Bed locked in position,side rails up and call light within reach. Pt will be monitored. Pt has a discharge order but pt is awaiting outpatient dialysis center arrangement.
--- NOTE | 2018-12-30 03:38 | NUR ---
NURSE NOTES: Pt is in bed, awake and alert, ambulatory. No acute distress noted.
[2018-12-30 04:00] VITALS: BP 123/67
[2018-12-30] MEDS: HydrALAZINE 25mg tab ORAL SCH ×3 (05:45→23:37)
[2018-12-30] MEDS: NovoLOG Insulin Flexpen SUBQ SCH ×4 (05:46→23:39)
--- NOTE | 2018-12-30 07:20 | NUR ---
HAND-OFF: Report given to Tiff Chiang RN.
--- NOTE | 2018-12-30 07:30 | NUR ---
nurse notes received patient in bed alert and orient x4. on RA. No sign of respiratory distress noted. HL patent,right chest tunnelled cath in place. Pt is in fluid restriction 1L/24hr instructed. bed is locked and is in the lowest position, call light within easy reach. all needs attended,will continue to monitor. yue harris
[2018-12-30 08:00] VITALS: BP 118/71
[2018-12-30] MEDS: Calcitriol 0.25mcg Cap ORAL SCH (08:47)
[2018-12-30] MEDS: Imdur 30mg tab ORAL SCH (08:47)
[2018-12-30] MEDS: Allopurinol 100mg Tab ORAL SCH (08:48)
[2018-12-30] MEDS: Docusate 100mg cap ORAL SCH ×3 (08:48→17:18)
[2018-12-30] MEDS: Aspirin Baby 81mg ORAL SCH (08:48)
[2018-12-30] MEDS: Carvedilol 12.5mg tab ORAL SCH ×2 (08:48→23:36)
[2018-12-30] MEDS: Heparin 5000 units/ml inj SUBQ SCH ×2 (08:51→21:00)
--- NOTE | 2018-12-30 09:41 | NUR ---
[employer] SI: ESRD ON HD . CHF VS: BP 123/63, P 76, T 98.7, RR 18, SpO2 99 IS: ATARAX 25mg APRESOLINE 25mg EPOETIN ALBINA SUBQ NOVOLOG SUBQ RENVELA 800mg COREG 12.5mg IMDUR 30mg ALLOPURINOL 100mg MED/SURG
--- NOTE | 2018-12-30 10:28 | NUR ---
*-* INSURANCE *-* UPDATED CLINICALS AND REVIEWS HAVE BEEN FAXED TO: [facility] FRANCO: NURYS P:[phone] F:[phone]
[2018-12-30 12:00] VITALS: BP 122/77
--- NOTE | 2018-12-30 14:49 | General Progress Note ---
Assessment/Plan Status: stable, progressing Assessment/Plan: Assessment/Plan # Pancytopenia -- multiple etiologies could be related to underlying liver disease, medication-induced, infection versus viral syndrome -> hx SPLENOMEGALY AND CIRRHOSIS (irregular liver sufrace can explain pancytopenia), Prominent soft tissue opacities in the splenic hilum and lesser sac, could indicate varices, all of the lesser sac findings could represent prominent nodes. Consider gi evaluation and treatment --> peripheral smear has been ordered and does not show significant abnormalities does not appear to have significant abnormalities --> Medications have been reviewed, less likely culprits --> Continue to monitor for improvement, trend cbc --> Hep panel and HIV are both negative --> consider other causes, infections that could contribute --> reverse isolation if ANC is <2000 --> Give neupogen if ANC <1000 --> Transfuse if hgb <7, with 1 unit prbc --> WBC trend 4.2-->3.6-->3.6-->3.8-->4.4-->3.9-->4 ==> Plt trend 122k-->84k-->69k-->74k-->81k-->93k # Anemia of iron deficiency given will need hd/esrd --> iron has been started x 5 doses iv --> ferritin level 218-->451 # Coagulation defect, multifactorial usually related to poor PO intake versus medications, versus hepatitis v cirrhosis --> administer Vitamin K if patient is bleeding or FFP if the INR is >10 --> hold off on ffp unless active procedure/bleeding, first begin with vit K 10 --> mixing study prn basis # Advanced Renal failure with Proteinuria --> as per renal eval and recs --> HD as per renal followup --> intermitted HD 12/25, 12/27, 12/29 # h/o HTN --> sbp goal <140 # h/o Cardiac disease s/p stent # ? DM The timing of this note does not necessarily reflect the time of the patient was seen. Greatly appreciate consultation! Subjective HEENT: Denies: no symptoms, eye pain, blurred vision, tearing, double vision, ear pain, ear discharge, nose pain, nose congestion, throat pain, throat swelling, mouth pain, mouth swelling, other Cardiovascular: Denies: no symptoms, chest pain, edema, irregular heart rate, lightheadedness, palpitations, syncope, other Respiratory: Denies: no symptoms, cough, orthopnea, shortness of breath, SOB with excertion, SOB at rest, sputum, stridor, wheezing, other Gastrointestinal/Abdominal: Denies: no symptoms, abdomen distended, abdominal pain, black stools, tarry stools, blood in stool, constipated, diarrhea, difficulty swallowing, nausea, poor appetite, poor fluid intake, rectal bleeding , vomiting, other Genitourinary: Denies: no symptoms, burning, discharge, frequency, flank pain, hematuria, incontinence, pain, urgency, other Neurologic/Psychiatric: Denies: no symptoms, anxiety, depressed, emotional problems, headache, numbness, paresthesia, pre-existing deficit, seizure, tingling, tremors, weakness, other Endocrine: Denies: no symptoms, excessive sweating, flushing, intolerance to cold, intolerance to heat, increased hunger, increased thirst, increased urine, unexplained weight gain, unexplained weight loss, other Allergies: Coded Allergies: No Known Allergies (Unverified , 12/14/18) Subjective 12/15: labs have been reviewed, relatively stable cbc but mildly lower with elev inr, not bleeding 12/16: discussed need for HD with renal, family, by the bedside understands as well as patient 12/17: labs have been reviewed and noted, by bedside, relatively stable 12/23: no evidence of fevers or chills, off abx, seen bty renal, due for hd 426: shaving this am, no complaints, no fc, cbc reviewed 12/26: overall has been doing better, no complaints this am 12/27: no events to report, scheduled for potential hd today 12/28: no events noted, seen by renal, awaiting clearance for dc 12/29: no bleeding reported, hd today, bp is stable as is cbc 12/30: no chills noted, getting hd prn, anemia panel has been reviewed Objective Last 24 Hour Vital Signs Date Time Temp Pulse Resp B/P (MAP) Pulse Ox O2 Delivery O2 Flow Rate FiO2 12/30/18 13:18 122/77 12/30/18 12:00 98.3 77 18 122/77 (92) 99 12/30/18 08:48 76 123/67 12/30/18 08:47 123/67 12/30/18 08:20 Room Air 12/30/18 08:00 98.7 80 18 118/71 (87) 99 12/30/18 05:45 123/67 12/30/18 04:00 98.9 76 18 123/67 (85) 100 12/30/18 00:00 98.1 66 18 132/69 (90) 97 12/29/18 22:05 143/73 12/29/18 21:16 64 143/18 12/29/18 21:00 Room Air 12/29/18 20:00 98.3 64 18 143/73 (96) 96 12/29/18 17:50 97.2 12/29/18 16:00 97.2 81 19 145/83 (103) 97 Intake and Output 12/29/18 12/30/18 18:59 06:59 Intake Total 300 ml Output Total 3300 ml Balance 300 ml -3300 ml Intake Oral 300 ml Output Urine Total 300 ml Hemodialysis UF 3000 ml Height (Feet): 5 Height (Inches): 6.00 Weight (Pounds): 145 Objective PE: Vitals: reviewed General Appearance: NAD, nonverbal HEENT: normocephalic, atraumatic Neck: non-tender, normal alignment Respiratory/Chest: nromal breath sounds bilaterally Cardiovascular/Chest: normal peripheral pulses, normal rate Abdomen: normal bowel sounds, soft, nontender Extremities: normal range of motion . Enrrique Solano MD December 30, 2018 14:49
[2018-12-30] MEDS: HydrOXYzine tab 25mg tab ORAL PRN ×2 (15:35→23:36)
--- NOTE | 2018-12-30 15:35 | Nephrology Progress Note ---
Assessment/Plan Problem List: (1) ESRD (end stage renal disease) (2) ARF (acute renal failure) (3) CHF (congestive heart failure) (4) Anemia in chronic kidney disease (CKD) (5) Nephrotic syndrome Assessment Advanced Renal failure with Proteinuria CKD known to the patient h/o HTN h/o Cardiac disease s/p stent ? DM high A1c Plan after and pre load reduction management discussed the need for Dialysis - catheter 12/17- dialysis 12/17 next 12/19 next 12/21 next 12/23 next 12/25 next 12/27 next 12/29, next 1000 cc fluid restriction Renal diet- Phos binders BP check kidney RUSSEL noted 24 h urine results noted per orders Echo Global left ventricular hypokinesis with falttenign of cody VS suggestive of RV pressuere overload Mild left ventricular enlargement . Left ventricular ejection fraction estimated to be 25-30%. RUSSEL * Portions of the right ureteral stent are partially visualized. Punctate echogenic focus also noted in the lower pole of the right kidney which may represent nonobstructing stone. * No evidence of hydronephrosis bilaterally. * Renal echogenicity appears within normal limits. * Bladder wall thickening is noted within question for cystitis, although findings may possibly related to underdistention. Correlation with urinalysis recommended. Uro consult from Dr Weiss: He also has a history of kidney stones and one month ago had a right ureteral stent placed at [facility] for the same by Dr. Florez. The patient was then referred to see Dr. Dolan as a urologist and has plan regarding the same and has established care with him. Diagnostic imaging reveals a stent in place. I discussed these findings today with the patient at bedside. His nephroureteral stent is in good position and there is no hydronephrosis or obstructing stone etc. The patient is in the hospital for unrelated issues including congestive heart failure exacerbation and acute on chronic renal insufficiency which does not appear to be secondary to obstructive uropathy. His stent should remain in place and once he is feeling better, he can be discharged and follow up with Dr. Dolan in the office regarding removal of the stent and treatment of the stones. Subjective ROS Limited/Unobtainable: No Constitutional: Reports: malaise, weakness Objective Objective Last 24 Hour Vital Signs Date Time Temp Pulse Resp B/P (MAP) Pulse Ox O2 Delivery O2 Flow Rate FiO2 12/30/18 13:18 122/77 12/30/18 12:00 98.3 77 18 122/77 (92) 99 12/30/18 08:48 76 123/67 12/30/18 08:47 123/67 12/30/18 08:20 Room Air 12/30/18 08:00 98.7 80 18 118/71 (87) 99 12/30/18 05:45 123/67 12/30/18 04:00 98.9 76 18 123/67 (85) 100 12/30/18 00:00 98.1 66 18 132/69 (90) 97 12/29/18 22:05 143/73 12/29/18 21:16 64 143/18 12/29/18 21:00 Room Air 12/29/18 20:00 98.3 64 18 143/73 (96) 96 12/29/18 17:50 97.2 12/29/18 16:00 97.2 81 19 145/83 (103) 97 Intake and Output 12/29/18 12/30/18 18:59 06:59 Intake Total 300 ml Output Total 3300 ml Balance 300 ml -3300 ml Intake Oral 300 ml Output Urine Total 300 ml Hemodialysis UF 3000 ml Height (Feet): 5 Height (Inches): 6.00 Weight (Pounds): 145 General Appearance: no apparent distress Cardiovascular: normal rate Respiratory/Chest: decreased breath sounds Abdomen: soft Objective no change Micah Pitt MD December 30, 2018 15:35
[2018-12-30 16:00] VITALS: BP 129/66
--- NOTE | 2018-12-30 16:24 | NUR ---
CHARGE NURSE NOTES: Spoke with JACKLYN [facility] nephrology. Made aware order for 5--19. Enrrique called back to confirm
--- NOTE | 2018-12-30 19:18 | NUR ---
HAND-OFF: Report given to GRIS Jain.
[2018-12-30 20:00] VITALS: BP 135/66
--- NOTE | 2018-12-30 20:50 | NUR ---
NURSE NOTES: Pt is in bed, awake and alert. No acute distress noted. Pt is scheduled for HD tomorrow. [facility] HD services was called by last shift charge nurse to inform. Bed locked low in position,side rails up and call light within reach. Pt is instructed to call before getting out of bed. Pt will be monitored.
--- NOTE | 2018-12-30 21:14 | General Progress Note ---
Assessment/Plan Problem List: (1) CHF exacerbation ICD Codes: I50.9 - Heart failure, unspecified SNOMED: 67288114 (2) Pyelonephritis ICD Codes: N12 - Tubulo-interstitial nephritis, not specified as acute or chronic SNOMED: 57312992 (3) Pancytopenia ICD Codes: D61.818 - Other pancytopenia SNOMED: 501473263 (4) CHF (congestive heart failure) ICD Codes: I50.9 - Heart failure, unspecified SNOMED: 15190730 (5) Anemia in chronic kidney disease (CKD) ICD Codes: N18.9 - Chronic kidney disease, unspecified; D63.1 - Anemia in chronic kidney disease SNOMED: 896199576 (6) ARF (acute renal failure) ICD Codes: N17.9 - Acute kidney failure, unspecified SNOMED: 68148138 (7) ESRD (end stage renal disease) ICD Codes: N18.6 - End stage renal disease SNOMED: 78845257 (8) Nephrotic syndrome ICD Codes: N04.9 - Nephrotic syndrome with unspecified morphologic changes SNOMED: 47373599 Status: stable, progressing Assessment/Plan: still edema pancytopenia anemia chf looking for diaylsis center s/p stent esrd on hd Subjective ROS Limited/Unobtainable: Yes Allergies: Coded Allergies: No Known Allergies (Unverified , 12/14/18) Objective Last 24 Hour Vital Signs Date Time Temp Pulse Resp B/P (MAP) Pulse Ox O2 Delivery O2 Flow Rate FiO2 12/30/18 16:00 98.8 78 19 129/66 (87) 99 12/30/18 13:18 122/77 12/30/18 12:00 98.3 77 18 122/77 (92) 99 12/30/18 08:48 76 123/67 12/30/18 08:47 123/67 12/30/18 08:20 Room Air 12/30/18 08:00 98.7 80 18 118/71 (87) 99 12/30/18 05:45 123/67 12/30/18 04:00 98.9 76 18 123/67 (85) 100 12/30/18 00:00 98.1 66 18 132/69 (90) 97 12/29/18 22:05 143/73 12/29/18 21:16 64 143/18 Intake and Output 12/29/18 12/30/18 19:00 07:00 Intake Total 300 ml Output Total 3300 ml Balance 300 ml -3300 ml Intake Oral 300 ml Output Urine Total 300 ml Hemodialysis UF 3000 ml Laboratory Tests 12/30/18 19:30: Hepatitis B Surface Antigen [Pending], Hepatitis B Surface Antibody [Pending] Height (Feet): 5 Height (Inches): 6.00 Weight (Pounds): 145 Neck: supple Cardiovascular: normal rate Respiratory/Chest: lungs clear Abdomen: soft Sarahi Shaffer MD December 30, 2018 21:14
[2018-12-30] MEDS: Tamsulosin 0.4mg cap ORAL SCH (23:36)
[2018-12-31] VITALS: BP 128/66
[2018-12-31 04:00] VITALS: BP 126/68
--- NOTE | 2018-12-31 04:46 | NUR ---
NURSE NOTES: Microbiology called informing that pt is positive for ESBL urine. Dr. Mercedez Brown called and notified.
--- NOTE | 2018-12-31 06:00 | NUR ---
NURSE NOTES: Pt is in bed, awake and alert. No acute distress noted.
[2018-12-31] MEDS: NovoLOG Insulin Flexpen SUBQ SCH ×4 (06:30→21:00)
[2018-12-31] MEDS: HydrALAZINE 25mg tab ORAL SCH ×3 (06:48→21:17)
[2018-12-31] MEDS: HydrOXYzine tab 25mg tab ORAL PRN (06:48)
--- NOTE | 2018-12-31 07:20 | NUR ---
HAND-OFF: Report given to Nadia Prabhakar RN.
[2018-12-31 08:00] VITALS: BP 120/57
--- NOTE | 2018-12-31 08:04 | NUR ---
NURSE NOTES: pt in bed with no sob nor in any form of distress nor in any distress noted. Breathing regular and unlabored. denies any pain at this time. call light within reach at all time.
[2018-12-31] MEDS: Docusate 100mg cap ORAL SCH ×4 (08:44→17:19)
[2018-12-31] MEDS: Aspirin Baby 81mg ORAL SCH ×2 (08:44→08:47)
[2018-12-31] MEDS: Allopurinol 100mg Tab ORAL SCH (08:45)
[2018-12-31] MEDS: Carvedilol 12.5mg tab ORAL SCH ×2 (08:45→21:16)
[2018-12-31] MEDS: Calcitriol 0.25mcg Cap ORAL SCH (08:45)
[2018-12-31] MEDS: Imdur 30mg tab ORAL SCH (08:45)
[2018-12-31] MEDS: Heparin 5000 units/ml inj SUBQ SCH ×2 (08:46→21:00)
--- NOTE | 2018-12-31 09:50 | Infectious Diseases Prog Note ---
Assessment/Plan Assessment/Plan IMPRESSION: UTI with ESBL Klebsiella combined systolic and diastolic heart failure pulmonary artery hypertension, chronic kidney disease end-stage renal disease proteinuria, pancytopenia, coronary artery disease. Change in vision in left eye s/p ureteral stent RECOMMENDATION: Start on PO Ciprofloxacin Ophthalmology evaluation Subjective ROS Limited/Unobtainable: No Respiratory: Reports: no symptoms Gastrointestinal/Abdominal: Reports: no symptoms Genitourinary: Reports: hematuria Neurologic: Reports: no symptoms Allergies: Coded Allergies: No Known Allergies (Unverified , 12/14/18) Objective Vital Signs Last 24 Hour Vital Signs Date Time Temp Pulse Resp B/P (MAP) Pulse Ox O2 Delivery O2 Flow Rate FiO2 12/31/18 08:00 98.3 76 16 120/57 (78) 99 12/31/18 06:48 126/68 12/31/18 04:00 98.8 80 16 126/68 (87) 98 12/31/18 00:00 97.5 75 18 128/66 (86) 98 12/30/18 23:37 135/66 12/30/18 23:36 80 135/66 12/30/18 21:00 Room Air 12/30/18 20:00 99.0 80 18 135/66 (89) 99 12/30/18 16:00 98.8 78 19 129/66 (87) 99 12/30/18 13:18 122/77 12/30/18 12:00 98.3 77 18 122/77 (92) 99 Height (Feet): 5 Height (Inches): 6.00 Weight (Pounds): 145 General Appearance: no acute distress HEENT: mucous membranes moist Respiratory/Chest: lungs clear Cardiovascular: normal rate, other - HD line Abdomen: soft, non tender Extremities: no edema Microbiology Date/Time Source Procedure Growth Status 12/28/18 23:10 Urine,Clean Catch Urine Culture - Final Klebsiella Pneumoniae Esbl Complete Laboratory Tests Test 12/30/18 19:30 Hepatitis B Surface Antigen Pending Hepatitis B Surface Antibody Pending Current Medications Medications (Trade) Dose Ordered Sig/Félix Route PRN Reason Start Time Stop Time Status Last Admin Dose Admin Acetaminophen (Tylenol) 650 mg Q4H PRN ORAL Mild Pain/Temp > 100.5 12/14/18 15:45 01/13/19 15:44 12/29/18 17:20 Allopurinol (Zyloprim) 100 mg DAILY ORAL 12/15/18 09:00 01/14/19 08:59 12/31/18 08:45 Aspirin (ASA) 162 mg DAILY ORAL 12/14/18 15:45 01/13/19 15:44 12/30/18 08:48 Calcitriol (Rocatrol) 0.25 mcg DAILY ORAL 12/19/18 09:00 01/14/19 08:59 12/31/18 08:45 Carvedilol (Coreg) 12.5 mg EVERY 12 HOURS ORAL 12/19/18 21:00 01/13/19 20:59 12/30/18 23:36 Dextrose (Dextrose 50%) 25 ml Q30M PRN IV Hypoglycemia 12/21/18 18:15 01/20/19 18:14 Dextrose (Dextrose 50%) 50 ml Q30M PRN IV Hypoglycemia 12/21/18 18:15 01/20/19 18:14 Docusate Sodium (Colace) 100 mg TID ORAL 12/17/18 13:00 01/13/19 17:59 12/30/18 17:18 Epoetin Jordon (Epoetin Jordon(ESRD on dialysis)) 10,000 unit THU-THU-THU SUBQ 12/22/18 21:00 01/21/19 20:59 12/29/18 22:57 Heparin Sodium (Porcine) (Heparin 5000 units/ml) 5,000 units EVERY 12 HOURS SUBQ 12/15/18 21:00 01/13/19 20:59 12/30/18 08:51 Hydralazine HCl (Apresoline) 25 mg Q8HR ORAL 12/22/18 22:00 01/17/19 00:00 12/31/18 06:48 Hydroxyzine HCl (Atarax) 25 mg Q6H PRN ORAL Itching 12/28/18 10:15 01/27/19 10:14 12/31/18 06:48 Insulin Aspart (NovoLOG) BEFORE MEALS AND HS SUBQ 12/21/18 21:00 01/20/19 20:59 12/30/18 23:39 Isosorbide Mononitrate (Imdur) 30 mg DAILY ORAL 12/14/18 20:45 01/13/19 20:44 12/30/18 08:47 Ondansetron HCl (Zofran) 4 mg Q6H PRN IVP Nausea & Vomiting 12/20/18 13:30 01/19/19 13:29 12/25/18 10:32 Pantoprazole (Protonix) 40 mg EVERY 12 HOURS ORAL 12/14/18 21:00 01/13/19 20:59 12/31/18 08:45 Sevelamer Carbonate (Renvela) 800 mg THREE TIMES A DAY ORAL 12/20/18 13:00 01/18/19 08:59 12/31/18 08:45 Tamsulosin HCl (Flomax) 0.4 mg BEDTIME ORAL 12/16/18 21:00 01/15/19 20:59 12/30/18 23:36 Omi Brown MD December 31, 2018 09:50
[2018-12-31] MEDS ORDERED: Ciprofloxacin 500mg tab ORAL SCH (10:45)
--- NOTE | 2018-12-31 11:12 | NUR ---
*-* INSURANCE *-* UPDATED CLINICALS HAVE BEEN FAXED TO: ROMAIN FRANCO: NURYS P:[phone] F:[phone]
[2018-12-31 12:00] VITALS: BP 117/62
--- NOTE | 2018-12-31 13:21 | NUR ---
RD ASSESSMENT & RECOMMENDATIONS SEE CARE ACTIVITY FOR COMPLETE ASSESSMENT DAILY ESTIMATED NEEDS: Needs based on ESRD w/ HD, 66kg 25-35 kcals/kg 3113-9803 total kcals 1.2-1.8 g protein/kg 79-119 g total protein 1000ml fluid restriction per MD NUTRITION DIAGNOSIS: * Altered nutrition related lab values r/t ESRD as evidenced by low hgb (8.6), elev BUN (78), elev Creat (6.8) and elev Phos 6.0-> 5.0), elev BNP (36424). * Increased kcal/prot needs R/T renal dysfunction as evidenced by ESRD dx, pt now on HD. CURRENT DIET: CCHO MED/ Renal, 1000ml fluid restriction PO DIET RECOMMENDATIONS: Maintain CCHO MED/ RENAL DIET + Double Protein Portions ADDITIONAL RECOMMENDATIONS: 1) Monitor BG, need for CCHO restriction 2) Obtain dry wt post HD- rec STANDING wt for accuracy 3) Rec accucheck, monitor need for SSI- h/o DM, elev A1C 7.0 4) Fluid restriction per - 1000ml FR at this time 5) Renal diet ed provided - Additionally, High phos food diet edu provided (/) 6) Bowel regimen
--- NOTE | 2018-12-31 13:37 | GI Initial Consult Note ---
History of Present Illness General Date patient seen: December 31, 2018 Time patient seen: 13:36 Reason for Hospitalization: Abdominal Pain Referring physician: FARHAT HAWKINS Reason for Consultation: CONSTIPATION Present Illness HPI This patient has a history of right sided congestive heart failure. There is also a history of renal failure. The patient and the family state that they are confused, and are not sure if the patient actually has renal failure. About a month and a half ago the patient underwent a ureteral stent at [facility] on the right side. He is being followed by a urologist, Dr. Galo Dolan. He has had intermittent lower body and lower extremity edema. He is intermittently on diuretics. He presents today for recurrence of his edema that includes his abdomen, scrotum and legs. He denies cough or shortness of breath. He denies fever or chills. He denies nausea or vomiting. He has no other complaints. GI consulted for constipation. Patient seen, awake alert and oriented times reports no apparent distress with no active signs and symptoms of nausea or vomiting. The patient reports a bowel movement approximately once every 5 to 6 days. The patient denies any abdominal pain, denies any nausea vomiting or diarrhea. The abdomen is soft, nondistended, nontender to palpation. Labs reviewed; noted anemia, leukopenia, mild LFT elevation and hypoalbuminemia. No history of endoscopic or colonoscopy. Home Meds Reported Medications Carvedilol* (CARVEDILOL*) 6.25 Mg Tablet, 6.25 MG ORAL EVERY 12 HOURS, TAB 12/14/18 Furosemide* (LASIX*) 40 Mg Tablet, 40 MG ORAL TWICE A DAY, TAB 0 Refills 12/14/18 Allergies: Coded Allergies: No Known Allergies (Unverified , 12/14/18) Patient History History Provided By: Patient, Medical Record PMH Narrative Allergies: Coded Allergies: No Known Allergies (Unverified , 12/14/18) Patient History Past Medical History: see triage record, HTN, NM, CAD, CHF, renal disease Social History: Denies: smoking, alcohol use, drug use Reviewed Nursing Documentation: PMH: Agreed; PSxH: Agreed Nursing Documentation-PMH Hx Cardiac Problems: Yes - chf Hx Hypertension: Yes Social History: Denies: smoking, alcohol use, drug use, other Review of Systems All Other Systems: negative except mentioned in HPI Physical Exam Vital Signs Date Time Temp Pulse Resp B/P (MAP) Pulse Ox O2 Delivery O2 Flow Rate FiO2 12/26/18 16:00 98.0 68 18 124/67 (86) 99 12/26/18 21:00 Room Air Sp02 EP Interpretation: reviewed, normal Labs Laboratory Tests Test 12/30/18 19:30 Hepatitis B Surface Antigen Pending Hepatitis B Surface Antibody Pending General Appearance: well appearing, no apparent distress, alert, thin Head: normocephalic EENT: PERRL/EOMI, normal ENT inspection Neck: supple Respiratory: normal breath sounds, no respiratory distress Cardiovascular: normal rate Gastrointestinal: normal inspection, non tender, soft, normal bowel sounds, non -distended Rectal: deferred Genitourinary: deferred Musculoskeletal: normal inspection, back normal Neurologic: normal inspection, alert, oriented x3, responsive Psychiatric: normal inspection, judgement/insight normal, memory normal Skin: normal inspection, normal color, no rash, warm/dry, palpation normal, well hydrated Lymphatic: normal inspection, no adenopathy Current Medications Current Medications Medications (Trade) Dose Ordered Sig/Félix Route PRN Reason Start Time Stop Time Status Last Admin Dose Admin Acetaminophen (Tylenol) 650 mg Q4H PRN ORAL Mild Pain/Temp > 100.5 12/14/18 15:45 01/13/19 15:44 12/29/18 17:20 Allopurinol (Zyloprim) 100 mg DAILY ORAL 12/15/18 09:00 01/14/19 08:59 12/31/18 08:45 Aspirin (ASA) 162 mg DAILY ORAL 12/14/18 15:45 01/13/19 15:44 12/30/18 08:48 Calcitriol (Rocatrol) 0.25 mcg DAILY ORAL 12/19/18 09:00 01/14/19 08:59 12/31/18 08:45 Carvedilol (Coreg) 12.5 mg EVERY 12 HOURS ORAL 12/19/18 21:00 01/13/19 20:59 12/30/18 23:36 Ciprofloxacin (Cipro 500mg tab) 500 mg DAILY ORAL 01/01/19 09:00 01/08/19 08:59 Dextrose (Dextrose 50%) 25 ml Q30M PRN IV Hypoglycemia 12/21/18 18:15 01/20/19 18:14 Dextrose (Dextrose 50%) 50 ml Q30M PRN IV Hypoglycemia 12/21/18 18:15 01/20/19 18:14 Docusate Sodium (Colace) 100 mg TID ORAL 12/17/18 13:00 01/13/19 17:59 12/30/18 17:18 Epoetin Jordon (Epoetin Jordon(ESRD on dialysis)) 10,000 unit THU-THU-THU SUBQ 12/22/18 21:00 01/21/19 20:59 12/29/18 22:57 Heparin Sodium (Porcine) (Heparin 5000 units/ml) 5,000 units EVERY 12 HOURS SUBQ 12/15/18 21:00 01/13/19 20:59 12/30/18 08:51 Hydralazine HCl (Apresoline) 25 mg Q8HR ORAL 12/22/18 22:00 01/17/19 00:00 12/31/18 06:48 Hydroxyzine HCl (Atarax) 25 mg Q6H PRN ORAL Itching 12/28/18 10:15 01/27/19 10:14 12/31/18 06:48 Insulin Aspart (NovoLOG) BEFORE MEALS AND HS SUBQ 12/21/18 21:00 01/20/19 20:59 12/31/18 12:35 Isosorbide Mononitrate (Imdur) 30 mg DAILY ORAL 12/14/18 20:45 01/13/19 20:44 12/30/18 08:47 Ondansetron HCl (Zofran) 4 mg Q6H PRN IVP Nausea & Vomiting 12/20/18 13:30 01/19/19 13:29 12/25/18 10:32 Pantoprazole (Protonix) 40 mg EVERY 12 HOURS ORAL 12/14/18 21:00 01/13/19 20:59 12/31/18 08:45 Sevelamer Carbonate (Renvela) 800 mg THREE TIMES A DAY ORAL 12/20/18 13:00 01/18/19 08:59 12/31/18 08:45 Tamsulosin HCl (Flomax) 0.4 mg BEDTIME ORAL 12/16/18 21:00 01/15/19 20:59 12/30/18 23:36 GI: Plan Problems: (1) Constipation (2) Anemia in chronic kidney disease (CKD) (3) Pancytopenia Plan Renal diet Bowel regimen, continue stool softener and add miralax qhs Add Senokot prn Zofran as needed PPI Electrolyte correction Follow labs Outpatient GI procedures Discussed with Dr. Hirsch. Thank you for this patient referral, we will follow. The patient was seen and examined at bedside and all new and available data was reviewed in the patients chart. I agree with the above findings, impression and plan. (Patient seen earlier today. Signature stamp does not reflect patient encounter time.). - MD Obdulia RubiEncompass Health Rehabilitation Hospital Of ScottsdaleTatyana CLEANING SUPERVISOR December 31, 2018 13:36
[2018-12-31] MEDS ORDERED: Sennosides 8.6mg tab ORAL PRN (13:45)
--- NOTE | 2018-12-31 15:50 | NUR ---
Social Service Note Patient prolonged hospitalization due to patient requiring outpatient dialysis. Insurance locating dialysis units available. Once outpatient dialysis arrangement are in place patient will return home. Patient aware and in agreement with hospitalization awaiting outpatient services are in place. Will be available as needed.
[2018-12-31 16:00] VITALS: BP 138/78
--- NOTE | 2018-12-31 16:49 | NUR ---
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 CHF VS: BP 120/57, P 76, T 97.5, RR 18, SpO2 99 IS: CIPROFLOXACIN 500mg HYDROXYZINE 25mg APRESOLINE 25mg EPOETIN ALBINA SUBQ NOVOLOG SUBQ RENVELA 800mg COREG 12.5mg IMDUR 30mg ALLOPURINOL 100mg MED/SURG
--- NOTE | 2018-12-31 17:44 | Nephrology Progress Note ---
Assessment/Plan Problem List: (1) ESRD (end stage renal disease) (2) ARF (acute renal failure) (3) CHF (congestive heart failure) (4) Anemia in chronic kidney disease (CKD) (5) Nephrotic syndrome Assessment Advanced Renal failure with Proteinuria CKD known to the patient h/o HTN h/o Cardiac disease s/p stent ? DM high A1c Plan after and pre load reduction management discussed the need for Dialysis - catheter 12/17- dialysis 12/17 next 12/19 next 12/21 next 12/23 next 12/25 next 12/27 next 12/29, next 1000 cc fluid restriction Renal diet- Phos binders BP check kidney RUSSEL noted 24 h urine results noted per orders Echo Global left ventricular hypokinesis with falttenign of cody VS suggestive of RV pressuere overload Mild left ventricular enlargement . Left ventricular ejection fraction estimated to be 25-30%. RUSSEL * Portions of the right ureteral stent are partially visualized. Punctate echogenic focus also noted in the lower pole of the right kidney which may represent nonobstructing stone. * No evidence of hydronephrosis bilaterally. * Renal echogenicity appears within normal limits. * Bladder wall thickening is noted within question for cystitis, although findings may possibly related to underdistention. Correlation with urinalysis recommended. Uro consult from Dr Weiss: He also has a history of kidney stones and one month ago had a right ureteral stent placed at [facility] for the same by Dr. Florez. The patient was then referred to see Dr. Dolan as a urologist and has plan regarding the same and has established care with him. Diagnostic imaging reveals a stent in place. I discussed these findings today with the patient at bedside. His nephroureteral stent is in good position and there is no hydronephrosis or obstructing stone etc. The patient is in the hospital for unrelated issues including congestive heart failure exacerbation and acute on chronic renal insufficiency which does not appear to be secondary to obstructive uropathy. His stent should remain in place and once he is feeling better, he can be discharged and follow up with Dr. Dolan in the office regarding removal of the stent and treatment of the stones. Subjective ROS Limited/Unobtainable: No Constitutional: Reports: malaise Objective Objective Last 24 Hour Vital Signs Date Time Temp Pulse Resp B/P (MAP) Pulse Ox O2 Delivery O2 Flow Rate FiO2 12/31/18 12:00 98.3 79 16 117/62 (80) 99 12/31/18 09:00 Room Air 12/31/18 08:00 98.3 76 16 120/57 (78) 99 12/31/18 06:48 126/68 12/31/18 04:00 98.8 80 16 126/68 (87) 98 12/31/18 00:00 97.5 75 18 128/66 (86) 98 12/30/18 23:37 135/66 12/30/18 23:36 80 135/66 12/30/18 21:00 Room Air 12/30/18 20:00 99.0 80 18 135/66 (89) 99 Intake and Output 12/30/18 12/31/18 18:59 06:59 Output Total 250 ml Balance -250 ml Output Urine Total 250 ml # Voids 2 Laboratory Tests 12/30/18 19:30: Hepatitis B Surface Antigen [Pending], Hepatitis B Surface Antibody [Pending] Height (Feet): 5 Height (Inches): 6.00 Weight (Pounds): 145 General Appearance: no apparent distress Objective no change Micah Pitt MD December 31, 2018 17:44
--- NOTE | 2018-12-31 19:21 | NUR ---
HAND-OFF: Report given to GRIS Booker.
[2018-12-31 20:00] VITALS: BP 132/71
--- NOTE | 2018-12-31 20:00 | NUR ---
NURSE NOTES: Patient received sitting on the side of the bed. Denies pain or discomfort at this time. R chest permacath dressing intact. Call light and personal belongings within reach. Instructed to call for assistance. Verbalized understanding .Will continue plan of care.
--- NOTE | 2018-12-31 20:47 | General Progress Note ---
Assessment/Plan Problem List: (1) CHF exacerbation ICD Codes: I50.9 - Heart failure, unspecified SNOMED: 96684711 (2) Pyelonephritis ICD Codes: N12 - Tubulo-interstitial nephritis, not specified as acute or chronic SNOMED: 40289766 (3) Pancytopenia ICD Codes: D61.818 - Other pancytopenia SNOMED: 531320727 (4) CHF (congestive heart failure) ICD Codes: I50.9 - Heart failure, unspecified SNOMED: 13058115 (5) Anemia in chronic kidney disease (CKD) ICD Codes: N18.9 - Chronic kidney disease, unspecified; D63.1 - Anemia in chronic kidney disease SNOMED: 820496427 (6) ARF (acute renal failure) ICD Codes: N17.9 - Acute kidney failure, unspecified SNOMED: 39938999 (7) ESRD (end stage renal disease) ICD Codes: N18.6 - End stage renal disease SNOMED: 72538300 (8) Nephrotic syndrome ICD Codes: N04.9 - Nephrotic syndrome with unspecified morphologic changes SNOMED: 27256424 Status: stable, progressing Assessment/Plan: edema is much improved pancytopenia improved anemia chf looking for diaylsis center s/p cardiac and urethral stent esrd on hd Subjective ROS Limited/Unobtainable: Yes Allergies: Coded Allergies: No Known Allergies (Unverified , 12/14/18) Objective Last 24 Hour Vital Signs Date Time Temp Pulse Resp B/P (MAP) Pulse Ox O2 Delivery O2 Flow Rate FiO2 12/31/18 20:00 98.1 78 18 132/71 (91) 99 12/31/18 16:00 98.4 79 18 138/78 (98) 99 12/31/18 12:00 98.3 79 16 117/62 (80) 99 12/31/18 09:00 Room Air 12/31/18 08:00 98.3 76 16 120/57 (78) 99 12/31/18 06:48 126/68 12/31/18 04:00 98.8 80 16 126/68 (87) 98 12/31/18 00:00 97.5 75 18 128/66 (86) 98 12/30/18 23:37 135/66 12/30/18 23:36 80 135/66 12/30/18 21:00 Room Air Intake and Output 12/30/18 12/31/18 18:59 06:59 Output Total 250 ml Balance -250 ml Output Urine Total 250 ml # Voids 2 Height (Feet): 5 Height (Inches): 6.00 Weight (Pounds): 145 Neck: supple Cardiovascular: normal rate Respiratory/Chest: lungs clear Abdomen: soft Sarahi Shaffer MD December 31, 2018 20:47
[2018-12-31] MEDS: Miralax 17gm pkt ORAL SCH (21:00)
[2018-12-31] MEDS: Tamsulosin 0.4mg cap ORAL SCH (21:17)
[2018-12-31] MEDS: Epoetin Alfa(ESRD on dialysis)10,000 unit/ml vial SUBQ SCH (21:17)
[2019-01-01] VITALS: BP 127/73
[2019-01-01 04:03] VITALS: BP 135/79
[2019-01-01] MEDS: HydrALAZINE 25mg tab ORAL SCH ×3 (06:01→21:49)
[2019-01-01] MEDS: NovoLOG Insulin Flexpen SUBQ SCH ×4 (06:02→21:52)
[2019-01-01 06:37] LABS: HEMATOCRIT 27.9 % (42.0-52.0); HEMOGLOBIN 8.7 G/DL (14.2-18.0); MEAN CORPUSCULAR VOLUME 93 FL (80-99); PLATELET COUNT 67 K/UL (150-450); RED BLOOD COUNT 3.01 M/UL (4.70-6.10); RED CELL DISTRIBUTION WIDTH 18.7 % (11.6-14.8); WHITE BLOOD COUNT 4.5 K/UL (4.8-10.8)
--- NOTE | 2019-01-01 06:50 | General Progress Note ---
Assessment/Plan Problem List: (1) Gallstones ICD Codes: K80.20 - Calculus of gallbladder without cholecystitis without obstruction SNOMED: 796651874 (2) DM (diabetes mellitus) ICD Codes: E11.9 - Type 2 diabetes mellitus without complications SNOMED: 35592683 (3) possible cirrhosis (4) Constipation ICD Codes: K59.00 - Constipation, unspecified SNOMED: 36745483 (5) CHF exacerbation ICD Codes: I50.9 - Heart failure, unspecified SNOMED: 95699235 (6) ESRD (end stage renal disease) ICD Codes: N18.6 - End stage renal disease SNOMED: 32978289 (7) Anemia in chronic kidney disease (CKD) ICD Codes: N18.9 - Chronic kidney disease, unspecified; D63.1 - Anemia in chronic kidney disease SNOMED: 435489312 Status: stable, progressing Assessment/Plan: bowel regimen abd us dc protonix fu labs Subjective ROS Limited/Unobtainable: Yes Allergies: Coded Allergies: No Known Allergies (Unverified , 12/14/18) Subjective had bm Objective Last 24 Hour Vital Signs Date Time Temp Pulse Resp B/P (MAP) Pulse Ox O2 Delivery O2 Flow Rate FiO2 01/01/19 06:01 139/73 01/01/19 04:03 97.7 76 18 135/79 (97) 98 01/01/19 00:00 97.7 78 18 127/73 (91) 96 12/31/18 21:17 132/71 12/31/18 21:16 78 132/71 12/31/18 21:00 Room Air 12/31/18 20:00 98.1 78 18 132/71 (91) 99 12/31/18 16:00 98.4 79 18 138/78 (98) 99 12/31/18 12:00 98.3 79 16 117/62 (80) 99 12/31/18 09:00 Room Air 12/31/18 08:00 98.3 76 16 120/57 (78) 99 Intake and Output 12/31/18 01/01/19 19:00 07:00 Intake Total 400 ml 120 ml Output Total 3000 ml 100 ml Balance -2600 ml 20 ml Intake Oral 400 ml 120 ml Output Urine Total 100 ml Hemodialysis UF 3000 ml # Voids 1 Laboratory Tests 01/01/19 04:55: White Blood Count [Pending], Red Blood Count [Pending], Hemoglobin [Pending], Hematocrit [Pending], Mean Corpuscular Volume [Pending], Mean Corpuscular Hemoglobin [Pending], Mean Corpuscular Hemoglobin Concent [Pending], Red Cell Distribution Width [Pending], Platelet Count [Pending], Mean Platelet Volume [ Pending], Neutrophils (%) (Auto) [Pending], Lymphocytes (%) (Auto) [Pending], Monocytes (%) (Auto) [Pending], Eosinophils (%) (Auto) [Pending], Basophils (%) (Auto) [Pending], Sodium Level [Pending], Potassium Level [Pending], Chloride Level [Pending], Carbon Dioxide Level [Pending], Blood Urea Nitrogen [Pending], Creatinine [Pending], Estimat Glomerular Filtration Rate [Pending], Glucose Level [Pending], Calcium Level [Pending], Total Bilirubin [Pending], Aspartate Amino Transf (AST/SGOT) [Pending], Alanine Aminotransferase (ALT/SGPT) [Pending] , Alkaline Phosphatase [Pending], Total Protein [Pending], Albumin [Pending], Globulin [Pending] Height (Feet): 5 Height (Inches): 6.00 Weight (Pounds): 145 General Appearance: no apparent distress EENT: normal ENT inspection Neck: supple Cardiovascular: normal rate, regular rhythm Respiratory/Chest: decreased breath sounds Abdomen: normal bowel sounds, non tender, soft Edema: moderate edema Jonathan Hirsch MD January 01, 2019 06:50
[2019-01-01 06:51] LABS: ALANINE AMINOTRANSFERASE 32 U/L (12-78); ALBUMIN 2.7 G/DL (3.4-5.0); ALBUMIN/GLOBULIN RATIO 0.6 (1.0-2.7); ALKALINE PHOSPHATASE 355 U/L (46-116); ANION GAP 6 mmol/L (5-15); ASPARTATE AMINO TRANSFERASE 42 U/L (15-37); BILIRUBIN,TOTAL 2.1 MG/DL (0.2-1.0); BLOOD UREA NITROGEN 48 mg/dL (7-18); CALCIUM 8.3 MG/DL (8.5-10.1); CARBON DIOXIDE 32 MMOL/L (21-32); CHLORIDE 101 MMOL/L (98-107); CREATININE 5.5 MG/DL (0.55-1.30); POTASSIUM 4.6 MMOL/L (3.5-5.1); SODIUM 138 MMOL/L (136-145)
[2019-01-01 06:53] LABS: BILIRUBIN,DIRECT 1.7 MG/DL (0.0-0.3)
--- NOTE | 2019-01-01 07:24 | NUR ---
HAND-OFF: Report given to Carlos LANDRY.
--- NOTE | 2019-01-01 07:45 | NUR ---
NURSE NOTES: PT AXOX4, CALM, RESTING IN BED. IN NO APPARENT DISTRESS AT THIS TIME. DENIES PAIN OR N/V. PT STATES HE WAS NAUSEATED AND VOMITED YESTERDAY. PT WAS ENCOURAGED TO WALK AND SIT ON CHAIR AT BEDSIDE. PT VERBALIZED UNDERSTANDING. PT UNDERSTANDS HE IS TO HAVE NOTHING BY MOUTH DUE TO PENDING US ABD. WILL CONTINUE TO MONITOR.
[2019-01-01 07:59] VITALS: BP 132/73
[2019-01-01] MEDS: Docusate 100mg cap ORAL SCH ×3 (08:20→17:10)
[2019-01-01] MEDS: Allopurinol 100mg Tab ORAL SCH (08:21)
[2019-01-01] MEDS: Carvedilol 12.5mg tab ORAL SCH ×2 (08:21→20:13)
[2019-01-01] MEDS: Imdur 30mg tab ORAL SCH (08:21)
[2019-01-01] MEDS: Calcitriol 0.25mcg Cap ORAL SCH (08:21)
[2019-01-01] MEDS: Ciprofloxacin 500mg tab ORAL SCH (08:22)
[2019-01-01] MEDS: Aspirin Baby 81mg ORAL SCH (08:22)
[2019-01-01] MEDS: Heparin 5000 units/ml inj SUBQ SCH ×2 (08:23→20:10)
--- NOTE | 2019-01-01 09:10 | General Progress Note ---
Assessment/Plan Problem List: (1) CHF exacerbation ICD Codes: I50.9 - Heart failure, unspecified SNOMED: 42016296 (2) Pyelonephritis ICD Codes: N12 - Tubulo-interstitial nephritis, not specified as acute or chronic SNOMED: 26170348 (3) Pancytopenia ICD Codes: D61.818 - Other pancytopenia SNOMED: 141659042 (4) CHF (congestive heart failure) ICD Codes: I50.9 - Heart failure, unspecified SNOMED: 21173034 (5) Anemia in chronic kidney disease (CKD) ICD Codes: N18.9 - Chronic kidney disease, unspecified; D63.1 - Anemia in chronic kidney disease SNOMED: 079428917 (6) ARF (acute renal failure) ICD Codes: N17.9 - Acute kidney failure, unspecified SNOMED: 53358402 (7) ESRD (end stage renal disease) ICD Codes: N18.6 - End stage renal disease SNOMED: 18520738 (8) Nephrotic syndrome ICD Codes: N04.9 - Nephrotic syndrome with unspecified morphologic changes SNOMED: 46331235 Status: stable, progressing Assessment/Plan: mild abdominal pain r/o constipation gi consulte chf looking for diaylsis center s/p cardiac and urethral stent esrd on hd Subjective ROS Limited/Unobtainable: Yes Allergies: Coded Allergies: No Known Allergies (Unverified , 12/14/18) Objective Last 24 Hour Vital Signs Date Time Temp Pulse Resp B/P (MAP) Pulse Ox O2 Delivery O2 Flow Rate FiO2 01/01/19 08:21 73 132/73 01/01/19 08:21 132/73 01/01/19 07:59 99.5 73 18 132/73 (92) 99 01/01/19 06:01 139/73 01/01/19 04:03 97.7 76 18 135/79 (97) 98 01/01/19 00:00 97.7 78 18 127/73 (91) 96 12/31/18 21:17 132/71 12/31/18 21:16 78 132/71 12/31/18 21:00 Room Air 12/31/18 20:00 98.1 78 18 132/71 (91) 99 12/31/18 16:00 98.4 79 18 138/78 (98) 99 12/31/18 12:00 98.3 79 16 117/62 (80) 99 Intake and Output 12/31/18 01/01/19 19:00 07:00 Intake Total 400 ml 120 ml Output Total 3000 ml 100 ml Balance -2600 ml 20 ml Intake Oral 400 ml 120 ml Output Urine Total 100 ml Hemodialysis UF 3000 ml # Voids 1 Laboratory Tests 01/01/19 04:55: White Blood Count 4.5L, Red Blood Count 3.01L, Hemoglobin 8.7L, Hematocrit 27.9L , Mean Corpuscular Volume 93, Mean Corpuscular Hemoglobin 28.8, Mean Corpuscular Hemoglobin Concent 31.0L, Red Cell Distribution Width 18.7H, Platelet Count 67L, Mean Platelet Volume 8.9, Neutrophils (%) (Auto) , Lymphocytes (%) (Auto) , Monocytes (%) (Auto) , Eosinophils (%) (Auto) , Basophils (%) (Auto) , Differential Total Cells Counted 100, Neutrophils % ( Manual) 73, Lymphocytes % (Manual) 21, Monocytes % (Manual) 5, Eosinophils % ( Manual) 1, Basophils % (Manual) 0, Band Neutrophils 0, Platelet Estimate DecreasedL, Platelet Morphology Normal, Hypochromasia 1+, Anisocytosis 1+, Sodium Level 138, Potassium Level 4.6, Chloride Level 101, Carbon Dioxide Level 32, Anion Gap 6, Blood Urea Nitrogen 48H, Creatinine 5.5H, Estimat Glomerular Filtration Rate 10.9, Glucose Level 117H, Calcium Level 8.3L, Total Bilirubin 2.1H, Direct Bilirubin 1.7H, Aspartate Amino Transf (AST/SGOT) 42H, Alanine Aminotransferase (ALT/SGPT) 32, Alkaline Phosphatase 355H, Total Protein 6.9, Albumin 2.7L, Globulin 4.2, Albumin/Globulin Ratio 0.6L Height (Feet): 5 Height (Inches): 6.00 Weight (Pounds): 145 Neck: supple Cardiovascular: regular rhythm Abdomen: soft Sarahi Shaffer MD January 01, 2019 09:10
[2019-01-01 12:00] VITALS: BP 137/78
--- NOTE | 2019-01-01 12:16 | Nephrology Progress Note ---
Assessment/Plan Problem List: (1) ESRD (end stage renal disease) (2) ARF (acute renal failure) (3) CHF (congestive heart failure) (4) Anemia in chronic kidney disease (CKD) (5) Nephrotic syndrome (6) UTI (urinary tract infection) Assessment Advanced Renal failure with Proteinuria CKD known to the patient h/o HTN h/o Cardiac disease s/p stent ? DM high A1c Plan will contact Uro to DC Urethral stent after and pre load reduction management discussed the need for Dialysis - catheter 12/17- dialysis 12/17 next 12/19 next 12/21 next 12/23 next 12/25 next 12/27 next 12/29, next 1000 cc fluid restriction Renal diet- Phos binders BP check kidney RUSSEL noted 24 h urine results noted per orders Echo Global left ventricular hypokinesis with falttenign of cody VS suggestive of RV pressuere overload Mild left ventricular enlargement . Left ventricular ejection fraction estimated to be 25-30%. RUSSEL * Portions of the right ureteral stent are partially visualized. Punctate echogenic focus also noted in the lower pole of the right kidney which may represent nonobstructing stone. * No evidence of hydronephrosis bilaterally. * Renal echogenicity appears within normal limits. * Bladder wall thickening is noted within question for cystitis, although findings may possibly related to underdistention. Correlation with urinalysis recommended. Uro consult from Dr Weiss: He also has a history of kidney stones and one month ago had a right ureteral stent placed at [facility] for the same by Dr. Florez. The patient was then referred to see Dr. Dolan as a urologist and has plan regarding the same and has established care with him. Diagnostic imaging reveals a stent in place. I discussed these findings today with the patient at bedside. His nephroureteral stent is in good position and there is no hydronephrosis or obstructing stone etc. The patient is in the hospital for unrelated issues including congestive heart failure exacerbation and acute on chronic renal insufficiency which does not appear to be secondary to obstructive uropathy. His stent should remain in place and once he is feeling better, he can be discharged and follow up with Dr. Dolan in the office regarding removal of the stent and treatment of the stones. Subjective ROS Limited/Unobtainable: No Constitutional: Reports: malaise Objective Objective Last 24 Hour Vital Signs Date Time Temp Pulse Resp B/P (MAP) Pulse Ox O2 Delivery O2 Flow Rate FiO2 01/01/19 09:00 Room Air 01/01/19 08:21 73 132/73 01/01/19 08:21 132/73 01/01/19 07:59 99.5 73 18 132/73 (92) 99 01/01/19 06:01 139/73 01/01/19 04:03 97.7 76 18 135/79 (97) 98 01/01/19 00:00 97.7 78 18 127/73 (91) 96 12/31/18 21:17 132/71 12/31/18 21:16 78 132/71 12/31/18 21:00 Room Air 12/31/18 20:00 98.1 78 18 132/71 (91) 99 12/31/18 16:00 98.4 79 18 138/78 (98) 99 Intake and Output 12/31/18 01/01/19 19:00 07:00 Intake Total 400 ml 120 ml Output Total 3000 ml 100 ml Balance -2600 ml 20 ml Intake Oral 400 ml 120 ml Output Urine Total 100 ml Hemodialysis UF 3000 ml # Voids 1 Laboratory Tests 01/01/19 04:55: White Blood Count 4.5L, Red Blood Count 3.01L, Hemoglobin 8.7L, Hematocrit 27.9L , Mean Corpuscular Volume 93, Mean Corpuscular Hemoglobin 28.8, Mean Corpuscular Hemoglobin Concent 31.0L, Red Cell Distribution Width 18.7H, Platelet Count 67L, Mean Platelet Volume 8.9, Neutrophils (%) (Auto) , Lymphocytes (%) (Auto) , Monocytes (%) (Auto) , Eosinophils (%) (Auto) , Basophils (%) (Auto) , Differential Total Cells Counted 100, Neutrophils % ( Manual) 73, Lymphocytes % (Manual) 21, Monocytes % (Manual) 5, Eosinophils % ( Manual) 1, Basophils % (Manual) 0, Band Neutrophils 0, Platelet Estimate DecreasedL, Platelet Morphology Normal, Hypochromasia 1+, Anisocytosis 1+, Sodium Level 138, Potassium Level 4.6, Chloride Level 101, Carbon Dioxide Level 32, Anion Gap 6, Blood Urea Nitrogen 48H, Creatinine 5.5H, Estimat Glomerular Filtration Rate 10.9, Glucose Level 117H, Calcium Level 8.3L, Total Bilirubin 2.1H, Direct Bilirubin 1.7H, Aspartate Amino Transf (AST/SGOT) 42H, Alanine Aminotransferase (ALT/SGPT) 32, Alkaline Phosphatase 355H, Total Protein 6.9, Albumin 2.7L, Globulin 4.2, Albumin/Globulin Ratio 0.6L Height (Feet): 5 Height (Inches): 6.00 Weight (Pounds): 145 General Appearance: no apparent distress Objective no change Micah Pitt MD January 01, 2019 12:16
[2019-01-01 16:00] VITALS: BP 131/79
--- NOTE | 2019-01-01 16:17 | NUR ---
NURSE NOTES: RN CALLED [facility] AND MADE AWARE OF NEW HD ORDER FOR ThursdayJANUARY 03.
--- NOTE | 2019-01-01 17:06 | NUR ---
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 CHF VS: BP 145/73, P 75, T 97.8, RR 18, SpO2 97 WBC 4.5, RBC 3.01, H&H 8.7/27.8, BUN 48, CR 5.5 IS: CIPROFLOXACIN 500mg ALLOPURINOL 100mg COREG 12.5mg APRESOLINE 25mg IMDUR 30mg NOVOLOG SUBQ RENVELA 800mg MED/SURG
--- NOTE | 2019-01-01 19:12 | NUR ---
HAND-OFF: Report given to Paty UMAÑA RN.
[2019-01-01 20:00] VITALS: BP 138/72
--- NOTE | 2019-01-01 20:00 | NUR ---
NURSE NOTES: Patient received aox4, breathing even and unlabored. sitting in chair, leg elevated. IV intact. Call light in reach. Instructed to call for assistance, Verbalized understanding. Will monitor.
[2019-01-01] MEDS: Miralax 17gm pkt ORAL SCH (20:11)
[2019-01-01] MEDS: Tamsulosin 0.4mg cap ORAL SCH (20:11)
--- NOTE | 2019-01-01 22:00 | NUR ---
NURSE NOTES: Patient ambulating around the hallway, steady gait. No complaints at this time.
[2019-01-02] VITALS (7 sets, daily range): BP systolic 121–142; BP diastolic 71–79
--- NOTE | 2019-01-02 02:59 | NUR ---
HAND-OFF: Report given to Sarah AMADOR.
[2019-01-02] MEDS: HydrALAZINE 25mg tab ORAL SCH ×3 (06:20→21:26)
[2019-01-02] MEDS: NovoLOG Insulin Flexpen SUBQ SCH ×4 (06:20→21:19)
--- NOTE | 2019-01-02 06:21 | NUR ---
NURSE NOTES: BLOOD GLUCOSE LEVEL 139MG/DL, ASYMPTOMATIC, PATIENT NPO PENDING AM PROCEDURE, NO SLIDING SCALE ADMINISTERED.
[2019-01-02 07:24] LABS: HEMATOCRIT 27.8 % (42.0-52.0); HEMOGLOBIN 8.7 G/DL (14.2-18.0); MEAN CORPUSCULAR VOLUME 92 FL (80-99); PLATELET COUNT 83 K/UL (150-450); RED BLOOD COUNT 3.01 M/UL (4.70-6.10); RED CELL DISTRIBUTION WIDTH 18.6 % (11.6-14.8); WHITE BLOOD COUNT 4.2 K/UL (4.8-10.8)
[2019-01-02 07:28] LABS: ALANINE AMINOTRANSFERASE 31 U/L (12-78); ALBUMIN 2.7 G/DL (3.4-5.0); ALBUMIN/GLOBULIN RATIO 0.6 (1.0-2.7); ALKALINE PHOSPHATASE 346 U/L (46-116); ANION GAP 9 mmol/L (5-15); ASPARTATE AMINO TRANSFERASE 41 U/L (15-37); BILIRUBIN,TOTAL 2.3 MG/DL (0.2-1.0); BLOOD UREA NITROGEN 65 mg/dL (7-18); CALCIUM 8.7 MG/DL (8.5-10.1); CARBON DIOXIDE 30 MMOL/L (21-32); CHLORIDE 101 MMOL/L (98-107); CREATININE 7.1 MG/DL (0.55-1.30); POTASSIUM 4.9 MMOL/L (3.5-5.1); SODIUM 140 MMOL/L (136-145)
[2019-01-02 07:39] LABS: BILIRUBIN,DIRECT 1.8 MG/DL (0.0-0.3)
--- NOTE | 2019-01-02 07:48 | NUR ---
NURSE NOTES: PT AXOX4, EATING BREAKFAST IN BED. IN NO APPARENT DISTRESS AT THIS TIME. DENIES PAIN. BED IN LOWEST POSITION WITH BEDSIDE RAILS X2 RAISED. CALL LIGHT WITHIN REACH. WILL CONTINUE TO MONITOR.
[2019-01-02] MEDS: Aspirin Baby 81mg ORAL SCH (08:48)
[2019-01-02] MEDS: Carvedilol 12.5mg tab ORAL SCH ×2 (08:48→21:25)
[2019-01-02] MEDS: Calcitriol 0.25mcg Cap ORAL SCH (08:48)
[2019-01-02] MEDS: Allopurinol 100mg Tab ORAL SCH (08:49)
[2019-01-02] MEDS: Docusate 100mg cap ORAL SCH ×3 (08:49→17:02)
[2019-01-02] MEDS: Imdur 30mg tab ORAL SCH (08:49)
[2019-01-02] MEDS: Heparin 5000 units/ml inj SUBQ SCH ×2 (08:49→21:00)
[2019-01-02] MEDS: Ciprofloxacin 500mg tab ORAL SCH (08:49)
--- NOTE | 2019-01-02 08:57 | General Progress Note ---
Assessment/Plan Problem List: (1) Gallstones ICD Codes: K80.20 - Calculus of gallbladder without cholecystitis without obstruction SNOMED: 209467242 (2) DM (diabetes mellitus) ICD Codes: E11.9 - Type 2 diabetes mellitus without complications SNOMED: 48984286 (3) possible cirrhosis (4) Constipation ICD Codes: K59.00 - Constipation, unspecified SNOMED: 86596807 (5) CHF exacerbation ICD Codes: I50.9 - Heart failure, unspecified SNOMED: 77132254 (6) ESRD (end stage renal disease) ICD Codes: N18.6 - End stage renal disease SNOMED: 08825085 (7) Anemia in chronic kidney disease (CKD) ICD Codes: N18.9 - Chronic kidney disease, unspecified; D63.1 - Anemia in chronic kidney disease SNOMED: 993605470 Status: stable, progressing Assessment/Plan: bowel regimen abd us off protonix fu labs Subjective ROS Limited/Unobtainable: Yes Allergies: Coded Allergies: No Known Allergies (Unverified , 12/14/18) Subjective had bm Objective Last 24 Hour Vital Signs Date Time Temp Pulse Resp B/P (MAP) Pulse Ox O2 Delivery O2 Flow Rate FiO2 01/02/19 08:49 124/71 01/02/19 08:48 73 124/71 01/02/19 08:00 98.3 73 18 124/71 (88) 99 01/02/19 06:20 148/77 01/02/19 04:00 98.8 75 16 142/75 (97) 100 01/02/19 00:00 98.3 70 18 126/74 (91) 97 01/01/19 21:49 136/82 01/01/19 21:00 Room Air 01/01/19 20:13 75 145/73 01/01/19 20:00 97.8 75 18 138/72 (94) 97 01/01/19 16:00 97.6 71 18 131/79 (96) 97 01/01/19 14:04 137/78 01/01/19 12:00 98.0 67 19 137/78 (97) 97 01/01/19 09:00 Room Air Intake and Output 01/01/19 01/02/19 19:00 07:00 # Voids 2 Laboratory Tests 01/02/19 05:10: White Blood Count 4.2L, Red Blood Count 3.01L, Hemoglobin 8.7L, Hematocrit 27.8L , Mean Corpuscular Volume 92, Mean Corpuscular Hemoglobin 28.9, Mean Corpuscular Hemoglobin Concent 31.3L, Red Cell Distribution Width 18.6H, Platelet Count 83L, Mean Platelet Volume 8.2, Neutrophils (%) (Auto) , Lymphocytes (%) (Auto) , Monocytes (%) (Auto) , Eosinophils (%) (Auto) , Basophils (%) (Auto) , Neutrophils % (Manual) [Pending], Lymphocytes % (Manual) [Pending], Platelet Estimate [Pending], Platelet Morphology [Pending], Sodium Level 140, Potassium Level 4.9, Chloride Level 101, Carbon Dioxide Level 30, Anion Gap 9, Blood Urea Nitrogen 65H, Creatinine 7.1H, Estimat Glomerular Filtration Rate 8.1, Glucose Level 131H, Calcium Level 8.7, Total Bilirubin 2.3H , Direct Bilirubin 1.8H, Aspartate Amino Transf (AST/SGOT) 41H, Alanine Aminotransferase (ALT/SGPT) 31, Alkaline Phosphatase 346H, Total Protein 6.9, Albumin 2.7L, Globulin 4.2, Albumin/Globulin Ratio 0.6L Height (Feet): 5 Height (Inches): 6.00 Weight (Pounds): 145 General Appearance: alert EENT: normal ENT inspection Neck: supple Cardiovascular: normal rate Respiratory/Chest: decreased breath sounds Abdomen: normal bowel sounds, non tender, soft Extremities: non-tender Jonathan Hirsch MD January 02, 2019 08:56
--- NOTE | 2019-01-02 11:59 | Infectious Diseases Prog Note ---
Assessment/Plan Assessment/Plan IMPRESSION: UTI with ESBL Klebsiella combined systolic and diastolic heart failure pulmonary artery hypertension, chronic kidney disease end-stage renal disease proteinuria, pancytopenia, coronary artery disease. Change in vision in left eye s/p ureteral stent RECOMMENDATION: Continue PO Ciprofloxacin Subjective ROS Limited/Unobtainable: No Constitutional: Reports: no symptoms Respiratory: Reports: no symptoms Cardiovascular: Reports: no symptoms Gastrointestinal/Abdominal: Reports: no symptoms Genitourinary: Reports: hematuria Allergies: Coded Allergies: No Known Allergies (Unverified , 12/14/18) Objective Vital Signs Last 24 Hour Vital Signs Date Time Temp Pulse Resp B/P (MAP) Pulse Ox O2 Delivery O2 Flow Rate FiO2 01/02/19 09:00 Room Air 01/02/19 08:49 124/71 01/02/19 08:48 73 124/71 01/02/19 08:00 98.3 73 18 124/71 (88) 99 01/02/19 06:20 148/77 01/02/19 04:00 98.8 75 16 142/75 (97) 100 01/02/19 00:00 98.3 70 18 126/74 (91) 97 01/01/19 21:49 136/82 01/01/19 21:00 Room Air 01/01/19 20:13 75 145/73 01/01/19 20:00 97.8 75 18 138/72 (94) 97 01/01/19 16:00 97.6 71 18 131/79 (96) 97 01/01/19 14:04 137/78 01/01/19 12:00 98.0 67 19 137/78 (97) 97 Height (Feet): 5 Height (Inches): 6.00 Weight (Pounds): 145 General Appearance: no acute distress HEENT: mucous membranes moist Respiratory/Chest: lungs clear Cardiovascular: normal rate, other - HD line Abdomen: soft, non tender Extremities: no edema Neurologic/Psychiatric: alert, oriented x 3, responsive Laboratory Tests Test 01/02/19 05:10 White Blood Count 4.2 K/UL (4.8-10.8) L Red Blood Count 3.01 M/UL (4.70-6.10) L Hemoglobin 8.7 G/DL (14.2-18.0) L Hematocrit 27.8 % (42.0-52.0) L Mean Corpuscular Volume 92 FL (80-99) Mean Corpuscular Hemoglobin 28.9 PG (27.0-31.0) Mean Corpuscular Hemoglobin Concent 31.3 G/DL (32.0-36.0) L Red Cell Distribution Width 18.6 % (11.6-14.8) H Platelet Count 83 K/UL (150-450) L Mean Platelet Volume 8.2 FL (6.5-10.1) Neutrophils (%) (Auto) % (45.0-75.0) Lymphocytes (%) (Auto) % (20.0-45.0) Monocytes (%) (Auto) % (1.0-10.0) Eosinophils (%) (Auto) % (0.0-3.0) Basophils (%) (Auto) % (0.0-2.0) Differential Total Cells Counted 100 Neutrophils % (Manual) 72 % (45-75) Lymphocytes % (Manual) 20 % (20-45) Monocytes % (Manual) 7 % (1-10) Eosinophils % (Manual) 1 % (0-3) Basophils % (Manual) 0 % (0-2) Band Neutrophils 0 % (0-8) Platelet Estimate Decreased L Platelet Morphology Normal Hypochromasia 1+ Anisocytosis 1+ Sodium Level 140 MMOL/L (136-145) Potassium Level 4.9 MMOL/L (3.5-5.1) Chloride Level 101 MMOL/L (98-107) Carbon Dioxide Level 30 MMOL/L (21-32) Anion Gap 9 mmol/L (5-15) Blood Urea Nitrogen 65 mg/dL (7-18) H Creatinine 7.1 MG/DL (0.55-1.30) H Estimat Glomerular Filtration Rate 8.1 mL/min (>60) Glucose Level 131 MG/DL (74-106) H Calcium Level 8.7 MG/DL (8.5-10.1) Total Bilirubin 2.3 MG/DL (0.2-1.0) H Direct Bilirubin 1.8 MG/DL (0.0-0.3) H Aspartate Amino Transf (AST/SGOT) 41 U/L (15-37) H Alanine Aminotransferase (ALT/SGPT) 31 U/L (12-78) Alkaline Phosphatase 346 U/L (46-116) H Total Protein 6.9 G/DL (6.4-8.2) Albumin 2.7 G/DL (3.4-5.0) L Globulin 4.2 g/dL Albumin/Globulin Ratio 0.6 (1.0-2.7) L Current Medications Medications (Trade) Dose Ordered Sig/Félix Route PRN Reason Start Time Stop Time Status Last Admin Dose Admin Acetaminophen (Tylenol) 650 mg Q4H PRN ORAL Mild Pain/Temp > 100.5 12/14/18 15:45 01/13/19 15:44 12/29/18 17:20 Allopurinol (Zyloprim) 100 mg DAILY ORAL 12/15/18 09:00 01/14/19 08:59 01/02/19 08:49 Aspirin (ASA) 162 mg DAILY ORAL 12/14/18 15:45 01/13/19 15:44 01/02/19 08:48 Calcitriol (Rocatrol) 0.25 mcg DAILY ORAL 12/19/18 09:00 01/14/19 08:59 01/02/19 08:48 Carvedilol (Coreg) 12.5 mg EVERY 12 HOURS ORAL 12/19/18 21:00 01/13/19 20:59 01/02/19 08:48 Ciprofloxacin (Cipro 500mg tab) 500 mg DAILY ORAL 01/01/19 09:00 01/08/19 08:59 01/02/19 08:49 Dextrose (Dextrose 50%) 25 ml Q30M PRN IV Hypoglycemia 12/21/18 18:15 01/20/19 18:14 Dextrose (Dextrose 50%) 50 ml Q30M PRN IV Hypoglycemia 12/21/18 18:15 01/20/19 18:14 Docusate Sodium (Colace) 100 mg TID ORAL 12/17/18 13:00 01/13/19 17:59 01/02/19 08:49 Epoetin Jordon (Epoetin Jordon(ESRD on dialysis)) 10,000 unit THU-THU-THU SUBQ 12/22/18 21:00 01/21/19 20:59 12/31/18 21:17 Heparin Sodium (Porcine) (Heparin 5000 units/ml) 5,000 units EVERY 12 HOURS SUBQ 12/15/18 21:00 01/13/19 20:59 12/30/18 08:51 Hydralazine HCl (Apresoline) 25 mg Q8HR ORAL 12/22/18 22:00 01/17/19 00:00 01/02/19 06:20 Hydroxyzine HCl (Atarax) 25 mg Q6H PRN ORAL Itching 12/28/18 10:15 01/27/19 10:14 12/31/18 06:48 Insulin Aspart (NovoLOG) BEFORE MEALS AND HS SUBQ 12/21/18 21:00 01/20/19 20:59 01/01/19 21:52 Isosorbide Mononitrate (Imdur) 30 mg DAILY ORAL 12/14/18 20:45 01/13/19 20:44 01/02/19 08:49 Ondansetron HCl (Zofran) 4 mg Q6H PRN IVP Nausea & Vomiting 12/20/18 13:30 01/19/19 13:29 12/25/18 10:32 Polyethylene Glycol (Miralax) 17 gm BEDTIME ORAL 12/31/18 21:00 01/30/19 20:59 01/01/19 20:11 Sennosides (Senokot) 8.6 mg DAILYPRN PRN ORAL Constipation 12/31/18 13:45 01/30/19 13:44 Sevelamer Carbonate (Renvela) 800 mg THREE TIMES A DAY ORAL 12/20/18 13:00 01/18/19 08:59 01/02/19 08:48 Tamsulosin HCl (Flomax) 0.4 mg BEDTIME ORAL 12/16/18 21:00 01/15/19 20:59 01/01/19 20:11 Omi Brown MD January 02, 2019 11:59
--- NOTE | 2019-01-02 13:10 | NUR ---
NURSE NOTES: RN SPOKE TO PENSIONHOLDER INFORMATION CLERK REGARDING NEW NOVOLOG PEN. TECH WILL BE SENDING UP NOVOLOG PEN.
--- NOTE | 2019-01-02 16:14 | General Progress Note ---
Assessment/Plan Status: stable, progressing Assessment/Plan: Assessment/Plan # Pancytopenia -- multiple etiologies could be related to underlying liver disease, medication-induced, infection versus viral syndrome -> hx SPLENOMEGALY AND CIRRHOSIS (irregular liver sufrace can explain pancytopenia), Prominent soft tissue opacities in the splenic hilum and lesser sac, could indicate varices, all of the lesser sac findings could represent prominent nodes. Consider gi evaluation and treatment --> peripheral smear has been ordered and does not show significant abnormalities does not appear to have significant abnormalities --> Medications have been reviewed, less likely culprits --> Continue to monitor for improvement, trend cbc --> Hep panel and HIV are both negative --> consider other causes, infections that could contribute --> reverse isolation if ANC is <2000 --> Give neupogen if ANC <1000 --> Transfuse if hgb <7, with 1 unit prbc --> WBC trend 4.2-->3.6-->3.6-->3.8-->4.4-->3.9-->4-->4.1 ==> Plt trend 122k-->84k-->69k-->74k-->81k-->93k-->8.7 # Anemia of iron deficiency given will need hd/esrd --> iron has been started x 5 doses iv --> ferritin level 218-->451 # Coagulation defect, multifactorial usually related to poor PO intake versus medications, versus hepatitis v cirrhosis --> administer Vitamin K if patient is bleeding or FFP if the INR is >10 --> hold off on ffp unless active procedure/bleeding, first begin with vit K 10 --> mixing study prn basis # Advanced Renal failure with Proteinuria --> as per renal eval and recs --> HD as per renal followup # h/o HTN --> sbp goal <140 # h/o Cardiac disease s/p stent # ? DM The timing of this note does not necessarily reflect the time of the patient was seen. Greatly appreciate consultation! Subjective Constitutional: Denies: no symptoms, chills, diaphoresis, fever, malaise, weakness, other HEENT: Denies: no symptoms, eye pain, blurred vision, tearing, double vision, ear pain, ear discharge, nose pain, nose congestion, throat pain, throat swelling, mouth pain, mouth swelling, other Respiratory: Denies: no symptoms, cough, orthopnea, shortness of breath, SOB with excertion, SOB at rest, sputum, stridor, wheezing, other Gastrointestinal/Abdominal: Denies: no symptoms, abdomen distended, abdominal pain, black stools, tarry stools, blood in stool, constipated, diarrhea, difficulty swallowing, nausea, poor appetite, poor fluid intake, rectal bleeding , vomiting, other Genitourinary: Denies: no symptoms, burning, discharge, frequency, flank pain, hematuria, incontinence, pain, urgency, other Neurologic/Psychiatric: Denies: no symptoms, anxiety, depressed, emotional problems, headache, numbness, paresthesia, pre-existing deficit, seizure, tingling, tremors, weakness, other Endocrine: Denies: no symptoms, excessive sweating, flushing, intolerance to cold, intolerance to heat, increased hunger, increased thirst, increased urine, unexplained weight gain, unexplained weight loss, other Hematologic/Lymphatic: Denies: no symptoms, anemia, easy bleeding, easy bruising, other Allergies: Coded Allergies: No Known Allergies (Unverified , 12/14/18) Subjective 12/15: labs have been reviewed, relatively stable cbc but mildly lower with elev inr, not bleeding 12/16: discussed need for HD with renal, family, by the bedside understands as well as patient 12/17: labs have been reviewed and noted, by bedside, relatively stable 12/23: no evidence of fevers or chills, off abx, seen bty renal, due for hd 426: shaving this am, no complaints, no fc, cbc reviewed 12/26: overall has been doing better, no complaints this am 12/27: no events to report, scheduled for potential hd today 12/28: no events noted, seen by renal, awaiting clearance for dc 12/29: no bleeding reported, hd today, bp is stable as is cbc 12/30: no chills noted, getting hd prn, anemia panel has been reviewed 01/02: no events noted, to get hd tomorrow, no pain noted around perm site Objective Last 24 Hour Vital Signs Date Time Temp Pulse Resp B/P (MAP) Pulse Ox O2 Delivery O2 Flow Rate FiO2 01/02/19 13:48 121/76 01/02/19 12:00 98.6 82 19 121/76 (91) 98 01/02/19 09:00 Room Air 01/02/19 08:49 124/71 01/02/19 08:48 73 124/71 01/02/19 08:00 98.3 73 18 124/71 (88) 99 01/02/19 06:20 148/77 01/02/19 04:00 98.8 75 16 142/75 (97) 100 01/02/19 00:00 98.3 70 18 126/74 (91) 97 01/01/19 21:49 136/82 01/01/19 21:00 Room Air 01/01/19 20:13 75 145/73 01/01/19 20:00 97.8 75 18 138/72 (94) 97 Intake and Output 01/01/19 01/02/19 19:00 07:00 Intake Total 400 ml Balance 400 ml Intake Oral 400 ml # Voids 2 Laboratory Tests 01/02/19 05:10: White Blood Count 4.2L, Red Blood Count 3.01L, Hemoglobin 8.7L, Hematocrit 27.8L , Mean Corpuscular Volume 92, Mean Corpuscular Hemoglobin 28.9, Mean Corpuscular Hemoglobin Concent 31.3L, Red Cell Distribution Width 18.6H, Platelet Count 83L, Mean Platelet Volume 8.2, Neutrophils (%) (Auto) , Lymphocytes (%) (Auto) , Monocytes (%) (Auto) , Eosinophils (%) (Auto) , Basophils (%) (Auto) , Differential Total Cells Counted 100, Neutrophils % ( Manual) 72, Lymphocytes % (Manual) 20, Monocytes % (Manual) 7, Eosinophils % ( Manual) 1, Basophils % (Manual) 0, Band Neutrophils 0, Platelet Estimate DecreasedL, Platelet Morphology Normal, Hypochromasia 1+, Anisocytosis 1+, Sodium Level 140, Potassium Level 4.9, Chloride Level 101, Carbon Dioxide Level 30, Anion Gap 9, Blood Urea Nitrogen 65H, Creatinine 7.1H, Estimat Glomerular Filtration Rate 8.1, Glucose Level 131H, Calcium Level 8.7, Total Bilirubin 2.3H , Direct Bilirubin 1.8H, Aspartate Amino Transf (AST/SGOT) 41H, Alanine Aminotransferase (ALT/SGPT) 31, Alkaline Phosphatase 346H, Total Protein 6.9, Albumin 2.7L, Globulin 4.2, Albumin/Globulin Ratio 0.6L Height (Feet): 5 Height (Inches): 6.00 Weight (Pounds): 145 Objective PE: Vitals: reviewed General Appearance: NAD, nonverbal HEENT: normocephalic, atraumatic Neck: non-tender, normal alignment Respiratory/Chest: nromal breath sounds bilaterally Cardiovascular/Chest: normal peripheral pulses, normal rate Abdomen: normal bowel sounds, soft, nontender Extremities: normal range of motion . Enrrique Solano MD January 02, 2019 16:14
--- NOTE | 2019-01-02 17:07 | Nephrology Progress Note ---
Assessment/Plan Problem List: (1) ESRD (end stage renal disease) (2) ARF (acute renal failure) (3) CHF (congestive heart failure) (4) Anemia in chronic kidney disease (CKD) (5) Nephrotic syndrome (6) UTI (urinary tract infection) Assessment Advanced Renal failure with Proteinuria CKD known to the patient h/o HTN h/o Cardiac disease s/p stent ? DM high A1c Plan will contact Uro to DC Urethral stent after and pre load reduction management discussed the need for Dialysis - catheter 12/17- dialysis 3 times a week , due 01/03 1000 cc fluid restriction Renal diet- Phos binders BP check kidney RUSSEL noted 24 h urine results noted per orders Echo Global left ventricular hypokinesis with falttenign of cody VS suggestive of RV pressuere overload Mild left ventricular enlargement . Left ventricular ejection fraction estimated to be 25-30%. RUSSEL * Portions of the right ureteral stent are partially visualized. Punctate echogenic focus also noted in the lower pole of the right kidney which may represent nonobstructing stone. * No evidence of hydronephrosis bilaterally. * Renal echogenicity appears within normal limits. * Bladder wall thickening is noted within question for cystitis, although findings may possibly related to underdistention. Correlation with urinalysis recommended. Uro consult from Dr Weiss: He also has a history of kidney stones and one month ago had a right ureteral stent placed at [facility] for the same by Dr. Florez. The patient was then referred to see Dr. Dolan as a urologist and has plan regarding the same and has established care with him. Diagnostic imaging reveals a stent in place. I discussed these findings today with the patient at bedside. His nephroureteral stent is in good position and there is no hydronephrosis or obstructing stone etc. The patient is in the hospital for unrelated issues including congestive heart failure exacerbation and acute on chronic renal insufficiency which does not appear to be secondary to obstructive uropathy. His stent should remain in place and once he is feeling better, he can be discharged and follow up with Dr. Dolan in the office regarding removal of the stent and treatment of the stones. Subjective ROS Limited/Unobtainable: No Objective Objective Last 24 Hour Vital Signs Date Time Temp Pulse Resp B/P (MAP) Pulse Ox O2 Delivery O2 Flow Rate FiO2 01/02/19 16:00 98.0 79 18 126/79 (95) 96 01/02/19 13:48 121/76 01/02/19 12:00 98.6 82 19 121/76 (91) 98 01/02/19 09:00 Room Air 01/02/19 08:49 124/71 01/02/19 08:48 73 124/71 01/02/19 08:00 98.3 73 18 124/71 (88) 99 01/02/19 06:20 148/77 01/02/19 04:00 98.8 75 16 142/75 (97) 100 01/02/19 00:00 98.3 70 18 126/74 (91) 97 01/01/19 21:49 136/82 01/01/19 21:00 Room Air 01/01/19 20:13 75 145/73 01/01/19 20:00 97.8 75 18 138/72 (94) 97 Intake and Output 01/01/19 01/02/19 19:00 07:00 Intake Total 400 ml Balance 400 ml Intake Oral 400 ml # Voids 2 Laboratory Tests 01/02/19 05:10: White Blood Count 4.2L, Red Blood Count 3.01L, Hemoglobin 8.7L, Hematocrit 27.8L , Mean Corpuscular Volume 92, Mean Corpuscular Hemoglobin 28.9, Mean Corpuscular Hemoglobin Concent 31.3L, Red Cell Distribution Width 18.6H, Platelet Count 83L, Mean Platelet Volume 8.2, Neutrophils (%) (Auto) , Lymphocytes (%) (Auto) , Monocytes (%) (Auto) , Eosinophils (%) (Auto) , Basophils (%) (Auto) , Differential Total Cells Counted 100, Neutrophils % ( Manual) 72, Lymphocytes % (Manual) 20, Monocytes % (Manual) 7, Eosinophils % ( Manual) 1, Basophils % (Manual) 0, Band Neutrophils 0, Platelet Estimate DecreasedL, Platelet Morphology Normal, Hypochromasia 1+, Anisocytosis 1+, Sodium Level 140, Potassium Level 4.9, Chloride Level 101, Carbon Dioxide Level 30, Anion Gap 9, Blood Urea Nitrogen 65H, Creatinine 7.1H, Estimat Glomerular Filtration Rate 8.1, Glucose Level 131H, Calcium Level 8.7, Total Bilirubin 2.3H , Direct Bilirubin 1.8H, Aspartate Amino Transf (AST/SGOT) 41H, Alanine Aminotransferase (ALT/SGPT) 31, Alkaline Phosphatase 346H, Total Protein 6.9, Albumin 2.7L, Globulin 4.2, Albumin/Globulin Ratio 0.6L Height (Feet): 5 Height (Inches): 6.00 Weight (Pounds): 145 General Appearance: no apparent distress Objective no change Micah Pitt MD January 02, 2019 17:07
--- NOTE | 2019-01-02 17:13 | NUR ---
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 CHF VS: BP 134/72, P 75, T 98.0, RR 18, SpO2 95 WBC 4.2, RBC 3.01, H&H 8.7/27.8, BUN 65, CR 7.1 IS: CIPROFLOXACIN 500mg ALLOPURINOL 100mg COREG 12.5mg APRESOLINE 25mg IMDUR 30mg NOVOLOG SUBQ RENVELA 800mg MED/SURG STATUS
[2019-01-02] MEDS: HydrOXYzine tab 25mg tab ORAL PRN (18:16)
--- NOTE | 2019-01-02 19:07 | NUR ---
HAND-OFF: Report given to Myles MATIAS RN.
--- NOTE | 2019-01-02 20:37 | General Progress Note ---
Assessment/Plan Problem List: (1) CHF exacerbation ICD Codes: I50.9 - Heart failure, unspecified SNOMED: 98101289 (2) Pyelonephritis ICD Codes: N12 - Tubulo-interstitial nephritis, not specified as acute or chronic SNOMED: 57423044 (3) Pancytopenia ICD Codes: D61.818 - Other pancytopenia SNOMED: 591271139 (4) CHF (congestive heart failure) ICD Codes: I50.9 - Heart failure, unspecified SNOMED: 23369834 (5) Anemia in chronic kidney disease (CKD) ICD Codes: N18.9 - Chronic kidney disease, unspecified; D63.1 - Anemia in chronic kidney disease SNOMED: 841352736 (6) ARF (acute renal failure) ICD Codes: N17.9 - Acute kidney failure, unspecified SNOMED: 20391566 (7) ESRD (end stage renal disease) ICD Codes: N18.6 - End stage renal disease SNOMED: 02322849 (8) Nephrotic syndrome ICD Codes: N04.9 - Nephrotic syndrome with unspecified morphologic changes SNOMED: 59728033 Status: stable, progressing Assessment/Plan: afebrile edema is much improved afebrile needs outpatient diaylsis setup s/p cardiac and urethral stent esrd on hd Subjective ROS Limited/Unobtainable: Yes Allergies: Coded Allergies: No Known Allergies (Unverified , 12/14/18) Objective Last 24 Hour Vital Signs Date Time Temp Pulse Resp B/P (MAP) Pulse Ox O2 Delivery O2 Flow Rate FiO2 01/02/19 16:00 98.0 79 18 126/79 (95) 96 01/02/19 13:48 121/76 01/02/19 12:00 98.6 82 19 121/76 (91) 98 01/02/19 09:00 Room Air 01/02/19 08:49 124/71 01/02/19 08:48 73 124/71 01/02/19 08:00 98.3 73 18 124/71 (88) 99 01/02/19 06:20 148/77 01/02/19 04:00 98.8 75 16 142/75 (97) 100 01/02/19 00:00 98.3 70 18 126/74 (91) 97 01/01/19 21:49 136/82 01/01/19 21:00 Room Air Intake and Output 01/01/19 01/02/19 19:00 07:00 Intake Total 400 ml Balance 400 ml Intake Oral 400 ml # Voids 2 Laboratory Tests 01/02/19 05:10: White Blood Count 4.2L, Red Blood Count 3.01L, Hemoglobin 8.7L, Hematocrit 27.8L , Mean Corpuscular Volume 92, Mean Corpuscular Hemoglobin 28.9, Mean Corpuscular Hemoglobin Concent 31.3L, Red Cell Distribution Width 18.6H, Platelet Count 83L, Mean Platelet Volume 8.2, Neutrophils (%) (Auto) , Lymphocytes (%) (Auto) , Monocytes (%) (Auto) , Eosinophils (%) (Auto) , Basophils (%) (Auto) , Differential Total Cells Counted 100, Neutrophils % ( Manual) 72, Lymphocytes % (Manual) 20, Monocytes % (Manual) 7, Eosinophils % ( Manual) 1, Basophils % (Manual) 0, Band Neutrophils 0, Platelet Estimate DecreasedL, Platelet Morphology Normal, Hypochromasia 1+, Anisocytosis 1+, Sodium Level 140, Potassium Level 4.9, Chloride Level 101, Carbon Dioxide Level 30, Anion Gap 9, Blood Urea Nitrogen 65H, Creatinine 7.1H, Estimat Glomerular Filtration Rate 8.1, Glucose Level 131H, Calcium Level 8.7, Total Bilirubin 2.3H , Direct Bilirubin 1.8H, Aspartate Amino Transf (AST/SGOT) 41H, Alanine Aminotransferase (ALT/SGPT) 31, Alkaline Phosphatase 346H, Total Protein 6.9, Albumin 2.7L, Globulin 4.2, Albumin/Globulin Ratio 0.6L Height (Feet): 5 Height (Inches): 6.00 Weight (Pounds): 145 Neck: supple Cardiovascular: normal rate Respiratory/Chest: lungs clear Abdomen: soft Sarahi Shaffer MD January 02, 2019 20:37
[2019-01-02] MEDS: Tamsulosin 0.4mg cap ORAL SCH (21:26)
[2019-01-02] MEDS: Miralax 17gm pkt ORAL SCH (21:26)
--- NOTE | 2019-01-02 23:03 | NUR ---
Nurse's notes: received patient awake, alert and oriented; remembers me from an earlier encounter; denies any pain; eager to go home. plan of care and orders reviewed with patient; Mr. Sampson verbalizes understanding and is in agreement with plan of care. will continue to monitor.
[2019-01-03 04:00] VITALS: BP 141/78
[2019-01-03] MEDS: HydrALAZINE 25mg tab ORAL SCH ×3 (05:30→22:18)
[2019-01-03] MEDS: NovoLOG Insulin Flexpen SUBQ SCH ×4 (05:32→21:00)
--- NOTE | 2019-01-03 07:04 | NUR ---
nurse's notes: no incidents of falls, injuries or trauma reported as of this time. no c/o pain, shortness of breath or any distress. VS stable; afebrile. refused scheduled apresoline as patient is scheduled to have HD today. no s/s of hypoglycemia. will continue to monitor.
--- NOTE | 2019-01-03 07:45 | NUR ---
NURSE NOTES: pt in bed with no sob nor in any form of distress noted. kept NPO for US abdomen. Breathing regular and unlabored. denies any pain. will continue to monitor
[2019-01-03 08:00] VITALS: BP 131/73
[2019-01-03] MEDS: Aspirin Baby 81mg ORAL SCH (08:57)
[2019-01-03] MEDS: Imdur 30mg tab ORAL SCH (08:57)
[2019-01-03] MEDS: Carvedilol 12.5mg tab ORAL SCH ×2 (08:57→21:08)
[2019-01-03] MEDS: Heparin 5000 units/ml inj SUBQ SCH ×2 (08:58→20:40)
[2019-01-03] MEDS: Docusate 100mg cap ORAL SCH ×3 (09:06→17:04)
[2019-01-03] MEDS: Ciprofloxacin 500mg tab ORAL SCH (09:06)
[2019-01-03] MEDS: Allopurinol 100mg Tab ORAL SCH (09:06)
[2019-01-03] MEDS: Calcitriol 0.25mcg Cap ORAL SCH (09:06)
--- NOTE | 2019-01-03 10:12 | GI Progress Note ---
Assessment/Plan Problems: (1) DM (diabetes mellitus) ICD Codes: E11.9 - Type 2 diabetes mellitus without complications SNOMED: 68057269 (2) ESRD (end stage renal disease) ICD Codes: N18.6 - End stage renal disease SNOMED: 57433076 (3) Anemia in chronic kidney disease (CKD) ICD Codes: N18.9 - Chronic kidney disease, unspecified; D63.1 - Anemia in chronic kidney disease SNOMED: 891264511 (4) Gallstones ICD Codes: K80.20 - Calculus of gallbladder without cholecystitis without obstruction SNOMED: 154131765 (5) possible cirrhosis Status: stable Status Narrative Discussed with Dr. Hirsch Assessment/Plan bowel regimen Follow-up abdominal ultrasound Advance to renal diet off Protonix fu labs The patient was seen and examined at bedside and all new and available data was reviewed in the patients chart. I agree with the above findings, impression and plan. (Patient seen earlier today. Signature stamp does not reflect patient encounter time.). - Jonathan Hirsch MD Subjective Gastrointestinal/Abdominal: Reports: no symptoms, abdomen distended Objective Last 24 Hour Vital Signs Date Time Temp Pulse Resp B/P (MAP) Pulse Ox O2 Delivery O2 Flow Rate FiO2 01/03/19 09:25 Room Air 01/03/19 08:00 98.4 73 16 131/73 (92) 99 01/03/19 05:30 141/78 01/03/19 04:00 97.9 72 16 141/78 (99) 96 01/02/19 23:39 98.8 72 18 129/75 (93) 98 01/02/19 21:26 134/72 01/02/19 21:25 75 134/72 01/02/19 21:00 Room Air 01/02/19 20:00 98.1 78 16 134/72 (92) 95 01/02/19 16:00 98.0 79 18 126/79 (95) 96 01/02/19 13:48 121/76 01/02/19 12:00 98.6 82 19 121/76 (91) 98 Intake and Output 01/02/19 01/03/19 19:00 07:00 Intake Total 550 ml 200 ml Balance 550 ml 200 ml Other 550 ml 200 ml # Voids 2 # Bowel Movements 1 Height (Feet): 5 Height (Inches): 6.00 Weight (Pounds): 145 General Appearance: WD/WN, no apparent distress, alert Cardiovascular: normal rate Respiratory/Chest: normal breath sounds, no respiratory distress Abdominal Exam: normal bowel sounds, non tender, soft, distended Extremities: normal range of motion, non-tender Selene Steiner NP January 03, 2019 10:12
--- NOTE | 2019-01-03 10:54 | Infectious Diseases Prog Note ---
Assessment/Plan Assessment/Plan IMPRESSION: UTI with ESBL Klebsiella combined systolic and diastolic heart failure pulmonary artery hypertension, chronic kidney disease end-stage renal disease proteinuria, pancytopenia, coronary artery disease. Change in vision in left eye s/p ureteral stent Hepatitis c Elevated bilirubin RECOMMENDATION: Continue PO Ciprofloxacin X 4 more days Subjective ROS Limited/Unobtainable: No Constitutional: Reports: no symptoms Respiratory: Reports: no symptoms Cardiovascular: Reports: no symptoms Genitourinary: Reports: hematuria Skin: Reports: rash, other - peruritis Allergies: Coded Allergies: No Known Allergies (Unverified , 12/14/18) Objective Vital Signs Last 24 Hour Vital Signs Date Time Temp Pulse Resp B/P (MAP) Pulse Ox O2 Delivery O2 Flow Rate FiO2 01/03/19 09:25 Room Air 01/03/19 08:00 98.4 73 16 131/73 (92) 99 01/03/19 05:30 141/78 01/03/19 04:00 97.9 72 16 141/78 (99) 96 01/02/19 23:39 98.8 72 18 129/75 (93) 98 01/02/19 21:26 134/72 01/02/19 21:25 75 134/72 01/02/19 21:00 Room Air 01/02/19 20:00 98.1 78 16 134/72 (92) 95 01/02/19 16:00 98.0 79 18 126/79 (95) 96 01/02/19 13:48 121/76 01/02/19 12:00 98.6 82 19 121/76 (91) 98 Height (Feet): 5 Height (Inches): 6.00 Weight (Pounds): 145 General Appearance: no acute distress HEENT: mucous membranes moist Respiratory/Chest: lungs clear Cardiovascular: normal rate, other - Permacath Abdomen: soft, non tender Extremities: no edema Skin: rash, other - R arm , torso Neurologic/Psychiatric: alert, oriented x 3, responsive Current Medications Medications (Trade) Dose Ordered Sig/Félix Route PRN Reason Start Time Stop Time Status Last Admin Dose Admin Acetaminophen (Tylenol) 650 mg Q4H PRN ORAL Mild Pain/Temp > 100.5 12/14/18 15:45 01/13/19 15:44 12/29/18 17:20 Allopurinol (Zyloprim) 100 mg DAILY ORAL 12/15/18 09:00 01/14/19 08:59 01/03/19 09:06 Aspirin (ASA) 162 mg DAILY ORAL 12/14/18 15:45 01/13/19 15:44 01/02/19 08:48 Calcitriol (Rocatrol) 0.25 mcg DAILY ORAL 12/19/18 09:00 01/14/19 08:59 01/03/19 09:06 Carvedilol (Coreg) 12.5 mg EVERY 12 HOURS ORAL 12/19/18 21:00 01/13/19 20:59 01/02/19 21:25 Ciprofloxacin (Cipro 500mg tab) 500 mg DAILY ORAL 01/01/19 09:00 01/08/19 08:59 01/03/19 09:06 Dextrose (Dextrose 50%) 25 ml Q30M PRN IV Hypoglycemia 12/21/18 18:15 01/20/19 18:14 Dextrose (Dextrose 50%) 50 ml Q30M PRN IV Hypoglycemia 12/21/18 18:15 01/20/19 18:14 Docusate Sodium (Colace) 100 mg TID ORAL 12/17/18 13:00 01/13/19 17:59 01/03/19 09:06 Epoetin Jordon (Epoetin Jordon(ESRD on dialysis)) 10,000 unit THU-THU-THU SUBQ 12/22/18 21:00 01/21/19 20:59 12/31/18 21:17 Heparin Sodium (Porcine) (Heparin 5000 units/ml) 5,000 units EVERY 12 HOURS SUBQ 12/15/18 21:00 01/13/19 20:59 12/30/18 08:51 Hydralazine HCl (Apresoline) 25 mg Q8HR ORAL 12/22/18 22:00 01/17/19 00:00 01/02/19 21:26 Hydroxyzine HCl (Atarax) 25 mg Q6H PRN ORAL Itching 12/28/18 10:15 01/27/19 10:14 01/02/19 18:16 Insulin Aspart (NovoLOG) BEFORE MEALS AND HS SUBQ 12/21/18 21:00 01/20/19 20:59 01/02/19 21:19 Isosorbide Mononitrate (Imdur) 30 mg DAILY ORAL 12/14/18 20:45 01/13/19 20:44 01/02/19 08:49 Ondansetron HCl (Zofran) 4 mg Q6H PRN IVP Nausea & Vomiting 12/20/18 13:30 01/19/19 13:29 12/25/18 10:32 Polyethylene Glycol (Miralax) 17 gm BEDTIME ORAL 12/31/18 21:00 01/30/19 20:59 01/02/19 21:26 Sennosides (Senokot) 8.6 mg DAILYPRN PRN ORAL Constipation 12/31/18 13:45 01/30/19 13:44 01/02/19 18:35 Sevelamer Carbonate (Renvela) 800 mg THREE TIMES A DAY ORAL 12/20/18 13:00 01/18/19 08:59 01/03/19 09:06 Tamsulosin HCl (Flomax) 0.4 mg BEDTIME ORAL 12/16/18 21:00 01/15/19 20:59 01/02/19 21:26 Omi Brown MD January 03, 2019 10:54
[2019-01-03] MEDS: HydrOXYzine tab 25mg tab ORAL PRN (11:47)
[2019-01-03 12:00] VITALS: BP 128/77
--- NOTE | 2019-01-03 12:22 | Diagnostic Imaging Report ---
Indication:Abdominal pain Technique: Grayscale and duplex Doppler imaging of the abdomen performed. Comparison: None Findings: There is ascites demonstrated. The spleen is enlarged measuring 14 cm. The liver is unremarkable. The IVC is unremarkable. Pancreas is unremarkable. The main portal vein is patent by Doppler examination and shows pulsatility and abnormal flow dynamics suggestive of portal hypertension. Trace pleural effusions are present bilaterally. No hydronephrosis demonstrated. Suspected nonobstructive stone in the right kidney. Nephroureteral stent noted on the right only a portion of which is seen. There is a large gallstone. There may be wall thickening but the gallbladder does not appear fully distended. There is thickening of the wall the urinary bladder. IMPRESSION: Mild ascites. Suspected portal hypertension. Splenomegaly. Trace bilateral pleural effusions. Right nephroureteral stent. Nonobstructive stones. Chronic cystitis. Correlate clinically.
--- NOTE | 2019-01-03 13:00 | NUR ---
*-* INSURANCE *-* UPDATED CLINICALS AND REVIEWS HAVE BEEN FAXED TO: [facility]: NURYS P:[phone] F:[phone]
--- NOTE | 2019-01-03 13:06 | NUR ---
*-* INSURANCE *-* UPDATED CLINICALS HAVE BEEN FAXED TO: [facility]: NURYS P:[phone] F:[phone]
--- NOTE | 2019-01-03 15:18 | NUR ---
DISCHARGE PLANNING FAXED COMPLETE HEP B PANEL TO INSURANCE TO GET ACCEPTED AT [facility], WILL FOLLOW
--- NOTE | 2019-01-03 15:24 | Nephrology Progress Note ---
Assessment/Plan Problem List: (1) ESRD (end stage renal disease) (2) ARF (acute renal failure) (3) CHF (congestive heart failure) (4) Anemia in chronic kidney disease (CKD) (5) Nephrotic syndrome (6) UTI (urinary tract infection) Assessment Advanced Renal failure with Proteinuria CKD known to the patient h/o HTN h/o Cardiac disease s/p stent ? DM high A1c Plan will contact Uro to DC Urethral stent after and pre load reduction management discussed the need for Dialysis - catheter 12/17- dialysis 3 times a week , due 01/03 1000 cc fluid restriction Renal diet- Phos binders BP check kidney RUSSEL noted 24 h urine results noted per orders Echo Global left ventricular hypokinesis with falttenign of cody VS suggestive of RV pressuere overload Mild left ventricular enlargement . Left ventricular ejection fraction estimated to be 25-30%. RUSSEL * Portions of the right ureteral stent are partially visualized. Punctate echogenic focus also noted in the lower pole of the right kidney which may represent nonobstructing stone. * No evidence of hydronephrosis bilaterally. * Renal echogenicity appears within normal limits. * Bladder wall thickening is noted within question for cystitis, although findings may possibly related to underdistention. Correlation with urinalysis recommended. Uro consult from Dr Weiss: He also has a history of kidney stones and one month ago had a right ureteral stent placed at [facility] for the same by Dr. Florez. The patient was then referred to see Dr. Dolan as a urologist and has plan regarding the same and has established care with him. Diagnostic imaging reveals a stent in place. I discussed these findings today with the patient at bedside. His nephroureteral stent is in good position and there is no hydronephrosis or obstructing stone etc. The patient is in the hospital for unrelated issues including congestive heart failure exacerbation and acute on chronic renal insufficiency which does not appear to be secondary to obstructive uropathy. His stent should remain in place and once he is feeling better, he can be discharged and follow up with Dr. Dolan in the office regarding removal of the stent and treatment of the stones. Subjective ROS Limited/Unobtainable: No Objective Objective Last 24 Hour Vital Signs Date Time Temp Pulse Resp B/P (MAP) Pulse Ox O2 Delivery O2 Flow Rate FiO2 01/03/19 12:00 98.8 77 17 128/77 (94) 99 01/03/19 09:25 Room Air 01/03/19 08:00 98.4 73 16 131/73 (92) 99 01/03/19 05:30 141/78 01/03/19 04:00 97.9 72 16 141/78 (99) 96 01/02/19 23:39 98.8 72 18 129/75 (93) 98 01/02/19 21:26 134/72 01/02/19 21:25 75 134/72 01/02/19 21:00 Room Air 01/02/19 20:00 98.1 78 16 134/72 (92) 95 01/02/19 16:00 98.0 79 18 126/79 (95) 96 Intake and Output 01/02/19 01/03/19 19:00 07:00 Intake Total 550 ml 200 ml Balance 550 ml 200 ml Other 550 ml 200 ml # Voids 2 # Bowel Movements 1 Height (Feet): 5 Height (Inches): 6.00 Weight (Pounds): 145 General Appearance: no apparent distress Objective no change Micah Pitt MD January 03, 2019 15:24
[2019-01-03 16:00] VITALS: BP 133/80
--- NOTE | 2019-01-03 17:21 | NUR ---
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 CHF VS: BP 141/78, P 77, T 98.8, RR 18, SpO2 99 IS:NOVOLOG SUBQ RENVELA 800mg ATARAX 25mg ALLOPURINOL 100mg CIPROFLOXACIN 500mg MED/SURG STATUS
--- NOTE | 2019-01-03 17:26 | General Progress Note ---
Assessment/Plan Status: stable Assessment/Plan: Assessment/Plan # Pancytopenia -- multiple etiologies could be related to underlying liver disease, medication-induced, infection versus viral syndrome -> hx SPLENOMEGALY AND CIRRHOSIS (irregular liver sufrace can explain pancytopenia), Prominent soft tissue opacities in the splenic hilum and lesser sac, could indicate varices, all of the lesser sac findings could represent prominent nodes. Consider gi evaluation and treatment --> peripheral smear has been ordered and does not show significant abnormalities does not appear to have significant abnormalities --> Medications have been reviewed, less likely culprits --> Continue to monitor for improvement, trend cbc --> Hep panel and HIV are both negative --> consider other causes, infections that could contribute --> reverse isolation if ANC is <2000 --> Give neupogen if ANC <1000 --> Transfuse if hgb <7, with 1 unit prbc --> WBC trend 4.2-->3.6-->3.6-->3.8-->4.4-->3.9-->4-->4.1 ==> Plt trend 122k-->84k-->69k-->74k-->81k-->93k-->8.7 # Anemia of iron deficiency given will need hd/esrd --> iron has been started x 5 doses iv --> ferritin level 218-->451 # Coagulation defect, multifactorial usually related to poor PO intake versus medications, versus hepatitis v cirrhosis --> administer Vitamin K if patient is bleeding or FFP if the INR is >10 --> hold off on ffp unless active procedure/bleeding, first begin with vit K 10 --> mixing study prn basis # Advanced Renal failure with Proteinuria --> as per renal eval and recs --> HD as per renal followup # h/o HTN --> sbp goal <140 # h/o Cardiac disease s/p stent # ? DM The timing of this note does not necessarily reflect the time of the patient was seen. Greatly appreciate consultation! Subjective Constitutional: Denies: no symptoms, chills, diaphoresis, fever, malaise, weakness, other HEENT: Denies: no symptoms, eye pain, blurred vision, tearing, double vision, ear pain, ear discharge, nose pain, nose congestion, throat pain, throat swelling, mouth pain, mouth swelling, other Cardiovascular: Denies: no symptoms, chest pain, edema, irregular heart rate, lightheadedness, palpitations, syncope, other Respiratory: Denies: no symptoms, cough, orthopnea, shortness of breath, SOB with excertion, SOB at rest, sputum, stridor, wheezing, other Gastrointestinal/Abdominal: Denies: no symptoms, abdomen distended, abdominal pain, black stools, tarry stools, blood in stool, constipated, diarrhea, difficulty swallowing, nausea, poor appetite, poor fluid intake, rectal bleeding , vomiting, other Genitourinary: Denies: no symptoms, burning, discharge, frequency, flank pain, hematuria, incontinence, pain, urgency, other Neurologic/Psychiatric: Denies: no symptoms, anxiety, depressed, emotional problems, headache, numbness, paresthesia, pre-existing deficit, seizure, tingling, tremors, weakness, other Endocrine: Denies: no symptoms, excessive sweating, flushing, intolerance to cold, intolerance to heat, increased hunger, increased thirst, increased urine, unexplained weight gain, unexplained weight loss, other Allergies: Coded Allergies: No Known Allergies (Unverified , 12/14/18) Subjective 12/15: labs have been reviewed, relatively stable cbc but mildly lower with elev inr, not bleeding 12/16: discussed need for HD with renal, family, by the bedside understands as well as patient 12/17: labs have been reviewed and noted, by bedside, relatively stable 12/23: no evidence of fevers or chills, off abx, seen bty renal, due for hd 426: shaving this am, no complaints, no fc, cbc reviewed 12/26: overall has been doing better, no complaints this am 12/27: no events to report, scheduled for potential hd today 12/28: no events noted, seen by renal, awaiting clearance for dc 12/29: no bleeding reported, hd today, bp is stable as is cbc 12/30: no chills noted, getting hd prn, anemia panel has been reviewed 01/02: no events noted, to get hd tomorrow, no pain noted around perm site 01/03: no events to get hd 3x a week, seen by renal Objective Last 24 Hour Vital Signs Date Time Temp Pulse Resp B/P (MAP) Pulse Ox O2 Delivery O2 Flow Rate FiO2 01/03/19 12:00 98.8 77 17 128/77 (94) 99 01/03/19 09:25 Room Air 01/03/19 08:00 98.4 73 16 131/73 (92) 99 01/03/19 05:30 141/78 01/03/19 04:00 97.9 72 16 141/78 (99) 96 01/02/19 23:39 98.8 72 18 129/75 (93) 98 01/02/19 21:26 134/72 01/02/19 21:25 75 134/72 01/02/19 21:00 Room Air 01/02/19 20:00 98.1 78 16 134/72 (92) 95 Intake and Output 01/02/19 01/03/19 19:00 07:00 Intake Total 550 ml 200 ml Balance 550 ml 200 ml Other 550 ml 200 ml # Voids 2 # Bowel Movements 1 Height (Feet): 5 Height (Inches): 6.00 Weight (Pounds): 145 Objective PE: Vitals: reviewed General Appearance: NAD, nonverbal HEENT: normocephalic, atraumatic Neck: non-tender, normal alignment Respiratory/Chest: nromal breath sounds bilaterally Cardiovascular/Chest: normal peripheral pulses, normal rate Abdomen: normal bowel sounds, soft, nontender Extremities: normal range of motion . Enrrique Solano MD January 03, 2019 17:26
--- NOTE | 2019-01-03 19:04 | NUR ---
HAND-OFF: Report given to GRIS Kim.
--- NOTE | 2019-01-03 20:00 | NUR ---
NURSE NOTES: PATIENT IN BED, AWAKE, ALERT. IV IN PLACE. NO COMPLAINTS OF PAIN AT THIS TIME. NO S/S DISTRESS NOTED. BED IN LOWEST POSITION, CALL LIGHT WITHIN REACH. WILL CONTINUE TO MONITOR.
[2019-01-03 20:20] VITALS: BP 131/64
[2019-01-03] MEDS: Miralax 17gm pkt ORAL SCH ×2 (21:00→21:08)
[2019-01-03] MEDS: Tamsulosin 0.4mg cap ORAL SCH (21:08)
[2019-01-03] MEDS: Epoetin Alfa(ESRD on dialysis)10,000 unit/ml vial SUBQ SCH (21:09)
--- NOTE | 2019-01-03 21:49 | General Progress Note ---
Assessment/Plan Problem List: (1) CHF exacerbation ICD Codes: I50.9 - Heart failure, unspecified SNOMED: 35641514 (2) Pyelonephritis ICD Codes: N12 - Tubulo-interstitial nephritis, not specified as acute or chronic SNOMED: 92696442 (3) Pancytopenia ICD Codes: D61.818 - Other pancytopenia SNOMED: 352729730 (4) CHF (congestive heart failure) ICD Codes: I50.9 - Heart failure, unspecified SNOMED: 83374469 (5) Anemia in chronic kidney disease (CKD) ICD Codes: N18.9 - Chronic kidney disease, unspecified; D63.1 - Anemia in chronic kidney disease SNOMED: 881188475 (6) ARF (acute renal failure) ICD Codes: N17.9 - Acute kidney failure, unspecified SNOMED: 52865721 (7) ESRD (end stage renal disease) ICD Codes: N18.6 - End stage renal disease SNOMED: 30999796 (8) Nephrotic syndrome ICD Codes: N04.9 - Nephrotic syndrome with unspecified morphologic changes SNOMED: 01093844 Status: stable Assessment/Plan: chf cad htn hyperlipidemia needs outpatient diaylsis setup s/p cardiac and urethral stent esrd on hd Subjective ROS Limited/Unobtainable: Yes Allergies: Coded Allergies: No Known Allergies (Unverified , 12/14/18) Objective Last 24 Hour Vital Signs Date Time Temp Pulse Resp B/P (MAP) Pulse Ox O2 Delivery O2 Flow Rate FiO2 01/03/19 21:08 76 131/64 01/03/19 20:20 99.2 76 17 131/64 (86) 93 01/03/19 16:00 98.2 80 18 133/80 (97) 98 01/03/19 12:00 98.8 77 17 128/77 (94) 99 01/03/19 09:25 Room Air 01/03/19 08:00 98.4 73 16 131/73 (92) 99 01/03/19 05:30 141/78 01/03/19 04:00 97.9 72 16 141/78 (99) 96 01/02/19 23:39 98.8 72 18 129/75 (93) 98 Intake and Output 01/02/19 01/03/19 19:00 07:00 Intake Total 550 ml 200 ml Balance 550 ml 200 ml Other 550 ml 200 ml # Voids 2 # Bowel Movements 1 Height (Feet): 5 Height (Inches): 6.00 Weight (Pounds): 145 Cardiovascular: normal rate Respiratory/Chest: lungs clear Abdomen: soft Sarahi Shaffer MD January 03, 2019 21:49
[2019-01-04 00:27] VITALS: BP 135/75
[2019-01-04 04:37] VITALS: BP 139/77
--- NOTE | 2019-01-04 05:00 | NUR ---
NURSE NOTES: PATIENT IN BED, ASLEEP, NO DISTRESS.
[2019-01-04] MEDS: HydrALAZINE 25mg tab ORAL SCH ×3 (05:49→23:26)
[2019-01-04] MEDS: NovoLOG Insulin Flexpen SUBQ SCH ×4 (05:53→21:14)
[2019-01-04 06:36] LABS: HEMATOCRIT 29.3 % (42.0-52.0); HEMOGLOBIN 9.1 G/DL (14.2-18.0); MEAN CORPUSCULAR VOLUME 91 FL (80-99); PLATELET COUNT 97 K/UL (150-450); RED CELL DISTRIBUTION WIDTH 18.6 % (11.6-14.8); WHITE BLOOD COUNT 4.7 K/UL (4.8-10.8)
[2019-01-04 06:59] LABS: ALANINE AMINOTRANSFERASE 37 U/L (12-78); ALBUMIN 2.7 G/DL (3.4-5.0); ALBUMIN/GLOBULIN RATIO 0.6 (1.0-2.7); ALKALINE PHOSPHATASE 395 U/L (46-116); ANION GAP 11 mmol/L (5-15); BILIRUBIN,TOTAL 2.7 MG/DL (0.2-1.0); BLOOD UREA NITROGEN 66 mg/dL (7-18); CALCIUM 8.2 MG/DL (8.5-10.1); CARBON DIOXIDE 29 MMOL/L (21-32); CHLORIDE 101 MMOL/L (98-107); CREATININE 7.5 MG/DL (0.55-1.30); SODIUM 141 MMOL/L (136-145)
[2019-01-04 07:03] LABS: BILIRUBIN,DIRECT 2.3 MG/DL (0.0-0.3)
[2019-01-04 07:18] LABS: ASPARTATE AMINO TRANSFERASE 46 U/L (15-37)
--- NOTE | 2019-01-04 07:23 | NUR ---
HAND-OFF: Report given to CHERYL ROBERTS RN.
[2019-01-04 08:00] VITALS: BP 140/80
--- NOTE | 2019-01-04 08:00 | NUR ---
NURSE NOTES: pt in bed with no sob nor in any form of distress noted. Breathing regular and unlabored. Denies any pain at this time. Bed in lowest position. call light within reach at all time.
[2019-01-04] MEDS: Heparin 5000 units/ml inj SUBQ SCH ×2 (09:00→21:00)
[2019-01-04] MEDS: Aspirin Baby 81mg ORAL SCH (09:00)
[2019-01-04] MEDS: Docusate 100mg cap ORAL SCH ×3 (09:14→17:38)
[2019-01-04] MEDS: Carvedilol 12.5mg tab ORAL SCH ×2 (09:14→21:19)
[2019-01-04] MEDS: Calcitriol 0.25mcg Cap ORAL SCH (09:15)
[2019-01-04] MEDS: Allopurinol 100mg Tab ORAL SCH (09:15)
[2019-01-04] MEDS: Imdur 30mg tab ORAL SCH (09:15)
[2019-01-04] MEDS: Ciprofloxacin 500mg tab ORAL SCH (09:15)
--- NOTE | 2019-01-04 10:11 | GI Progress Note ---
Assessment/Plan Problems: (1) DM (diabetes mellitus) ICD Codes: E11.9 - Type 2 diabetes mellitus without complications SNOMED: 08169733 (2) ESRD (end stage renal disease) ICD Codes: N18.6 - End stage renal disease SNOMED: 79250392 (3) Anemia in chronic kidney disease (CKD) ICD Codes: N18.9 - Chronic kidney disease, unspecified; D63.1 - Anemia in chronic kidney disease SNOMED: 335512105 (4) Gallstones ICD Codes: K80.20 - Calculus of gallbladder without cholecystitis without obstruction SNOMED: 134873457 (5) possible cirrhosis Status: unchanged Status Narrative Discussed with Dr. Hirsch Assessment/Plan Abdominal ultrasound reviewed, presence of portal hypertension. Consider propranolol bowel regimen renal diet off Protonix fu labs DC planning The patient was seen and examined at bedside and all new and available data was reviewed in the patients chart. I agree with the above findings, impression and plan. (Patient seen earlier today. Signature stamp does not reflect patient encounter time.). - Jonathan Hirsch MD Subjective Gastrointestinal/Abdominal: Reports: no symptoms, abdomen distended Objective Last 24 Hour Vital Signs Date Time Temp Pulse Resp B/P (MAP) Pulse Ox O2 Delivery O2 Flow Rate FiO2 01/04/19 09:15 140/80 01/04/19 09:14 73 140/80 01/04/19 05:49 139/77 01/04/19 04:37 99.6 79 18 139/77 (97) 97 01/04/19 00:27 98.1 75 18 135/75 (95) 99 01/03/19 22:53 Room Air 01/03/19 22:18 131/96 01/03/19 21:08 76 131/64 01/03/19 20:20 99.2 76 17 131/64 (86) 93 01/03/19 16:00 98.2 80 18 133/80 (97) 98 01/03/19 12:00 98.8 77 17 128/77 (94) 99 Intake and Output 01/03/19 01/04/19 19:00 07:00 Intake Total 880 ml Output Total 0 ml Balance 880 ml 0 ml Intake Oral 880 ml Output Urine Total 0 ml # Voids 2 # Bowel Movements 1 Laboratory Tests Test 01/04/19 06:00 White Blood Count 4.7 K/UL (4.8-10.8) L Red Blood Count 3.20 M/UL (4.70-6.10) L Hemoglobin 9.1 G/DL (14.2-18.0) L Hematocrit 29.3 % (42.0-52.0) L Mean Corpuscular Volume 91 FL (80-99) Mean Corpuscular Hemoglobin 28.6 PG (27.0-31.0) Mean Corpuscular Hemoglobin Concent 31.2 G/DL (32.0-36.0) L Red Cell Distribution Width 18.6 % (11.6-14.8) H Platelet Count 97 K/UL (150-450) L Mean Platelet Volume 7.7 FL (6.5-10.1) Neutrophils (%) (Auto) % (45.0-75.0) Lymphocytes (%) (Auto) % (20.0-45.0) Monocytes (%) (Auto) % (1.0-10.0) Eosinophils (%) (Auto) % (0.0-3.0) Basophils (%) (Auto) % (0.0-2.0) Neutrophils % (Manual) Pending Lymphocytes % (Manual) Pending Platelet Estimate Pending Platelet Morphology Pending Sodium Level 141 MMOL/L (136-145) Potassium Level 5.0 MMOL/L (3.5-5.1) Chloride Level 101 MMOL/L (98-107) Carbon Dioxide Level 29 MMOL/L (21-32) Anion Gap 11 mmol/L (5-15) Blood Urea Nitrogen 66 mg/dL (7-18) H Creatinine 7.5 MG/DL (0.55-1.30) H Estimat Glomerular Filtration Rate 7.6 mL/min (>60) Glucose Level 145 MG/DL (74-106) H Calcium Level 8.2 MG/DL (8.5-10.1) L Total Bilirubin 2.7 MG/DL (0.2-1.0) H Direct Bilirubin 2.3 MG/DL (0.0-0.3) H Aspartate Amino Transf (AST/SGOT) 46 U/L (15-37) H Alanine Aminotransferase (ALT/SGPT) 37 U/L (12-78) Alkaline Phosphatase 395 U/L (46-116) H Total Protein 7.0 G/DL (6.4-8.2) Albumin 2.7 G/DL (3.4-5.0) L Globulin 4.3 g/dL Albumin/Globulin Ratio 0.6 (1.0-2.7) L Height (Feet): 5 Height (Inches): 6.00 Weight (Pounds): 145 General Appearance: WD/WN, no apparent distress, alert Cardiovascular: normal rate Respiratory/Chest: normal breath sounds, no respiratory distress Abdominal Exam: normal bowel sounds, non tender, soft Extremities: normal range of motion, non-tender Selene Steiner NP January 04, 2019 10:11
--- NOTE | 2019-01-04 10:24 | NUR ---
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 PER ULYSIS, [facility] WILL CALL HIM BACK IN A COUPLE OF HOURS WITH ACCEPTANCE AND CHAIR TIME. WILL FOLLOW UP. ULYSIS [phone]
--- NOTE | 2019-01-04 10:40 | NUR ---
*-* INSURANCE *-* UPDATED CLINICALS AND REVIEWS HAVE BEEN FAXED TO: [facility] FRANCO: NURYS P:[phone] F:[phone]
[2019-01-04 12:00] VITALS: BP 124/73
--- NOTE | 2019-01-04 13:01 | Infectious Diseases Prog Note ---
Assessment/Plan Assessment/Plan IMPRESSION: UTI with ESBL Klebsiella combined systolic and diastolic heart failure pulmonary artery hypertension, chronic kidney disease end-stage renal disease proteinuria, pancytopenia, coronary artery disease. Change in vision in left eye s/p ureteral stent Hepatitis c Elevated bilirubin Portal hypertension Splenomegaly RECOMMENDATION: Continue PO Ciprofloxacin X 3 more days Subjective ROS Limited/Unobtainable: Yes Allergies: Coded Allergies: No Known Allergies (Unverified , 12/14/18) Objective Vital Signs Last 24 Hour Vital Signs Date Time Temp Pulse Resp B/P (MAP) Pulse Ox O2 Delivery O2 Flow Rate FiO2 01/04/19 09:15 140/80 01/04/19 09:14 73 140/80 01/04/19 09:00 Room Air 01/04/19 08:00 98.1 73 18 140/80 (100) 97 01/04/19 05:49 139/77 01/04/19 04:37 99.6 79 18 139/77 (97) 97 01/04/19 00:27 98.1 75 18 135/75 (95) 99 01/03/19 22:53 Room Air 01/03/19 22:18 131/96 01/03/19 21:08 76 131/64 01/03/19 20:20 99.2 76 17 131/64 (86) 93 01/03/19 16:00 98.2 80 18 133/80 (97) 98 Height (Feet): 5 Height (Inches): 6.00 Weight (Pounds): 145 General Appearance: no acute distress HEENT: mucous membranes moist Respiratory/Chest: lungs clear Cardiovascular: normal rate, other - Permacath Abdomen: soft, non tender Extremities: no edema Neurologic/Psychiatric: other - sleeping Laboratory Tests Test 01/04/19 06:00 White Blood Count 4.7 K/UL (4.8-10.8) L Red Blood Count 3.20 M/UL (4.70-6.10) L Hemoglobin 9.1 G/DL (14.2-18.0) L Hematocrit 29.3 % (42.0-52.0) L Mean Corpuscular Volume 91 FL (80-99) Mean Corpuscular Hemoglobin 28.6 PG (27.0-31.0) Mean Corpuscular Hemoglobin Concent 31.2 G/DL (32.0-36.0) L Red Cell Distribution Width 18.6 % (11.6-14.8) H Platelet Count 97 K/UL (150-450) L Mean Platelet Volume 7.7 FL (6.5-10.1) Neutrophils (%) (Auto) % (45.0-75.0) Lymphocytes (%) (Auto) % (20.0-45.0) Monocytes (%) (Auto) % (1.0-10.0) Eosinophils (%) (Auto) % (0.0-3.0) Basophils (%) (Auto) % (0.0-2.0) Differential Total Cells Counted 100 Neutrophils % (Manual) 66 % (45-75) Lymphocytes % (Manual) 23 % (20-45) Monocytes % (Manual) 10 % (1-10) Eosinophils % (Manual) 1 % (0-3) Basophils % (Manual) 0 % (0-2) Band Neutrophils 0 % (0-8) Platelet Estimate Decreased L Platelet Morphology Normal Hypochromasia 2+ Anisocytosis 2+ Sodium Level 141 MMOL/L (136-145) Potassium Level 5.0 MMOL/L (3.5-5.1) Chloride Level 101 MMOL/L (98-107) Carbon Dioxide Level 29 MMOL/L (21-32) Anion Gap 11 mmol/L (5-15) Blood Urea Nitrogen 66 mg/dL (7-18) H Creatinine 7.5 MG/DL (0.55-1.30) H Estimat Glomerular Filtration Rate 7.6 mL/min (>60) Glucose Level 145 MG/DL (74-106) H Calcium Level 8.2 MG/DL (8.5-10.1) L Total Bilirubin 2.7 MG/DL (0.2-1.0) H Direct Bilirubin 2.3 MG/DL (0.0-0.3) H Aspartate Amino Transf (AST/SGOT) 46 U/L (15-37) H Alanine Aminotransferase (ALT/SGPT) 37 U/L (12-78) Alkaline Phosphatase 395 U/L (46-116) H Total Protein 7.0 G/DL (6.4-8.2) Albumin 2.7 G/DL (3.4-5.0) L Globulin 4.3 g/dL Albumin/Globulin Ratio 0.6 (1.0-2.7) L Current Medications Medications (Trade) Dose Ordered Sig/Félix Route PRN Reason Start Time Stop Time Status Last Admin Dose Admin Acetaminophen (Tylenol) 650 mg Q4H PRN ORAL Mild Pain/Temp > 100.5 12/14/18 15:45 01/13/19 15:44 12/29/18 17:20 Allopurinol (Zyloprim) 100 mg DAILY ORAL 12/15/18 09:00 01/14/19 08:59 01/04/19 09:15 Aspirin (ASA) 162 mg DAILY ORAL 12/14/18 15:45 01/13/19 15:44 01/02/19 08:48 Calcitriol (Rocatrol) 0.25 mcg DAILY ORAL 12/19/18 09:00 01/14/19 08:59 01/04/19 09:15 Carvedilol (Coreg) 12.5 mg EVERY 12 HOURS ORAL 12/19/18 21:00 01/13/19 20:59 01/04/19 09:14 Ciprofloxacin (Cipro 500mg tab) 500 mg DAILY ORAL 01/01/19 09:00 01/08/19 08:59 01/04/19 09:15 Dextrose (Dextrose 50%) 25 ml Q30M PRN IV Hypoglycemia 12/21/18 18:15 01/20/19 18:14 Dextrose (Dextrose 50%) 50 ml Q30M PRN IV Hypoglycemia 12/21/18 18:15 01/20/19 18:14 Docusate Sodium (Colace) 100 mg TID ORAL 12/17/18 13:00 01/13/19 17:59 01/04/19 12:25 Epoetin Jordon (Epoetin Jordon(ESRD on dialysis)) 10,000 unit THU-THU-THU SUBQ 12/22/18 21:00 01/21/19 20:59 01/03/19 21:09 Heparin Sodium (Porcine) (Heparin 5000 units/ml) 5,000 units EVERY 12 HOURS SUBQ 12/15/18 21:00 01/13/19 20:59 12/30/18 08:51 Hydralazine HCl (Apresoline) 25 mg Q8HR ORAL 12/22/18 22:00 01/17/19 00:00 01/04/19 05:49 Hydroxyzine HCl (Atarax) 25 mg Q6H PRN ORAL Itching 12/28/18 10:15 01/27/19 10:14 01/03/19 11:47 Insulin Aspart (NovoLOG) BEFORE MEALS AND HS SUBQ 12/21/18 21:00 01/20/19 20:59 01/04/19 05:53 Isosorbide Mononitrate (Imdur) 30 mg DAILY ORAL 12/14/18 20:45 01/13/19 20:44 01/04/19 09:15 Ondansetron HCl (Zofran) 4 mg Q6H PRN IVP Nausea & Vomiting 12/20/18 13:30 01/19/19 13:29 12/25/18 10:32 Polyethylene Glycol (Miralax) 17 gm BEDTIME ORAL 12/31/18 21:00 01/30/19 20:59 01/02/19 21:26 Sennosides (Senokot) 8.6 mg DAILYPRN PRN ORAL Constipation 12/31/18 13:45 01/30/19 13:44 01/02/19 18:35 Sevelamer Carbonate (Renvela) 800 mg THREE TIMES A DAY ORAL 12/20/18 13:00 01/18/19 08:59 01/04/19 12:25 Tamsulosin HCl (Flomax) 0.4 mg BEDTIME ORAL 12/16/18 21:00 01/15/19 20:59 01/03/19 21:08 Omi Brown MD January 04, 2019 13:00
--- NOTE | 2019-01-04 14:22 | Nephrology Progress Note ---
Assessment/Plan Problem List: (1) ESRD (end stage renal disease) (2) ARF (acute renal failure) (3) CHF (congestive heart failure) (4) Anemia in chronic kidney disease (CKD) (5) Nephrotic syndrome (6) UTI (urinary tract infection) Assessment Advanced Renal failure with Proteinuria CKD known to the patient h/o HTN h/o Cardiac disease s/p stent ? DM high A1c Plan will contact Uro to DC Urethral stent after and pre load reduction management discussed the need for Dialysis - catheter 12/17- dialysis 3 times a week , due 01/05 1000 cc fluid restriction Renal diet- Phos binders BP check kidney RUSSEL noted 24 h urine results noted per orders Echo Global left ventricular hypokinesis with falttenign of cody VS suggestive of RV pressuere overload Mild left ventricular enlargement . Left ventricular ejection fraction estimated to be 25-30%. RUSSEL * Portions of the right ureteral stent are partially visualized. Punctate echogenic focus also noted in the lower pole of the right kidney which may represent nonobstructing stone. * No evidence of hydronephrosis bilaterally. * Renal echogenicity appears within normal limits. * Bladder wall thickening is noted within question for cystitis, although findings may possibly related to underdistention. Correlation with urinalysis recommended. Uro consult from Dr Weiss: He also has a history of kidney stones and one month ago had a right ureteral stent placed at [facility] for the same by Dr. Florez. The patient was then referred to see Dr. Dolan as a urologist and has plan regarding the same and has established care with him. Diagnostic imaging reveals a stent in place. I discussed these findings today with the patient at bedside. His nephroureteral stent is in good position and there is no hydronephrosis or obstructing stone etc. The patient is in the hospital for unrelated issues including congestive heart failure exacerbation and acute on chronic renal insufficiency which does not appear to be secondary to obstructive uropathy. His stent should remain in place and once he is feeling better, he can be discharged and follow up with Dr. Dolan in the office regarding removal of the stent and treatment of the stones. Subjective ROS Limited/Unobtainable: No Objective Objective Last 24 Hour Vital Signs Date Time Temp Pulse Resp B/P (MAP) Pulse Ox O2 Delivery O2 Flow Rate FiO2 01/04/19 13:20 140/80 5/7/19 12:00 97.6 67 18 124/73 (90) 97 01/04/19 09:15 140/80 01/04/19 09:14 73 140/80 01/04/19 09:00 Room Air 01/04/19 08:00 98.1 73 18 140/80 (100) 97 01/04/19 05:49 139/77 01/04/19 04:37 99.6 79 18 139/77 (97) 97 01/04/19 00:27 98.1 75 18 135/75 (95) 99 01/03/19 22:53 Room Air 01/03/19 22:18 131/96 01/03/19 21:08 76 131/64 01/03/19 20:20 99.2 76 17 131/64 (86) 93 01/03/19 16:00 98.2 80 18 133/80 (97) 98 Intake and Output 01/03/19 01/04/19 19:00 07:00 Intake Total 880 ml Output Total 0 ml Balance 880 ml 0 ml Intake Oral 880 ml Output Urine Total 0 ml # Voids 2 # Bowel Movements 1 Laboratory Tests 01/04/19 06:00: White Blood Count 4.7L, Red Blood Count 3.20L, Hemoglobin 9.1L, Hematocrit 29.3L , Mean Corpuscular Volume 91, Mean Corpuscular Hemoglobin 28.6, Mean Corpuscular Hemoglobin Concent 31.2L, Red Cell Distribution Width 18.6H, Platelet Count 97L, Mean Platelet Volume 7.7, Neutrophils (%) (Auto) , Lymphocytes (%) (Auto) , Monocytes (%) (Auto) , Eosinophils (%) (Auto) , Basophils (%) (Auto) , Differential Total Cells Counted 100, Neutrophils % ( Manual) 66, Lymphocytes % (Manual) 23, Monocytes % (Manual) 10, Eosinophils % ( Manual) 1, Basophils % (Manual) 0, Band Neutrophils 0, Platelet Estimate DecreasedL, Platelet Morphology Normal, Hypochromasia 2+, Anisocytosis 2+, Sodium Level 141, Potassium Level 5.0, Chloride Level 101, Carbon Dioxide Level 29, Anion Gap 11, Blood Urea Nitrogen 66H, Creatinine 7.5H, Estimat Glomerular Filtration Rate 7.6, Glucose Level 145H, Calcium Level 8.2L, Total Bilirubin 2.7H, Direct Bilirubin 2.3H, Aspartate Amino Transf (AST/SGOT) 46H, Alanine Aminotransferase (ALT/SGPT) 37, Alkaline Phosphatase 395H, Total Protein 7.0, Albumin 2.7L, Globulin 4.3, Albumin/Globulin Ratio 0.6L Height (Feet): 5 Height (Inches): 6.00 Weight (Pounds): 145 General Appearance: no apparent distress Objective no change Micah Pitt MD January 04, 2019 14:22
--- NOTE | 2019-01-04 14:52 | NUR ---
RD ASSESSMENT & RECOMMENDATIONS SEE CARE ACTIVITY FOR COMPLETE ASSESSMENT DAILY ESTIMATED NEEDS: Needs based on ESRD w/ HD, 66kg 25-35 kcals/kg 1175-2871 total kcals 1.2-1.8 g protein/kg 79-119 g total protein 1000ml fluid restriction per MD mL/kg total fluid mLs NUTRITION DIAGNOSIS: * Altered nutrition related lab values r/t ESRD as evidenced by low hgb (9.1), elev BUN (66), elev Creat (7.5) and elev Phos 6.0-> 5.0, elev BNP (33890). * Increased kcal/prot needs R/T renal dysfunction as evidenced by ESRD dx, pt now on HD. CURRENT DIET:CCHO MED/ Renal, 1000ml fluid restriction PO DIET RECOMMENDATIONS: Maintain [facility] MED/ RENAL DIET + Double Protein Portions ADDITIONAL RECOMMENDATIONS: 1) Obtain dry wt post HD- rec STANDING wt for accuracy 2) Fluid restriction per MD- 1000ml FR at this time 3) Renal diet ed provided - Additionally, High phos food diet edu provided (12/31) . . .
--- NOTE | 2019-01-04 15:26 | NUR ---
TOP AND SEAT COVER FITTER NOTES PATIENT WAS APPROVED FOR CHAIR TIME AT [facility] [address] [place] [address] T, TH, SAT. AT 4AM. HAO FROM [facility] CAN BE REACHED AT .
--- NOTE | 2019-01-04 15:37 | General Progress Note ---
Assessment/Plan Status: unchanged Assessment/Plan: Assessment/Plan # Pancytopenia -- multiple etiologies could be related to underlying liver disease, medication-induced, infection versus viral syndrome -> hx SPLENOMEGALY AND CIRRHOSIS (irregular liver sufrace can explain pancytopenia), Prominent soft tissue opacities in the splenic hilum and lesser sac, could indicate varices, all of the lesser sac findings could represent prominent nodes. Consider gi evaluation and treatment --> peripheral smear has been ordered and does not show significant abnormalities does not appear to have significant abnormalities --> Medications have been reviewed, less likely culprits --> Continue to monitor for improvement, trend cbc --> Hep panel and HIV are both negative --> consider other causes, infections that could contribute --> reverse isolation if ANC is <2000 --> Give neupogen if ANC <1000 --> Transfuse if hgb <7, with 1 unit prbc --> WBC trend 4.2-->3.6-->3.6-->3.8-->4.4-->3.9-->4-->4.1 ==> Plt trend 122k-->84k-->69k-->74k-->81k-->93k-->8.7 # Anemia of iron deficiency given will need hd/esrd --> iron has been started x 5 doses iv --> ferritin level 218-->451 # Coagulation defect, multifactorial usually related to poor PO intake versus medications, versus hepatitis v cirrhosis --> administer Vitamin K if patient is bleeding or FFP if the INR is >10 --> hold off on ffp unless active procedure/bleeding, first begin with vit K 10 --> mixing study prn basis # Advanced Renal failure with Proteinuria --> as per renal eval and recs --> HD as per renal followup # h/o HTN --> sbp goal <140 # h/o Cardiac disease s/p stent # ? DM The timing of this note does not necessarily reflect the time of the patient was seen. Greatly appreciate consultation! Subjective Constitutional: Denies: no symptoms, chills, diaphoresis, fever, malaise, weakness, other HEENT: Denies: no symptoms, eye pain, blurred vision, tearing, double vision, ear pain, ear discharge, nose pain, nose congestion, throat pain, throat swelling, mouth pain, mouth swelling, other Cardiovascular: Denies: no symptoms, chest pain, edema, irregular heart rate, lightheadedness, palpitations, syncope, other Gastrointestinal/Abdominal: Denies: no symptoms, abdomen distended, abdominal pain, black stools, tarry stools, blood in stool, constipated, diarrhea, difficulty swallowing, nausea, poor appetite, poor fluid intake, rectal bleeding , vomiting, other Genitourinary: Denies: no symptoms, burning, discharge, frequency, flank pain, hematuria, incontinence, pain, urgency, other Neurologic/Psychiatric: Denies: no symptoms, anxiety, depressed, emotional problems, headache, numbness, paresthesia, pre-existing deficit, seizure, tingling, tremors, weakness, other Endocrine: Denies: no symptoms, excessive sweating, flushing, intolerance to cold, intolerance to heat, increased hunger, increased thirst, increased urine, unexplained weight gain, unexplained weight loss, other Hematologic/Lymphatic: Denies: no symptoms, anemia, easy bleeding, easy bruising, other Allergies: Coded Allergies: No Known Allergies (Unverified , 12/14/18) Subjective 12/15: labs have been reviewed, relatively stable cbc but mildly lower with elev inr, not bleeding 12/16: discussed need for HD with renal, family, by the bedside understands as well as patient 12/17: labs have been reviewed and noted, by bedside, relatively stable 12/23: no evidence of fevers or chills, off abx, seen bty renal, due for hd 426: shaving this am, no complaints, no fc, cbc reviewed 12/26: overall has been doing better, no complaints this am 12/27: no events to report, scheduled for potential hd today 12/28: no events noted, seen by renal, awaiting clearance for dc 12/29: no bleeding reported, hd today, bp is stable as is cbc 12/30: no chills noted, getting hd prn, anemia panel has been reviewed 01/02: no events noted, to get hd tomorrow, no pain noted around perm site 01/03: no events to get hd 3x a week, seen by renal 01/04: no events, eating comfortably in room this am Objective Last 24 Hour Vital Signs Date Time Temp Pulse Resp B/P (MAP) Pulse Ox O2 Delivery O2 Flow Rate FiO2 01/04/19 13:20 140/80 01/04/19 12:00 97.6 67 18 124/73 (90) 97 01/04/19 09:15 140/80 01/04/19 09:14 73 140/80 01/04/19 09:00 Room Air 01/04/19 08:00 98.1 73 18 140/80 (100) 97 01/04/19 05:49 139/77 01/04/19 04:37 99.6 79 18 139/77 (97) 97 01/04/19 00:27 98.1 75 18 135/75 (95) 99 01/03/19 22:53 Room Air 01/03/19 22:18 131/96 01/03/19 21:08 76 131/64 01/03/19 20:20 99.2 76 17 131/64 (86) 93 01/03/19 16:00 98.2 80 18 133/80 (97) 98 Intake and Output 01/03/19 01/04/19 19:00 07:00 Intake Total 880 ml Output Total 0 ml Balance 880 ml 0 ml Intake Oral 880 ml Output Urine Total 0 ml # Voids 2 # Bowel Movements 1 Laboratory Tests 01/04/19 06:00: White Blood Count 4.7L, Red Blood Count 3.20L, Hemoglobin 9.1L, Hematocrit 29.3L , Mean Corpuscular Volume 91, Mean Corpuscular Hemoglobin 28.6, Mean Corpuscular Hemoglobin Concent 31.2L, Red Cell Distribution Width 18.6H, Platelet Count 97L, Mean Platelet Volume 7.7, Neutrophils (%) (Auto) , Lymphocytes (%) (Auto) , Monocytes (%) (Auto) , Eosinophils (%) (Auto) , Basophils (%) (Auto) , Differential Total Cells Counted 100, Neutrophils % ( Manual) 66, Lymphocytes % (Manual) 23, Monocytes % (Manual) 10, Eosinophils % ( Manual) 1, Basophils % (Manual) 0, Band Neutrophils 0, Platelet Estimate DecreasedL, Platelet Morphology Normal, Hypochromasia 2+, Anisocytosis 2+, Sodium Level 141, Potassium Level 5.0, Chloride Level 101, Carbon Dioxide Level 29, Anion Gap 11, Blood Urea Nitrogen 66H, Creatinine 7.5H, Estimat Glomerular Filtration Rate 7.6, Glucose Level 145H, Calcium Level 8.2L, Total Bilirubin 2.7H, Direct Bilirubin 2.3H, Aspartate Amino Transf (AST/SGOT) 46H, Alanine Aminotransferase (ALT/SGPT) 37, Alkaline Phosphatase 395H, Total Protein 7.0, Albumin 2.7L, Globulin 4.3, Albumin/Globulin Ratio 0.6L Height (Feet): 5 Height (Inches): 6.00 Weight (Pounds): 145 Objective PE: Vitals: reviewed General Appearance: NAD, nonverbal HEENT: normocephalic, atraumatic Neck: non-tender, normal alignment Respiratory/Chest: nromal breath sounds bilaterally Cardiovascular/Chest: normal peripheral pulses, normal rate Abdomen: normal bowel sounds, soft, nontender Extremities: normal range of motion . Enrrique Solano MD January 04, 2019 15:37
--- NOTE | 2019-01-04 15:46 | NUR ---
CHARGE NURSE NOTES: Received call from caseworker protective services, Pt's OP HD had been arranged with Anderson Hansen @[facility], T, TH, S. Called Dr Pitt. Per Dr Pitt, Pt to be dialyzed tomorrow morning 01/05/19 and to be discharged after. Called [facility] nephrology. Enrrique confirmed Pt will be dialyzed in the morning 01/05/19
--- NOTE | 2019-01-04 15:48 | NUR ---
NURSE NOTES: Called [facility] HD center and confirmed dialysis for tomorrow (01/05/19) Enrrique, dialysis nurse is aware.
[2019-01-04 16:00] VITALS: BP 123/70
--- NOTE | 2019-01-04 16:05 | NUR ---
GLAZIER ARTISTRN CARDIAC SI:ESRD on HD . CHF VS: BP 140/80, P 67, T 98.1, RR 18, SpO2 97 WBC 4.7, RBC 3.20, H&H 9.1/29.3, BUN 66, CR 7.5 IS:APRESOLINE 25mg RENVELA 800mg IMDUR 30mg ZYLOPRIM 100mG CIPROFLOXACIN 500mg MED/SURG STATUS
--- NOTE | 2019-01-04 19:43 | NUR ---
HAND-OFF: Report given to Richard reyes.
[2019-01-04 20:00] VITALS: BP 128/64
--- NOTE | 2019-01-04 20:00 | NUR ---
NURSE NOTES: RECEIVED PATIENT LYING IN BED, AWAKE, ALERT/ORIENTED X4, VERBALLY RESPONSIVE, DENIES PAIN. NO SIGNS AND SYMPTOMS OF ACUTE CARDIO RESPIRATORY DISTRESS/SHORTNESS OF BREATH, DENIES CHEST PAIN. HD SCHEDULED 01/05/19 VIA RIGHT CHEST PERMACATH, DRESSING DRY AND INTACT, NO SIGNS OF BLEEDING, DISCHARGE AFTER HD, PATIENT AWARE. ABDOMEN LARGE SECONDARY TO ASCITES,NO COMPLAINTS OF GI DISCOMFORT, NO N/V. CONTINENT OF B/B, BATHROOM PRIVILEGES. SIDE RAILS UP X2 FOR MOBILITY, BED IN LOWEST POSITION FOR SAFETY. CALL LIGHT WITHIN REACH. NAD.
--- NOTE | 2019-01-04 20:35 | General Progress Note ---
Assessment/Plan Problem List: (1) CHF exacerbation ICD Codes: I50.9 - Heart failure, unspecified SNOMED: 75778355 (2) Pyelonephritis ICD Codes: N12 - Tubulo-interstitial nephritis, not specified as acute or chronic SNOMED: 25531048 (3) Pancytopenia ICD Codes: D61.818 - Other pancytopenia SNOMED: 046728604 (4) CHF (congestive heart failure) ICD Codes: I50.9 - Heart failure, unspecified SNOMED: 23337556 (5) Anemia in chronic kidney disease (CKD) ICD Codes: N18.9 - Chronic kidney disease, unspecified; D63.1 - Anemia in chronic kidney disease SNOMED: 243251772 (6) ARF (acute renal failure) ICD Codes: N17.9 - Acute kidney failure, unspecified SNOMED: 88559124 (7) ESRD (end stage renal disease) ICD Codes: N18.6 - End stage renal disease SNOMED: 78187657 (8) Nephrotic syndrome ICD Codes: N04.9 - Nephrotic syndrome with unspecified morphologic changes SNOMED: 49721304 Status: progressing, unchanged Assessment/Plan: chf cad htn hyperlipidemia needs outpatient diaylsis setup s/p cardiac and urethral stent esrd on hd no change edema is much less no sob no cp Subjective ROS Limited/Unobtainable: Yes Allergies: Coded Allergies: No Known Allergies (Unverified , 12/14/18) Objective Last 24 Hour Vital Signs Date Time Temp Pulse Resp B/P (MAP) Pulse Ox O2 Delivery O2 Flow Rate FiO2 01/04/19 16:00 97.6 60 18 123/70 (87) 97 01/04/19 13:20 140/80 01/04/19 12:00 97.6 67 18 124/73 (90) 97 01/04/19 09:15 140/80 01/04/19 09:14 73 140/80 01/04/19 09:00 Room Air 01/04/19 08:00 98.1 73 18 140/80 (100) 97 01/04/19 05:49 139/77 01/04/19 04:37 99.6 79 18 139/77 (97) 97 01/04/19 00:27 98.1 75 18 135/75 (95) 99 01/03/19 22:53 Room Air 01/03/19 22:18 131/96 01/03/19 21:08 76 131/64 Intake and Output 01/03/19 01/04/19 19:00 07:00 Intake Total 880 ml Output Total 0 ml Balance 880 ml 0 ml Intake Oral 880 ml Output Urine Total 0 ml # Voids 2 # Bowel Movements 1 Laboratory Tests 01/04/19 06:00: White Blood Count 4.7L, Red Blood Count 3.20L, Hemoglobin 9.1L, Hematocrit 29.3L , Mean Corpuscular Volume 91, Mean Corpuscular Hemoglobin 28.6, Mean Corpuscular Hemoglobin Concent 31.2L, Red Cell Distribution Width 18.6H, Platelet Count 97L, Mean Platelet Volume 7.7, Neutrophils (%) (Auto) , Lymphocytes (%) (Auto) , Monocytes (%) (Auto) , Eosinophils (%) (Auto) , Basophils (%) (Auto) , Differential Total Cells Counted 100, Neutrophils % ( Manual) 66, Lymphocytes % (Manual) 23, Monocytes % (Manual) 10, Eosinophils % ( Manual) 1, Basophils % (Manual) 0, Band Neutrophils 0, Platelet Estimate DecreasedL, Platelet Morphology Normal, Hypochromasia 2+, Anisocytosis 2+, Sodium Level 141, Potassium Level 5.0, Chloride Level 101, Carbon Dioxide Level 29, Anion Gap 11, Blood Urea Nitrogen 66H, Creatinine 7.5H, Estimat Glomerular Filtration Rate 7.6, Glucose Level 145H, Calcium Level 8.2L, Total Bilirubin 2.7H, Direct Bilirubin 2.3H, Aspartate Amino Transf (AST/SGOT) 46H, Alanine Aminotransferase (ALT/SGPT) 37, Alkaline Phosphatase 395H, Total Protein 7.0, Albumin 2.7L, Globulin 4.3, Albumin/Globulin Ratio 0.6L Height (Feet): 5 Height (Inches): 6.00 Weight (Pounds): 145 Neck: supple Cardiovascular: normal rate Respiratory/Chest: lungs clear Sarahi Shaffer MD January 04, 2019 20:35
[2019-01-04] MEDS: Tamsulosin 0.4mg cap ORAL SCH (21:19)
[2019-01-04] MEDS: Miralax 17gm pkt ORAL SCH (21:20)
--- NOTE | 2019-01-04 21:30 | NUR ---
NURSE NOTES: ASSISTED WITH SHOWER, TOLERATED WELL. SAFETY MAINTAINED.
[2019-01-05] VITALS: BP 119/62
[2019-01-05 04:00] VITALS: BP 129/67
[2019-01-05] MEDS: HydrALAZINE 25mg tab ORAL SCH ×2 (05:47→13:30)
--- NOTE | 2019-01-05 05:48 | NUR ---
NURSE NOTES: BLOOD PRESSURE MEDICATION HELD, PATIENT SCHEDULED FOR HD THIS MORNING.
--- NOTE | 2019-01-05 05:48 | NUR ---
NURSE NOTES: BLOOD GLUCOSE LEVEL MONITORED VIA GLUCOMETER WITH RESULT 144MG/DL, PATIENT REFUSE NOVOLOG INSULIN.
--- NOTE | 2019-01-05 05:53 | NUR ---
NURSE NOTES: RESTED WELL, NO SIGNIFICANT CHANGE OF CONDITION NOTED. SAFETY MAINTAINED. NAD.
[2019-01-05] MEDS: NovoLOG Insulin Flexpen SUBQ SCH ×2 (06:30→11:30)
[2019-01-05 06:59] LABS: ANION GAP 12 mmol/L (5-15); BLOOD UREA NITROGEN 83 mg/dL (7-18); CALCIUM 7.9 MG/DL (8.5-10.1); CARBON DIOXIDE 27 MMOL/L (21-32); CHLORIDE 100 MMOL/L (98-107); CREATININE 8.4 MG/DL (0.55-1.30); POTASSIUM 4.7 MMOL/L (3.5-5.1); SODIUM 139 MMOL/L (136-145)
[2019-01-05 07:14] LABS: BASOPHILS % (AUTO) 0.9 % (0.0-2.0); EOSINOPHILS % (AUTO) 1.3 % (0.0-3.0); HEMOGLOBIN 8.8 G/DL (14.2-18.0); MEAN CORPUSCULAR VOLUME 92 FL (80-99); MONOCYTES % (AUTO) 12.6 % (1.0-10.0); NEUTROPHILS % (AUTO) 72.2 % (45.0-75.0); PLATELET COUNT 122 K/UL (150-450); RED BLOOD COUNT 3.05 M/UL (4.70-6.10); RED CELL DISTRIBUTION WIDTH 18.3 % (11.6-14.8); WHITE BLOOD COUNT 4.3 K/UL (4.8-10.8)
--- NOTE | 2019-01-05 07:26 | NUR ---
HAND-OFF: Report given to GRIS KELLEY.
[2019-01-05 07:50] VITALS: BP 140/72
--- NOTE | 2019-01-05 07:52 | NUR ---
NURSE NOTES: pt awake alert, no distress. no c/o pain. call light within reach. bed in lowest position, locked. will monitor.
[2019-01-05] MEDS: Carvedilol 12.5mg tab ORAL SCH (08:04)
[2019-01-05] MEDS: Heparin 5000 units/ml inj SUBQ SCH (08:04)
[2019-01-05] MEDS: Calcitriol 0.25mcg Cap ORAL SCH (08:04)
[2019-01-05] MEDS: Imdur 30mg tab ORAL SCH (08:04)
[2019-01-05] MEDS: Ciprofloxacin 500mg tab ORAL SCH (08:05)
[2019-01-05] MEDS: Aspirin Baby 81mg ORAL SCH (08:05)
[2019-01-05] MEDS: Allopurinol 100mg Tab ORAL SCH (08:05)
[2019-01-05] MEDS: Docusate 100mg cap ORAL SCH ×3 (08:05→13:44)
[2019-01-05 09:03] LABS: ALANINE AMINOTRANSFERASE 43 U/L (12-78); ALBUMIN 2.7 G/DL (3.4-5.0); ALKALINE PHOSPHATASE 386 U/L (46-116); ASPARTATE AMINO TRANSFERASE 48 U/L (15-37); BILIRUBIN,DIRECT 2.4 MG/DL (0.0-0.3); BILIRUBIN,TOTAL 2.9 MG/DL (0.2-1.0); PHOSPHORUS 6.5 MG/DL (2.5-4.9)
--- NOTE | 2019-01-05 10:15 | NUR ---
*-* INSURANCE *-* UPDATED CLINICALS AND REVIEWS HAVE BEEN FAXED TO: ROMAIN FRANCO: NURYS P:[phone] F:[phone]
--- NOTE | 2019-01-05 10:39 | Infectious Diseases Prog Note ---
Assessment/Plan Assessment/Plan IMPRESSION: UTI with ESBL Klebsiella combined systolic and diastolic heart failure pulmonary artery hypertension, chronic kidney disease end-stage renal disease proteinuria, pancytopenia, coronary artery disease. Change in vision in left eye s/p ureteral stent Hepatitis c Elevated bilirubin Portal hypertension Splenomegaly RECOMMENDATION: Continue PO Ciprofloxacin X 2 more days Subjective ROS Limited/Unobtainable: No Constitutional: Reports: other - feels better Respiratory: Reports: no symptoms Cardiovascular: Reports: no symptoms Gastrointestinal/Abdominal: Reports: no symptoms Genitourinary: Reports: hematuria Skin: Reports: rash Allergies: Coded Allergies: No Known Allergies (Unverified , 12/14/18) Objective Vital Signs Last 24 Hour Vital Signs Date Time Temp Pulse Resp B/P (MAP) Pulse Ox O2 Delivery O2 Flow Rate FiO2 01/05/19 09:01 Room Air 01/05/19 07:50 98.7 75 16 140/72 (94) 96 01/05/19 05:47 121/66 01/05/19 04:00 98.7 75 16 129/67 (87) 96 01/05/19 00:00 99.0 71 19 119/62 (81) 97 01/04/19 23:26 130/65 01/04/19 21:19 58 124/76 01/04/19 21:00 Room Air 01/04/19 20:00 99.4 79 18 128/64 (85) 97 01/04/19 16:00 97.6 60 18 123/70 (87) 97 01/04/19 13:20 140/80 01/04/19 12:00 97.6 67 18 124/73 (90) 97 Height (Feet): 5 Height (Inches): 6.00 Weight (Pounds): 138 General Appearance: no acute distress HEENT: mucous membranes moist Respiratory/Chest: lungs clear Cardiovascular: normal rate, other - Permacath Abdomen: soft, non tender Extremities: no edema Skin: rash, other - few papules in torso Laboratory Tests Test 01/05/19 05:15 White Blood Count 4.3 K/UL (4.8-10.8) L Red Blood Count 3.05 M/UL (4.70-6.10) L Hemoglobin 8.8 G/DL (14.2-18.0) L Hematocrit 28.0 % (42.0-52.0) L Mean Corpuscular Volume 92 FL (80-99) Mean Corpuscular Hemoglobin 29.0 PG (27.0-31.0) Mean Corpuscular Hemoglobin Concent 31.6 G/DL (32.0-36.0) L Red Cell Distribution Width 18.3 % (11.6-14.8) H Platelet Count 122 K/UL (150-450) L Mean Platelet Volume 8.2 FL (6.5-10.1) Neutrophils (%) (Auto) 72.2 % (45.0-75.0) Lymphocytes (%) (Auto) 13.0 % (20.0-45.0) L Monocytes (%) (Auto) 12.6 % (1.0-10.0) H Eosinophils (%) (Auto) 1.3 % (0.0-3.0) Basophils (%) (Auto) 0.9 % (0.0-2.0) Sodium Level 139 MMOL/L (136-145) Potassium Level 4.7 MMOL/L (3.5-5.1) Chloride Level 100 MMOL/L (98-107) Carbon Dioxide Level 27 MMOL/L (21-32) Anion Gap 12 mmol/L (5-15) Blood Urea Nitrogen 83 mg/dL (7-18) H Creatinine 8.4 MG/DL (0.55-1.30) H Estimat Glomerular Filtration Rate 6.7 mL/min (>60) Glucose Level 139 MG/DL (74-106) H Uric Acid 6.1 MG/DL (2.6-7.2) Calcium Level 7.9 MG/DL (8.5-10.1) L Phosphorus Level 6.5 MG/DL (2.5-4.9) H Total Bilirubin 2.9 MG/DL (0.2-1.0) H Direct Bilirubin 2.4 MG/DL (0.0-0.3) H Aspartate Amino Transf (AST/SGOT) 48 U/L (15-37) H Alanine Aminotransferase (ALT/SGPT) 43 U/L (12-78) Alkaline Phosphatase 386 U/L (46-116) H Total Protein 6.9 G/DL (6.4-8.2) Albumin 2.7 G/DL (3.4-5.0) L Current Medications Medications (Trade) Dose Ordered Sig/Félix Route PRN Reason Start Time Stop Time Status Last Admin Dose Admin Acetaminophen (Tylenol) 650 mg Q4H PRN ORAL Mild Pain/Temp > 100.5 12/14/18 15:45 01/13/19 15:44 12/29/18 17:20 Allopurinol (Zyloprim) 100 mg DAILY ORAL 12/15/18 09:00 01/14/19 08:59 01/05/19 08:05 Aspirin (ASA) 162 mg DAILY ORAL 12/14/18 15:45 01/13/19 15:44 01/02/19 08:48 Calcitriol (Rocatrol) 0.25 mcg DAILY ORAL 12/19/18 09:00 01/14/19 08:59 01/05/19 08:04 Carvedilol (Coreg) 12.5 mg EVERY 12 HOURS ORAL 12/19/18 21:00 01/13/19 20:59 01/04/19 21:19 Ciprofloxacin (Cipro 500mg tab) 500 mg DAILY ORAL 01/01/19 09:00 01/08/19 08:59 01/05/19 08:05 Dextrose (Dextrose 50%) 25 ml Q30M PRN IV Hypoglycemia 12/21/18 18:15 01/20/19 18:14 Dextrose (Dextrose 50%) 50 ml Q30M PRN IV Hypoglycemia 12/21/18 18:15 01/20/19 18:14 Docusate Sodium (Colace) 100 mg TID ORAL 12/17/18 13:00 01/13/19 17:59 01/04/19 17:38 Epoetin Jordon (Epoetin Jordon(ESRD on dialysis)) 10,000 unit THU-THU-THU SUBQ 12/22/18 21:00 01/21/19 20:59 01/03/19 21:09 Heparin Sodium (Porcine) (Heparin 5000 units/ml) 5,000 units EVERY 12 HOURS SUBQ 12/15/18 21:00 01/13/19 20:59 12/30/18 08:51 Hydralazine HCl (Apresoline) 25 mg Q8HR ORAL 12/22/18 22:00 01/17/19 00:00 01/04/19 23:26 Hydroxyzine HCl (Atarax) 25 mg Q6H PRN ORAL Itching 12/28/18 10:15 01/27/19 10:14 01/03/19 11:47 Insulin Aspart (NovoLOG) BEFORE MEALS AND HS SUBQ 12/21/18 21:00 01/20/19 20:59 01/04/19 21:14 Isosorbide Mononitrate (Imdur) 30 mg DAILY ORAL 12/14/18 20:45 01/13/19 20:44 01/04/19 09:15 Ondansetron HCl (Zofran) 4 mg Q6H PRN IVP Nausea & Vomiting 12/20/18 13:30 01/19/19 13:29 12/25/18 10:32 Polyethylene Glycol (Miralax) 17 gm BEDTIME ORAL 12/31/18 21:00 01/30/19 20:59 01/04/19 21:20 Sennosides (Senokot) 8.6 mg DAILYPRN PRN ORAL Constipation 12/31/18 13:45 01/30/19 13:44 01/02/19 18:35 Sevelamer Carbonate (Renvela) 800 mg THREE TIMES A DAY ORAL 12/20/18 13:00 01/18/19 08:59 01/05/19 08:05 Tamsulosin HCl (Flomax) 0.4 mg BEDTIME ORAL 12/16/18 21:00 01/15/19 20:59 01/04/19 21:19 Omi Brown MD January 05, 2019 10:39
--- NOTE | 2019-01-05 11:14 | Nephrology Progress Note ---
Assessment/Plan Problem List: (1) ESRD (end stage renal disease) (2) ARF (acute renal failure) (3) CHF (congestive heart failure) (4) Anemia in chronic kidney disease (CKD) (5) Nephrotic syndrome (6) UTI (urinary tract infection) Assessment Advanced Renal failure with Proteinuria CKD known to the patient h/o HTN h/o Cardiac disease s/p stent ? DM high A1c Plan Uro to DC Urethral stent ? OP after and pre load reduction management discussed the need for Dialysis - catheter 12/17- dialysis 3 times a week , due 01/05 1000 cc fluid restriction Renal diet- Phos binders BP check kidney RUSSEL noted 24 h urine results noted per orders Echo Global left ventricular hypokinesis with falttenign of cody VS suggestive of RV pressuere overload Mild left ventricular enlargement . Left ventricular ejection fraction estimated to be 25-30%. RUSSEL * Portions of the right ureteral stent are partially visualized. Punctate echogenic focus also noted in the lower pole of the right kidney which may represent nonobstructing stone. * No evidence of hydronephrosis bilaterally. * Renal echogenicity appears within normal limits. * Bladder wall thickening is noted within question for cystitis, although findings may possibly related to underdistention. Correlation with urinalysis recommended. Uro consult from Dr Weiss: He also has a history of kidney stones and one month ago had a right ureteral stent placed at [facility] [place] for the same by Dr. Florez. The patient was then referred to see Dr. Dolan as a urologist and has plan regarding the same and has established care with him. Diagnostic imaging reveals a stent in place. I discussed these findings today with the patient at bedside. His nephroureteral stent is in good position and there is no hydronephrosis or obstructing stone etc. The patient is in the hospital for unrelated issues including congestive heart failure exacerbation and acute on chronic renal insufficiency which does not appear to be secondary to obstructive uropathy. His stent should remain in place and once he is feeling better, he can be discharged and follow up with Dr. Dolan in the office regarding removal of the stent and treatment of the stones. Subjective ROS Limited/Unobtainable: No Constitutional: Reports: malaise Objective Objective Last 24 Hour Vital Signs Date Time Temp Pulse Resp B/P (MAP) Pulse Ox O2 Delivery O2 Flow Rate FiO2 01/05/19 09:01 Room Air 01/05/19 07:50 98.7 75 16 140/72 (94) 96 01/05/19 05:47 121/66 01/05/19 04:00 98.7 75 16 129/67 (87) 96 01/05/19 00:00 99.0 71 19 119/62 (81) 97 01/04/19 23:26 130/65 01/04/19 21:19 58 124/76 01/04/19 21:00 Room Air 01/04/19 20:00 99.4 79 18 128/64 (85) 97 01/04/19 16:00 97.6 60 18 123/70 (87) 97 01/04/19 13:20 140/80 01/04/19 12:00 97.6 67 18 124/73 (90) 97 Intake and Output 01/04/19 01/05/19 18:59 06:59 Intake Total 300 ml 240 ml Output Total 600 ml 400 ml Balance -300 ml -160 ml Intake Oral 300 ml 240 ml Output Urine Total 600 ml 400 ml Current Medications Medications (Trade) Dose Ordered Sig/Félix Route PRN Reason Start Time Stop Time Status Last Admin Dose Admin Acetaminophen (Tylenol) 650 mg Q4H PRN ORAL Mild Pain/Temp > 100.5 12/14/18 15:45 01/13/19 15:44 12/29/18 17:20 Allopurinol (Zyloprim) 100 mg DAILY ORAL 12/15/18 09:00 01/14/19 08:59 01/05/19 08:05 Aspirin (ASA) 162 mg DAILY ORAL 12/14/18 15:45 01/13/19 15:44 01/02/19 08:48 Calcitriol (Rocatrol) 0.25 mcg DAILY ORAL 12/19/18 09:00 01/14/19 08:59 01/05/19 08:04 Carvedilol (Coreg) 12.5 mg EVERY 12 HOURS ORAL 12/19/18 21:00 01/13/19 20:59 01/04/19 21:19 Ciprofloxacin (Cipro 500mg tab) 500 mg DAILY ORAL 01/01/19 09:00 01/08/19 08:59 01/05/19 08:05 Dextrose (Dextrose 50%) 25 ml Q30M PRN IV Hypoglycemia 12/21/18 18:15 01/20/19 18:14 Dextrose (Dextrose 50%) 50 ml Q30M PRN IV Hypoglycemia 12/21/18 18:15 01/20/19 18:14 Docusate Sodium (Colace) 100 mg TID ORAL 12/17/18 13:00 01/13/19 17:59 01/04/19 17:38 Epoetin Jordon (Epoetin Jordon(ESRD on dialysis)) 10,000 unit THU-THU-THU SUBQ 12/22/18 21:00 01/21/19 20:59 01/03/19 21:09 Heparin Sodium (Porcine) (Heparin 5000 units/ml) 5,000 units EVERY 12 HOURS SUBQ 12/15/18 21:00 01/13/19 20:59 12/30/18 08:51 Hydralazine HCl (Apresoline) 25 mg Q8HR ORAL 12/22/18 22:00 01/17/19 00:00 01/04/19 23:26 Hydroxyzine HCl (Atarax) 25 mg Q6H PRN ORAL Itching 12/28/18 10:15 01/27/19 10:14 01/03/19 11:47 Insulin Aspart (NovoLOG) BEFORE MEALS AND HS SUBQ 12/21/18 21:00 01/20/19 20:59 01/04/19 21:14 Isosorbide Mononitrate (Imdur) 30 mg DAILY ORAL 12/14/18 20:45 01/13/19 20:44 01/04/19 09:15 Ondansetron HCl (Zofran) 4 mg Q6H PRN IVP Nausea & Vomiting 12/20/18 13:30 01/19/19 13:29 12/25/18 10:32 Polyethylene Glycol (Miralax) 17 gm BEDTIME ORAL 12/31/18 21:00 01/30/19 20:59 01/04/19 21:20 Sennosides (Senokot) 8.6 mg DAILYPRN PRN ORAL Constipation 12/31/18 13:45 01/30/19 13:44 01/02/19 18:35 Sevelamer Carbonate (Renvela) 800 mg THREE TIMES A DAY ORAL 12/20/18 13:00 01/18/19 08:59 01/05/19 08:05 Tamsulosin HCl (Flomax) 0.4 mg BEDTIME ORAL 12/16/18 21:00 01/15/19 20:59 01/04/19 21:19 Laboratory Tests 01/05/19 05:15: White Blood Count 4.3L, Red Blood Count 3.05L, Hemoglobin 8.8L, Hematocrit 28.0L , Mean Corpuscular Volume 92, Mean Corpuscular Hemoglobin 29.0, Mean Corpuscular Hemoglobin Concent 31.6L, Red Cell Distribution Width 18.3H, Platelet Count 122L, Mean Platelet Volume 8.2, Neutrophils (%) (Auto) 72.2, Lymphocytes (%) (Auto) 13.0L, Monocytes (%) (Auto) 12.6H, Eosinophils (%) (Auto ) 1.3, Basophils (%) (Auto) 0.9, Sodium Level 139, Potassium Level 4.7, Chloride Level 100, Carbon Dioxide Level 27, Anion Gap 12, Blood Urea Nitrogen 83H, Creatinine 8.4H, Estimat Glomerular Filtration Rate 6.7, Glucose Level 139H , Uric Acid 6.1, Calcium Level 7.9L, Phosphorus Level 6.5H, Total Bilirubin 2.9H , Direct Bilirubin 2.4H, Aspartate Amino Transf (AST/SGOT) 48H, Alanine Aminotransferase (ALT/SGPT) 43, Alkaline Phosphatase 386H, Total Protein 6.9, Albumin 2.7L Height (Feet): 5 Height (Inches): 6.00 Weight (Pounds): 138 General Appearance: no apparent distress Cardiovascular: normal rate Respiratory/Chest: lungs clear Abdomen: soft Objective no change Micah Pitt MD January 05, 2019 11:14
--- NOTE | 2019-01-05 11:39 | GI Progress Note ---
Assessment/Plan Problems: (1) DM (diabetes mellitus) ICD Codes: E11.9 - Type 2 diabetes mellitus without complications SNOMED: 42725207 (2) ESRD (end stage renal disease) ICD Codes: N18.6 - End stage renal disease SNOMED: 04250135 (3) Anemia in chronic kidney disease (CKD) ICD Codes: N18.9 - Chronic kidney disease, unspecified; D63.1 - Anemia in chronic kidney disease SNOMED: 266902664 (4) Gallstones ICD Codes: K80.20 - Calculus of gallbladder without cholecystitis without obstruction SNOMED: 829847207 (5) possible cirrhosis Status: stable, unchanged Status Narrative Discussed with Dr. Hirsch. Assessment/Plan Abdominal ultrasound reviewed, presence of portal hypertension. patient refused EGD, can be done as outpatient to evaluate EV bowel regimen renal diet off Protonix fu labs DC planning The patient was seen and examined at bedside and all new and available data was reviewed in the patients chart. I agree with the above findings, impression and plan. (Patient seen earlier today. Signature stamp does not reflect patient encounter time.). - Jonathan Hirsch MD Subjective Gastrointestinal/Abdominal: Reports: no symptoms Objective Last 24 Hour Vital Signs Date Time Temp Pulse Resp B/P (MAP) Pulse Ox O2 Delivery O2 Flow Rate FiO2 01/05/19 09:01 Room Air 01/05/19 07:50 98.7 75 16 140/72 (94) 96 01/05/19 05:47 121/66 01/05/19 04:00 98.7 75 16 129/67 (87) 96 01/05/19 00:00 99.0 71 19 119/62 (81) 97 01/04/19 23:26 130/65 01/04/19 21:19 58 124/76 01/04/19 21:00 Room Air 01/04/19 20:00 99.4 79 18 128/64 (85) 97 01/04/19 16:00 97.6 60 18 123/70 (87) 97 01/04/19 13:20 140/80 01/04/19 12:00 97.6 67 18 124/73 (90) 97 Intake and Output 01/04/19 01/05/19 18:59 06:59 Intake Total 300 ml 240 ml Output Total 600 ml 400 ml Balance -300 ml -160 ml Intake Oral 300 ml 240 ml Output Urine Total 600 ml 400 ml Laboratory Tests Test 01/05/19 05:15 White Blood Count 4.3 K/UL (4.8-10.8) L Red Blood Count 3.05 M/UL (4.70-6.10) L Hemoglobin 8.8 G/DL (14.2-18.0) L Hematocrit 28.0 % (42.0-52.0) L Mean Corpuscular Volume 92 FL (80-99) Mean Corpuscular Hemoglobin 29.0 PG (27.0-31.0) Mean Corpuscular Hemoglobin Concent 31.6 G/DL (32.0-36.0) L Red Cell Distribution Width 18.3 % (11.6-14.8) H Platelet Count 122 K/UL (150-450) L Mean Platelet Volume 8.2 FL (6.5-10.1) Neutrophils (%) (Auto) 72.2 % (45.0-75.0) Lymphocytes (%) (Auto) 13.0 % (20.0-45.0) L Monocytes (%) (Auto) 12.6 % (1.0-10.0) H Eosinophils (%) (Auto) 1.3 % (0.0-3.0) Basophils (%) (Auto) 0.9 % (0.0-2.0) Sodium Level 139 MMOL/L (136-145) Potassium Level 4.7 MMOL/L (3.5-5.1) Chloride Level 100 MMOL/L (98-107) Carbon Dioxide Level 27 MMOL/L (21-32) Anion Gap 12 mmol/L (5-15) Blood Urea Nitrogen 83 mg/dL (7-18) H Creatinine 8.4 MG/DL (0.55-1.30) H Estimat Glomerular Filtration Rate 6.7 mL/min (>60) Glucose Level 139 MG/DL (74-106) H Uric Acid 6.1 MG/DL (2.6-7.2) Calcium Level 7.9 MG/DL (8.5-10.1) L Phosphorus Level 6.5 MG/DL (2.5-4.9) H Total Bilirubin 2.9 MG/DL (0.2-1.0) H Direct Bilirubin 2.4 MG/DL (0.0-0.3) H Aspartate Amino Transf (AST/SGOT) 48 U/L (15-37) H Alanine Aminotransferase (ALT/SGPT) 43 U/L (12-78) Alkaline Phosphatase 386 U/L (46-116) H Total Protein 6.9 G/DL (6.4-8.2) Albumin 2.7 G/DL (3.4-5.0) L Height (Feet): 5 Height (Inches): 6.00 Weight (Pounds): 138 General Appearance: WD/WN, no apparent distress, alert Cardiovascular: normal rate Respiratory/Chest: normal breath sounds, no respiratory distress Abdominal Exam: normal bowel sounds, non tender, soft Extremities: normal range of motion, non-tender Selene Steiner NP January 05, 2019 11:39
[2019-01-05 12:00] VITALS: BP 130/72
--- NOTE | 2019-01-05 13:12 | NUR ---
CHARGE NURSE NOTES: Talked to JESSICA Smith. Pt is ready to be discharged after the HD today and is aware of the set up outpatient HD with [facility] at [facility] (formerly [facility] Pt is inquiring reg the transportation. Per Sarah, She will verify the information reg the transportation and call us back.
[2019-01-05 13:30] VITALS: BP 138/77
--- NOTE | 2019-01-05 14:45 | General Progress Note ---
Assessment/Plan Status: stable, unchanged Assessment/Plan: Assessment/Plan # Pancytopenia -- multiple etiologies could be related to underlying liver disease, medication-induced, infection versus viral syndrome -> hx SPLENOMEGALY AND CIRRHOSIS (irregular liver sufrace can explain pancytopenia), Prominent soft tissue opacities in the splenic hilum and lesser sac, could indicate varices, all of the lesser sac findings could represent prominent nodes. Consider gi evaluation and treatment --> peripheral smear has been ordered and does not show significant abnormalities does not appear to have significant abnormalities --> Medications have been reviewed, less likely culprits --> Continue to monitor for improvement, trend cbc --> Hep panel and HIV are both negative --> consider other causes, infections that could contribute --> reverse isolation if ANC is <2000 --> Give neupogen if ANC <1000 --> Transfuse if hgb <7, with 1 unit prbc --> WBC trend 4.2-->3.6-->3.6-->3.8-->4.4-->3.9-->4-->4.1 ==> Plt trend 122k-->84k-->69k-->74k-->81k-->93k-->8.7 # Anemia of iron deficiency given will need hd/esrd --> iron has been started x 5 doses iv --> ferritin level 218-->451 # Coagulation defect, multifactorial usually related to poor PO intake versus medications, versus hepatitis v cirrhosis --> administer Vitamin K if patient is bleeding or FFP if the INR is >10 --> hold off on ffp unless active procedure/bleeding, first begin with vit K 10 --> mixing study prn basis # Advanced Renal failure with Proteinuria --> as per renal eval and recs --> stent removal as op --> HD as per renal followup # h/o HTN --> sbp goal <140 # h/o Cardiac disease s/p stent # ? DM The timing of this note does not necessarily reflect the time of the patient was seen. Greatly appreciate consultation! Subjective Constitutional: Denies: no symptoms, chills, diaphoresis, fever, malaise, weakness, other HEENT: Denies: no symptoms, eye pain, blurred vision, tearing, double vision, ear pain, ear discharge, nose pain, nose congestion, throat pain, throat swelling, mouth pain, mouth swelling, other Respiratory: Denies: no symptoms, cough, orthopnea, shortness of breath, SOB with excertion, SOB at rest, sputum, stridor, wheezing, other Gastrointestinal/Abdominal: Denies: no symptoms, abdomen distended, abdominal pain, black stools, tarry stools, blood in stool, constipated, diarrhea, difficulty swallowing, nausea, poor appetite, poor fluid intake, rectal bleeding , vomiting, other Genitourinary: Denies: no symptoms, burning, discharge, frequency, flank pain, hematuria, incontinence, pain, urgency, other Neurologic/Psychiatric: Denies: no symptoms, anxiety, depressed, emotional problems, headache, numbness, paresthesia, pre-existing deficit, seizure, tingling, tremors, weakness, other Endocrine: Denies: no symptoms, excessive sweating, flushing, intolerance to cold, intolerance to heat, increased hunger, increased thirst, increased urine, unexplained weight gain, unexplained weight loss, other Allergies: Coded Allergies: No Known Allergies (Unverified , 12/14/18) Subjective 12/15: labs have been reviewed, relatively stable cbc but mildly lower with elev inr, not bleeding 12/16: discussed need for HD with renal, family, by the bedside understands as well as patient 12/17: labs have been reviewed and noted, by bedside, relatively stable 12/23: no evidence of fevers or chills, off abx, seen bty renal, due for hd 426: shaving this am, no complaints, no fc, cbc reviewed 12/26: overall has been doing better, no complaints this am 12/27: no events to report, scheduled for potential hd today 12/28: no events noted, seen by renal, awaiting clearance for dc 12/29: no bleeding reported, hd today, bp is stable as is cbc 12/30: no chills noted, getting hd prn, anemia panel has been reviewed 01/02: no events noted, to get hd tomorrow, no pain noted around perm site 01/03: no events to get hd 3x a week, seen by renal 01/04: no events, eating comfortably in room this am 01/05: no bleeding, cbc reviewed, no f/c Objective Last 24 Hour Vital Signs Date Time Temp Pulse Resp B/P (MAP) Pulse Ox O2 Delivery O2 Flow Rate FiO2 01/05/19 13:30 138/77 01/05/19 12:00 98.7 75 16 130/72 (91) 96 01/05/19 09:01 Room Air 01/05/19 07:50 98.7 75 16 140/72 (94) 96 01/05/19 05:47 121/66 01/05/19 04:00 98.7 75 16 129/67 (87) 96 01/05/19 00:00 99.0 71 19 119/62 (81) 97 01/04/19 23:26 130/65 01/04/19 21:19 58 124/76 01/04/19 21:00 Room Air 01/04/19 20:00 99.4 79 18 128/64 (85) 97 01/04/19 16:00 97.6 60 18 123/70 (87) 97 Intake and Output 01/04/19 01/05/19 19:00 07:00 Intake Total 300 ml 240 ml Output Total 600 ml 400 ml Balance -300 ml -160 ml Intake Oral 300 ml 240 ml Output Urine Total 600 ml 400 ml Laboratory Tests 01/05/19 05:15: White Blood Count 4.3L, Red Blood Count 3.05L, Hemoglobin 8.8L, Hematocrit 28.0L , Mean Corpuscular Volume 92, Mean Corpuscular Hemoglobin 29.0, Mean Corpuscular Hemoglobin Concent 31.6L, Red Cell Distribution Width 18.3H, Platelet Count 122L, Mean Platelet Volume 8.2, Neutrophils (%) (Auto) 72.2, Lymphocytes (%) (Auto) 13.0L, Monocytes (%) (Auto) 12.6H, Eosinophils (%) (Auto ) 1.3, Basophils (%) (Auto) 0.9, Sodium Level 139, Potassium Level 4.7, Chloride Level 100, Carbon Dioxide Level 27, Anion Gap 12, Blood Urea Nitrogen 83H, Creatinine 8.4H, Estimat Glomerular Filtration Rate 6.7, Glucose Level 139H , Uric Acid 6.1, Calcium Level 7.9L, Phosphorus Level 6.5H, Total Bilirubin 2.9H , Direct Bilirubin 2.4H, Aspartate Amino Transf (AST/SGOT) 48H, Alanine Aminotransferase (ALT/SGPT) 43, Alkaline Phosphatase 386H, Total Protein 6.9, Albumin 2.7L Height (Feet): 5 Height (Inches): 6.00 Weight (Pounds): 138 Objective PE: Vitals: reviewed General Appearance: NAD, nonverbal HEENT: normocephalic, atraumatic Neck: non-tender, normal alignment Respiratory/Chest: nromal breath sounds bilaterally Cardiovascular/Chest: normal peripheral pulses, normal rate Abdomen: normal bowel sounds, soft, nontender Extremities: normal range of motion . Enrrique Solano MD January 05, 2019 14:45
--- NOTE | 2019-01-05 15:10 | NUR ---
NURSE NOTES: kenan zavala mgr aware that clara director of protective services case worker will follow up and call nsg st re pt request for access transportation to and from outpt hd
--- NOTE | 2019-01-05 16:15 | NUR ---
NURSE NOTES: per pt sister set up transportation for outpt hd, pt left w all belongings , pt left in stable condition, no iv access, permacath on right upper chest is intact clean and dry.
--- NOTE | 2019-01-05 16:17 | NUR ---
NURSE NOTES: dc instructions rendered to pt w verbalized understanding re meds upon dc coreg and lasix. pt provided w dr Pitt office number for follow up.
--- NOTE | 2019-01-06 17:05 | Discharge Summary ---
Discharge Summary Discharge Summary _ DATE OF ADMISSION: 12/14/2018 DATE OF DISCHARGE: 01/05/2019 DISCHARGED BY: Dr. Sarahi Gonzalez CONSULTANTS: Dr. Enrrique Hirsch [facility] COURSE: Patient is a 53-year-old male, with history of right-sided congestive heart failure, and renal failure. The patient and family stated that a month and a half ago, patient underwent a redo ureteral stent placement at [facility]. He had intermittent lower body and lower extremity edema. He was intermittently on diuretics. He had recurrence of edema that included his abdomen, scrotum and legs. He denied cough or shortness of breath. He denied fever or chills. Denied nausea or vomiting. On evaluation at the ED, vital signs were stable. Blood work did not show any leukocytosis. Hemoglobin 10, hematocrit 34. Blood count 134. BUN was 89, creatinine was elevated to 5. Troponin 0 0.034. Urinalysis showed 3+ leukocyte esterase, too many to count RBC, too many to count WBC with 4+ protein , 1+ glucose and 5+ blood. Patient had right-sided heart failure with anasarca. He was admitted for evaluation CHF and renal failure. Patient was placed on renal diet. Avoid nephrotoxic's. Body Designer was consulted. Patient would most likely need hemodialysis. He was placed on fluid restriction. He was given phosphate binders. Urologist was consulted. Patient nephroureteral stent appeared to be in good position as there was no hydronephrosis or obstructing stone. He was advised stent to remain in place until patient was able to be discharged and follow-up with Dr. Dolan for removal. The patient has acute systolic and diastolic congestive heart failure. He appeared to be hypervolemic with elevation of JVP and bilateral lower extremity edema. He was given guideline directed medical therapy with carvedilol as well as combination of hydralazine and indoor. Patient unable to get aldosterone antagonist due to renal failure. He was given preload and afterload reduction management. Echocardiogram showed global left ventricular hypokinesis with flattening of the VS suggestive of RV pressure overload. EF was 25 to 30%. Patient was noted to have pancytopenia. Filling Winder was consulted. On imaging patient has history of splenomegaly and cirrhosis. Peripheral smear did not show any significant abnormalities. Hepatitis and HIV were both negative. He was noted to have anemia of iron deficiency and was given IV iron. ID was consulted. Patient had pyuria however urine culture was negative. He was observed off antibiotic treatment. Urine culture showed growth of diphtheroids, likely contamination. On 12/17/2018, a tunneled disease catheter was inserted by IR. He was eventually started on hemodialysis. He was noted to have bleeding on the catheter site. He had multiples dressings with blood stains. Dr. Oj Mcmillan was consulted. There was no significant hematoma noted. There was no active bleeding. He complained of constipation. GI was consulted. Abdomen was soft, nondistended, nontender. He was given bowel regimen. Abdominal ultrasound showed mild ascites, portal hypertension and splenomegaly. He complained of pain to his legs. Venous duplex of the lower extremity was negative for acute DVT. Repeat urine culture showed growth of ESBL Klebsiella. He was started on p.o. ciprofloxacin. Patient would need to continue outpatient hemodialysis. Patient was approved for hemodialysis at [facility]. Chair time Thursday, and Thursday at 4 AM. FINAL DIAGNOSES: Acute on chronic renal failure requiring initiation of hemodialysis Acute on chronic systolic and diastolic CHF UTI with ESBL Klebsiella Pancytopenia Anemia of iron deficiency Coronary artery disease status post stent Diabetes mellitus Possible cirrhosis Portal hypertension Splenomegaly DISPOSITION: Patient was discharged home. DISCHARGE MEDICATIONS: Refer to Discharge Medication List. DISCHARGE INSTRUCTIONS: Follow-up in a week. I have been assigned to complete a discharge summary on this account, I was not involved with the patient's management. Dominique Peterson NP January 06, 2019 17:05
== END 2019-01-05 16:17 | disposition home or self-care (01) | DRG 194 ==
LOC: EMR 11:00 → 4E 13:20 → EDBEDREQ 13:46
PROC: 5A1D70Z Performance of Urinary Filtration, Intermittent, Less than 6 Hours Per Day (ICD-10-PCS; principal; 2018-12-17)
PROC: 0JH63XZ Insertion of Tunneled Vascular Access Device into Chest Subcutaneous Tissue and Fascia, Percutaneous Approach (ICD-10-PCS; 2018-12-17)
PROC: 05HM33Z Insertion of Infusion Device into Right Internal Jugular Vein, Percutaneous Approach (ICD-10-PCS; 2018-12-17)
DX: I13.2 Hypertensive heart and chronic kidney disease with heart failure and with stage 5 chronic kidney disease, or end stage renal disease (principal); N17.9 Acute kidney failure, unspecified; D61.818 Other pancytopenia; D68.9 Coagulation defect, unspecified; I27.20 Pulmonary hypertension, unspecified; E11.22 Type 2 diabetes mellitus with diabetic chronic kidney disease; K76.6 Portal hypertension; N18.6 End stage renal disease; I50.43 Acute on chronic combined systolic (congestive) and diastolic (congestive) heart failure; N20.0 Calculus of kidney; D63.1 Anemia in chronic kidney disease; E11.9 Type 2 diabetes mellitus without complications; I25.10 Atherosclerotic heart disease of native coronary artery without angina pectoris; N39.0 Urinary tract infection, site not specified; D50.9 Iron deficiency anemia, unspecified; Z95.5 Presence of coronary angioplasty implant and graft; Z79.82 Long term (current) use of aspirin; I25.2 Old myocardial infarction; E78.5 Hyperlipidemia, unspecified; B96.20 Unspecified Escherichia coli [E. coli] as the cause of diseases classified elsewhere; Z16.12 Extended spectrum beta lactamase (ESBL) resistance; N18.9 Chronic kidney disease, unspecified; K74.60 Unspecified cirrhosis of liver; R16.1 Splenomegaly, not elsewhere classified; I42.0 Dilated cardiomyopathy; N12 Tubulo-interstitial nephritis, not specified as acute or chronic; K80.20 Calculus of gallbladder without cholecystitis without obstruction; K59.00 Constipation, unspecified; H53.9 Unspecified visual disturbance
CPT/HCPCS: 36415; 71045; 74176; 76000; 76700; 76770; 80048; 80053; 80061; 80076; 81001; 81003; 81050; 82248; 82550; 82565; 82575; 82607; 82728; 82746; 82962; 82977; 83036; 83540; 83550; 83690; 83735; 83880; 84100; 84156; 84443; 84484; 84550; 85007; 85025; 85610; 85730; 86140; 86703; 86704; 86706; 86707; 86803; 87086; 87181; 87340; 87517; 89050; 93005; 93306; 93970; 96374; 99285; J1815; J2405